=== PATIENT | female | born 1970 | race Caucasian/White ===

== ENCOUNTER 2020-06-28 11:55 | Outpatient (RCR) | payer BC, SELFPAY ==
[2019-05-17 16:54] VITALS: BMI 38.6
== END 2020-07-12 23:59 ==
LOC: EMPH 11:55
PROVIDERS: PCP Family Medicine; Visit Provider Family Medicine Geriatric Medicine
DX: Z11.59 Encounter for screening for other viral diseases (principal)
CPT/HCPCS: 87635; U0003

== ENCOUNTER 2020-08-10 08:48 | Outpatient (RCR) | payer BC, SELFPAY ==
[2019-05-17 16:54] VITALS: BMI 38.6
== END 2020-08-12 23:59 ==
LOC: EMPH 08:48
PROVIDERS: PCP Family Medicine; Visit Provider Family Medicine Geriatric Medicine
DX: Z03.818 Encounter for observation for suspected exposure to other biological agents ruled out (principal)
CPT/HCPCS: 87426

== ENCOUNTER 2020-09-04 09:09 | Outpatient (RCR) | payer BC, SELFPAY ==
[2019-05-17 16:54] VITALS: BMI 38.6
== END 2020-09-11 23:59 ==
LOC: EMPH 09:09
PROVIDERS: PCP Family Medicine; Visit Provider Family Medicine Geriatric Medicine
DX: Z03.818 Encounter for observation for suspected exposure to other biological agents ruled out (principal)
CPT/HCPCS: 87426

== ENCOUNTER 2020-09-28 10:33 | Outpatient (RCR) | payer BC, SELFPAY ==
[2019-05-17 16:54] VITALS: BMI 38.6
[2020-09-28 11:56] LABS: Probe Check PASS; Specimen Processing Control PASS
== END 2020-10-12 23:59 ==
LOC: EMPH 10:33
PROVIDERS: PCP Family Medicine; Referring Provider Family Medicine Geriatric Medicine; Visit Provider Family Medicine Geriatric Medicine
DX: Z03.818 Encounter for observation for suspected exposure to other biological agents ruled out (principal)
CPT/HCPCS: 87426; 87635; U0002

== ENCOUNTER 2021-01-03 09:33 | Outpatient (RCR) | payer BC, SELFPAY ==
[2019-05-17 16:54] VITALS: BMI 38.6
== END 2021-01-10 23:59 ==
LOC: EMPH 09:33
PROVIDERS: PCP Family Medicine; Referring Provider Family Medicine Geriatric Medicine; Visit Provider Family Medicine Geriatric Medicine
DX: Z03.818 Encounter for observation for suspected exposure to other biological agents ruled out (principal)
CPT/HCPCS: 87426

== ENCOUNTER 2021-01-24 11:11 | Outpatient (RCR) | payer BC, SELFPAY ==
[2019-05-17 16:54] VITALS: BMI 38.6
== END 2021-02-09 23:59 ==
LOC: EMPH 11:11
PROVIDERS: PCP Family Medicine; Referring Provider Family Medicine Geriatric Medicine; Visit Provider Family Medicine Geriatric Medicine
DX: Z03.818 Encounter for observation for suspected exposure to other biological agents ruled out (principal)
CPT/HCPCS: 87426

== ENCOUNTER 2021-04-10 11:17 | Outpatient (RCR) | payer BC, SELFPAY ==
[2019-05-17 16:54] VITALS: BMI 38.6
== END 2021-04-11 23:59 ==
LOC: EMPH 11:17
PROVIDERS: PCP Family Medicine; Referring Provider Family Medicine Geriatric Medicine; Visit Provider Family Medicine Geriatric Medicine
DX: Z03.818 Encounter for observation for suspected exposure to other biological agents ruled out (principal)
CPT/HCPCS: 87426

== ENCOUNTER 2021-06-12 12:09 | Outpatient (RCR) | payer BC, SELFPAY ==
[2019-05-17 16:54] VITALS: BMI 38.6
== END 2021-06-12 23:59 ==
LOC: EMPH 12:09
PROVIDERS: PCP Family Medicine; Referring Provider Family Medicine Geriatric Medicine; Visit Provider Family Medicine Geriatric Medicine
DX: Z03.818 Encounter for observation for suspected exposure to other biological agents ruled out (principal)
CPT/HCPCS: 87426

== ENCOUNTER 2021-06-25 09:30 | Outpatient (RCR) | payer BC, SELFPAY ==
[2021-06-13 00:14] VITALS: BMI 38.6
== END 2021-07-12 23:59 ==
LOC: EMPH 09:30
PROVIDERS: PCP Family Medicine; Referring Provider Family Medicine Geriatric Medicine; Visit Provider Family Medicine Geriatric Medicine
DX: Z03.818 Encounter for observation for suspected exposure to other biological agents ruled out (principal)
CPT/HCPCS: 87426

== ENCOUNTER 2021-08-21 08:36 | Outpatient (RCR) | payer BC, SELFPAY ==
[2021-07-13 00:10] VITALS: BMI 38.6
== END 2021-09-11 23:59 ==
LOC: EMPH 08:36
PROVIDERS: PCP Family Medicine; Referring Provider Family Medicine Geriatric Medicine; Visit Provider Family Medicine Geriatric Medicine
DX: Z03.818 Encounter for observation for suspected exposure to other biological agents ruled out (principal)
CPT/HCPCS: 87426

== ENCOUNTER 2021-10-11 10:10 | Outpatient (RCR) | payer BC, SELFPAY ==
[2021-09-12 00:05] VITALS: BMI 38.6
== END 2021-10-12 23:59 ==
LOC: EMPH 10:10
PROVIDERS: PCP Family Medicine; Referring Provider Family Medicine Geriatric Medicine; Visit Provider Family Medicine Geriatric Medicine
DX: Z03.818 Encounter for observation for suspected exposure to other biological agents ruled out (principal)
CPT/HCPCS: 87426; 87635; U0003; U0005

== ENCOUNTER 2021-11-12 09:00 | Outpatient (RCR) | payer BC, SELFPAY ==
[2021-10-13 00:09] VITALS: BMI 38.6
== END 2021-11-12 23:59 ==
LOC: EMPH 09:00
PROVIDERS: PCP Family Medicine; Referring Provider Family Medicine Geriatric Medicine; Visit Provider Family Medicine Geriatric Medicine
DX: Z03.818 Encounter for observation for suspected exposure to other biological agents ruled out (principal)
CPT/HCPCS: 87426

== ENCOUNTER 2021-12-10 09:00 | Outpatient (RCR) | payer BC, SELFPAY ==
[2021-11-13 00:16] VITALS: BMI 38.6
== END 2021-12-10 23:59 ==
LOC: EMPH 09:00
PROVIDERS: PCP Family Medicine; Referring Provider Family Medicine Geriatric Medicine; Visit Provider Family Medicine Geriatric Medicine
DX: Z03.818 Encounter for observation for suspected exposure to other biological agents ruled out (principal)
CPT/HCPCS: 87426

== ENCOUNTER 2024-05-01 17:56 | Emergency (ER) | payer BC, SELFPAY ==
[2024-05-01 17:57] VITALS: BP 181/81; PULSE 106; RESP 18; TEMP 36.6; O2SAT 98; BMI 36.8
--- NOTE | 2024-05-01 18:11 | RAD_ITS ---
INDICATION: pain EXAMINATION/TECHNIQUE: X-RAY - RIGHT XR Knee Complete 4 Views or More 4 VIEWS COMPARISON: No relevant prior comparison study available FINDINGS: SOFT TISSUES: No soft tissue swelling or gas. No radiopaque foreign body. BONES/JOINTS: There is normal alignment, osteophyte formation is present particularly involving the patellofemoral compartment and the medial compartment. There is medial joint space narrowing. No fractures or destructive bony process. There is a trace effusion. RAD/Knee 4 or More Views IMPRESSION: 1. Mild tricompartment degenerative change with osteophyte formation and medial joint space narrowing. 2. No fracture or destructive bony process. 3. Small joint effusion. Electronically Signed: Nima Marie MD at 18:40 EDT ,
--- NOTE | 2024-05-01 18:11 | RAD_ITS ---
INDICATION: pain EXAMINATION/TECHNIQUE: X-RAY - RIGHT XR Ankle Min 3 Views 3 VIEWS COMPARISON: No relevant prior comparison study available FINDINGS: SOFT TISSUES: There is lateral soft tissue swelling. No soft tissue gas. No radiopaque foreign body. BONES/JOINTS: There is a subtle oblique fracture of the distal fibula/lateral malleolus without displacement or angulation. Remaining bony elements and joint spaces have normal appearance of. There is moderate osteophyte formation. Plantar spur is present. RAD/Ankle min 3 Views IMPRESSION: 1. Lateral soft tissue swelling, no soft tissue gas or radiopaque foreign body. 2. Subtle oblique nondisplaced distal fibular/lateral malleolar fracture. 3. No other fractures or acute bony or joint space abnormality. Electronically Signed: Nima Marie MD at 18:42 EDT ,
--- NOTE | 2024-05-01 18:11 | ED.VIS.FALL ---
HPI <ROSCOE Caba - Last Filed: 05/01/24 19:21> HPI - Fall History of Present Illness Chief Complaint: Fall Narrative Narrative: Patient [place] and fell onto her right knee and then twisted her right ankle. No head injury. She was initially able to walk back to her camper but then due to increased pain and swelling was requiring assistance. She cleansed the knee and placed a bandage. She states she is due to have her right knee replaced by Dr. Lay in August due to arthritis. Her tetanus is up-to-date. PFSH <ROSCOE Caba - Last Filed: 05/01/24 19:21> [facility] Medical History (Updated 05/01/24 @ 18:34 by ROSCOE Caba) Knee pain Type 2 diabetes mellitus Home Medications ?Medication ?Instructions ?Recorded ?Last Taken ?Type glucosamine-chondroitin 250 mg-200 2 tab PO QPC 05/17/19 Unknown History mg tablet (Osteo Bi-Flex) hydrocodone-acetaminophen 5-325mg 1 tab PO Q6H PRN pain 3 days #12 05/01/24 Unknown Rx 5mg-325mg tabs Allergy/AdvReac Type Severity Reaction Status Date / Time No Known Allergies Allergy Verified 05/01/24 17:57 Surgical History H/O: hysterectomy Social History (Updated 05/17/19 @ 16:54 by ROSCOE Khoury) Smoking Status: Former smoker ROS <ROSCOE Caba - Last Filed: 05/01/24 19:21> ROS ED ROS Narrative Neuro: Negative for motor/sensory dysfunction. Skin: Positive for abrasions Musc: Positive for right knee and ankle pain, swelling, trauma. EXAM <ROSCOE Caba - Last Filed: 05/01/24 19:21> Physical Exam Narrative Exam Narrative: CONST: Patient sitting in no acute distress. EYES: Normal inspection. HEAD: Normocephalic atraumatic. NECK: Normal inspection. RESP: No respiratory distress, CTAB. CVS: Regular rate and rhythm, no murmur, no gallop. SKIN: 1 cm abrasion left dorsal elbow. 2 cm abrasion right patella. EXTREMITIES: Normal appearance of upper extremities, full ROM, no bony tenderness, 2+ radial pulses. Pelvis stable, lower extremities appear symmetric with no shortening or rotation. Mild tenderness right knee, negative anterior/posterior drawer and varus valgus stress, normal extension. No significant effusion. Right ankle swelling and lateral malleolar tenderness without deformity or crepitus, no tenderness over the foot or base of the fifth metatarsal. 2+ DP pulse. Achilles intact. NEURO: Alert and answering questions appropriately. PSYCH: Normal affect. Const Vital Signs: 05/01/24 17:57 05/01/24 18:28 05/01/24 19:28 Temperature 97.8 F 98.1 F Temperature Source Temporal Pulse Rate 106 H 95 Respiratory Rate 18 16 Respiratory Effort Normal Non-Labored Respiratory Depth Normal Respiratory Pattern Normal Blood Pressure 181/81 H 162/71 H Blood Pressure Mean 114 101 Pulse Ox 98 95 Oxygen Delivery Method Room Air Room Air <Blas Tristan MD - Last Filed: 05/01/24 20:16> Physical Exam Const Vital Signs: 05/01/24 17:57 05/01/24 18:28 05/01/24 19:28 Temperature 97.8 F 98.1 F Temperature Source Temporal Pulse Rate 106 H 95 Respiratory Rate 18 16 Respiratory Effort Normal Non-Labored Respiratory Depth Normal Respiratory Pattern Normal Blood Pressure 181/81 H 162/71 H Blood Pressure Mean 114 101 Pulse Ox 98 95 Oxygen Delivery Method Room Air Room Air [facility] <ROSCOE Caba - Last Filed: 05/01/24 19:21> [facility] Narrative Medical decision making narrative: History gathered from: Patient and spouse Differential: Extremity contusions versus fracture Patient had mechanical fall on gravel injuring her right lower extremity. She has a minor abrasion of the left elbow but no bony tenderness of the arm so I did not feel an x-ray was indicated. She has a right knee abrasion and right lateral ankle swelling and tenderness. Initially she was able to ambulate but is having more pain. Extremities are neurovascular intact. Right knee x-ray is negative; right ankle x-ray shows a nondisplaced distal fibula fracture. She was given crutches, walking boot, and advised to be nonweightbearing and will follow-up with her orthopedist Dr. Lay. I prescribed [place] for pain. She was discharged in stable condition. Radiography Diagnostic Testing: Clinical Impression(s) from Imaging Studies Ankle X-Ray 05/01/24 18:11 IMPRESSION: 1. Lateral soft tissue swelling, no soft tissue gas or radiopaque foreign body. 2. Subtle oblique nondisplaced distal fibular/lateral malleolar fracture. 3. No other fractures or acute bony or joint space abnormality. Electronically Signed: Nima Marie MD at 18:42 EDT , Knee X-Ray 05/01/24 18:11 IMPRESSION: 1. Mild tricompartment degenerative change with osteophyte formation and medial joint space narrowing. 2. No fracture or destructive bony process. 3. Small joint effusion. Electronically Signed: Nima Marie MD at 18:40 EDT , ED attending interpretation of right knee she has no acute fracture or dislocation. ED attending interpretation of right ankle shows nondisplaced distal fibula fracture. <Blas Tristan MD - Last Filed: 05/01/24 20:16> MDM MDM Narrative Medical decision making narrative: History gathered from: Patient and spouse Differential: Extremity contusions versus fracture Patient had mechanical fall on gravel injuring her right lower extremity. She has a minor abrasion of the left elbow but no bony tenderness of the arm so I did not feel an x-ray was indicated. She has a right knee abrasion and right lateral ankle swelling and tenderness. Initially she was able to ambulate but is having more pain. Extremities are neurovascular intact. Right knee x-ray is negative; right ankle x-ray shows a nondisplaced distal fibula fracture. She was given crutches, walking boot, and advised to be nonweightbearing and will follow-up with her orthopedist Dr. Lay. I prescribed [place] for pain. She was discharged in stable condition. Dr. Tristan: I have personally performed a face to face assessment of the patient and have reviewed the NURIA Note. I performed a substantive portion of the visit including all aspects of the following. My tineo findings include: History is mechanical fall on gravel, fell forward onto knee and right ankle twisted. Exam is GCS 15. ABCs intact. Positive abrasion right knee. Flexion extension mechanism intact. Positive swelling with tenderness to palpation right lateral malleolus. Palpable dorsalis pedis pulse. Medical Decision Making: Check x-rays of right knee and right ankle. X-rays of the right knee interpreted by myself independently shows small effusion and arthritic changes. I reviewed the radiology report which confirms my independent interpretation. Additionally, I individually interpreted the right ankle x-rays which shows a nondisplaced Henderson B fracture of the distal fibula. I reviewed the radiology report for this as well which confirms my independent interpretation. Patient is supposed to have right TKA performed by Dr. Lay in August. I feel she can follow-up with orthopedics. She was given crutches and placed in a right boot orthotic and told to be nonweightbearing. She will follow-up with orthopedics within the next week. Disposition is discharged home in stable condition. Other additions or changes: [None] History & Record Review Discussion w/independent historian: Patient Radiography X-Ray: Read by ED Physician and Read by Radiologist Diagnostic Testing: Clinical Impression(s) from Imaging Studies Ankle X-Ray 05/01/24 18:11 IMPRESSION: 1. Lateral soft tissue swelling, no soft tissue gas or radiopaque foreign body. 2. Subtle oblique nondisplaced distal fibular/lateral malleolar fracture. 3. No other fractures or acute bony or joint space abnormality. Electronically Signed: Nima Marie MD at 18:42 EDT , Knee X-Ray 05/01/24 18:11 IMPRESSION: 1. Mild tricompartment degenerative change with osteophyte formation and medial joint space narrowing. 2. No fracture or destructive bony process. 3. Small joint effusion. Electronically Signed: Nima Marie MD at 18:40 EDT , Discharge Plan Triage Chief Complaint: Fall ED Midlevel Provider: Mary Walker ED Provider: Blas Tristan Dx/Rx/DC Orders Clinical Impression: Fall, Abrasion of knee, right, Closed fracture of distal end of right fibula Instructions: ED Ankle Fracture Prescriptions: New hydrocodone-acetaminophen 5-325 mg tablet 1 tab PO Q6H PRN (Reason: pain) 3 Days Qty: 12 0RF No Action glucosamine-chondroitin [Osteo Bi-Flex] 250-200 mg tablet 2 tab PO QPC Primary Care Provider: Escobar Lay Referrals: Escobar Lay MD [Primary Care Provider] - Activity Restrictions/Additional Instructions: Use the crutches and boot and do not put weight on your right leg. Call your orthopedist for a follow-up appointment. Print Language: Swedish Disposition Disposition: Home, Self Care Discharge Date/Time: 05/01/24 19:34
[2024-05-01 19:28] VITALS: BP 162/71; PULSE 95; RESP 16; TEMP 36.7; O2SAT 95
== END 2024-05-01 19:34 | disposition home or self-care (01) ==
LOC: ED 18:43
PROVIDERS: Emergency Provider Emergency Medicine; PCP Family Medicine; Visit Provider Emergency Medicine
DX: S82.831A Other fracture of upper and lower end of right fibula, initial encounter for closed fracture (principal); E11.9 Type 2 diabetes mellitus without complications; Z87.891 Personal history of nicotine dependence; S80.211A Abrasion, right knee, initial encounter; W18.39XA Other fall on same level, initial encounter; Y92.833 Campsite as the place of occurrence of the external cause; Z90.710 Acquired absence of both cervix and uterus
CPT/HCPCS: 73564; 73610; 99284

== ENCOUNTER → 2024-08-16 | Outpatient (CLI) | payer BC, SELFPAY ==
--- NOTE | 2024-08-16 06:51 | CT_ITS ---
STUDY: CT RIGHTLOWER EXTREMITY WITHOUT CONTRAST REASON FOR EXAM: Female, 54 years old. PREOP KAPIL KNEE PAIN IN RIGHT KNEE RADIATION DOSAGE (If Supplied By Facility): CTDIvol = ( 20.06 ) mGy, DLP = ( 1189.97 ) mGycm TECHNIQUE: Thin section transaxial imaging of the ankle was obtained, with sagittal and coronal reconstructed images. Individualized dose optimization techniques were used for this CT. COMPARISON: Right knee x-ray dated May 01, 2024 Hip findings: Normal femoral head, neck, intertrochanteric region and visualized proximal femur. Normal acetabulum. Normal hip joint. Mild right hip joint space narrowing. Normal acetabulum. Normal femoral head. Normal femoral neck and intratrochanteric region. No fracture or avascular necrosis is present. No lytic or blastic lesions are present. Normal superior and inferior pubic rami. Normal pubic symphysis. Normal ischial tuberosity. Normal origin of the hamstring tendons. Normal visualized iliac wing, sacroiliac joint, and sacral ala. Unremarkable soft tissues. Postsurgical scarring and fat-containing hernia with mesh material seen in the lower anterior abdominal wall eccentric to the right. Rectosigmoid diverticulosis is present. No lymphadenopathy is seen in the visualized intrapelvic region. Knee findings: Moderate to severe central and peripheral narrowing of medial compartment with mild subchondral sclerosis and peripheral osteophyte formation. Mild osteophyte formation in the medial aspect of the femoral condyle. Mild joint space narrowing and peripheral cortical osteophyte formation of the lateral compartment. Moderate narrowing of the patellofemoral compartment with secondary osteophyte formation. Small joint effusion is present. Normal proximal tibiofibular articulation. No visualized fracture or osteochondral defect or avascular necrosis. The quadriceps tendon is grossly normal. The patellar tendon is grossly normal. Normal Hoffa''s fat pad. The soft tissues are unremarkable. Ankle findings: * There is a 80% healed oblique fracture deformity of the distal one third fibula terminating at the fibular lateral malleolus junction. * An old corner fracture of the far posterior aspect of the medial malleolus with a small displaced fragment is also present. * The tibiotalar joint space is mildly narrowed * An old avulsive injury is present on the lateral side of the talus with callus formation/enthesopathy * There is mild subcutaneous edema around the ankle and included portions of the foot. * A moderate sized plantar calcaneal spur is present No visualized osteochondral defect or avascular necrosis of the tibiotalar articulation. Normal talus, calcaneal body: navicular and cuboid tarsal bones. Normal subtalar, talonavicular and calcaneocuboid articulations. Cortical spurring is seen over the dorsum of the tarsal bones in the mid foot. Normal tarsometatarsal articulations and visualized metatarsi. The soft tissue structures are grossly normal. CT/Extremity Lower without Contra IMPRESSION: 1. Knee: Moderate to severe central and peripheral narrowing of medial compartment with mild subchondral sclerosis and peripheral osteophyte formation. Mild osteophyte formation in the medial aspect of the femoral condyle. 2. Ankle: There is a 80% healed oblique fracture deformity of the distal one third fibula terminating at the fibular lateral malleolus junction. 3. An old corner fracture of the far posterior aspect of the medial malleolus with a small displaced fragment is also present. Electronically Signed: Sukhdev Escalera MD at 8:56 EST ,
== END | disposition home or self-care (01) ==
PROVIDERS: PCP Nurse Practitioner Family; Referring Provider Specialist; Visit Provider Specialist
DX: M25.561 Pain in right knee (principal); M21.161 Varus deformity, not elsewhere classified, right knee; M17.0 Bilateral primary osteoarthritis of knee
CPT/HCPCS: 73700

== ENCOUNTER 2024-09-06 06:56 | Observation (INO) | payer BC, SELFPAY ==
--- NOTE | 2024-08-16 06:47 | EKG12_ITS ---
Test Reason : PRE OP Blood Pressure : */* mmHG Vent. Rate : 61 BPM Atrial Rate : 61 BPM P-R Int : 176 ms QRS Dur : 90 ms QT Int : 416 ms P-R-T Axes : 1 48 40 degrees QTcB Int : 418 ms Normal sinus rhythm with sinus arrhythmia Normal ECG Confirmed by Jay Jay Carvalho ([id number]), technical writer and editor CONOR CONNER ([id number]) on 08/17/2024 9:23:05 AM Referred By: Jossue Lay Confirmed By: Jay Jay Carvalho
[2024-08-16 07:48] LABS: Absolute Lymphocyte Count 1.83 X10^3/uL (0.83-4.51); Absolute Neutrophil Count 4.2 X10^3/uL (2.0-7.7); Basophil# 0.04 X10^3/uL; Basophil% 0.6 % (0-1); Eosinophil# 0.09 X10^3/uL; Eosinophils% 1.4 % (0-5); Hematocrit 41.6 % (37-47); Hemoglobin 13.6 g/dL (12.0-15.0); Lymphocyte # 1.83 X10^3/ul (0.83-4.51); Lymphocyte % 27.9 % (19-41); Mean Corp Hgb Conc 32.7 g/dL (32-36); Mean Corpuscular Hgb 28.5 pg (27.0-32.0); Mean Corpuscular Volume 87.2 fL (81-99); Mean Platelet Vol. 8.8 fl (6.2-12.0); Monocyte# 0.39 X10^3/uL; Monocyte% 5.9 % (0-10); NRBC Flagged by Analyzer 0 % (0-5); Platelet Count 201 K/mm3 (150-450); RBC Distribution Width CV 12.3 % (11.6-14.6); RBC Distribution Width SD 39.2 fl (35.1-43.9); Red Blood Count 4.77 M/mm3 (4.2-5.4); White Blood Count 6.6 K/mm3 (4.4-11.0)
[2024-08-16 08:23] LABS: Anion Gap 7 (5-15); BUN 20 mg/dL (7-18); BUN/Creat Ratio 40.9 RATIO (10-20); Calcium,Total 9.4 mg/dL (8.5-10.1); Chloride 109 mmol/L (98-107); Creatinine, Serum 0.49 mg/dL (0.55-1.02); EST Glomerular Filtration Rate 139 mL/min (>60); Est Glom Filt Rate - Afr Amer 168 mL/min (>60); Glucose 90 mg/dL (74-106); Potassium 4.5 mmol/L (3.5-5.1); Sodium Level 141 mmol/L (136-145)
[2024-08-16 09:06] LABS: Hemoglobin A1c 5.6 % (3.8-5.6)
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
[2024-09-06] VITALS (12 sets, daily range): BP systolic 98–158; BP diastolic 47–75; PULSE 69–95; RESP 16–18; TEMP 36.5–36.8; O2SAT 92–100; BMI 37.1
[2024-09-06] MEDS: Lactated Ringers 1,000 ML 999 ML IV (06:10)
[2024-09-06] MEDS: Magnesium 1 GM over 15 mins IV (06:15)
[2024-09-06] MEDS: Acetaminophen 500 MG Tablet 1000 MG PO ×3 (06:32→21:23)
[2024-09-06] MEDS: Celecoxib 200 MG Capsule 400 MG PO (06:32)
[2024-09-06] MEDS: Gabapentin 600 MG Tablet PO (06:33)
--- NOTE | 2024-09-06 07:06 | PRE.ANES_ITS ---
ASA Classification* ASA Classification ASA Classification: 2 Assessment & Plan Anesthesia* Anesthesia Assessment Anesthesia Assessment: Discussed sedation and/or anesthesia options, risks, benefits, and alternatives with patient/parents/legal guardian/POA. Questions invited. The patient/parents/legal guardian/POA seems to understand and agrees to proceed with anesthesia plan. Reviewed the physical assessment, medical history, allergy history and patient home medications list prior to surgery/procedure/anesthetic and documented any changes. Performed airway and anesthesia risk assessments. Anesthesia Type Anesthesia Type: Spinal and Block Anesthesia Focused Assessment* Temperature: 97.9 F Pulse Rate: 75 Blood Pressure: 158/75 Respiratory Rate: 18 Pulse Ox: 98 Airway Assessment Mouth opens: >3 cm Mallampati Score: II Focused Labs Anesthesia Preop lab: CBC WBC 6.6 K/mm3 (4.4-11.0) 08/16/24 06:52 RBC 4.77 M/mm3 (4.2-5.4) 08/16/24 06:52 Hgb 13.6 g/dL (12.0-15.0) 08/16/24 06:52 Hct 41.6 % (37-47) 08/16/24 06:52 Plt Count 201 K/mm3 (150-450) 08/16/24 06:52 CHEMISTRY Potassium 4.5 mmol/L (3.5-5.1) 08/16/24 06:52 Sodium 141 mmol/L (136-145) 08/16/24 06:52 Magnesium 2.0 mg/dL (1.6-2.6) 08/16/24 06:52 BUN 20 mg/dL (7-18) H 08/16/24 06:52 Creatinine 0.49 mg/dL (0.55-1.02) L 08/16/24 06:52 Glucose 90 mg/dL (74-106) 08/16/24 06:52 POC Glucose 151 mg/dL (70-110) H 01/19/14 06:39 COAG Urine Test Negative Negative 01/14/14 13:24 Pre-Assessment Diagnosis/Proposed Procedure Planned Operative Procedure(s): (R) ROBOTIC ASSISTED RIGHT TOTAL KNEE ARTHROPLASTY Anesthesia History 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 When Was Last Pacemaker Check QUESTION #4 FULL TEXT: You/Your Family Experience fever (hyperthermia) with Anesthesia Last Oral Intake Last Oral intake: Last Oral Intake NPO since 19:00 09/06/24 06:25 Meds taken in AM with sips of No 09/06/24 06:25 water? Meds patient instructed to take am of surgery PONV PONV - resistor inspector: PONV - resistor inspector Female Yes 08/10/24 10:11 HX of Motion Sickness Yes 08/10/24 10:11 HX of N/V After Surgery No 08/10/24 10:11 Non-Smoker Yes 08/10/24 10:11 Duration of Surgery greater Yes 08/10/24 10:11 than 60 minutes Number of Risk Factors 4 08/10/24 10:11 PONV Score Severe Risk 08/10/24 10:11 Height & Weight Height & Weight: Anesthesia: Height & Weight Height 5 ft 4 in 09/06/24 06:25 Weight: 98.2 kg 09/06/24 06:25 Body Mass Index (BMI) 37.1 09/06/24 06:25 Respiratory Assessment Respiratory Assessment - resistor inspector: Respiratory Tract Infection Hx - resistor inspector Hx Respiratory Tract Infection No 08/10/24 10:11 STOP Sleep Apnea STOP Sleep Apnea - resistor inspector: STOP Sleep Apnea - resistor inspector Hx Hypertension No 08/13/24 00:04 Hx Sleep Apnea Yes 08/13/24 00:04 CPAP No 01/18/14 09:21 BIPAP No 01/14/14 12:55 Do you snore loudly (louder No 08/10/24 10:11 than talking or can be heard Do you often feel tired/ No 08/10/24 10:11 fatigued/ sleepy during daytime? Has anyone observed you stop No 08/10/24 10:11 breathing during sleep? STOP Results Negative 08/10/24 10:11 QUESTION #5 FULL TEXT : Do you snore loudly (louder than talking or can be heard through closed doors)? 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 Specify any problems Hx of Preganancy in last 3 N/A 08/10/24 10:11 Months Nurse Filling Out Transfusion NBUCHER 08/10/24 10:11 & Questions: Date: 08/10/24 08/10/24 10:11 Time: 10:13 08/10/24 10:11 Patient unable to answer at this time (ie. confused, unrespo /Reproduction History /Reproductive History - resistor inspector: /Reproductive Hx- resistor inspector Hx Now No 08/10/24 10:11 Gestational Age (in weeks): EDC: Hx Hx Para Hx Section SAB No 08/10/24 10:11 Active Medications Active Medications: Current Medications Generic Name Dose Route Start Last Admin Trade Name Freq PRN Reason Stop Dose Admin Acetaminophen 1,000 mg 09/06/24 07:30 09/06/24 06:32 Acetaminophen 500 Mg Tablet PO 09/06/24 07:31 1,000 mg X1 ONE Administration Acetaminophen 1,000 mg 09/06/24 14:00 Acetaminophen 500 Mg Tablet PO Q8 VICKI Aspirin 81 mg 09/06/24 10:00 Aspirin 81 Mg Tab.Chew PO BID VICKI Celecoxib 400 mg 09/06/24 07:30 09/06/24 06:32 Celecoxib 200 Mg Capsule PO 09/06/24 07:31 400 mg X1 ONE Administration Sodium Chloride 77.4 ml/ 0 ml 09/06/24 07:30 Ropivacaine 200 mg/ OPERA.SITE 09/06/24 07:31 Epinephrine HCl 0.6 mg/ X1 ONE Ketorolac Tromethamine 30 mg/ Morphine Sulfate 5 mg Dexamethasone Sodium Phosphate 10 mg 09/06/24 07:30 Dexamethasone 10 Mg/Ml Vial IV 09/06/24 07:31 X1 ONE Enteral Nutritional Formula 237 ml 09/06/24 08:00 Ensure Surgery 237 Ml Liquid PO TIDCM VICKI Famotidine 20 mg 09/06/24 10:00 Famotidine 20 Mg Tablet PO DAILY VICKI Gabapentin 600 mg 09/06/24 07:30 09/06/24 06:33 Gabapentin 600 Mg Tablet PO 09/06/24 07:31 600 mg X1 ONE Administration Glimepiride 1 mg 09/06/24 10:00 Glimepiride 1 Mg Tablet PO DAILY VICKI Lactated Ringer's 1,000 mls @ 999 mls/hr 09/06/24 07:30 09/06/24 06:10 IV 09/06/24 08:30 999 mls/hr .Q1H1M VICKI Administration Tranexamic Acid 1,000 mg/ 110 mls @ 660 mls/hr 09/06/24 07:30 Sodium Chloride IV 09/06/24 07:39 X1 ONE Tranexamic Acid 1,000 mg/ 110 mls @ 660 mls/hr 09/06/24 07:30 Sodium Chloride IV 09/06/24 07:39 X1 ONE Lactated Ringer's 1,000 mls @ 999 mls/hr 09/06/24 07:30 IV 09/06/24 08:30 .Q1H1M VICKI Cefazolin Sodium 2 gm/ N/A 20 mls @ 400 mls/hr 09/06/24 07:30 IV 09/06/24 07:32 PREOP ONE Magnesium Sulfate 1 gm/ 102 mls @ 408 mls/hr 09/06/24 07:30 09/06/24 06:15 Dextrose IV 09/06/24 07:44 408 mls/hr X1 ONE Administration Cefazolin Sodium 1 gm in 50 mls @ 150 mls/hr 09/06/24 14:00 IV 09/06/24 22:19 Q8 [facility] Insulin Human Lispro 1 - 6 unit 09/06/24 07:30 Insulin Lispro 100 Unit/Ml Insuln.Pen SC 09/06/24 18:00 Q4H PRN PRN BG>/= 180, SEE PROTOCOL Protocol Ketorolac Tromethamine 15 mg 09/06/24 06:55 Ketorolac 15 Mg/Ml Vial IV 09/08/24 06:57 Q6H PRN PRN Pain Score 1-5 Lisinopril 10 mg 09/06/24 10:00 Lisinopril 10 Mg Tablet PO DAILY [facility] Protocol Meloxicam 7.5 mg 09/08/24 10:00 Meloxicam 7.5 Mg Tablet PO BID [facility] Metformin HCl 1,000 mg 09/06/24 10:00 Metformin (Xr) 500 Mg Tablet PO BID [facility] Morphine Sulfate 2 - 4 mg 09/06/24 06:55 Morphine 2 Mg/Ml Syringe IV Q2H PRN PRN Pain Score 6-10 Non-Formulary Medication 20 mg 09/06/24 22:00 Rosuvastatin PO QHS [facility] Non-Formulary Medication 0.25 mg 09/10/24 06:55 Semaglutide (Weight Loss) SC FR [facility] Ondansetron HCl 4 mg 09/06/24 06:55 Ondansetron 4 Mg/2 Ml Vial IV Q8H PRN PRN NAUSEA Oxycodone HCl 5 - 10 mg 09/06/24 06:55 Oxycodone 5 Mg Tablet PO Q4H PRN PRN Pain Score 4-10 Promethazine HCl 12.5 mg 09/06/24 06:55 Promethazine 25 Mg/Ml Syringe IM Q6H PRN PRN NAUSEA/VOMITING Protocol Senna/Docusate Sodium 2 tablet 09/06/24 10:00 Senna/Docusate Sodium 1 Tablet PO BID [facility] Sodium Chloride 5 - 15 ml 09/06/24 07:30 0.9% Nacl Peripheral Flush Adult/Peds IV UD PRN SALINE FLUSH PFSH Medical History Wears dentures Wears glasses High cholesterol Restless legs Diabetes Former smoker Hypertension History of stress test Knee pain Type 2 diabetes mellitus Home Medications ?Medication ?Instructions ?Recorded ?Last Taken ?Type glimepiride 1 mg tablet 1 mg PO DAILY 08/10/24 09/05/24 13:00 History lisinopril 10 mg tablet 10 mg PO DAILY 08/10/24 09/05/24 13:00 History metformin 500 mg tablet,extended 1,000 mg PO BID 08/10/24 09/04/24 20:00 History release 24 hr rosuvastatin 20 mg tablet 20 mg PO QHS 08/10/24 09/05/24 13:00 History semaglutide (weight loss) 0.5 0.25 mg subcut FR 08/10/24 08/20/24 History mg/0.5 mL subcutaneous pen injector Allergy/AdvReac Type Severity Reaction Status Date / Time No Known Allergies Allergy Verified 09/06/24 06:22 Surgical History History of hernia repair History of carpal tunnel release of both wrists (~1997) H/O: hysterectomy (~2013) Social History Smoking Status: Former smoker Review of Systems (Anesthesia) ROS Narrative System reviewed and no additional complaints, except as documented.
--- NOTE | 2024-09-06 07:30 | KNEE_PTH ---
PATIENT: JOSHUA MAGUIRE LOC: [facility]3 U#:[id number] AGE/SX: 54/F ROOM: MT320 RE09/06/[address]: Dr. Jossue Lay MD : 1970 BED: 1 DIS: 09/07/2024 SPEC #: [id number] RECD: 09/06/24 10:21 STATUS: GENIA GUADALUPE #: [id number] NIDA: 09/06/24 07:[address]: Jossue Lay DEPT: SURGICAL PATHOLOGY RECD BY: Nara Brown ENTERED: 09/06/24 11:24 SP TYPE: TOTAL KNEE OTHR DR: MD Dr. Shane Rogers MD Rebecca Bridenthal, SHARRON-C Tissues: Knee, NOS Procedures: Decalcification bone/plaque Surgery Specimen Level IV HEADER OPERATION: Robotic assisted right total knee arthroplasty PRE-OP DIAGNOSIS: Severe right knee osteoarthritis TISSUE SUBMITTED: Right knee bone and tissue MICROSCOPIC DIAGNOSIS Bone and tissue of right knee, total knee resection: Severe degenerative joint disease. AM: 09/10/2024 MICROSCOPIC DESCRIPTION Slides are reviewed. GROSS DESCRIPTION Received is one container designated bone and soft tissue right knee. The specimen consists of multiple fragments of villaseñor-yellow bone measuring in aggregate 16.0 x 12.0 x 2.0 cm. Also in the specimen container are multiple fragments of yellow-white soft tissue measuring in aggregate 3.0 x 2.0 x 0.5 cm. A number of bony fragments contain articular surfaces consistent with tibial plateau and femoral condyle and displaying prominent osteophyte formation, eburnation and bone erosion. [employer] Maintenance sections are submitted in two cassettes as follows: 1 - soft tissue, 2 - bone after decalcification. / AM.mr 09/06/2024 TC:5 CPT: 41480, 40727
[2024-09-06] MEDS: Cefazolin 2 GM in Syringe IV (07:37)
[2024-09-06] MEDS: Lactated Ringers 1,000 ML 75 ML IV (07:45)
[2024-09-06] MEDS: TXA 1000mg in NS100 100ml (IVPB at Closure) 660 MG IV (07:46)
[2024-09-06] MEDS: dexAMETHasone 10 MG/ML Vial IV (07:50)
[2024-09-06] MEDS: JPS (Morphine 10mg/ml) OPERA.SITE (08:30)
[2024-09-06 08:33] LABS: Bedside Glucose 129 mg/dL (74-106)
[2024-09-06] MEDS: TXA 1000mg in NS100 100ml (IVPB at Incision) 660 MG IV (08:42)
--- NOTE | 2024-09-06 08:45 | PCM.OPRPT ---
Operative Report (Standard) Operative Information Surgery/Procedure Performed: Minimally invasive right robotic assisted total knee replacement Surgeon: Jossue Lay Date of Procedure: 09/06/24 Procedure Start Time: 07:57 Procedure Stop Time: 09:10 Pre-Operative Diagnosis: Right knee primary osteoarthritis Post-Operative Diagnosis: right knee primary osteoarthritis Select all DRAINS/GRAFTS/IMPLANTS that apply: Prosthetic device Prosthetic device details: See body of operative report Type of Anesthesia: Spinal Special Medications: 2 g Ancef, 1 g TXA at incision, 1 g TXA closure, 10 mg Decadron, joint cocktail (5 mg Duramorph, 30 mL of 0.5% Ropivicaine, 1000 units of epinephrine, 30 mg of Toradol) Estimated Blood Loss: 25 Fluids Replaced: 1400 mm crystalloid Specimen collected: Yes Description of specimen(s) removed: Bony cuts Description of surgery: Implants used: 1. Sheridan size 3 triathlon cruciate retaining distal femoral press-fit component 2. Sheridan size 4 press-fit tritanium tibial baseplate 3. Elma X3 9 mm CS polyethylene 4. Elma X3 35 mL asymmetric patella Brief history operative indications: 48-year-old female with history of right knee osteoarthritis with radiographic findings with loss of joint space, osteophyte formation and subchondral sclerosis. Failed conservative measures as mentioned in the H&P. Discussion of total knee arthroplasty as well as risk and benefits were discussed the patient including but not limited to blood loss, DVTs, PEs, neurovascular damage, general risk of anesthesia including loss of life, and stiffness or instability were discussed with patient. Patient demonstrated understanding and was able to sign informed consent. Procedure: On the date of procedure patient's right lower extremity was marked in the preoperative area. The patient was then taken back to the operating room where the patient was placed on the table in the supine position. All bony prominences were identified a well-padded. Anesthesia assumed control of the C-spine and airway and remained controlled throughout the remainder of the procedure. A tourniquet was placed on the right upper thigh and the leg was prepped in a sterile fashion. The surgeon then scrubbed at this time .Upon reentering the room right lower extremity was draped in a standard orthopedic fashion. A timeout was then called and everyone agreed upon the side, the site, the procedure to be performed, patient's identity and antibiotics given. Esmarch bandage was used to exsanguinate the extremity and the tourniquet was placed up to 250 mmHg with the knee in flexion. A midline skin incision was made and sharp dissection was taken down through skin subcutaneous tissue and fat. The standard medial parapatellar incision was made and the patella was subluxed laterally. An Appropriate deep MCL release was done and the fat pad was resected. Our attention was then directed to the patella. The patella was everted and a flat resection was made. The knee was then flexed up in 2 femoral pins were placed inside the incision and 2 tibial pins were placed outside the incision in the medial tibia bicortically. Once this was completed the 2 checkpoints in the femur and tibia were placed. Knee was then flexed up and the bony landmarks were registered. Once this was completed knee was taken through range of motion and manually stressed allowing us to a plan for an appropriate tibial cut. The robotic arm was brought into the field sterilely and checkpoint and saw were registered. Based on the patient's deformity the tibial cut was made in 1 degrees of varus. At this time the tensioner was then placed in the joint and ligament tension was checked at 90 degrees and full extension. Based on the patient's ligamentous tension appropriate adjustments were made to the operative plan and ligament releases were done. Once we were happy with our operative plan with balanced flexion and extension gaps our attention was directed to the femur. The robot was brought into the field sterilely and registered. Posterior condylar cuts, anterior chamfer cuts and anterior cuts were appropriately made for a size 3 femur. When these were completed the saws were switched out in the distal femoral and posterior chamfer cuts were made. Protecting the soft tissue throughout this time. A size 4 tibial base plate was selected. the knee was flexed to 90 degrees and the soft tissues and posterior osteophytes were removed from the joint. 40 cc of the periarticular injection was injected into the posterior medial corner of the joint. The appropriate trials were then placed on the femur and tibia. A trial polyethylene was trialed to ensure proper balancing and stability of the knee. The appropriate tibial internal rotation was then marked with a bovie. Our attention was then directed to the patella. The lug holes were drilled and the patella trial was placed. Patellar tracking was checked and deemed appropriate. Once we were happy lug holes were drilled for the femur and trial components were removed. The tibia was subluxed and pinned into place and the keel was punched and drilled appropriately. Final components were verified and opened. The wound was copiously irrigated with normal saline. When the cement was ready the components were impacted into place starting with the tibia then the femur, finally the patella was compressed into place. The trial poly component was placed and the knee was placed in full extension. Once the the implants were secured, the tracking, alignment and balance were verified and a size 9 mm CS polyethylene component was placed. Once the final components were placed a 3-minute dilute Betadine lavage was performed followed by an Irrisept lavage was performed and the wound was copiously irrigated with normal saline solution and the periarticular injection was given. The wound was closed in a layer elmore fashion using #1 vicryl interrupted sutures for the arthrotomy, 2-0 interrupted Vicryl suture for the subcuticular layer and mary for final skin closure. A sterile compressive dressing was then placed. The patient was then awakened from anesthesia, transferred to the [place] and transferred to the PACU for recovery. Post op plan DVT ppx: ASA 81mg BID, thigh high compression stockings Follow up: in office in 2 weeks for wound check PT: to start POD #0 at hospital, outpatient PT should be arranged. My physician acute care nursing assistant was a vital part of this case, they was important because there was not another skilled set of hands available to their training and aptitude needed for safe and appropriate completion of this case. They were important in appropriate retraction during the case, and protection of soft tissues during bony cuts. In particular the experience and skill of this acute care nursing assistant made for safe retraction and exposure during implantation of medical implants without damage to vital soft tissues or structures. His intimate knowledge of the case and my steps aided in safe and expedient completion of the procedure as well as appropriate position of the leg during the case. He was also vital in assisting with closure under my direct supervision. Due to the complexity of this case robotic arm was used to assist in the surgery to improve accuracy and clinical outcomes. Surgical Findings: Stable knee with good patella tracked Automation Specialist hypercil core transformer assembler: Yes Mortgage Collector: Garrick Arellano Tasks completed by preschool assistant director: Altering tissue and Other (See op report body) Complications Complications: No Admit VTE Documentation VTE Present on Admission: No VTE Mechan Device Prophylaxis: SCD's and Thigh High GROVER Hose VTE Pharm Prophylaxis ordered?: Yes
--- NOTE | 2024-09-06 09:26 | PCM.POST.ANE ---
Anesthesia: Postop Eval I Current Vital Signs Temperature: 98.1 F Pulse Rate: 84 Blood Pressure: 98/47 Respiratory Rate: 18 Pulse Ox: 96 Oxygen Delivery Method: Room Air Assessment Airway patent: Yes Spontaneous unlabored respirations: Yes Mental status: Awake and Calm nausea: No Vomiting: No Anesthesia Complication: No Fluid Hydration Crystalloid volume administer (ml): 1,600 Total IV fluid infused: 1,600 Progress Note Anesthesia document: Postop Eval 1 completed: Yes
--- NOTE | 2024-09-06 09:44 | RAD_ITS ---
HISTORY post op -- AP and Lateral xray of operative knee in PACU. TECHNIQUE: XR Knee 1 or 2 Views. COMPARISON: 05/01/2024. FINDINGS: BONES : No acute fracture identified. No abnormal periprosthetic lucency seen. JOINTS: Right knee arthroplasty in place without dislocation. Joint effusion with air. SOFT TISSUES: Expected postoperative air and edema with overlying skin mary. RAD/Knee 1 or 2 Views IMPRESSION: Satisfactory postoperative alignment of right knee arthroplasty. Electronically Signed: Brenda Sena MD at 9:55 EST ,
--- NOTE | 2024-09-06 10:15 | POSTOPAN2_ITS ---
Anesthesia Postop Eval I Sum Postop Eval Completion status Anesthesia document: Postop Eval 1 completed: Yes Anesthesia Postop Eval I Summary Anesthesia Postop Eval I Summary: Anesthesia Postop Eval I: Assessment Summary Airway patent Yes 09/06/24 09:26 FLIGHT ATTENDANT/INFLIGHT MANAGER.MDOT Spontaneous unlabored Yes 09/06/24 09:26 FLIGHT ATTENDANT/INFLIGHT MANAGER.MDOT respirations Mental status Awake,Calm 09/06/24 09:26 FLIGHT ATTENDANT/INFLIGHT MANAGER.MDOT nausea No 09/06/24 09:26 FLIGHT ATTENDANT/INFLIGHT MANAGER.MDOT Vomiting No 09/06/24 09:26 FLIGHT ATTENDANT/INFLIGHT MANAGER.MDOT Anesthesia Postop Eval I: Fluid Summary Crystalloid volume administer 1,600 09/06/24 09:26 FLIGHT ATTENDANT/INFLIGHT MANAGER.MDOT (ml) Colloids volume administered ( ml) Blood Product volume administered (ml) Total IV fluid infused 1,600 09/06/24 09:26 FLIGHT ATTENDANT/INFLIGHT MANAGER.MDOT Anesthesia Postop Eval I: Summary Notes Anesthesia Complication No 09/06/24 09:26 FLIGHT ATTENDANT/INFLIGHT MANAGER.MDOT Anesthesia Complication Comment: Post-operative progress note Anesthesia: Postop Eval II Evaluation Mental status: Awake Pain Level: 0 nausea: No Vomiting: No
--- NOTE | 2024-09-06 10:15 | PCM.POSTANE2 ---
Anesthesia Postop Eval I Sum Postop Eval Completion status Anesthesia document: Postop Eval 1 completed: Yes Anesthesia Postop Eval I Summary Anesthesia Postop Eval I Summary: Anesthesia Postop Eval I: Assessment Summary Airway patent Yes 09/06/24 09:26 MED DIR.MDOT Spontaneous unlabored Yes 09/06/24 09:26 MED DIR.MDOT respirations Mental status Awake,Calm 09/06/24 09:26 MED DIR.MDOT nausea No 09/06/24 09:26 MED DIR.MDOT Vomiting No 09/06/24 09:26 MED DIR.MDOT Anesthesia Postop Eval I: Fluid Summary Crystalloid volume administer 1,600 09/06/24 09:26 MED DIR.MDOT (ml) Colloids volume administered ( ml) Blood Product volume administered (ml) Total IV fluid infused 1,600 09/06/24 09:26 MED DIR.MDOT Anesthesia Postop Eval I: Summary Notes Anesthesia Complication No 09/06/24 09:26 MED DIR.MDOT Anesthesia Complication Comment: Post-operative progress note Anesthesia: Postop Eval II Evaluation Mental status: Awake Pain Level: 0 nausea: No Vomiting: No
[2024-09-06] MEDS: Lactated Ringers 1,000 ML 125 ML IV (11:40)
[2024-09-06] MEDS: Famotidine 20 MG Tablet PO (11:41)
[2024-09-06] MEDS: Senna/Docusate Sodium 1 Tablet 2 TABLET PO (11:41)
[2024-09-06] MEDS: Aspirin 81 MG TAB.CHEW PO ×2 (11:41→21:23)
--- NOTE | 2024-09-06 15:24 | PCM.PN.HOSP ---
Reason for Visit Reason for Visit: Diagnoses Encounter for other preprocedural examination (09/06/24) Subjective Subjective Patient was seen and examined today at request of orthopedic surgery, she underwent a right knee minimally invasive robotic assisted total knee replacement. Patient's chronic medical problems include type 2 diabetes, hyperlipidemia, hypertension, and osteoarthritis. Patient appears comfortable at this time, she does not complain of any shortness of breath or chest discomfort. Objective Data Objective Data Vital Signs: Vital Signs Temp Pulse Resp BP Pulse Ox O2 Del Method O2 Flow Rate 98 F 77 16 128/67 H 97 Room Air 4 09/06/24 12:34 09/06/24 12:34 09/06/24 12:34 09/06/24 12:34 09/06/24 12:34 09/06/24 12:34 09/06/24 10:11 Oxygen Flow Rate (L/min) 4 Oxygen Delivery Method Room Air Weight: 98.2 kg Body Mass Index (BMI) 37.1 Intake & Output: Intake and Output for Last 24 Hours 09/04/24 09/05/24 09/06/24 23:59 23:59 23:59 Intake Total 1769.5 / 1769.5 Balance 1769.5 / 1769.5 Lab / Micro Data 08/16/24 06:52 08/16/24 06:52 Labs: Laboratory Results - last 24 hr 09/06/24 05:58: POC Glucose 129 H Micro: Microbiology 08/16/24 06:52 Swab (Method) Nasal Screen MRSA/MSSA - Final Radiography Diagnostic Testing: Radiology Impression Knee X-Ray 09/06/24 09:44 IMPRESSION: Satisfactory postoperative alignment of right knee arthroplasty. Electronically Signed: Brenda Sena MD at 9:55 EST , Physical Exam Const alert, oriented x3, no apparent distress and healthy appearing General Appearance: cooperative, well kempt and well developed Orientation / Consciousness: awake, oriented to person, oriented to place and oriented to time HEENT normocephalic, head/scalp atraumatic and moist oral mucous membranes Eyes PERRL, EOMs intact bilaterally and conjunctivae normal Neck supple, no JVD, thyroid normal and no carotid bruits General: trachea midline Resp normal respiratory effort, no retractions, no use of accessory muscles and clear to auscultation bilaterally Auscultation: Negative for rales, rhonchi or wheezes Cardio regular rate, regular rhythm, S1 normal heart sound, S2 normal heart sound, no murmurs, no rub and no gallops GI normal to inspection, nondistended, normoactive bowel sounds, soft to palpation, non-tender and non-distended Extremity no clubbing, cyanosis or edema Neuro oriented x3, CN's II-XII intact bilaterally, moves all extremities, no focal motor deficits and no sensory deficits noted Sensorium / Orientation: awake and alert Speech: speech normal Psych affect normal Assessment & Plan Assessment/Plan (1) Osteoarthritis of right knee: PLAN: Plan 1. Type 2 diabetes-patient's blood sugars will be monitored, sliding scale insulin will be given as needed #2 hypertension-patient will remain on lisinopril #3 hyperlipidemia-patient is on a statin #4 osteoarthritis with minimally invasive right robotic assisted total knee replacement postop day 0-PT and OT will see the patient, orthopedic surgery is participating in her care Total clinical time spent by myself addressing the patient's medical issues, reviewing all of her data, and collaborating with the patient's care team: 25 minutes Charges/Coding Visit Charges Office Visits / Consults: [id number] OV L3 Est 20min
[2024-09-06] MEDS: Cefazolin 1 GM/50 ML BAG IV ×2 (15:45→23:29)
[2024-09-06 17:08] LABS: Bedside Glucose 211 mg/dL (74-106)
[2024-09-06] MEDS: Ketorolac 15 MG/ML Vial IV (17:12)
[2024-09-06 22:04] LABS: Bedside Glucose 151 mg/dL (74-106)
[2024-09-07 01:12] VITALS: BP 110/54; PULSE 62; RESP 18; TEMP 36.6; O2SAT 93
[2024-09-07] MEDS: Ketorolac 15 MG/ML Vial IV (04:02)
[2024-09-07 04:09] VITALS: BP 144/64; PULSE 66; RESP 18; TEMP 36.6; O2SAT 96
[2024-09-07] MEDS: Acetaminophen 500 MG Tablet 1000 MG PO (06:47)
[2024-09-07 07:17] LABS: Hematocrit 36.3 % (37-47); Hemoglobin 11.8 g/dL (12.0-15.0); Mean Corp Hgb Conc 32.5 g/dL (32-36); Mean Corpuscular Hgb 28.6 pg (27.0-32.0); Mean Corpuscular Volume 87.9 fL (81-99); Mean Platelet Vol. 8.8 fl (6.2-12.0); Platelet Count 176 K/mm3 (150-450); RBC Distribution Width CV 12.1 % (11.6-14.6); RBC Distribution Width SD 39.1 fl (35.1-43.9); Red Blood Count 4.13 M/mm3 (4.2-5.4)
[2024-09-07 07:17] LABS: Bedside Glucose 89 mg/dL (74-106)
--- NOTE | 2024-09-07 07:46 | PCM.PN.ORT ---
Subjective Subjective The patient was sitting in bed upon examination. Patient denies any chest pain, shortness of breath, dizziness, lightheadedness, nausea or vomiting, or calf pain. Pain is controlled on medications. No adverse overnight events. Patient overall is doing well this morning. She has been up walking doing well. She has no significant complaints. Plan is to try to go home today as long as she is stable. Objective Data Objective Data Vital Signs: Vital Signs Temp Pulse Resp BP Pulse Ox O2 Del Method O2 Flow Rate 97.9 F 66 18 144/64 H 96 Room Air 4 09/07/24 04:09 09/07/24 04:09 09/07/24 04:09 09/07/24 04:09 09/07/24 04:09 09/07/24 04:09 09/06/24 10:11 Oxygen Flow Rate (L/min) 4 Oxygen Delivery Method Room Air Weight: 98.2 kg Body Mass Index (BMI) 37.1 Intake & Output: Intake and Output for Last 24 Hours 09/05/24 09/06/24 09/07/24 23:59 23:59 23:59 Intake Total 2869.5 / 2869.5 800 / 800 Balance 2869.5 / 2869.5 800 / 800 Lab / Micro Data 09/07/24 06:50 09/07/24 06:50 Labs: Laboratory Results - last 24 hr 09/06/24 05:58: POC Glucose 129 H 09/06/24 16:47: POC Glucose 211 H 09/06/24 21:21: POC Glucose 151 H 09/07/24 06:50: WBC 12.0 H, RBC 4.13 L, Hgb 11.8 L, Hct 36.3 L, MCV 87.9, MCH 28.6, MCHC 32.5, RDW Std Deviation 39.1, RDW Coeff of Pedro 12.1, Plt Count 176, MPV 8.8 09/07/24 06:57: POC Glucose 89 Micro: Microbiology 08/16/24 06:52 Swab (Method) Nasal Screen MRSA/MSSA - Final Radiography Diagnostic Testing: Radiology Impression Knee X-Ray 09/06/24 09:44 IMPRESSION: Satisfactory postoperative alignment of right knee arthroplasty. Electronically Signed: Brenda Sena MD at 9:55 EST , Physical Exam Narrative Vital signs stable and afebrile. SCDs and GROVER hose are in place bilaterally Patient is able to plantarflex and dorsiflex actively. Sensation is intact to light touch to saphenous, sural, superficial and deep peroneal, and tibial distribution. Dressings are clean dry and intact. Negative Homans bilaterally, negative signs and symptoms of DVT. Const alert, oriented x3 and no apparent distress Assessment & Plan Assessment/Plan (1) Status post total right knee replacement: PLAN: 1. S/P robotic assisted right total knee arthroplasty POD #1 2. Continue Pain Medications: Tylenol, meloxicam, oxycodone. Do not take any other nonsteroidal anti-inflammatories while using meloxicam/Mobic. 3. DVT Prophylaxis: Take 81 mg aspirin twice daily for 4 weeks postoperatively for DVT prophylaxis. Patient denies past history of DVT or pulmonary embolism. 4. PT/OT: Weightbearing as tolerated with walker 5. H & H: 11.8/36.3, asymptomatic. Labs have been reviewed and stable 6. Reactive leukocytosis: 12.0, Afebrile. Patient did receive Decadron intraoperatively. No clinical signs of infection. 7. Encouraged Incentive Spirometry 8. Patient is aware of postoperative constipation that can occur from 1-3 days postoperatively. Will continue with senna 2 tablets twice daily until first bowel movement. Patient was advised if not having a bowel movement after day 3 she is to contact orthopedics so appropriate change can be made. Patient voiced understanding. 9. Continue postoperative medical treatment per medicine 10. Disposition: Plan will be for probable discharge home this afternoon as long as patient remains medically stable, pain is adequately controlled, and tolerates physical therapy. She would like her prescriptions E scribed to [facility]. She has outpatient physical therapy established. She will follow-up per postoperative instructions. Upon discharge she will contact our office with any concerns or questions. I did advise her that we are close and Friday due to the holiday. However she will be able to get a hold of our on-call physician if there are any complications. She voiced understanding. [place]AR[place] report was attempted but system is currently down This dictation was created using voice recognition software. Phonetic and/or grammatical errors may exist.
--- NOTE | 2024-09-07 07:49 | PCM.DC ---
Discharge Instructions Diet Discharge Diet: No restrictions DC O2, CPAP, BIPAP needs Additional Home O2 Discharge instructions: No Dressing / Incision Discharge Activity: May Not Drive (No driving for 6 weeks postoperatively. Must also be off all narcotics and able to walk 100 feet without the use of cane or walker.) May shower in (days): 1 (Please turn dressing away from water. Okay to get wet as long as dressing is intact to skin.) Ice area for (Minutes): 20 (Every 1-2 hours while awake[address] Please place barrier between the skin and ice pack.) Weight Bearing Status: Weight bearing as tolerated Keep extremity elevated above heart level: Operative Extremity Dressing / Incision Call your doctor if your incision/area has: Continuous Slow Oozing, Sudden Increased Bleeding, Increased Pain/ Swelling, Increased Redness and Foul Smelling Discharge Call your doctor if you observe: Fever of 101 or Higher, Coldness, Increased Pain, Numbness or Tingling, Change in Color, Shortness of breath, Chest pain, Calf discomfort and Uncontrolled pain Remove Dressing in: 4 days (Okay to remove dressing on September 11, 2024) Additional Dressing/Incision Instructions:: Follow [facility] Post-op Instructions. Once postoperative dressing has been removed only use gentle soap and water over the incision. Do not use any ointments, Neosporin, salves, alcohol pads over the incision for 6 weeks postoperatively. Do not submerge underwater for 6 weeks postoperatively. Continue with GROVER hose/elastic stockings for 2 weeks postoperatively. May remove at nighttime but needs to be placed back on the leg during the day. Do NOT use alcohol with narcotic pain medication. Do NOT make important decisions while taking narcotic medication. If you have problems with taking your medication (rash, itching, nausea, etc.) call the office at once. Follow Up Care Test Results: Test results from this visit will be discussed in further detail at your follow-up appointment, if applicable. Discharge Plan Admission Admit Date/Time: 09/06/24 06:56 Attending Provider: Jossue Lay Primary Care Provider: Carolin Cason Consulting Providers: Adrian Owen; Mansoor Ji Discharge Orders/Prescriptions Prescriptions: New acetaminophen 500 mg Tablet 1,000 mg PO TID 14 Days Qty: 84 0RF Rx Instructions: Do not take more than 3000 mg Tylenol in a 24-hour period. aspirin 81 mg capsule 81 mg PO BID 30 Days Qty: 60 0RF Rx Instructions: Take 81 mg aspirin twice daily for 4 weeks postoperatively for DVT prophylaxis. meloxicam 7.5 mg Tablet 7.5 mg PO BID 30 Days Qty: 60 0RF Rx Instructions: Do not take any other nonsteroidal anti-inflammatories while using meloxicam/Mobic. famotidine 20 mg Tablet 20 mg PO DAILY 30 Days Qty: 30 0RF oxycodone 5 mg Tablet 5 - 10 mg PO Q4H PRN PRN (Reason: as needed for pain) 7 Days Qty: 42 0RF Senna Plus 8.6-50 mg capsule 2 tab-cap PO BID PRN (Reason: constipation) 3 Days Qty: 12 0RF Rx Instructions: Take until first bowel movement, then as needed Continued metformin 500 mg tablet extended release 24 hr 1,000 mg PO BID rosuvastatin 20 mg tablet 20 mg PO QHS glimepiride 1 mg tablet 1 mg PO DAILY lisinopril 10 mg tablet 10 mg PO DAILY semaglutide (weight loss) 0.5 mg/0.5 mL pen injector 0.25 mg subcut FR Other Ambulatory Orders: 12 Lead EKG (Routine) Timeframe: [id number] Location: None Selected Ordered By: Dr. Jossue Lay Referrals / Follow Up: Physical,Therapy [Other] - 09/08/24 10:00 am Escobar Lay MD [Non-Staff] - Linda Longoria PA [Med Staff - [facility] Practice Prof] - 09/20/24 8:30 am Disposition Disposition (needs filled in before D/C Order can be placed): Home, Self Care
[2024-09-07 07:50] LABS: Anion Gap 4 (5-15); BUN 16 mg/dL (7-18); BUN/Creat Ratio 32.1 RATIO (10-20); Calcium,Total 8.8 mg/dL (8.5-10.1); Chloride 111 mmol/L (98-107); EST Glomerular Filtration Rate 136 mL/min (>60); Est Glom Filt Rate - Afr Amer 165 mL/min (>60); Glucose 97 mg/dL (74-106); Potassium 4.1 mmol/L (3.5-5.1); Sodium Level 140 mmol/L (136-145)
[2024-09-07] MEDS: Aspirin 81 MG TAB.CHEW PO (08:20)
[2024-09-07] MEDS: metFORMIN (XR) 500 MG Tablet 1000 MG PO (08:20)
[2024-09-07] MEDS: Glimepiride 1 MG Tablet PO (08:21)
[2024-09-07] MEDS: Senna/Docusate Sodium 1 Tablet 2 TABLET PO (08:21)
[2024-09-07] MEDS: Lisinopril 10 MG Tablet PO (08:21)
[2024-09-07] MEDS: Famotidine 20 MG Tablet PO (08:22)
[2024-09-07 08:33] VITALS: BP 135/56; PULSE 59; RESP 18; TEMP 36.8; O2SAT 98
[2024-09-07 08:36] VITALS: BP 135/56; PULSE 59; RESP 18; TEMP 36.8; O2SAT 98
--- NOTE | 2024-09-07 09:11 | CASEMGMT ---
Addendum entered by Maksim Bolivar 09/07/24 09:39: Pt has 3 biological children. Pt worked w/stairs w/therapy today and feels comfortable doing them @ home. Original Note: RN CM SOCIAL MEDIA COMMUNITY MANAGER CM?to room to meet with patient for initial transition planning/care coordination assessment. RN CM?introduced self and role at [facility]. Pt voices understanding and consents to assessment?at this time. Pt sitting up in chair in room in no distress at this time. Pt is A/O at this time and answers all questions appropriately. Care providers, pharmacy, and demographics verified/updated at this time. Strata:?1 PCP: Carolin Cason Specialists: Jossue Charles Preferred Pharmacy: [facility] Retail Insurance: [place] Prescription Benefit: yes Living Will/HPOA: Pt does not currently have LW/HCPOA and declines info at this time. Pt made aware that she can contact SW as an out-pt and make appt in the future if she decides he would like to talk with someone about this or would like to utilize [facility] social work for advanced directive completion. LNOK: , [place] Living Arrangements: Lives w/ in 4-story home w/7 steps to enter. Bedroom and bathroom are on the 3rd floor. No bathroom on main floor. Has BSC and can do FFSU, if needed. 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 D/T hx ankle fx in April, pt has experience w/doing stairs. Pt independent @ baseline, prior to surgery. Transportation:?Pt and both drive. will take pt to OP therapy/appts in the AM when he gets off of work. DME: States has the following DME: shower chair, grab bars, BSC, functioning glucometer w/supplies. Borrowing FWW from [id number] and can borrow cane and polar care. Pt states no need for further DME at this time. HHC/SNF: No hx of either. Has done OP therapy @ [facility]. Pt plans to do OP therapy again @ dc @ [facility]. 1st therapy appt scheduled for tomorrow 09/08 @ 10 AM. Pt wishes to return home and states has no concerns with going home at time of discharge. CM?to follow for any further discharge planning/needs. Pt voices no further concerns/needs at this time. PLAN: Home w/spousal support, OP therapy @ [facility]. Mack LESLIE RN CM
[2024-09-07 10:55] VITALS: BP 125/58; PULSE 68; RESP 14; TEMP 36.6; O2SAT 97
--- NOTE | 2024-09-07 11:11 | PHA.DC_ITS ---
Pharmacy [facility] Pharmacy Service has performed discharge medication reconciliation and counseling for this patient. 1. ACETAMINOPHEN 1000MG PO Q8 2. ASPIRIN 81MG PO BID X 30 DAYS 3. FAMOTIDINE 20MG PO DAILY 4. MELOXICAM 7.5MG PO BID 5. OXYCODONE 5-10MG PO Q4H PRN PAIN 6. SENNA/DOCUSATE 2T PO BID PRN CONSTIPATION The patient's discharge medication list was reviewed for discrepancies and discrepancies were resolved. The patient was counseled on the following discharge medications and changes in medications for homegoing were reviewed. The Reason for Use, instructions for use, and potential side effects were reviewed for all new medications. The patient's questions regarding all of their medications were answered. The patient was able to verbally demonstrate an understanding of their discharge medications. Patient counseled by manager of pharmacyRaj. Medications at Discharge Home Medications glimepiride 1 mg tablet 1 mg PO DAILY 08/10/24 lisinopril 10 mg tablet 10 mg PO DAILY 08/10/24 metformin 500 mg tablet,extended release 24 hr 1,000 mg PO BID 08/10/24 rosuvastatin 20 mg tablet 20 mg PO QHS 08/10/24 semaglutide (weight loss) 0.5 mg/0.5 mL subcutaneous pen injector 0.25 mg subcut FR 08/10/24 acetaminophen 500 mg tablet 1,000 mg (2 x 500 mg) PO TID 14 days #84 tabs 09/07/24 aspirin 81 mg capsule 81 mg PO BID 30 days #60 caps 09/07/24 famotidine 20 mg tablet 20 mg PO DAILY 30 days #30 tabs 09/07/24 meloxicam 7.5 mg tablet 7.5 mg PO BID 30 days #60 tabs 09/07/24 oxycodone 5 mg tablet 5 - 10 mg (1 - 2 x 5 mg) PO Q4H PRN PRN as needed for pain 7 days #42 tabs 09/07/24 sennosides 8.6 mg-docusate sodium 50 mg capsule (Senna Plus) 2 tab-cap (2 x 8.6- 50 mg) PO BID PRN constipation 3 days #12 caps 09/07/24
== END 2024-09-07 11:39 | disposition home or self-care (01) ==
LOC: SDC 15:35 → MS3 15:35
PROVIDERS: Anesthesiology; Admitting Provider Specialist; PCP Nurse Practitioner Family; Referring Provider Specialist; Visit Provider Specialist
PROC: 0SRC0JZ Replacement of Right Knee Joint with Synthetic Substitute, Open Approach (ICD-10-PCS; CPT 27447; principal; 2024-09-06 07:00)
DX: M17.0 Bilateral primary osteoarthritis of knee (principal); E11.9 Type 2 diabetes mellitus without complications; E78.00 Pure hypercholesterolemia, unspecified; Z87.891 Personal history of nicotine dependence; Z79.84 Long term (current) use of oral hypoglycemic drugs; I10 Essential (primary) hypertension; Z79.899 Other long term (current) drug therapy
CPT/HCPCS: 27447; S2900; 01402; 64447; 36415; 73560; 80048; 82040; 82962; 83036; 83735; 85025; 85027; 87081; 88305; 88311; 93005; 94668; 96361; 96365; 96366; 96375; 96376; 97162; 97166; 97530; 99221; 99252; C1776; J7120; G0378; G0463; J2405; J3475

== ENCOUNTER → 2024-09-08 | Outpatient (CLI) | payer BC, SELFPAY ==
--- NOTE | 2024-09-08 12:37 | VDLE_ITS ---
Reason For Study: RLE Swelling RIGHT GSV is normal. CFV is compressible, spontaneous, phasic, competent and demonstrates normal augmentation. FV is compressible, spontaneous, phasic, competent and demonstrates normal augmentation. POP V is compressible, spontaneous, phasic, competent and demonstrates normal augmentation. T/P Trunk is compressible. PTV is compressible. RT PerV is compressible. Non Vascularized hypoechoic area noted throughout Lt calf muscle fascia. Procedure This is a venous duplex using B-mode, color flow and spectral Doppler. Exam performed in department. The study was technically difficult. A preliminary report was called and/or faxed to [facility]. VL/Venous Duplex US, Unilateral Interpretation Summary Deep veins of the right lower extremity are patent and compressible segmentally . There is no evidence of right lower extremity deep vein thrombosis. Valvular competence reinaldo ears intact within the proximal deep venous system on the right . The right great saphenous vein a ppears patent and compressible segmentally. A non-vascular, hypoechoic area is noted throughout t he right calf muscle- fascia interface. This may represent a hematoma or seroma. Clinical correlation is advised. Ordering Physician: Jossue Lay Referring Physician: Carolin Cason Performed By: Enzo Ariza RVT
== END | disposition home or self-care (01) ==
LOC: CVS 12:35
PROVIDERS: PCP Nurse Practitioner Family; Referring Provider Specialist; Visit Provider Specialist
DX: R22.41 Localized swelling, mass and lump, right lower limb (principal)
CPT/HCPCS: 93971

== ENCOUNTER 2024-11-15 05:56 | Day surgery (SDC) | payer BC, SELFPAY ==
[2024-11-15] VITALS (9 sets, daily range): BP systolic 111–133; BP diastolic 54–66; PULSE 76–88; RESP 16–20; TEMP 36.2–37.2; O2SAT 91–99; BMI 37.8
[2024-11-15] MEDS: 0.9% Normal Saline (1000mL) 1,000 ML 15 ML IV (06:41)
--- NOTE | 2024-11-15 07:08 | PCM.PRE.AN2 ---
ASA Classification* ASA Classification ASA Classification: 2 Assessment & Plan Anesthesia* Anesthesia Assessment Anesthesia Assessment: Discussed sedation and/or anesthesia options, risks, benefits, and alternatives with patient/parents/legal guardian/POA. Questions invited. The patient/parents/legal guardian/POA seems to understand and agrees to proceed with anesthesia plan. Reviewed the physical assessment, medical history, allergy history and patient home medications list prior to surgery/procedure/anesthetic and documented any changes. Performed airway and anesthesia risk assessments. Anesthesia Type Anesthesia Type: General and Block (Adductor canal) Anesthesia Focused Assessment* Temperature: 98.4 F Pulse Rate: 80 Blood Pressure: 133/66 Respiratory Rate: 18 Pulse Ox: 99 Airway Assessment Mouth opens: >3 cm Mallampati Score: II Focused Labs Anesthesia Preop lab: CBC WBC 12.0 K/mm3 (4.4-11.0) H 09/07/24 06:50 09/07/24 RBC 4.13 M/mm3 (4.2-5.4) L 09/07/24 06:50 09/07/24 Hgb 11.8 g/dL (12.0-15.0) L 09/07/24 06:50 09/07/24 Hct 36.3 % (37-47) L 09/07/24 06:50 09/07/24 Plt Count 176 K/mm3 (150-450) 09/07/24 06:50 09/07/24 CHEMISTRY Potassium 4.1 mmol/L (3.5-5.1) 09/07/24 06:50 09/07/24 Sodium 140 mmol/L (136-145) 09/07/24 06:50 09/07/24 Magnesium 2.0 mg/dL (1.6-2.6) 08/16/24 06:52 08/16/24 BUN 16 mg/dL (7-18) 09/07/24 06:50 09/07/24 Creatinine 0.50 mg/dL (0.55-1.02) L 09/07/24 06:50 09/07/24 Glucose 97 mg/dL (74-106) 09/07/24 06:50 09/07/24 POC Glucose 89 mg/dL (74-106) 09/07/24 06:57 09/07/24 COAG Urine Test Negative Negative 01/14/14 13:24 01/14/14 Pre-Assessment Diagnosis/Proposed Procedure Planned Operative Procedure(s): (R) Manipulation Knee,Under Anesthesia Anesthesia History 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 When Was Last Pacemaker Check QUESTION #4 FULL TEXT: You/Your Family Experience fever (hyperthermia) with Anesthesia Last Oral Intake Last Oral intake: Last Oral Intake NPO since 20:00 11/15/24 06:31 Meds taken in AM with sips of No 11/15/24 06:31 water? Meds patient instructed to take am of surgery PONV PONV - programmer developer: PONV - programmer developer Female Yes 11/12/24 14:31 HX of Motion Sickness Yes 11/12/24 14:31 HX of N/V After Surgery No 11/12/24 14:31 Non-Smoker Yes 11/12/24 14:31 Duration of Surgery greater No 11/12/24 14:31 than 60 minutes Number of Risk Factors 3 11/12/24 14:31 PONV Score Moderate Risk 11/12/24 14:31 Height & Weight Height & Weight: Anesthesia: Height & Weight Height 5 ft 4 in 11/15/24 06:31 Weight: 100 kg 11/15/24 06:31 Body Mass Index (BMI) 37.8 11/15/24 06:31 Respiratory Assessment Respiratory Assessment - programmer developer: Respiratory Tract Infection Hx - programmer developer Hx Respiratory Tract Infection No 11/12/24 14:31 STOP Sleep Apnea STOP Sleep Apnea - programmer developer: STOP Sleep Apnea - programmer developer Hx Hypertension Yes: CONTROLLED WITH MED 11/12/24 14:31 Hx Sleep Apnea Yes 11/12/24 14:31 CPAP No 11/12/24 14:31 BIPAP No 11/12/24 14:31 Do you snore loudly (louder than talking or can be heard Do you often feel tired/ fatigued/ sleepy during daytime? Has anyone observed you stop breathing during sleep? STOP Results Positive 11/12/24 14:31 QUESTION #5 FULL TEXT : Do you snore loudly (louder than talking or can be heard through closed doors)? 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 Specify any problems Hx of Preganancy in last 3 No 11/12/24 14:31 Months Nurse Filling Out Transfusion MGRIVANESSA 11/12/24 14:31 & Questions: Date: 11/12/24 11/12/24 14:31 Time: 14:33 11/12/24 14:31 Patient unable to answer at this time (ie. confused, unrespo /Reproduction History /Reproductive History - programmer developer: /Reproductive Hx- programmer developer Hx Now No 11/12/24 14:31 Gestational Age (in weeks): EDC: Hx Hx Para Hx Section SAB No 11/12/24 14:31 Active Medications Active Medications: Current Medications Generic Name Dose Route Start Last Admin Trade Name Freq PRN Reason Stop Dose Admin Sodium Chloride 1,000 mls @ 15 mls/hr 11/15/24 06:15 11/15/24 06:41 IV 11/20/24 19:34 15 mls/hr .Q48H VICKI Administration Protocol PFS Medical History Ambulates with cane Former smoker Wears dentures Wears glasses High cholesterol Restless legs Diabetes Former smoker Hypertension History of stress test Knee pain Type 2 diabetes mellitus Home Medications ?Medication ?Instructions ?Recorded ?Last Taken ?Type glimepiride 1 mg tablet 1 mg PO DAILY 08/10/24 11/14/24 History lisinopril 10 mg tablet 10 mg PO 1300 08/10/24 11/14/24 History metformin 500 mg tablet,extended 2,000 mg PO QHS 08/10/24 11/14/24 History release 24 hr rosuvastatin 20 mg tablet 20 mg PO QHS 08/10/24 11/14/24 History semaglutide (weight loss) 0.5 0.25 mg subcut FR 08/10/24 11/05/24 History mg/0.5 mL subcutaneous pen injector meloxicam 7.5 mg tablet 7.5 mg PO BID 30 days #60 tabs 09/07/24 11/14/24 Rx oxycodone 5 mg tablet 5 - 10 mg (1 - 2 x 5 mg) PO Q4H 09/07/24 Unknown Rx PRN PRN as needed for pain 7 days #42 tabs acetaminophen 500 mg tablet 1,000 mg PO BID 11/12/24 11/14/24 History Allergy/AdvReac Type Severity Reaction Status Date / Time No Known Allergies Allergy Verified 11/15/24 06:30 Surgical History History of right knee joint replacement History of tracheostomy History of hernia repair History of carpal tunnel release of both wrists (~1997) H/O: hysterectomy (~2013) Social History Smoking Status: Former smoker Review of Systems (Anesthesia) ROS Narrative System reviewed and no additional complaints, except as documented.
[2024-11-15] MEDS: Ketorolac 15 MG/ML Vial IV (07:09)
[2024-11-15 07:37] LABS: Bedside Glucose 105 mg/dL (74-106)
--- NOTE | 2024-11-15 07:56 | PCM.POST.ANE ---
Anesthesia: Postop Eval I Current Vital Signs Temperature: 97.1 F Pulse Rate: 88 Blood Pressure: 114/58 Respiratory Rate: 20 Pulse Ox: 95 Assessment Airway patent: Yes Spontaneous unlabored respirations: Yes nausea: No Vomiting: No Anesthesia Complication: No Fluid Hydration Crystalloid volume administer (ml): 200 Total IV fluid infused: 200 Progress Note Anesthesia document: Postop Eval 1 completed: Yes
[2024-11-15] MEDS: HYDROcodone Bitartrate/Apap 5/325 Tablet PO (08:36)
--- NOTE | 2024-11-15 09:19 | POSTOPAN2_ITS ---
Anesthesia Postop Eval I Sum Postop Eval Completion status Anesthesia document: Postop Eval 1 completed: Yes Anesthesia Postop Eval I Summary Anesthesia Postop Eval I Summary: Anesthesia Postop Eval I: Assessment Summary Airway patent Yes 11/15/24 07:56 MANAGEMENT [email or web address] Spontaneous unlabored Yes 11/15/24 07:56 MANAGEMENT [email or web address] respirations Mental status nausea No 11/15/24 07:56 MANAGEMENT [email or web address] Vomiting No 11/15/24 07:56 MANAGEMENT [email or web address] Anesthesia Postop Eval I: Fluid Summary Crystalloid volume administer 200 11/15/24 07:56 MANAGEMENT [email or web address] (ml) Colloids volume administered ( ml) Blood Product volume administered (ml) Total IV fluid infused 200 11/15/24 07:56 MANAGEMENT [email or web address] Anesthesia Postop Eval I: Summary Notes Anesthesia Complication No 11/15/24 07:56 MANAGEMENT [email or web address] Anesthesia Complication Comment: Post-operative progress note Anesthesia: Postop Eval II Evaluation Mental status: Awake Pain Level: 0 nausea: No Vomiting: No
--- NOTE | 2024-11-15 09:19 | PCM.POSTANE2 ---
Anesthesia Postop Eval I Sum Postop Eval Completion status Anesthesia document: Postop Eval 1 completed: Yes Anesthesia Postop Eval I Summary Anesthesia Postop Eval I Summary: Anesthesia Postop Eval I: Assessment Summary Airway patent Yes 11/15/24 07:56 PERSONAL INJURY [email or web address] Spontaneous unlabored Yes 11/15/24 07:56 PERSONAL INJURY [email or web address] respirations Mental status nausea No 11/15/24 07:56 PERSONAL INJURY [email or web address] Vomiting No 11/15/24 07:56 PERSONAL INJURY [email or web address] Anesthesia Postop Eval I: Fluid Summary Crystalloid volume administer 200 11/15/24 07:56 PERSONAL INJURY [email or web address] (ml) Colloids volume administered ( ml) Blood Product volume administered (ml) Total IV fluid infused 200 11/15/24 07:56 PERSONAL INJURY [email or web address] Anesthesia Postop Eval I: Summary Notes Anesthesia Complication No 11/15/24 07:56 PERSONAL INJURY [email or web address] Anesthesia Complication Comment: Post-operative progress note Anesthesia: Postop Eval II Evaluation Mental status: Awake Pain Level: 0 nausea: No Vomiting: No
--- NOTE | 2024-11-15 09:19 | PCM.OPRPT ---
Operative Report (Standard) Operative Information Date of Procedure: 11/15/24 Pre-Operative Diagnosis: Right knee arthrofibrosis Post-Operative Diagnosis: Right knee arthrofibrosis Surgery/Procedure Performed: Manipulation under anesthesia right knee groundman/lineman: No Type of Anesthesia: General RN Documented Start/Stop Times: Operation Date: 11/15/24 07:30 Case Time Into Pre-Op 11/15/24 06:12 Anesthesia Start 11/15/24 07:30 Into Room 11/15/24 07:30 Out of Pre-Op 11/15/24 07:30 Procedure Start 11/15/24 07:31 Procedure End 11/15/24 07:38 Anesthesia End 11/15/24 07:45 Out of Room 11/15/24 07:45 Into Recovery 11/15/24 07:46 Out of Recovery 11/15/24 08:19 Into Phase II Recovery 11/15/24 08:21 Out of Phase II 11/15/24 09:11 Procedure Start Time: 07:31 Procedure Stop Time: 07:38 Select all DRAINS/GRAFTS/IMPLANTS that apply: None Estimated Blood Loss: 0 Fluids Replaced: Crystalloid Specimen collected: No Description of surgery: Procedure: On the date of procedure patient's R lower extremity is marked in the preoperative area. They were brought back to the operating room where they were left on her gurney. Anesthesia was administered and anesthesia assumed control her C-spine airway and remaining control throughout the main procedure. Once patient was comfortably asleep the preoperative range of motion was measured at 105?. Gentle pressure was placed on the knee with the hip in flexion scar tissue was broken up and the knee was flexed 125?. Patient tolerated the procedure well was awakened by anesthesia and transferred back to recovery. Postoperative plan: Patient will proceed with physical therapy this afternoon. They wilL start a prednisone Dosepak tomorrow. They will have physical therapy every day for 2 weeks and follow-up in 2 weeks. Montelukast will be written for 3 months. Surgical Findings: 125 degrees terminal flexion Complications Complications: No Admit VTE Documentation VTE Present on Admission: No VTE Mechan Device Prophylaxis: SCD's VTE Pharm Prophylaxis ordered?: Yes
== END 2024-11-15 09:11 | disposition home or self-care (01) ==
LOC: SDC 05:56 → AC 05:58
PROVIDERS: PCP Nurse Practitioner Family; Referring Provider Specialist; Visit Provider Specialist
PROC: (CPT 27570; principal; 2024-11-15 07:25)
DX: T84.82XA Fibrosis due to internal orthopedic prosthetic devices, implants and grafts, initial encounter (principal); E11.9 Type 2 diabetes mellitus without complications; M24.661 Ankylosis, right knee; I10 Essential (primary) hypertension; M21.161 Varus deformity, not elsewhere classified, right knee; E66.9 Obesity, unspecified; Z79.84 Long term (current) use of oral hypoglycemic drugs; Z86.16 Personal history of COVID-19; Z79.899 Other long term (current) drug therapy; Z87.891 Personal history of nicotine dependence; Z96.651 Presence of right artificial knee joint; X58.XXXA Exposure to other specified factors, initial encounter; Z68.36 Body mass index [BMI] 36.0-36.9, adult
CPT/HCPCS: 27570; 64450; 01380; 82962; J2405

== ENCOUNTER → 2025-01-14 | Outpatient (CLI) | payer BC, SELFPAY ==
[2025-01-14 09:24] LABS: Erythrocyte Sedimentation Rate 9 mm/hr (0-30)
[2025-01-14 09:26] LABS: Absolute Lymphocyte Count 1.48 X10^3/uL (0.83-4.51); Absolute Neutrophil Count 6.4 X10^3/uL (2.0-7.7); Basophil# 0.04 X10^3/uL; Basophil% 0.5 % (0-1); Eosinophil# 0.09 X10^3/uL; Hematocrit 37.8 % (37-47); Hemoglobin 11.9 g/dL (12.0-15.0); Lymphocyte # 1.48 X10^3/ul (0.83-4.51); Lymphocyte % 17.2 % (19-41); Mean Corp Hgb Conc 31.5 g/dL (32-36); Mean Corpuscular Volume 85.9 fL (81-99); Mean Platelet Vol. 8.3 fl (6.2-12.0); Monocyte# 0.57 X10^3/uL; Monocyte% 6.6 % (0-10); NRBC Flagged by Analyzer 0 % (0-5); Neutrophil % 74.4 % (47-70); Platelet Count 235 K/mm3 (150-450); RBC Distribution Width CV 13.5 % (11.6-14.6); RBC Distribution Width SD 42.7 fl (35.1-43.9); White Blood Count 8.6 K/mm3 (4.4-11.0)
== END | disposition home or self-care (01) ==
LOC: LAB 08:34
PROVIDERS: PCP Nurse Practitioner Family; Referring Provider Physician Assistant Surgical; Visit Provider Physician Assistant Surgical
DX: Z96.651 Presence of right artificial knee joint (principal); T84.82XD Fibrosis due to internal orthopedic prosthetic devices, implants and grafts, subsequent encounter; T84.84XD Pain due to internal orthopedic prosthetic devices, implants and grafts, subsequent encounter
CPT/HCPCS: 36415; 85025; 85652; 86140

== ENCOUNTER 2025-03-21 16:10 | Inpatient (IN) | payer BC, SELFPAY ==
--- NOTE | 2025-03-11 08:48 | PAT.ANE_ITS ---
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 When Was Last Pacemaker Check QUESTION #4 FULL TEXT: You/Your Family Experience fever (hyperthermia) with Anesthesia Last Oral Intake Last Oral intake: Last Oral Intake NPO since Meds taken in AM with sips of water? Meds patient instructed to take am of surgery PONV PONV - line service technician: PONV - line service technician Female Yes 03/11/25 08:29 HX of Motion Sickness Yes 03/11/25 08:29 HX of N/V After Surgery No 03/11/25 08:29 Non-Smoker Yes 03/11/25 08:29 Duration of Surgery greater Yes 03/11/25 08:29 than 60 minutes Number of Risk Factors 4 03/11/25 08:29 PONV Score Severe Risk 03/11/25 08:29 Height & Weight Height & Weight: Anesthesia: Height & Weight Height 5 ft 4 in 11/15/24 06:31 Respiratory Assessment Respiratory Assessment - line service technician: Respiratory Tract Infection Hx - line service technician Hx Respiratory Tract Infection No 03/11/25 08:29 STOP Sleep Apnea STOP Sleep Apnea - line service technician: STOP Sleep Apnea - line service technician Hx Hypertension Yes: CONTROLLED WITH MED 03/11/25 08:29 Hx Sleep Apnea Yes 03/11/25 08:29 CPAP No 03/11/25 08:29 BIPAP No 03/11/25 08:29 Do you snore loudly (louder than talking or can be heard Do you often feel tired/ fatigued/ sleepy during daytime? Has anyone observed you stop breathing during sleep? STOP Results Positive 03/11/25 08:29 QUESTION #5 FULL TEXT : Do you snore loudly (louder than talking or can be heard through closed doors)? 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 Specify any problems Hx of Preganancy in last 3 No 03/11/25 08:29 Months Nurse Filling Out Transfusion VCHRISTIN 03/11/25 08:29 & Questions: Date: 03/11/25 03/11/25 08:29 Time: 08:31 03/11/25 08:29 Patient unable to answer at this time (ie. confused, unrespo /Reproduction History /Reproductive History - line service technician: /Reproductive Hx- line service technician Hx Now No 03/11/25 08:29 Gestational Age (in weeks): EDC: Hx Hx Para Hx Section SAB No 03/11/25 08:29 [facility] Medical History Ambulates with cane Former smoker Wears dentures Wears glasses High cholesterol Restless legs Diabetes Former smoker Hypertension History of stress test Knee pain Type 2 diabetes mellitus Home Medications ?Medication ?Instructions ?Recorded ?Last Taken ?Type lisinopril 10 mg tablet 10 mg PO 1300 bp 08/10/24 History metformin 500 mg tablet,extended 2,000 mg PO QHS DIABE YUNIER 08/10/24 11/14/24 History release 24 hr rosuvastatin 20 mg tablet 20 mg PO QHS cholesterol 11/14/24 History meloxicam 7.5 mg tablet 7.5 mg PO BID PAIN 30 days # 60 tabs 09/07/24 11/14/24 Rx acetaminophen 325 mg capsule 650 mg PO Q4H PRN pain Unknown History ferrous sulfate 325 mg (65 mg 325 mg PO DAILY SUPPLEME NT 03/11/25 Unknown Hi story iron) tablet (Feosol) folic acid 1 mg tablet 1 mg PO DAILY SUPPLEMENT Unknown History glimepiride 4 mg tablet 6 mg PO DAILY DIABETES 03/11 Unknown History Allergy/AdvReac Type Severity Reaction Status Date / Time No Known Allergies Allergy Verified 03/11/25 08:21 Surgical History (Updated 03/11/25 @ 08:28 by Briseida Hernández) Hx of surgical procedure History of right knee joint replacement History of tracheostomy History of hernia repair History of carpal tunnel release of both wrists (~1997) H/O: hysterectomy (~2013) Social History Smoking Status: Former smoker Audit: Pertinent Findings Pertinent Findings EKG Perinent findings: 08/16/2024. Normal sinus rhythm with sinus arrhythmia. Recommendation Anesthesia Recommendation Anesthesia recommendation: OPTIMIZED for anesthesia
[2025-03-21] VITALS (13 sets, daily range): BP systolic 114–148; BP diastolic 59–81; PULSE 77–93; RESP 11–18; TEMP 36.3–36.6; O2SAT 87–99; BMI 37.5; BMI 37.4
--- NOTE | 2025-03-21 11:48 | PRE.ANES_ITS ---
ASA Classification* ASA Classification ASA Classification: 2 Assessment & Plan Anesthesia* Anesthesia Assessment Anesthesia Assessment: Discussed sedation and/or anesthesia options, risks, benefits, and alternatives with patient/parents/legal guardian/POA. Questions invited. The patient/parents/legal guardian/POA seems to understand and agrees to proceed with anesthesia plan. Reviewed the physical assessment, medical history, allergy history and patient home medications list prior to surgery/procedure/anesthetic and documented any changes. Performed airway and anesthesia risk assessments. Anesthesia Type Anesthesia Type: Spinal and Block Anesthesia Focused Assessment* Airway Assessment Mouth opens: >3 cm Mallampati Score: II Labs Anesthesia Preop lab: CBC WBC 8.6 K/mm3 (4.4-11.0) 01/14/25 08:46 01/14/25 RBC 4.40 M/mm3 (4.2-5.4) 01/14/25 08:46 01/14/25 Hgb 11.9 g/dL (12.0-15.0) L 01/14/25 08:46 5 Hct 37.8 % (37-47) 01/14/25 08:46 01/14/25 Plt Count 235 K/mm3 (150-450) 01/14/25 08:46 01/14/25 CHEMISTRY Potassium 4.1 mmol/L (3.5-5.1) 09/07/24 06:50 09/07/24 Sodium 140 mmol/L (136-145) 09/07/24 06:50 09/07/24 Magnesium 2.0 mg/dL (1.6-2.6) 08/16/24 06:52 08/16/24 BUN 16 mg/dL (7-18) 09/07/24 06:50 09/07/24 Creatinine 0.50 mg/dL (0.55-1.02) L 09/07/24 06:50 Glucose 97 mg/dL (74-106) 09/07/24 06:50 09/07/24 POC Glucose 105 mg/dL (74-106) 11/15/24 06:39 11/15/24 COAG Urine Test Negative Negative 01/14/14 13:24 04/04/14 Pre-Assessment Diagnosis/Proposed Procedure Planned Operative Procedure(s): (R) REMOVAL RIGHT TOTAL KNEE WITH PLACEMENT OF ANTIBIOTIC SPACER Anesthesia History 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 When Was Last Pacemaker Check QUESTION #4 FULL TEXT: You/Your Family Experience fever (hyperthermia) with Anesthesia Last Oral Intake Last Oral intake: Last Oral Intake NPO since Meds taken in AM with sips of water? Meds patient instructed to take am of surgery PONV PONV - home lending officer: PONV - home lending officer Female Yes 03/11/25 08:29 HX of Motion Sickness Yes 03/11/25 08:29 HX of N/V After Surgery No 03/11/25 08:29 Non-Smoker Yes 03/11/25 08:29 Duration of Surgery greater Yes 03/11/25 08:29 than 60 minutes Number of Risk Factors 4 03/11/25 08:29 PONV Score Severe Risk 03/11/25 08:29 Height & Weight Height & Weight: Anesthesia: Height & Weight Height 5 ft 4 in 11/15/24 06:31 Respiratory Assessment Respiratory Assessment - home lending officer: Respiratory Tract Infection Hx - home lending officer Hx Respiratory Tract Infection No 03/11/25 08:29 STOP Sleep Apnea STOP Sleep Apnea - home lending officer: STOP Sleep Apnea - home lending officer Hx Hypertension Yes: CONTROLLED WITH MED 03/11/25 08:29 Hx Sleep Apnea Yes 03/11/25 08:29 CPAP No 03/11/25 08:29 BIPAP No 03/11/25 08:29 Do you snore loudly (louder than talking or can be heard Do you often feel tired/ fatigued/ sleepy during daytime? Has anyone observed you stop breathing during sleep? STOP Results Positive 03/11/25 08:29 QUESTION #5 FULL TEXT : Do you snore loudly (louder than talking or can be heard through closed doors)? 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 Specify any problems Hx of Preganancy in last 3 No 03/11/25 08:29 Months Nurse Filling Out Transfusion VCHRISTIN 03/11/25 08:29 & Questions: Date: 03/11/25 03/11/25 08:29 Time: 08:03/11/25 08:29 Patient unable to answer at this time (ie. confused, unrespo /Reproduction History /Reproductive History - home lending officer: /Reproductive Hx- home lending officer Hx Now No 03/11/25 08:29 Gestational Age (in weeks): EDC: Hx Hx Para Hx Section SAB No 03/11/25 08:29 Active Medications Active Medications: Current Medications Generic Name Dose Route Start Last Admin Trade Name Helen PRN Reason Stop Dose Admin Acetaminophen 1,000 mg 03/21/25 13:30 Acetaminophen 500 Mg Tablet PO 03/21/25 13:31 PREOP ONE Dexamethasone Sodium Phosphate 10 mg 03/21/25 13:30 Dexamethasone 10 Mg/Ml Vial IV 03/21/25 13:31 INTRAOP ONE Gabapentin 600 mg 03/21/25 13:30 Gabapentin 600 Mg Tablet PO 03/21/25 13:31 PREOP ONE Cefazolin Sodium 2 gm/ Sodium 110 mls @ 150 mls/hr 03/21/25 13:30 Chloride IV 03/21/25 14:13 INTRAOP ONE Tranexamic Acid 1,000 mg/ 110 mls @ 660 mls/hr 03/21/25 13:30 Sodium Chloride IV 03/21/25 13:39 INTRAOP ONE Tranexamic Acid 1,000 mg/ 110 mls @ 660 mls/hr 03/21/25 13:30 Sodium Chloride IV 03/21/25 13:39 INTRAOP ONE Lactated Ringer's 1,000 mls @ 125 mls/hr 03/21/25 13:30 IV 03/21/25 21:29 .Q8H VICKI Vancomycin HCl 1,500 mg/ 530 mls @ 250 mls/hr 03/21/25 13:30 Sodium Chloride IV 03/21/25 15:37 INTRAOP ONE Lactated Ringer's 1,000 mls @ 15 mls/hr 03/21/25 11:45 IV .Q48H VICKI Insulin Human Lispro 1 - 6 unit 03/21/25 13:30 Insulin Lispro 100 Unit/Ml Insuln.Pen SC Q4H PRN PRN BG>/= 180, SEE PROTOCOL Protocol PFSH Medical History Ambulates with cane Former smoker Wears dentures Wears glasses High cholesterol Restless legs Diabetes Former smoker Hypertension History of stress test Knee pain Type 2 diabetes mellitus Home Medications ?Medication ?Instructions ?Recorded ?Last Taken ?Type lisinopril 10 mg tablet 10 mg PO 1300 bp 08/10/24 History metformin 500 mg tablet,extended 2,000 mg PO QHS DIABE YUNIER 08/10/24 11/14/24 History release 24 hr rosuvastatin 20 mg tablet 20 mg PO QHS cholesterol 11/14/24 History meloxicam 7.5 mg tablet 7.5 mg PO BID PAIN 30 days # 60 tabs 09/07/24 11/14/24 Rx acetaminophen 325 mg capsule 650 mg PO Q4H PRN pain Unknown History ferrous sulfate 325 mg (65 mg 325 mg PO DAILY SUPPLEME NT 03/11/25 Unknown History iron) tablet (Feosol) folic acid 1 mg tablet 1 mg PO DAILY SUPPLEMENT Unknown History glimepiride 4 mg tablet 6 mg PO DAILY DIABETES 03/11 Unknown History Allergy/AdvReac Type Severity Reaction Status Date / Time No Known Allergies Allergy Verified 03/11/25 08:21 Surgical History Hx of surgical procedure History of right knee joint replacement History of tracheostomy History of hernia repair History of carpal tunnel release of both wrists (~1997) H/O: hysterectomy (~2013) Social History Smoking Status: Former smoker Review of Systems (Anesthesia) ROS Narrative System reviewed and no additional complaints, except as documented.
[2025-03-21] MEDS: Lactated Ringers 1,000 ML 15 ML IV (12:15)
[2025-03-21] MEDS: Vancomycin HCl 1,500 MG in 0.9% Normal Saline (500mL Bag) 500 ML 250 MG IV ×2 (12:16→20:03)
[2025-03-21] MEDS: Acetaminophen 500 MG Tablet 1000 MG PO ×2 (12:16→20:03)
[2025-03-21] MEDS: Gabapentin 600 MG Tablet PO (12:16)
[2025-03-21 12:45] LABS: Bedside Glucose 125 mg/dL (74-106)
[2025-03-21 13:06] LABS: Magnesium 1.7 mg/dL (1.5-2.2)
[2025-03-21] MEDS: Magnesium 2 GM for ERAS IV (13:22)
[2025-03-21] MEDS: TXA 1000mg in NS100 100ml (IVPB at Closure) 660 MG IV (13:33)
[2025-03-21] MEDS: Cefazolin 2 GM in 0.9% Normal Saline (100mL Bag) 100 ML IV (13:52)
[2025-03-21] MEDS: dexAMETHasone 10 MG/ML Vial IV (14:01)
[2025-03-21] MEDS: TXA 1000mg in NS100 100ml (IVPB at Incision) 660 MG IV (14:11)
[2025-03-21] MEDS: Vancomycin IV 1,000 MG/20 ML Vial 6000 MG OPERA.SITE (14:50)
[2025-03-21] MEDS: Cefazolin 1 GM/5 ML Vial 2 GM OPERA.SITE (14:51)
--- NOTE | 2025-03-21 16:17 | PCM.OPRPT ---
Operative Report (Standard) Operative Information Date of Procedure: 03/21/25 Pre-Operative Diagnosis: Right knee periprosthetic joint infection, bacillus bacteria Post-Operative Diagnosis: Right knee periprosthetic joint infection, bacillus bacteria Surgery/Procedure Performed: Right knee removal of total knee replacement, revision to articulating antibiotic spacer. solar sales representative and assessor: Yes Finance Executive: Zena Holman Tasks completed by behavioral health assistant: Other (See body of operative report) Additional assistant accounting manager?: Yes Additional Automotive Specialty Technician #2: Heidi Hernandez Tasks completed by assistant accounting manager #2: Opening, Retracting and Other (Positioning) Additional assistant accounting manager?: No Type of Anesthesia: Spinal RN Documented Start/Stop Times: Operation Date: 03/21/25 13:30 Case Time Into Pre-Op 03/21/25 11:40 Anesthesia Start 03/21/25 13:52 Into Room 03/21/25 13:52 Out of Pre-Op 03/21/25 13:52 Procedure Start 03/21/25 14:20 Procedure End 03/21/25 16:38 Procedure Start Time: 14:20 Procedure Stop Time: 16:38 Select all DRAINS/GRAFTS/IMPLANTS that apply: Prosthetic device Prosthetic device details: Handley triathlon cruciate retaining cemented right size 3 distal femur, Handley all poly tibia size 3, 11 mm CS Special Medications: Vancomycin, Ancef Estimated Blood Loss: 250 mL Fluids Replaced: 1000 mL crystalloid Specimen collected: Yes Description of specimen(s) removed: 3 separate specimens were sent to microbiology Description of surgery: Brief history operative indications: 54-year-old F with 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 Patient presented to my care with stiff swollen knee. We obtain medical clearance at that point. Based on her history and meeting appropriate cirteria for PJI I did recommend a two-stage revision. After discussion of risks and benefits including reinfection, continued infection, blood loss, DVTs, PEs, nervous damage, fractures with explantion infection, continued and super infection, wound healing complication and the risk of anesthesia including loss of life patient was able to proceed and signed an informed consent. Procedure: On the date of procedure patient's R lower extremity was marked in the preoperative area. The patient was then taken back to the operating room where the patient was placed on the table in the supine position. All bony prominences were identified a well-padded. Anesthesia assumed control of the C-spine and airway and remained controlled throughout the remainder of the procedure. A tourniquet was placed on the R upper thigh and the leg was prepped in a sterile fashion. The surgeon then scrubbed at this time. Upon reentering the room R lower extremity was draped in a standard orthopedic fashion. A timeout was then called and everyone agreed upon the side, the site, the procedure to be performed, patient's identity and antibiotics given. The leg was elevated for period of time and the tourniquet was placed up to 250 mmHg with the knee in flexion. A midline skin incision was made using the previous incision and extending it proximally and distally to identify normal tissue planes. Medial and lateral flaps were developed appropriate releases. The standard medial parapatellar arthrotomy was made and the patella was subluxed laterally. At this time an aggressive synovectomy was performed re-creating the medial gutter first, then the suprapatellar pouch than the lateral gutter. Once this was completed the knee was flexed up an osteotome was used to remove the tibial polyethylene. The remainder of the synovium was debrided. The standard deep MCL release was done and the patella scar pad was resected and lateral releases were performed. Next our attention was directed to the femur. Flexible osteotomes and TPS saw were used to systematically break up the bone cement/implant interface. Once we had adequately disrupted this interface bone tamp was used to remove the implant. This was done with minimal bone loss on the implant however there was significant areas of bone loss especially in the posterior lateral femoral condyle.. At this time attention was now directed towards the proximal tibia. Flexible osteotomes and TPS saw were used to systematically break up the bone cement/implant interface. Once we had adequately disrupted this interface bone tamp was used to remove the implant. This was done with minimal bone loss. Attention was directed then towards the patella where the patella implant was removed using osteotomes and TPS saw. After this was completed we carefully debrided any synovial membrane from the distal femur as well as proximal tibia. Using a bur and curettes to remove any of this. Once we are happy with this we then flexed the knee at 90 degrees and made a cut neutral to the tibial axis on the tibia to clean up the tibia. We then debrided the remainder of the posterior knee. Tourniquet was let down hemostasis was obtained. Tourniquet was placed back up as we then trialed. We trialed a size 3 femur which showed an adequate fit as well as a 11 mm tibia. After we are happy with our trial implants the wound was copiously irrigated out with 6 L of normal saline under low-pressure lavage while two antibiotic cement dowels were created on the back table. Femoral and tibial antibiotic cement dowels were then placed in the canals after irrigating out the knee. At this time the cement was mixed with the tibia and the tibia was connected to the cement dowel for a stem. The knee was flexed exposing the tibia and the tibia was cemented into place with cement mixing in a portion of the antibiotics. Once this was set we then mixed our cement and mixing for the femur to be carefully exposed the femur and try to pack cement into the bone defect. We then placed cement on the end of the femur and cemented the femur into place. Knee was placed in extension. Excess cement was removed from both the femur and the tibia. The cement was allowed to cure with the knee in extension. Once the final components were placed a dilute Betadine solution was used to irrigate out the wound for 3 minutes followed by chlorhexidine solution finally the wound was copiously irrigated with normal saline solution. A Hemovac drain was placed superior laterally. The wound was closed in a layer elmore fashion using #1 vicryl interrupted sutures for the arthrotomy centrally with strata fix running proximally and distally, 2-0 interrupted Vicryl for the subcuticular layer and nylon sutures for final skin closure. A sterile compressive dressing was then placed. The patient was then awakened from anesthesia, transferred to the [facility] and transferred to the PACU for recovery. Post op plan DVT ppx: 81 mg aspirin p.o. twice daily, thigh high compression stockings Follow up: in office in 2 weeks for wound check PT: to start POD #0 at hospital. Patient will be 50% weightbearing for 2 weeks followed by full weightbearing. At 2 weeks she will also start range of motion exercises. Currently she will be in a knee immobilizer with no flexion of the knee as the wound begins to heal. Infection: Infectious diseases consulted for antibiotic management. My physician assistant accounting manager was a vital part of this case. He was important in appropriate retraction during the case, and protection of soft tissues during bony cuts. His intimate knowledge of the case and my steps aided in safe and expedient completion of the procedure as well as appropriate position of the leg during the case. He was also vital in assisting with closure under my direct supervision. Surgical Findings: Areas of purulence behind the femoral and tibial implant were appreciated. Gross synovitis. Complications Complications: No Admit VTE Documentation VTE Present on Admission: No VTE Mechan Device Prophylaxis: SCD's and Thigh High GROVER Hose VTE Pharm Prophylaxis ordered?: Yes
--- NOTE | 2025-03-21 17:00 | RAD_ITS ---
PROCEDURE: KNEE 1 OR 2 VIEWS 03/21/2025 REASON FOR EXAM: TKA TECHNIQUE: 2 view(s) of the right knee COMPARISON: Right knee radiographs 09/06/2024. FINDINGS: Bones: Status post total right knee arthroplasty. No aggressive osseous lesions. Joints: Total knee arthroplasty in satisfactory alignment. Effusion: Moderate-sized effusion, compatible with postoperative status. Soft tissues: Vascular calcifications. RAD/Knee 1 or 2 Views IMPRESSION: Status post total right knee arthroplasty. Reading Location: [id number]
--- NOTE | 2025-03-21 18:07 | PCM.POST.ANE ---
Anesthesia: Postop Eval I Current Vital Signs Temperature: 97.3 F Pulse Rate: 89 Blood Pressure: 141/66 Respiratory Rate: 16 Pulse Ox: 98 Oxygen Delivery Method: Nasal Cannula Oxygen Flow Rate (L/min): 4 Assessment Airway patent: Yes Spontaneous unlabored respirations: Yes Mental status: Awake nausea: No Vomiting: No Anesthesia Complication: No Fluid Hydration Crystalloid volume administer (ml): 500 Total IV fluid infused: 500 Progress Note Anesthesia document: Postop Eval 1 completed: Yes
--- NOTE | 2025-03-21 18:09 | PCM.POSTANE2 ---
Anesthesia Postop Eval I Sum Postop Eval Completion status Anesthesia document: Postop Eval 1 completed: Yes Anesthesia Postop Eval I Summary Anesthesia Postop Eval I Summary: Anesthesia Postop Eval I: Assessment Summary Airway patent Yes 03/21/25 18:07 Spontaneous unlabored Yes 03/21/25 18:07 respirations Mental status Awake 03/21/25 18:07 nausea No 03/21/25 18:07 Vomiting No 03/21/25 18:07 Anesthesia Postop Eval I: Fluid Summary Crystalloid volume administer 500 03/21/25 18:07 (ml) Colloids volume administered ( ml) Blood Product volume administered (ml) Total IV fluid infused 500 03/21/25 18:07 Anesthesia Postop Eval I: Summary Notes Anesthesia Complication No 03/21/25 18:07 Anesthesia Complication Comment: Post-operative progress note Anesthesia: Postop Eval II Evaluation Mental status: Awake Pain Level: 0 nausea: No Vomiting: No
--- NOTE | 2025-03-21 18:11 | PCM.CONS.GEN ---
Assessment & Plan Assessment/Plan (1) Infection of prosthetic right knee joint: PLAN: Plan Patient is a 54-year-old female who presented [facility] on 03/21/2025 for planned revision procedure of right knee periprosthetic joint infection. Medicine consulted postoperatively for medical management. 1. Right knee periprosthetic joint infection ? Orthopedic surgery primary. Infectious disease consulted. S/p right knee removal of total knee replacement and revision to articulating antibiotic spacer with Dr. Lay on 03/21. Tolerated procedure well, no intraoperative complications. Pain control and further management per orthopedics. Given IV vancomycin and tobramycin during procedure, appreciate ID recs for antibiotic management moving forward. 2. Hypertension, hyperlipidemia ? Mildly hypertensive postoperatively. Okay to resume home lisinopril. Continue home statin. 3. Type 2 diabetes mellitus ? Hold home metformin and glimepiride. Will treat with sliding scale insulin with meals while inpatient, adjust as needed. 4. Class II obesity ? BMI 37 on admit. Complicates hospital course, care and prognosis. 5. Mild iron deficiency anemia ? Baseline hemoglobin around 11-12. Follow-up a.m. CBC. Continue home iron supplement. DVT prophylaxis: Baby aspirin twice daily per orthopedics Total clinical time spent by myself addressing the patient's medical issues, reviewing all the data, and collaborating with patient's care team: 35 minutes. HPI Consult Data Date of Consult: 03/21/25 HPI Narrative Reason for Consultation: Postoperative medical management HPI Narrative: JOSHUA MAGUIRE, is a 54 F who presented to [facility] on 03/21/2025 for planned revision procedure of right knee periprosthetic joint infection. Medicine consulted postoperatively for medical management. Patient had right knee removal of total knee replacement and revision to articulating antibiotic spacer done with Dr. Lay this afternoon. Tolerated procedure well, no intraoperative complications noted. I saw the patient at bedside earlier this evening, present. Patient was still mildly sedated from anesthesia but was otherwise sitting back comfortably in bed, answering questions appropriately and in no acute distress. She reported very mild right knee pain currently. She otherwise denied any acute concerns at this time. [facility] Medical History Ambulates with cane Former smoker Wears dentures Wears glasses High cholesterol Restless legs Diabetes Former smoker Hypertension History of stress test Knee pain Type 2 diabetes mellitus Home Medications ?Medication ?Instructions ?Recorded ?Last Taken ?Type lisinopril 10 mg tablet 10 mg PO 1300 bp 08/10/24 03/20/25 History metformin 500 mg tablet,extended 2,000 mg PO QHS DIABETES 08/10/24 03/20/25 History release 24 hr rosuvastatin 20 mg tablet 20 mg PO QHS cholesterol 08/10/24 03/20/25 History meloxicam 7.5 mg tablet 7.5 mg PO BID PAIN 30 days #60 tabs 09/07/24 03/20/25 Rx acetaminophen 325 mg capsule 650 mg PO Q4H PRN pain 03/11/25 03/20/25 History ferrous sulfate 325 mg (65 mg 325 mg PO DAILY SUPPLEMENT 03/11/25 03/20/25 History iron) tablet (Feosol) folic acid 1 mg tablet 1 mg PO DAILY SUPPLEMENT 03/11/25 03/20/25 History glimepiride 4 mg tablet 6 mg PO DAILY DIABETES 03/11/25 03/20/25 History Allergy/AdvReac Type Severity Reaction Status Date / Time No Known Allergies Allergy Verified 03/21/25 12:03 Surgical History Hx of surgical procedure History of right knee joint replacement History of tracheostomy History of hernia repair History of carpal tunnel release of both wrists (~1997) H/O: hysterectomy (~2013) Social History Smoking Status: Former smoker ROS Constitutional Constitutional: Denies chills, fatigue, fever(s) or weakness Eyes Eyes: Denies change in vision Cardiovascular Cardiovascular: Denies chest pain Respiratory/Chest Respiratory/Chest: Denies shortness of breath at rest Gastrointestinal Gastrointestinal: Denies abdominal pain Musculoskeletal Musculoskeletal: Reports joint pain; Denies arthralgias or myalgias Neurologic Neurologic: Denies dizziness, focal weakness or headache(s) Physical Exam Const alert, oriented x3 and no apparent distress Constitutional Narrative: Middle-aged female, class II obesity, mildly sedated from anesthesia but otherwise sitting back comfortably in bed, conversing normally, in no acute distress. General Appearance: cooperative and comfortable HEENT normocephalic, head/scalp atraumatic, hearing grossly normal bilaterally, nasal mucous membranes and turbinates normal and moist oral mucous membranes Eyes PERRL, EOMs intact bilaterally and conjunctivae normal Neck full ROM Chest inspection of chest normal Resp normal respiratory effort, normal air movement, no use of accessory muscles and clear to auscultation bilaterally Cardio regular rate, regular rhythm, no murmurs and peripheral pulses 2+ throughout GI normal to inspection, nondistended, normoactive bowel sounds, soft to palpation, non-tender and non-distended Back/Spine normal ROM Extremity Extremity Narrative: Right knee with bandage and ice pack in place. Skin no rashes or lesions noted Neuro Sensorium / Orientation: awake and alert Speech: speech normal Psych mental status grossly normal Lab / Micro Data Labs: Laboratory Results - last 24 hr 03/21/25 12:22: POC Glucose 125 H 03/21/25 12:35: Magnesium 1.7 Imaging Radiology Impression Knee X-Ray 03/21/25 17:00 IMPRESSION: Status post total right knee arthroplasty. Reading Location: [id number] Charges/Coding Visit Charges Inpatient E&M: 18682 Subs Hosp L2
[2025-03-21] MEDS: Morphine 2 MG/ML Syringe IV (19:42)
[2025-03-21] MEDS: Ondansetron 4 MG/2 ML Vial IV (19:42)
[2025-03-21] MEDS: oxyCODONE 5 MG Tablet PO (23:13)
[2025-03-21] MEDS: Senna/Docusate Sodium 1 Tablet 2 TABLET PO (23:13)
[2025-03-21] MEDS: Aspirin 81 MG TAB.CHEW PO (23:14)
[2025-03-21] MEDS: proMETHazine 25 MG Tablet 12.5 MG PO (23:14)
[2025-03-21] MEDS: Atorvastatin Calcium 40 MG Tablet PO (23:14)
[2025-03-22 00:35] LABS: Bedside Glucose 341 mg/dL (74-106)
[2025-03-22 04:33] VITALS: BP 123/58; PULSE 81; RESP 18; TEMP 36.6; O2SAT 98
[2025-03-22] MEDS: Acetaminophen 500 MG Tablet 1000 MG PO ×3 (04:39→20:46)
[2025-03-22] MEDS: oxyCODONE 5 MG Tablet PO ×4 (06:26→20:46)
[2025-03-22] MEDS: Insulin Lispro 100 UNIT/ML INSULN.PEN SC ×4 (06:26→16:44)
[2025-03-22 07:17] LABS: Hematocrit 30.7 % (37-47); Hemoglobin 9.8 g/dL (12.0-15.0); Mean Corp Hgb Conc 31.9 g/dL (32-36); Mean Corpuscular Hgb 27.1 pg (27.0-32.0); Mean Platelet Vol. 8.5 fl (6.2-12.0); Platelet Count 261 K/mm3 (150-450); Red Blood Count 3.61 M/mm3 (4.2-5.4); White Blood Count 12.4 K/mm3 (4.4-11.0)
[2025-03-22 07:21] VITALS: O2SAT 97
[2025-03-22 07:21] LABS: Bedside Glucose 279 mg/dL (74-106)
[2025-03-22 07:43] LABS: Anion Gap 11 (5-15); BUN 13 mg/dL (4-19); BUN/Creat Ratio 27.2 RATIO (10-20); Calcium,Total 9.1 mg/dL (7.6-11.0); Carbon Dioxide 25.3 mmol/L (21.0-32.0); Chloride 100 mmol/L (98-108); Creatinine, Serum 0.47 mg/dL (0.70-1.20); EST Glomerular Filtration Rate 111 (>60); Estimated Creatinine Clearance 164.19 ml/min (50-250); Glucose 267 mg/dL (70-99); Potassium 5.1 mmol/L (3.3-5.1); Sodium Level 136 mmol/L (133-145)
[2025-03-22 08:30] VITALS: BP 128/64; PULSE 74; RESP 18; TEMP 36.9; O2SAT 97
--- NOTE | 2025-03-22 08:37 | PCM.PN.ORT ---
Subjective Subjective Patient is lying comfortably in bed. Patient states at this point she is doing okay. Patient states that she did have a little bit of nausea yesterday but that has resolved. Patient states that she has not yet worked with physical therapy due to getting up to the floor after 5. Patient states that her pain is controlled at this point. Patient denies any nausea, vomiting, lightheadedness today. Patient denies any fevers, chills, signs of infection. Patient denies any shortness of breath, chest pain, calf pain. Patient denies any adverse events overnight. Objective Data Objective Data Vital Signs: Vital Signs Temp Pulse Resp BP Pulse Ox O2 Del Method O2 Flow Rate 97.9 F 81 18 123/58 H 97 Nasal Cannula 2 03/22/25 04:33 03/22/25 04:33 03/22/25 04:33 03/22/25 04:33 03/22/25 07:21 03/22/25 07:21 03/22/25 07:21 Oxygen Flow Rate (L/min) 2 Oxygen Delivery Method Nasal Cannula Weight: 105.6 kg Body Mass Index (BMI) 37.4 Intake & Output: Intake and Output for Last 24 Hours 03/20/25 03/21/25 03/22/25 23:59 23:59 23:59 Intake Total 2160 / 2760 600 / 600 Output Total 250 / 1250 1450 / 1450 Balance 1910 / 1510 -850 / -850 Lab / Micro Data 03/22/25 06:40 03/22/25 06:40 Labs: Laboratory Results - last 24 hr 03/21/25 12:22: POC Glucose 125 H 03/21/25 12:35: Magnesium 1.7 03/21/25 23:12: POC Glucose 341 H 03/22/25 06:25: POC Glucose 279 H 03/22/25 06:40: WBC 12.4 H, RBC 3.61 L, Hgb 9.8 L, Hct 30.7 L, MCV 85.0, MCH 27.1, MCHC 31.9 L, RDW Std Deviation 40.0, RDW Coeff of Pedro 13.0, Plt Count 261, MPV 8.5, Sodium 136, Potassium 5.1, Chloride 100, Carbon Dioxide 25.3, Anion Gap 11, BUN 13, Creatinine 0.47 L, Estim Creat Clear Calc 164.19, Est GFR (MDRD) Non-Af 111, BUN/Creatinine Ratio 27.2 H, Glucose 267 H, Calcium 9.1 Radiography Diagnostic Testing: Radiology Impression Knee X-Ray 03/21/25 17:00 IMPRESSION: Status post total right knee arthroplasty. Reading Location: [id number] Physical Exam Narrative GROVER hose in place bilaterally SCDs in place bilaterally Dressing is clean dry and intact. Dorsiflexion plantarflexion performed actively without pain or restriction Sensation intact to light touch. Neurovascularly intact overall Negative Homans bilaterally Const alert, oriented x3 and no apparent distress Assessment & Plan Assessment/Plan (1) Infection of prosthetic right knee joint: PLAN: Status post revision right total knee arthroplasty day 1 1. DVT prophylaxis: Patient will be on aspirin 81 mg twice daily for 4 weeks postoperatively. Patient will be wearing GROVER hose for 2 weeks postoperatively. Patient was educated can remove GROVER hose at night for comfort. 2. Pain medications: Patient was instructed to take Tylenol 1000 mg every 8 hours [id number] taking no more than 3000 mg in 24 hours. Patient will be on meloxicam for 30 days postoperatively. Patient will also be taking oxycodone as needed for pain control. OARRS report was reviewed today. Risk of abuse potential was discussed and reviewed. Patient was advised not to drive motor vehicle or operate heavy equipment while taking narcotic pain medication. Patient voiced understanding. 3. Constipation: Patient was instructed to take senna as instructed until first bowel movement to decrease risk of impaction following surgery. Patient was educated if she has not had a bowel movement in 3 days to call our office for reevaluation. 4. Physical therapy: Patient will be working with physical therapy being 50% weightbearing with a walker for the first 2 weeks and then will progress to full weightbearing. Patient is to stay in the knee immobilizer at all times with no flexion of the right knee. Patient will begin range of motion exercises after 2-week follow-up appointment. 5. H&H: 9.8/30.7. Vitals are stable and patient is currently asymptomatic. Patient is already being treated with ferrous sulfate and folic acid. Appreciate recommendations from medicine. 6. Reactive leukocytosis: White blood cell count is currently 12.4. Patient did receive intraoperative Decadron. Vitals are stable and afebrile. 7. Patient's preoperative culture showed bacillus bacteria but do have consult to infectious disease to help manage postoperative medications and antibiotic regimen. 8. Incentive spirometer: Patient was encouraged to use incentive spirometer every hour that she is awake for the first week to exercise lung and decrease risk postoperative lung infection. 9. Patient is to follow-up per postoperative instructions. 10. Appreciate recommendations from medicine for further treatment and management of patient. 11. Appreciate recommendations from case management for safe and proper discharge of patient. 12. Patient will have a follow-up appointment in 2 weeks with our office. 13. Wound nurse has been talked to and at this time there is no current drainage on the dressing so we will hold off on Prevena incisional wound VAC. 14. Microbiology has not yet been resulted and is still pending. Will continue to watch for results. Will keep patient until cultures are resulted. 15. Disposition: Due to pending cultures at this point we will plan to keep patient until cultures are resulted and until infectious disease consult. Patient was educated at this time she will be 50% weightbearing with her walker for 2 weeks and wearing her knee immobilizer at all times with no range of motion until 2 weeks. Patient has not yet worked with physical therapy at this point. Patient is still planning on going home following hospital stay. Patient does have follow-up scheduled at our office in 2 weeks. Patient was encouraged to call with any questions, concerns, new problems.
[2025-03-22] MEDS: 0.9% Saline Lock 10 ML Syringe IV ×2 (08:47→11:15)
[2025-03-22] MEDS: Ketorolac 15 MG/ML Vial IV (08:47)
[2025-03-22] MEDS: Folic Acid 1 MG Tablet PO (08:48)
[2025-03-22] MEDS: Aspirin 81 MG TAB.CHEW PO ×2 (08:49→22:56)
[2025-03-22] MEDS: Senna/Docusate Sodium 1 Tablet 2 TABLET PO ×2 (08:52→22:56)
[2025-03-22] MEDS: Famotidine 20 MG Tablet PO (08:52)
--- NOTE | 2025-03-22 09:44 | PCM.CONS.GEN ---
Assessment & Plan Assessment/Plan (1) Infection of prosthetic right knee joint: PLAN: Taken to OR 03/21/[address] Lay for I&D and spacer placement. Outpt aspiration with Bacillus cereus. Surg cx pending. Will cont iv vanc. Will order picc and plan on 6 weeks iv vanc, stop date 05/02/25 with weekly labs. ID followup in 2 weeks. Will follow, thank you, d/w director case and nursing. HPI Consult Data Date of Consult: 03/22/25 HPI Narrative Reason for Consultation: PJI HPI Narrative: JOSHUA MAGUIRE, is a 54 F who had R knee replacement 08/[address] Lay. Had manipulation done 11/2024. Developed progressive pain, swelling, not feeling well. Aspiration done, showed infection and (+) Bacillus cereus. Abx were held. Taken to OR 03/21/[address] Lay for spacer placement. No fever or chills. Pain controlled. Given vanc/cefazolin charlie-op. Full ROS performed and neg except as noted above. [facility] Medical History Ambulates with cane Former smoker Wears dentures Wears glasses High cholesterol Restless legs Diabetes Former smoker Hypertension History of stress test Knee pain Type 2 diabetes mellitus Home Medications ?Medication ?Instructions ?Recorded ?Last Taken ?Type lisinopril 10 mg tablet 10 mg PO 1300 bp 08/10/24 03/20/25 History metformin 500 mg tablet,extended 2,000 mg PO QHS DIABETES 08/10/24 03/20/25 History release 24 hr rosuvastatin 20 mg tablet 20 mg PO QHS cholesterol 08/10/24 03/20/25 History meloxicam 7.5 mg tablet 7.5 mg PO BID PAIN 30 days #60 tabs 09/07/24 03/20/25 Rx acetaminophen 325 mg capsule 650 mg PO Q4H PRN pain 03/11/25 03/20/25 History ferrous sulfate 325 mg (65 mg 325 mg PO DAILY SUPPLEMENT 03/11/25 03/20/25 History iron) tablet (Feosol) folic acid 1 mg tablet 1 mg PO DAILY SUPPLEMENT 03/11/25 03/20/25 History glimepiride 4 mg tablet 6 mg PO DAILY DIABETES 03/11/25 03/20/25 History Allergy/AdvReac Type Severity Reaction Status Date / Time No Known Allergies Allergy Verified 03/21/25 12:03 Surgical History Hx of surgical procedure History of right knee joint replacement History of tracheostomy History of hernia repair History of carpal tunnel release of both wrists (~1997) H/O: hysterectomy (~2013) Social History Smoking Status: Former smoker Physical Exam Const alert, oriented x3 and no apparent distress General Appearance: cooperative HEENT normocephalic and head/scalp atraumatic Eyes PERRL and EOMs intact bilaterally Neck supple and No nodes Resp normal air movement and clear to auscultation bilaterally Cardio regular rate and regular rhythm GI soft to palpation, non-tender and non-distended Extremity General Extremity: Negative for edema Skin Skin Narrative: RLE wrapped Neuro CN's II-XII intact bilaterally Lab / Micro Data Attestation: I reviewed the patient's lab results. 03/22/25 06:40 03/22/25 06:40 Labs: Laboratory Results - last 24 hr 03/21/25 12:22: POC Glucose 125 H 03/21/25 12:35: Magnesium 1.7 03/21/25 23:12: POC Glucose 341 H 03/22/25 06:25: POC Glucose 279 H 03/22/25 06:40: WBC 12.4 H, RBC 3.61 L, Hgb 9.8 L, Hct 30.7 L, MCV 85.0, MCH 27.1, MCHC 31.9 L, RDW Std Deviation 40.0, RDW Coeff of Pedro 13.0, Plt Count 261, MPV 8.5, Sodium 136, Potassium 5.1, Chloride 100, Carbon Dioxide 25.3, Anion Gap 11, BUN 13, Creatinine 0.47 L, Estim Creat Clear Calc 164.19, Est GFR (MDRD) Non-Af 111, BUN/Creatinine Ratio 27.2 H, Glucose 267 H, Calcium 9.1 Imaging Radiology Impression Knee X-Ray 03/21/25 17:00 IMPRESSION: Status post total right knee arthroplasty. Reading Location: [facility]
--- NOTE | 2025-03-22 09:55 | PCM.RX.CS ---
Consult Antibiotic Management Pharmacy has been consulted to manage selected antibiotic: Vancomycin Type of Intervention Type of Consult: New start Suspected Infection Suspected Infection: Other (Infection of prosthetic knee joint) Labs Labs: Sodium 136 mmol/L (133-145) 03/22/25 06:40 Potassium 5.1 mmol/L (3.3-5.1) 03/22/25 06:40 Chloride 100 mmol/L (98-108) 03/22/25 06:40 Carbon Dioxide 25.3 mmol/L (21.0-32.0) 03/22/25 06:40 Anion Gap 11 (5-15) 03/22/25 06:40 BUN 13 mg/dL (4-19) 03/22/25 06:40 Creatinine 0.47 mg/dL (0.70-1.20) L 03/22/25 06:40 Est GFR (MDRD) Non-Af 111 (>60) 03/22/25 06:40 BUN/Creatinine Ratio 27.2 RATIO (10-20) H 03/22/25 06:40 Glucose 267 mg/dL (70-99) H 03/22/25 06:40 Estimated Creatinine Clearance Estimated Creatinine Clearance: > 100 Goal Trough Goal Trough: 15-20 mcg/mL Pharmacy Plan for Drug Dosing Pharmacy Plan for Drug Dosing: NEW START IV VANCOMYCIN Consulting Physician: Dr. Barrios Indication: Infection of prosthetic knee joint Goal Trough: 15-20 SrCr: 0.47 CrCl: > 100 ml/min Comments: Received 2 x 1500mg doses yesterday (1500 12:16 03/21/25 and 1500mg 20:03 03/21/25) Vancomycin Dose: 1250mg Q8H to start @ 10:30 03/22/25 Pending Level: Vancomycin trough @ 10:00 03/23/25 Pharmacy Service will continue to monitor and adjust dosing as required. Follow-Up Labs Follow-Up Labs: Trough: Vancomycin (03/23/25 @ 10:00)
--- NOTE | 2025-03-22 10:05 | CASEMGMT ---
Discharge Planning A list of?HH providers including quality and resource use data and consistent with the patient's preferred geographic region, medical needs, and insurance network was created in [employer] Guide.? This list was provided to the RN JANETH. Syl Hobson, Discharge Planning Asst.
[2025-03-22] MEDS: Vancomycin HCl 1,250 MG in 0.9% Normal Saline (250mL Bag) 250 ML 167 MG IV ×2 (11:14→18:15)
--- NOTE | 2025-03-22 11:25 | CASEMGMT ---
Addendum entered by Azra Randall 03/22/25 12:54: RA FOWLER into pt room, pt states she has spoken with her and she prefers [facility] Rehab unit for a few weeks. Updated SW. Original Note: RA FOWLER Assessment: Face to Face with pt for initial transition planning/care coordination assessment. RA FOWLER introduced self and role at [facility], pt voices understanding and consents to assessment. Pt is A&O x4 and answers all questions appropriately at this time. Pt sitting up in chair in no distress. Care providers, pharmacy, and demographics verified/updated. Admitting Dx: Removal R total knee with placement of antibiotic Strata Score: 1 PCP:[facility] Specialists:Rosanne, [place] Preferred Pharmacy: [facility] Retail Insurance: [place] Prescription Benefit: yes LNOK: Diego Nicholson, Living Arrangements: Pt lives with in a two story home with 7-8 steps to enter with bilat rails. Pt then has 17 steps to go upstairs. Pt has been sleeping on the main level in recliner but has to go upstairs for the bathroom. Pt reports prior to surgery, she was I in ADL/IADLs. Pt to assist at home. Transportation: Pt drives self and denies concerns with transportation. Pt will transport pt until she can drive again. DME:[employer]SC, cane, walker, [facility] HHC/SNF: Denies hx of Pt states she just had therapy and did well with 50% wt bearing. RA FOWLER received IV atb rx from ID. Discussed with pt options of IV atb at home with HHC and the need for therapy at home if this is the case vs home with teaching by infusion company nurse, outpt therapy and weekly picc dressing change and labs at the hospital. Pt called her and placed on speakerphone and discussed. Pt and to review options. willing to learn IV atb. Pt became tearful during conversation as she states that this is all overwhelming. Pt aware to take her time to discuss with and RA FOWLER will check back. Pt states she was also told that she can go to TCU or Rehab. Pt states no further concerns/needs. CM to follow. Advised pt to ask CM if any further questions/concerns/needs arise, voices understanding. Pt Goal: TBD Plan: TBShanique Torres RN, CM
[2025-03-22] MEDS: 0.9% Normal Saline (250mL Bag) 250 ML 15 ML IV (11:26)
[2025-03-22] MEDS: Ferrous Sulfate 325 MG Tablet PO (11:37)
[2025-03-22 12:00] VITALS: BP 124/74; PULSE 70; RESP 18; TEMP 36.6; O2SAT 98
[2025-03-22 12:06] LABS: Bedside Glucose 312 mg/dL (74-106)
--- NOTE | 2025-03-22 15:22 | CHAPLAIN ---
Type of Pastoral Visit _x__ Initial Visit ___ Follow-up Visit ___ On-call Visit ___ General Patient Visit ___ Spiritual Assessment ___ Family Conference ___ Bereavement ___ Rapid Response ___ Code Blue ___ Other (describe below) Pastoral Care Referral From _x__ Patient ___ Family ___ Nurse ___ Physician ___ Vault Teller ___ Exterior Interior Specialist ___ Other (describe below) Sacrament/Intervention _x__ Active listening ___ Anointing ___ Cheondoism ___ Bereavement ___ Communion ___ Zainab exploration ___ ___ Life review _x__ Prayer ___ Reconciliation ___ Sacrament of Sick _x__ Supportive presence ___ Wedding ___ Other (describe below) Pastoral Comments patient is welcoming and is tearful as she explains her frustration over having to stay in the hospital and having to make the decision of what is best for my recovery and care; pt would much rather return home but understands that is not her best option; talked about acceptance of difficult circumstances; time given to listen to concerns and affirm of best outcomes; prayer and presence was welcomed for support;
[2025-03-22 16:30] VITALS: BP 128/45; PULSE 70; RESP 18; TEMP 37; O2SAT 97
[2025-03-22 17:13] LABS: Bedside Glucose 262 mg/dL (74-106)
--- NOTE | 2025-03-22 18:57 | PCM.PN.HOSP ---
Reason for Visit Reason for Visit: Diagnoses Infection and inflammatory reaction due to internal right knee prosthesis, initial encounter (03/21/25) Encounter for other preprocedural examination (03/21/25) Subjective Subjective Patient was seen and examined today, she has no complaints of shortness of breath or chest discomfort. Patient states she would like to go to the rehab unit at [facility] for rehab services. Patient a PICC line inserted today. Objective Data Objective Data Vital Signs: Vital Signs Temp Pulse Resp BP Pulse Ox O2 Del Method O2 Flow Rate 98.6 F 70 18 128/45 H 97 Room Air 2 03/22/25 16:30 03/22/25 16:30 03/22/25 16:30 03/22/25 16:30 03/22/25 16:30 03/22/25 16:30 03/22/25 07:21 Oxygen Flow Rate (L/min) 2 Oxygen Delivery Method Room Air Weight: 105.6 kg Body Mass Index (BMI) 37.4 Intake & Output: Intake and Output for Last 24 Hours 03/20/25 03/21/25 03/22/25 23:59 23:59 23:59 Intake Total 2160 / 2760 2875 / 2875 Output Total 250 / 1250 1450 / 1450 Balance 1910 / 1510 1425 / 1425 Lab / Micro Data 03/22/25 06:40 03/22/25 06:40 Labs: Laboratory Results - last 24 hr 03/21/25 23:12: POC Glucose 341 H 03/22/25 06:25: POC Glucose 279 H 03/22/25 06:40: WBC 12.4 H, RBC 3.61 L, Hgb 9.8 L, Hct 30.7 L, MCV 85.0, MCH 27.1, MCHC 31.9 L, RDW Std Deviation 40.0, RDW Coeff of Pedro 13.0, Plt Count 261, MPV 8.5, Sodium 136, Potassium 5.1, Chloride 100, Carbon Dioxide 25.3, Anion Gap 11, BUN 13, Creatinine 0.47 L, Estim Creat Clear Calc 164.19, Est GFR (MDRD) Non-Af 111, BUN/Creatinine Ratio 27.2 H, Glucose 267 H, Calcium 9.1 03/22/25 11:35: POC Glucose 312 H 03/22/25 16:38: POC Glucose 262 H Micro: Microbiology 03/21/25 15:47 Wound - Leg, Left Gram Stain - Final 03/21/25 15:47 Tissue - Knee Gram Stain - Final 03/21/25 15:47 Tissue - Knee Gram Stain - Final Physical Exam Const alert, oriented x3, no apparent distress and healthy appearing General Appearance: cooperative, well kempt and well developed Orientation / Consciousness: awake, oriented to person, oriented to place and oriented to time HEENT normocephalic, head/scalp atraumatic and moist oral mucous membranes Eyes PERRL, EOMs intact bilaterally and conjunctivae normal Neck supple, no JVD, thyroid normal and no carotid bruits General: trachea midline Resp normal respiratory effort, no retractions, no use of accessory muscles and clear to auscultation bilaterally Auscultation: Negative for rales, rhonchi or wheezes Cardio regular rate, regular rhythm, S1 normal heart sound, S2 normal heart sound, no murmurs, no rub and no gallops GI normal to inspection, nondistended, normoactive bowel sounds, soft to palpation, non-tender and non-distended Skin no rashes or lesions noted Neuro oriented x3, CN's II-XII intact bilaterally, moves all extremities, no focal motor deficits and no sensory deficits noted Sensorium / Orientation: awake and alert Speech: speech normal Psych affect normal Assessment & Plan Assessment/Plan (1) Diabetes: PLAN: Plan 1. Type 2 diabetes-blood sugars will be monitored, sliding scale insulin will be administered as indicated, blood sugars are running high at this time, I will place the patient on basal insulin #2 essential hypertension-patient is on lisinopril #3 hyperlipidemia-patient is on a statin #4 right knee periprosthetic joint infection-infectious diseases is following, patient is currently on vancomycin Total clinical time spent by myself addressing the patient's medical issues, reviewing all of her data, and collaborating with patient's care team: 35 minutes Charges/Coding Visit Charges Inpatient E&M: 82770 Subs Hosp L2
[2025-03-22 20:50] VITALS: BP 155/51; PULSE 75; RESP 18; TEMP 37.1; O2SAT 94
[2025-03-22] MEDS: Atorvastatin Calcium 40 MG Tablet PO (22:56)
[2025-03-22] MEDS: Insulin Glargine-YFGN 100 UNIT/ML Pen 10 UNIT SC (22:56)
[2025-03-22 23:56] LABS: Glucose 340 mg/dL (70-99)
[2025-03-23] MEDS: Insulin Lispro 100 UNIT/ML INSULN.PEN 20 UNIT SC (00:19)
[2025-03-23 00:22] LABS: Bedside Glucose 465 mg/dL (74-106)
[2025-03-23 02:36] VITALS: BP 125/48; PULSE 77; RESP 18; TEMP 36.8; O2SAT 99
[2025-03-23] MEDS: Vancomycin HCl 1,250 MG in 0.9% Normal Saline (250mL Bag) 250 ML 167 MG IV ×3 (02:41→17:44)
[2025-03-23] MEDS: oxyCODONE 5 MG Tablet PO ×4 (02:41→20:58)
[2025-03-23] MEDS: Acetaminophen 500 MG Tablet 1000 MG PO ×3 (06:56→20:59)
[2025-03-23 07:17] LABS: Bedside Glucose 79 mg/dL (74-106)
[2025-03-23 08:22] VITALS: BP 143/59; PULSE 80; RESP 14; TEMP 36.6; O2SAT 95
[2025-03-23 08:47] LABS: Absolute Lymphocyte Count 1.34 X10^3/uL (0.83-4.51); Basophil# 0.03 X10^3/uL; Basophil% 0.4 % (0-1); Eosinophil# 0.22 X10^3/uL; Eosinophils% 2.7 % (0-5); Hemoglobin 8.8 g/dL (12.0-15.0); Lymphocyte # 1.34 X10^3/ul (0.83-4.51); Lymphocyte % 16.5 % (19-41); Mean Corp Hgb Conc 31.4 g/dL (32-36); Mean Corpuscular Hgb 27.4 pg (27.0-32.0); Mean Corpuscular Volume 87.2 fL (81-99); Mean Platelet Vol. 7.9 fl (6.2-12.0); Monocyte# 0.49 X10^3/uL; NRBC Flagged by Analyzer 0 % (0-5); Neutrophil # 6.01 X10^3/uL (2.7-7.7); Platelet Count 240 K/mm3 (150-450); RBC Distribution Width CV 13.2 % (11.6-14.6); RBC Distribution Width SD 41.6 fl (35.1-43.9); Red Blood Count 3.21 M/mm3 (4.2-5.4); White Blood Count 8.1 K/mm3 (4.4-11.0)
[2025-03-23] MEDS: Ondansetron 4 MG/2 ML Vial IV ×2 (09:06→17:44)
[2025-03-23 09:33] LABS: Anion Gap 11 (5-15); BUN 15 mg/dL (4-19); BUN/Creat Ratio 32.4 RATIO (10-20); Carbon Dioxide 27.9 mmol/L (21.0-32.0); Chloride 101 mmol/L (98-108); Creatinine, Serum 0.46 mg/dL (0.70-1.20); EST Glomerular Filtration Rate 112 (>60); Estimated Creatinine Clearance 167.76 ml/min (50-250); Glucose 100 mg/dL (70-99); Potassium 3.9 mmol/L (3.3-5.1); Sodium Level 140 mmol/L (133-145)
--- NOTE | 2025-03-23 09:45 | CASEMGMT ---
Addendum entered by Safia Hartley 03/25/25 12:04: Social Work Pt had requested to go to Inpatient Rehab at [facility] and declined list of [place] provider options in network with her insurance. SHUN Wasserman Addendum entered by Safia Hartley 03/23/25 10:21: Social Work Pt does state that she does not have a bathroom on the main level, must be able to complete either 17 steps upstairs or 14 steps downstairs to the bathroom. Pt is concerned as her spouse works third shift and sleeps during the day and pt will be alone. This information was passed along to Echo in [place] to give this information to the insurance company. SHUN Connell Original Note: Social Work Per RNCM, pt is requesting to go to Inpatient Rehab. ZULEYMA spoke with Echo in who states precert was started yesterday. Determination of approval has not yet been made. ZULEYMA met with pt and informed of the above. ZULEYMA also explained to pt that there is no guarantee of insurance approval and an alternate discharge plan needs to be considered. ZULEYMA spoke with pt regarding home health for IV ATB and therapy or Outpt therapy and follow up at the infusion center. Pt to consider options. SW to continue to follow. Plan: , pending insurance auth SHUN Connell
--- NOTE | 2025-03-23 10:41 | PCM.PN.ORT ---
Subjective Subjective The patient was sitting in bedside chair upon examination. Patient denies any chest pain, shortness of breath, dizziness, lightheadedness, or vomiting, or calf pain. Pain is controlled on medications. Patient does report 6/10 pain. Medications are helpful. She does continue to have some nausea in which she is getting medications. No adverse overnight events. Patient is concerned of discharge home with regards to management of the antibiotics and appropriate therapy. She has PICC line established. Infectious disease currently on board for managing of antibiotics. Objective Data Objective Data Vital Signs: Vital Signs Temp Pulse Resp BP Pulse Ox O2 Del Method O2 Flow Rate 97.8 F 80 14 143/59 H 95 Room Air 2 03/23/25 08:22 03/23/25 08:22 03/23/25 08:22 03/23/25 08:22 03/23/25 08:22 03/23/25 08:22 03/22/25 07:21 Oxygen Flow Rate (L/min) 2 Oxygen Delivery Method Room Air Weight: 105.6 kg Body Mass Index (BMI) 37.4 Intake & Output: Intake and Output for Last 24 Hours 03/21/25 03/22/25 03/23/25 23:59 23:59 23:59 Intake Total 2160 / 2760 3150 / 3150 525 / 525 Output Total 250 / 1250 1450 / 1450 Balance 1910 / 1510 1700 / 1700 525 / 525 Lab / Micro Data 03/23/25 08:29 03/23/25 08:29 Labs: Laboratory Results - last 24 hr 03/22/25 11:35: POC Glucose 312 H 03/22/25 16:38: POC Glucose 262 H 03/22/25 22:49: POC Glucose 465 H* 03/22/25 23:20: Glucose 340 H 03/23/25 06:54: POC Glucose 79 03/23/25 08:29: WBC 8.1, RBC 3.21 L, Hgb 8.8 L, Hct 28.0 L, MCV 87.2, MCH 27.4, MCHC 31.4 L, RDW Std Deviation 41.6, RDW Coeff of Pedro 13.2, Plt Count 240, MPV 7.9, Immature Gran % (Auto) 0.400, Neut % (Auto) 74.0 H, Lymph % (Auto) 16.5 L, Preble % (Auto) 6.0, Eos % (Auto) 2.7, Baso % (Auto) 0.4, Absolute Neuts (auto) 6.0, Absolute Lymphs (auto) 1.34, Nucleated RBC % 0, Sodium 140, Potassium 3.9, Chloride 101, Carbon Dioxide 27.9, Anion Gap 11, BUN 15, Creatinine 0.46 L, Estim Creat Clear Calc 167.76, Est GFR (MDRD) Non-Af 112, BUN/Creatinine Ratio 32.4 H, Glucose 100 H, Calcium 9.0 Micro: Microbiology 03/21/25 15:47 Wound - Leg, Left Gram Stain - Final 03/21/25 15:47 Wound - Leg, Left Wound Culture - Preliminary No growth-Final to follow 03/21/25 15:47 Tissue - Knee Gram Stain - Final 03/21/25 15:47 Tissue - Knee Wound Culture - Preliminary No growth-Final to follow 03/21/25 15:47 Tissue - Knee Gram Stain - Final Physical Exam Narrative Vital signs stable and afebrile. SCDs and GROVER hose are in place bilaterally Knee immobilizer in place Patient is able to plantarflex and dorsiflex actively. Sensation is intact to light touch to saphenous, sural, superficial and deep peroneal, and tibial distribution. Dressing is clean dry and intact. Negative Homans bilaterally, negative signs and symptoms of DVT. Const alert, oriented x3 and no apparent distress Assessment & Plan Assessment/Plan (1) Infection of prosthetic right knee joint: PLAN: 1. S/P right knee removal total knee arthroplasty with revision to articulating antibiotic spacer POD #1 2. Continue Pain Medications: Tylenol, meloxicam, and oxycodone. Do not take any other nonsteroidal anti-inflammatories while using meloxicam/Mobic. 3. DVT Prophylaxis: Take 81 mg aspirin twice daily for 4 weeks postoperatively for DVT prophylaxis. Patient denies past history of DVT or pulmonary embolism. Patient will continue with GROVER hose for 2 weeks postoperatively. 4. PT/OT: Continue with knee immobilizer and the patient will be 50% weightbearing for 2 weeks postoperatively. No range of motion of the right knee for 2 weeks postoperatively. Anticipate beginning range of motion at the 2-week follow-up visit. 5. H & H: 8.8/28.0, asymptomatic. Monitoring patient's hemoglobin and hematocrit with postoperative anemia without any intra operative complications. Preoperatively patient had hemoglobin of 11.9 in which she was continuing on ferrous sulfate and folic acid. Postoperatively on day 1 dropped to 9.8 and today 8.8. She is asymptomatic. Drop in hemoglobin secondary to acute blood loss from surgery versus dilutional component. Will repeat labs tomorrow for CBC. Upon discharge from the hospital patient will ultimately need to be followed by the primary care provider for continued management. 6. Reactive leukocytosis: Resolved currently 8.1, Afebrile. Patient did receive Decadron intraoperatively. No clinical signs of infection. 7. Infectious disease consultation: Will continue recommendations from infectious disease. Patient has PICC line established. Plan will be for patient to receive 6 weeks IV vancomycin with stop date on May 02, 2025. Patient will require follow-up and monitoring with the infectious disease provider with repeat labs. Outpatient aspiration did reveal bacillus cereus. Currently no growth on microbiology with Gram stain and cultures. Appreciate any further recommendations from infectious disease. 8. Continue knee immobilizer for 2 weeks postoperatively with no range of motion of the right knee 9. Encouraged Incentive Spirometry 10. Patient is aware of postoperative constipation that can occur from 1-3 days postoperatively. Will continue with senna 2 tablets twice daily until first bowel movement. Patient was advised if not having a bowel movement after day 3 she is to contact orthopedics so appropriate change can be made. Patient voiced understanding. 11. Continue postoperative medical treatment per medicine 12. Disposition: We are currently in process getting pre-CERT for patient to go to [facility] rehabilitation unit. Patient is requiring 6 weeks of IV antibiotics. Patient will continue with recommendations from infectious disease with regards to antibiotics. While in the hospital continue with therapy with above restrictions. Patient will continue with current pain regimen plan. She will continue with as needed nausea medication. Once established plan from care management team we will then proceed forward with discharge planning. This dictation was created using voice recognition software. Phonetic and/or grammatical errors may exist.
[2025-03-23] MEDS: Meloxicam 7.5 MG Tablet PO ×2 (10:55→20:59)
[2025-03-23] MEDS: Folic Acid 1 MG Tablet PO (10:55)
[2025-03-23] MEDS: Aspirin 81 MG TAB.CHEW PO ×2 (10:55→20:59)
[2025-03-23] MEDS: Famotidine 20 MG Tablet PO (10:56)
[2025-03-23] MEDS: Senna/Docusate Sodium 1 Tablet 2 TABLET PO ×2 (10:56→20:59)
[2025-03-23 11:12] LABS: Vancomycin, Trough Level 15.9 ug/mL (5.0-15.0)
[2025-03-23 11:42] LABS: Bedside Glucose 166 mg/dL (74-106)
--- NOTE | 2025-03-23 12:28 | PCM.RX.CS ---
Consult Antibiotic Management Pharmacy has been consulted to manage selected antibiotic: Vancomycin Type of Intervention Type of Consult: Follow-up Suspected Infection Suspected Infection: Other (Infection in prosthetic knee joint) Labs Labs: Sodium 140 mmol/L (133-145) 03/23/25 08:29 Potassium 3.9 mmol/L (3.3-5.1) 03/23/25 08:29 Chloride 101 mmol/L (98-108) 03/23/25 08:29 Carbon Dioxide 27.9 mmol/L (21.0-32.0) 03/23/25 08:29 Anion Gap 11 (5-15) 03/23/25 08:29 BUN 15 mg/dL (4-19) 03/23/25 08:29 Creatinine 0.46 mg/dL (0.70-1.20) L 03/23/25 08:29 Est GFR (MDRD) Non-Af 112 (>60) 03/23/25 08:29 BUN/Creatinine Ratio 32.4 RATIO (10-20) H 03/23/25 08:29 Glucose 100 mg/dL (70-99) H 03/23/25 08:29 Vancomycin Trough 15.9 ug/mL (5.0-15.0) H 03/23/25 09:58 Microbiology Microbiology: Microbiology 03/21/25 15:47 Tissue - Knee Gram Stain - Final 03/21/25 15:47 Tissue - Knee Wound Culture - Preliminary Bacillus sp., not anthracis 03/21/25 15:47 Wound - Leg, Left Gram Stain - Final 03/21/25 15:47 Wound - Leg, Left Wound Culture - Preliminary No growth-Final to follow 03/21/25 15:47 Tissue - Knee Gram Stain - Final 03/21/25 15:47 Tissue - Knee Wound Culture - Preliminary No growth-Final to follow Estimated Creatinine Clearance Estimated Creatinine Clearance: > 100 Goal Trough Goal Trough: 15-20 mcg/mL Pharmacy Plan for Drug Dosing Pharmacy Plan for Drug Dosing: VANCOMYCIN LEVEL RECEIVED Current Vancomycin Dose: 1250mg Q8H Number of Doses Received: 1250mg x3, 1500mg x2 Vancomycin Level: 15.9 Hours Since Last Dose: 7 Renal Function: sCr 0.46 Renal Function Trend: stable Lab/Micro: pending Vancomycin Plan/Comments: Continue Vancomycin 1250mg Q8H Pending Level: Vancomycin trough @ 10:00 03/24/25 Pharmacy Service will continue to monitor and adjust dosing as required. Follow-Up Labs Follow-Up Labs: Trough: Vancomycin (03/24/25 @ 10:00)
--- NOTE | 2025-03-23 13:19 | PCM.PN.ID ---
Physical Exam Narrative Mild nausea this AM, no fever, pain controlled Const alert and no apparent distress General Appearance: cooperative Resp normal air movement and clear to auscultation bilaterally Cardio regular rate and regular rhythm GI soft to palpation, non-tender and non-distended Skin no rashes or lesions noted ID ID: Route of nutrition/ use of supplements: [] Nutritional Intake: [] IV Site: [] Cole Catheter: [] Assessment & Plan Assessment/Plan (1) Infection of prosthetic right knee joint: PLAN: Taken to OR 03/21/[address] Lay for I&D and spacer placement. Outpt aspiration with Bacillus cereus. Surg cx pending, one sample now showing Bacillus sp. Will cont iv vanc. Has picc and plan on 6 weeks iv vanc, stop date 05/02/25 with weekly labs. ID followup in 2 weeks. Adjust vanc dose and updated rx. Will follow, d/w medical case manager
[2025-03-23] MEDS: Insulin Glargine-YFGN 100 UNIT/ML Pen 10 UNIT SC ×2 (13:22→21:03)
[2025-03-23] MEDS: Ferrous Sulfate 325 MG Tablet PO (13:24)
[2025-03-23] MEDS: Insulin Lispro 100 UNIT/ML INSULN.PEN SC ×2 (13:26→21:04)
[2025-03-23] MEDS: Lisinopril 10 MG Tablet PO (13:58)
[2025-03-23 14:15] VITALS: BP 138/59; PULSE 83; RESP 16; TEMP 36.6; O2SAT 96
--- NOTE | 2025-03-23 15:00 | CASEMGMT ---
Received tc from Lilibeth at [facility] for pt. She requests and update on pt. Made her aware that precert is pending for the Rehab unit at [facility]. She states she will make note of this. She is aware of therapy need and 6 wks of IV atb. Her phone number is [phone].
[2025-03-23 16:25] LABS: Bedside Glucose 146 mg/dL (74-106)
[2025-03-23] MEDS: 0.9% Saline Lock 10 ML Syringe IV (17:44)
--- NOTE | 2025-03-23 18:53 | PN.HOSP_ITS ---
Reason for Visit Reason for Visit: Diagnoses Type 2 diabetes mellitus without complications (03/21/25) Infection and inflammatory reaction due to internal right knee prosthesis, initial encounter (03/21/25) Encounter for other preprocedural examination (03/21/25) Subjective Subjective Patient was seen and examined today, we are waiting for her insurance to pre- CERT the rehab unit here at [facility]. Objective Data Objective Data Vital Signs: Vital Signs Temp Pulse Resp BP Pulse Ox O2 Del Method O2 Flow Rate 98 F 83 16 138/59 H 96 Room Air 2 03/23/25 14:15 03/23/25 14:15 03/23/25 14:15 03/23/25 14:15 03/23/25 14:15 03/23/25 14:15 03/22/25 07:21 Oxygen Flow Rate (L/min) 2 Oxygen Delivery Method Room Air Weight: 105.6 kg Body Mass Index (BMI) 37.4 Intake & Output: Intake and Output for Last 24 Hours 03/21/25 03/22/25 03/23/25 23:59 23:59 23:59 Intake Total 2160 / 2760 3150 / 3150 1517.75 / 1517.75 Output Total 250 / 1250 1450 / 1450 Balance 1910 / 1510 1700 / 1700 1517.75 / 1517.75 Lab / Micro Data 03/23/25 08:29 03/23/25 08:29 Labs: Laboratory Results - last 24 hr 03/22/25 22:49: POC Glucose 465 H* 03/22/25 23:20: Glucose 340 H 03/23/25 06:54: POC Glucose 79 03/23/25 08:29: WBC 8.1, RBC 3.21 L, Hgb 8.8 L, Hct 28.0 L, MCV 87.2, MCH 27.4, MCHC 31.4 L, RDW Std Deviation 41.6, RDW Coeff of Pedro 13.2, Plt Count 240, MPV 7.9, Immature Gran % (Auto) 0.400, Neut % (Auto) 74.0 H, Lymph % (Auto) 16.5 L, [place] % (Auto) 6.0, Eos % (Auto) 2.7, Baso % (Auto) 0.4, Absolute Neuts (auto) 6.0, Absolute Lymphs (auto) 1.34, Nucleated RBC % 0, Sodium 140, Potassium 3.9, Chloride 101, Carbon Dioxide 27.9, Anion Gap 11, BUN 15, Creatinine 0.46 L, Estim Creat Clear Calc 167.76, Est GFR (MDRD) Non-Af 112, BUN/Creatinine Ratio 32.4 H, Glucose 100 H, Calcium 9.0 03/23/25 09:58: Vancomycin Trough 15.9 H 03/23/25 11:12: POC Glucose 166 H 03/23/25 16:05: POC Glucose 146 H Micro: Microbiology 03/21/25 15:47 Tissue - Knee Gram Stain - Final 03/21/25 15:47 Tissue - Knee Wound Culture - Preliminary Bacillus sp., not anthracis 03/21/25 15:47 Wound - Leg, Left Gram Stain - Final 03/21/25 15:47 Wound - Leg, Left Wound Culture - Preliminary No growth-Final to follow 03/21/25 15:47 Tissue - Knee Gram Stain - Final 03/21/25 15:47 Tissue - Knee Wound Culture - Preliminary No growth-Final to follow Physical Exam Narrative alert, oriented x3, no apparent distress and healthy appearing General Appearance: cooperative, well kempt and well developed Orientation / Consciousness: awake, oriented to person, oriented to place and oriented to time HEENT normocephalic, head/scalp atraumatic and moist oral mucous membranes Eyes PERRL, EOMs intact bilaterally and conjunctivae normal Neck supple, no JVD, thyroid normal and no carotid bruits General: trachea midline Resp normal respiratory effort, no retractions, no use of accessory muscles and clear to auscultation bilaterally Auscultation: Negative for rales, rhonchi or wheezes Cardio regular rate, regular rhythm, S1 normal heart sound, S2 normal heart sound, no murmurs, no rub and no gallops GI normal to inspection, nondistended, normoactive bowel sounds, soft to palpation, non-tender and non-distended Skin no rashes or lesions noted Neuro oriented x3, CN's II-XII intact bilaterally, moves all extremities, no focal motor deficits and no sensory deficits noted Sensorium / Orientation: awake and alert Speech: speech normal Psych affect normal Assessment & Plan Assessment/Plan (1) Infection of prosthetic right knee joint: (2) Diabetes: PLAN: Plan 1. Type 2 diabetes-blood sugars will be monitored, sliding scale insulin will be administered as indicated, blood sugars have improved. 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
[2025-03-23 20:50] VITALS: BP 115/46; PULSE 83; RESP 16; TEMP 36.9; O2SAT 97
[2025-03-23] MEDS: Atorvastatin Calcium 40 MG Tablet PO (20:59)
[2025-03-23 22:03] LABS: Bedside Glucose 196 mg/dL (74-106)
[2025-03-24] VITALS (8 sets, daily range): BP systolic 106–151; BP diastolic 34–57; PULSE 70–85; RESP 12–16; TEMP 36.6–37.1; O2SAT 95–100
[2025-03-24] MEDS: 0.9% Saline Lock 10 ML Syringe IV ×3 (03:21→18:08)
[2025-03-24] MEDS: Vancomycin HCl 1,250 MG in 0.9% Normal Saline (250mL Bag) 250 ML 167 MG IV ×3 (03:21→18:07)
[2025-03-24] MEDS: Acetaminophen 500 MG Tablet 1000 MG PO ×3 (05:20→20:23)
[2025-03-24 06:17] LABS: Hematocrit 27.8 % (37-47); Hemoglobin 8.6 g/dL (12.0-15.0); Mean Corp Hgb Conc 30.9 g/dL (32-36); Mean Corpuscular Hgb 27.2 pg (27.0-32.0); Mean Platelet Vol. 8.2 fl (6.2-12.0); Platelet Count 227 K/mm3 (150-450); RBC Distribution Width CV 13.2 % (11.6-14.6); RBC Distribution Width SD 42.4 fl (35.1-43.9); Red Blood Count 3.16 M/mm3 (4.2-5.4); White Blood Count 6.2 K/mm3 (4.4-11.0)
[2025-03-24 06:26] LABS: Bedside Glucose 117 mg/dL (74-106)
[2025-03-24] MEDS: oxyCODONE 5 MG Tablet PO ×3 (07:29→20:23)
[2025-03-24] MEDS: Folic Acid 1 MG Tablet PO (09:02)
[2025-03-24] MEDS: Aspirin 81 MG TAB.CHEW PO ×2 (09:03→20:24)
[2025-03-24] MEDS: Insulin Glargine-YFGN 100 UNIT/ML Pen 10 UNIT SC ×2 (09:04→20:28)
[2025-03-24] MEDS: Senna/Docusate Sodium 1 Tablet 2 TABLET PO (09:06)
[2025-03-24] MEDS: Famotidine 20 MG Tablet PO (09:06)
[2025-03-24] MEDS: Meloxicam 7.5 MG Tablet PO ×2 (09:06→20:24)
[2025-03-24 11:09] LABS: Vancomycin, Trough Level 15.7 ug/mL (5.0-15.0)
[2025-03-24 11:25] LABS: Bedside Glucose 301 mg/dL (74-106)
--- NOTE | 2025-03-24 11:26 | PCM.RX.CS ---
Consult Antibiotic Management Pharmacy has been consulted to manage selected antibiotic: Vancomycin Type of Intervention Type of Consult: Follow-up Suspected Infection Suspected Infection: Skin/Soft tissue Prior Doses of Antibiotics Prior Doses of Antibiotics Received/Current Regimen: 03/23/25 @ 1159 Vancomycin 1250mg 03/23/25 @ 1744 Vancomycin 1250mg 03/24/25 @ 0321 Vancomycin 1250mg Labs Labs: Sodium 140 mmol/L (133-145) 03/23/25 08:29 Potassium 3.9 mmol/L (3.3-5.1) 03/23/25 08:29 Chloride 101 mmol/L (98-108) 03/23/25 08:29 Carbon Dioxide 27.9 mmol/L (21.0-32.0) 03/23/25 08:29 Anion Gap 11 (5-15) 03/23/25 08:29 BUN 15 mg/dL (4-19) 03/23/25 08:29 Creatinine 0.46 mg/dL (0.70-1.20) L 03/23/25 08:29 Est GFR (MDRD) Non-Af 112 (>60) 03/23/25 08:29 BUN/Creatinine Ratio 32.4 RATIO (10-20) H 03/23/25 08:29 Glucose 100 mg/dL (70-99) H 03/23/25 08:29 Vancomycin Trough 15.7 ug/mL (5.0-15.0) H 03/24/25 10:15 Microbiology Microbiology: Microbiology 03/21/25 15:47 Tissue - Knee Gram Stain - Final 03/21/25 15:47 Tissue - Knee Wound Culture - Final Bacillus sp., not anthracis 03/21/25 15:47 Tissue - Knee Anaerobic Culture - Preliminary 03/21/25 15:47 Wound - Leg, Left Gram Stain - Final 03/21/25 15:47 Wound - Leg, Left Wound Culture - Preliminary No growth-Final to follow 03/21/25 15:47 Wound - Leg, Left Anaerobic Culture - Preliminary No growth in 48 hours. 03/21/25 15:47 Tissue - Knee Gram Stain - Final 03/21/25 15:47 Tissue - Knee Wound Culture - Preliminary No growth-Final to follow 03/21/25 15:47 Tissue - Knee Anaerobic Culture - Preliminary No growth in 48 hours. Dosing Weight Weight used for dosin kg Estimated Creatinine Clearance Estimated Creatinine Clearance: 167 Goal Trough Goal Trough: 15-20 mcg/mL Pharmacy Plan for Drug Dosing Pharmacy Plan for Drug Dosing: Vancomycin 1250mg every 8 hours Pharmacy Service will continue to monitor and adjust dosing as required. Follow-Up Labs Follow-Up Labs: Trough: Vancomycin Date/Time Labs Ordered Labs to be done on [date and time ordered]: 03/25/25 @ 1030
[2025-03-24] MEDS: Insulin Lispro 100 UNIT/ML INSULN.PEN SC ×2 (11:30→20:29)
--- NOTE | 2025-03-24 11:30 | PCM.RX.CS ---
Consult Antibiotic Management Pharmacy has been consulted to manage selected antibiotic: Vancomycin Type of Intervention Type of Consult: Follow-up Suspected Infection Suspected Infection: Skin/Soft tissue Prior Doses of Antibiotics Prior Doses of Antibiotics Received/Current Regimen: 03/23/25 @ 1159 Vancomycin 1250mg 03/23/25 @ 1744 Vancomycin 1250mg 03/23/25 @ 0231 Vancomycin 125mg Labs Labs: Sodium 140 mmol/L (133-145) 03/23/25 08:29 Potassium 3.9 mmol/L (3.3-5.1) 03/23/25 08:29 Chloride 101 mmol/L (98-108) 03/23/25 08:29 Carbon Dioxide 27.9 mmol/L (21.0-32.0) 03/23/25 08:29 Anion Gap 11 (5-15) 03/23/25 08:29 BUN 15 mg/dL (4-19) 03/23/25 08:29 Creatinine 0.46 mg/dL (0.70-1.20) L 03/23/25 08:29 Est GFR (MDRD) Non-Af 112 (>60) 03/23/25 08:29 BUN/Creatinine Ratio 32.4 RATIO (10-20) H 03/23/25 08:29 Glucose 100 mg/dL (70-99) H 03/23/25 08:29 Vancomycin Trough 15.7 ug/mL (5.0-15.0) H 03/24/25 10:15 Microbiology Microbiology: Microbiology 03/21/25 15:47 Tissue - Knee Gram Stain - Final 03/21/25 15:47 Tissue - Knee Wound Culture - Final Bacillus sp., not anthracis 03/21/25 15:47 Tissue - Knee Anaerobic Culture - Preliminary 03/21/25 15:47 Wound - Leg, Left Gram Stain - Final 03/21/25 15:47 Wound - Leg, Left Wound Culture - Preliminary No growth-Final to follow 03/21/25 15:47 Wound - Leg, Left Anaerobic Culture - Preliminary No growth in 48 hours. 03/21/25 15:47 Tissue - Knee Gram Stain - Final 03/21/25 15:47 Tissue - Knee Wound Culture - Preliminary No growth-Final to follow 03/21/25 15:47 Tissue - Knee Anaerobic Culture - Preliminary No growth in 48 hours. Dosing Weight Weight used for dosin kg Estimated Creatinine Clearance Estimated Creatinine Clearance: 167 Goal Trough Goal Trough: 15-20 mcg/mL Pharmacy Plan for Drug Dosing Pharmacy Plan for Drug Dosing: Vancomycin 1250mg every 8 hours Pharmacy Service will continue to monitor and adjust dosing as required. Follow-Up Labs Follow-Up Labs: Trough: Vancomycin Date/Time Labs Ordered Labs to be done on [date and time ordered]: 03/25/25 @ 1030
--- NOTE | 2025-03-24 12:27 | PN.ORTHO_ITS ---
Subjective Subjective Patient is sitting comfortably in bedside chair. Patient does have a PICC line in place. Patient is receiving IV vancomycin currently. Patient states that she is feeling a little bit groggy today but is feeling much better than yesterday. Patient states that she did have some nausea yesterday but does not today. Patient states that physical therapy did not come to work with her yesterday but her and her went on a walk and they felt good. Patient states she has been in her knee immobilizer 05/05 and has only been 50% weightbearing. Patient denies any nausea, vomiting, dizziness today. Patient denies any shortness of breath, chest pain, calf pain. Patient denies any fevers, chills, signs of infection. Patient denies any new numbness or tingling. We are currently waiting on pre-CERT from [facility] rehab unit. Objective Data Objective Data Vital Signs: Vital Signs Temp Pulse Resp BP Pulse Ox O2 Del Method O2 Flow Rate 98.5 F 82 16 118/34 L 96 Room Air 2 03/24/25 11:18 03/24/25 11:18 03/24/25 11:18 03/24/25 11:18 03/24/25 11:18 03/24/25 11:18 03/22/25 07:21 Oxygen Flow Rate (L/min) 2 Oxygen Delivery Method Room Air Weight: 105.6 kg Body Mass Index (BMI) 37.4 Intake & Output: Intake and Output for Last 24 Hours 03/22/25 03/23/25 03/24/25 23:59 23:59 23:59 Intake Total 3150 / 3150 1792.75 / 1792.75 525 / 525 Output Total 1450 / 1450 Balance 1700 / 1700 1792.75 / 1792.75 525 / 525 Lab / Micro Data 03/24/25 05:34 03/23/25 08:29 Labs: Laboratory Results - last 24 hr 03/23/25 16:05: POC Glucose 146 H 03/23/25 21:02: POC Glucose 196 H 03/24/25 05:34: WBC 6.2, RBC 3.16 L, Hgb 8.6 L, Hct 27.8 L, MCV 88.0, MCH 27.2, MCHC 30.9 L, RDW Std Deviation 42.4, RDW Coeff of Pedro 13.2, Plt Count 227, MPV 8.2 03/24/25 06:08: POC Glucose 117 H 03/24/25 10:15: Vancomycin Trough 15.7 H 03/24/25 11:07: POC Glucose 301 H Micro: Microbiology 03/21/25 15:47 Tissue - Knee Gram Stain - Final 03/21/25 15:47 Tissue - Knee Wound Culture - Final Bacillus sp., not anthracis 03/21/25 15:47 Tissue - Knee Anaerobic Culture - Preliminary 03/21/25 15:47 Wound - Leg, Left Gram Stain - Final 03/21/25 15:47 Wound - Leg, Left Wound Culture - Preliminary No growth-Final to follow 03/21/25 15:47 Wound - Leg, Left Anaerobic Culture - Preliminary No growth in 48 hours. 03/21/25 15:47 Tissue - Knee Gram Stain - Final 03/21/25 15:47 Tissue - Knee Wound Culture - Preliminary No growth-Final to follow 03/21/25 15:47 Tissue - Knee Anaerobic Culture - Preliminary No growth in 48 hours. Physical Exam Narrative Vital signs stable and afebrile. SCDs and GROVER hose are in place bilaterally Knee immobilizer in place Patient is able to plantarflex and dorsiflex actively. Sensation intact to light touch. Neurovascular intact overall. Dressing is clean dry and intact. Negative Homans bilaterally, negative signs and symptoms of DVT. Const alert, oriented x3 and no apparent distress Assessment & Plan Assessment/Plan (1) Infection of prosthetic right knee joint: PLAN: 1. S/P right knee removal total knee arthroplasty with revision to articulating antibiotic spacer POD #3 2. Pain Medications: Tylenol, meloxicam, and oxycodone. Patient was educated she would be taking Tylenol 1000 mg every 8 hours taking no more than 3000 mg in 24 hours. Patient was educated not to take any anti-inflammatory medications while taking meloxicam. 3. DVT Prophylaxis: Take 81 mg aspirin twice daily for 4 weeks postoperatively for DVT prophylaxis. Patient denies past history of DVT or pulmonary embolism. Patient will continue with GROVER hose for 2 weeks postoperatively. 4. PT/OT: Continue with knee immobilizer at all times and the patient will be 50% weightbearing with walker for 2 weeks postoperatively. No range of motion of the right knee for 2 weeks postoperatively. May begin range of motion starting at 2-week follow-up appointment. 5. H & H: 8.6/27.8, asymptomatic. Monitoring patient's hemoglobin and hematocrit with postoperative anemia without any intra operative complications. Yesterday patient's hemoglobin was 8.8. Patient is continued on ferrous sulfate and folic acid. Will repeat labs tomorrow for CBC. Following discharge from hospital we will likely have patient follow-up with outpatient labs with her primary care provider for chronic management. 6. Reactive leukocytosis: Resolved currently 6.2, Afebrile. Patient did receive Decadron intraoperatively. 7. Infectious disease consultation: Will continue recommendations from infectious disease. Patient does have PICC line in place. Plan will be for patient to receive 6 weeks IV vancomycin with stop date on May 02, 2025. Patient will require follow-up and monitoring with the infectious disease provider with repeat labs. On microbiology bacillus sp.was noted from 1 sample. According to infectious disease they will continue IV vancomycin. Patient will have a follow-up with infectious disease in 2 weeks. Appreciate any further recommendations from infectious disease. 8. Patient will be a knee immobilizer for 2 weeks with no range of motion of the right knee. 9. Incentive spirometry: Patient was encouraged to use incentive spirometer every hour that they will be awake for the first week to decrease risk of postoperative lung infection. 10. Postoperative constipation: Will continue with senna 2 tablets twice daily until first bowel movement. Patient was advised if not having a bowel movement after day 3 she is to contact orthopedics so appropriate change can be made. Patient voiced understanding. 11. Continue postoperative medical treatment per medicine 12. Disposition: We are currently in process getting precertification for patient to go to [facility] rehabilitation unit. Patient will be requiring 6 weeks of IV vancomycin per infectious disease. Patient will have a follow-up in 2 weeks with infectious disease. Patient will continue with recommendations from infectious disease with regards to antibiotics. Patient will continue to be in the knee immobilizer at all times with no range of motion of the knee. Patient can be 50% weightbearing while using walker. Appreciate recommendations from medicine as well as case management for safe and proper discharge. Once there is a plan established with case management team we will proceed with safe discharge planning. This dictation was created using voice recognition software. Phonetic and/or grammatical errors may exist.
[2025-03-24] MEDS: Ferrous Sulfate 325 MG Tablet PO (12:54)
[2025-03-24] MEDS: Lisinopril 10 MG Tablet PO (12:55)
--- NOTE | 2025-03-24 13:49 | CASEMGMT ---
Social Work- ZULEYMA collaborated with [facility] admissions on pending precert. [facility] admissions followed up with Aleah who continue to review for authorization. ZULEYMA remains available to follow. SHUN Ross
[2025-03-24 16:11] LABS: Bedside Glucose 139 mg/dL (74-106)
--- NOTE | 2025-03-24 19:26 | PCM.PN.HOSP ---
Reason for Visit Reason for Visit: Diagnoses Type 2 diabetes mellitus without complications (03/21/25) Infection and inflammatory reaction due to internal right knee prosthesis, initial encounter (03/21/25) Encounter for other preprocedural examination (03/21/25) Subjective Subjective Patient was seen and examined today, we are currently awaiting pre-CERT for the patient to go to the rehab unit. She remains on IV antibiotics per ID at this time. Objective Data Objective Data Vital Signs: Vital Signs Temp Pulse Resp BP Pulse Ox O2 Del Method O2 Flow Rate 98.3 F 80 16 151/55 H 95 Room Air 2 03/24/25 15:08 03/24/25 15:08 03/24/25 15:08 03/24/25 15:08 03/24/25 15:08 03/24/25 15:08 03/22/25 07:21 Oxygen Flow Rate (L/min) 2 Oxygen Delivery Method Room Air Weight: 105.6 kg Body Mass Index (BMI) 37.4 Intake & Output: Intake and Output for Last 24 Hours 03/22/25 03/23/25 03/24/25 23:59 23:59 23:59 Intake Total 3150 / 3150 1792.75 / 1792.75 1450 / 1450 Output Total 1450 / 1450 Balance 1700 / 1700 1792.75 / 1792.75 1450 / 1450 Lab / Micro Data 03/24/25 05:34 03/23/25 08:29 Labs: Laboratory Results - last 24 hr 03/23/25 21:02: POC Glucose 196 H 03/24/25 05:34: WBC 6.2, RBC 3.16 L, Hgb 8.6 L, Hct 27.8 L, MCV 88.0, MCH 27.2, MCHC 30.9 L, RDW Std Deviation 42.4, RDW Coeff of Pedro 13.2, Plt Count 227, MPV 8.2 03/24/25 06:08: POC Glucose 117 H 03/24/25 10:15: Vancomycin Trough 15.7 H 03/24/25 11:07: POC Glucose 301 H 03/24/25 15:52: POC Glucose 139 H Micro: Microbiology 03/21/25 15:47 Tissue - Knee Gram Stain - Final 03/21/25 15:47 Tissue - Knee Wound Culture - Final Bacillus sp., not anthracis 03/21/25 15:47 Tissue - Knee Anaerobic Culture - Preliminary 03/21/25 15:47 Wound - Leg, Left Gram Stain - Final 03/21/25 15:47 Wound - Leg, Left Wound Culture - Preliminary No growth-Final to follow 03/21/25 15:47 Wound - Leg, Left Anaerobic Culture - Preliminary No growth in 48 hours. 03/21/25 15:47 Tissue - Knee Gram Stain - Final 03/21/25 15:47 Tissue - Knee Wound Culture - Preliminary No growth-Final to follow 03/21/25 15:47 Tissue - Knee Anaerobic Culture - Preliminary No growth in 48 hours. Physical Exam Narrative alert, oriented x3, no apparent distress and healthy appearing General Appearance: cooperative, well kempt and well developed Orientation / Consciousness: awake, oriented to person, oriented to place and oriented to time HEENT normocephalic, head/scalp atraumatic and moist oral mucous membranes Eyes PERRL, EOMs intact bilaterally and conjunctivae normal Neck supple, no JVD, thyroid normal and no carotid bruits General: trachea midline Resp normal respiratory effort, no retractions, no use of accessory muscles and clear to auscultation bilaterally Auscultation: Negative for rales, rhonchi or wheezes Cardio regular rate, regular rhythm, S1 normal heart sound, S2 normal heart sound, no murmurs, no rub and no gallops GI normal to inspection, nondistended, normoactive bowel sounds, soft to palpation, non-tender and non-distended Skin no rashes or lesions noted Neuro oriented x3, CN's II-XII intact bilaterally, moves all extremities, no focal motor deficits and no sensory deficits noted Sensorium / Orientation: awake and alert Speech: speech normal Psych affect normal Const alert, oriented x3, no apparent distress and healthy appearing Constitutional Narrative: Middle-aged female, class II obesity, mildly sedated from anesthesia but otherwise sitting back comfortably in bed, conversing normally, in no acute distress. General Appearance: cooperative, comfortable, well kempt and well developed Orientation / Consciousness: awake, oriented to person, oriented to place and oriented to time HEENT normocephalic, head/scalp atraumatic, hearing grossly normal bilaterally, nasal mucous membranes and turbinates normal and moist oral mucous membranes Eyes PERRL, EOMs intact bilaterally and conjunctivae normal Neck full ROM, supple, no JVD, thyroid normal and no carotid bruits General: trachea midline Chest inspection of chest normal Resp normal respiratory effort, normal air movement, no retractions, no use of accessory muscles and clear to auscultation bilaterally Auscultation: Negative for rales, rhonchi or wheezes Cardio regular rate, regular rhythm, S1 normal heart sound, S2 normal heart sound, no murmurs, no rub, no gallops and peripheral pulses 2+ throughout GI normal to inspection, nondistended, normoactive bowel sounds, soft to palpation, non-tender and non-distended Back/Spine normal ROM Extremity Extremity Narrative: Right knee with bandage and ice pack in place. Skin no rashes or lesions noted Neuro oriented x3, CN's II-XII intact bilaterally, moves all extremities, no focal motor deficits and no sensory deficits noted Sensorium / Orientation: awake and alert Speech: speech normal Psych mental status grossly normal and affect normal Assessment & Plan Assessment/Plan (1) Diabetes: (2) Infection of prosthetic right knee joint: PLAN: Plan 1. Type 2 diabetes-blood sugars will be monitored, sliding scale insulin will be administered as indicated, blood sugars have improved. 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
[2025-03-24] MEDS: Atorvastatin Calcium 40 MG Tablet PO (20:25)
[2025-03-24 21:13] LABS: Bedside Glucose 230 mg/dL (74-106)
[2025-03-25] MEDS: Vancomycin HCl 1,250 MG in 0.9% Normal Saline (250mL Bag) 250 ML 167 MG IV ×2 (02:35→11:28)
[2025-03-25] MEDS: oxyCODONE 5 MG Tablet PO ×2 (02:36→09:39)
[2025-03-25 02:45] VITALS: BP 141/50; PULSE 70; RESP 16; TEMP 36.7; O2SAT 98
[2025-03-25] MEDS: Acetaminophen 500 MG Tablet 1000 MG PO ×2 (04:24→13:07)
[2025-03-25 06:42] LABS: Bedside Glucose 126 mg/dL (74-106)
[2025-03-25 08:00] VITALS: BP 155/53; PULSE 98; RESP 16; TEMP 36.8; O2SAT 98
[2025-03-25 08:45] VITALS: BP 155/53; PULSE 98; RESP 16; TEMP 36.8; O2SAT 98
[2025-03-25] MEDS: Folic Acid 1 MG Tablet PO (09:37)
[2025-03-25] MEDS: Insulin Glargine-YFGN 100 UNIT/ML Pen 10 UNIT SC (09:37)
[2025-03-25] MEDS: Aspirin 81 MG TAB.CHEW PO (09:37)
[2025-03-25] MEDS: Meloxicam 7.5 MG Tablet PO (09:38)
[2025-03-25] MEDS: Famotidine 20 MG Tablet PO (09:38)
[2025-03-25 10:45] LABS: Vancomycin, Trough Level 16.9 ug/mL (5.0-15.0)
--- NOTE | 2025-03-25 10:54 | PCM.RX.CS ---
Consult Antibiotic Management Pharmacy has been consulted to manage selected antibiotic: Vancomycin Type of Intervention Type of Consult: Follow-up Suspected Infection Suspected Infection: Skin/Soft tissue and Other (JOINT INFECTION) Prior Doses of Antibiotics Prior Doses of Antibiotics Received/Current Regimen: Vancomycin 1250 mg Q8H last dose given 03/25/25 @ 0235 Labs Labs: Sodium 140 mmol/L (133-145) 03/23/25 08:29 Potassium 3.9 mmol/L (3.3-5.1) 03/23/25 08:29 Chloride 101 mmol/L (98-108) 03/23/25 08:29 Carbon Dioxide 27.9 mmol/L (21.0-32.0) 03/23/25 08:29 Anion Gap 11 (5-15) 03/23/25 08:29 BUN 15 mg/dL (4-19) 03/23/25 08:29 Creatinine 0.46 mg/dL (0.70-1.20) L 03/23/25 08:29 Est GFR (MDRD) Non-Af 112 (>60) 03/23/25 08:29 BUN/Creatinine Ratio 32.4 RATIO (10-20) H 03/23/25 08:29 Glucose 100 mg/dL (70-99) H 03/23/25 08:29 Vancomycin Trough 16.9 ug/mL (5.0-15.0) H 03/25/25 10:00 Microbiology Microbiology: Microbiology 03/21/25 15:47 Tissue - Knee Gram Stain - Final 03/21/25 15:47 Tissue - Knee Wound Culture - Final No growth aerobically. 03/21/25 15:47 Tissue - Knee Anaerobic Culture - Preliminary No growth in 48 hours. 03/21/25 15:47 Wound - Leg, Left Gram Stain - Final 03/21/25 15:47 Wound - Leg, Left Wound Culture - Final No growth aerobically. 03/21/25 15:47 Wound - Leg, Left Anaerobic Culture - Preliminary No growth in 48 hours. 03/21/25 15:47 Tissue - Knee Gram Stain - Final 03/21/25 15:47 Tissue - Knee Wound Culture - Final Bacillus sp., not anthracis 03/21/25 15:47 Tissue - Knee Anaerobic Culture - Preliminary Dosing Weight Weight used for dosin kg Estimated Creatinine Clearance Estimated Creatinine Clearance: ~ 167 Goal Trough Goal Trough: 15-20 mcg/mL Pharmacy Plan for Drug Dosing Pharmacy Plan for Drug Dosing: Vancomycin trough = 16.9, continue current dosing, trough in 2 days. Pharmacy Service will continue to monitor and adjust dosing as required. Follow-Up Labs Follow-Up Labs: Trough: Vancomycin Date/Time Labs Ordered Labs to be done on [date and time ordered]: 03/27/25 @1000
[2025-03-25] MEDS: 0.9% Saline Lock 10 ML Syringe IV (11:28)
--- NOTE | 2025-03-25 11:28 | CASEMGMT ---
Social Work Pt has been approved by insurance for admission to the inpatient rehab unit. SW met with pt and updated and pt is agreeable to dc plan. Physician notified. Plan: Inpatient Rehab today SHUN Connell
[2025-03-25] MEDS: Insulin Lispro 100 UNIT/ML INSULN.PEN SC (11:59)
[2025-03-25] MEDS: Vancomycin Trough/Random Due 1 LAB MC ×2 (12:19)
--- NOTE | 2025-03-25 12:47 | PCM.TXEXTCAR ---
Diet Diet Order/Speech Therapy: INPATIENT Hospital Diet / Speech Therapy Order(s) 03/21/25 23:03 Diet: Regular - General Routine Orders/Code Status Routine Lab Work: - (Weekly peak and trough vancomycin levels, weekly BMP starting 03/28/2025) Code Status: Full Code DC O2, CPAP, BIPAP needs Home O2 Discharge instructions: No Wound(s) RT KNEE: Wound Type: Surgical Incision Therapies Weight Bearing: Partial weight bearing (50% weightbearing with walker x 2 weeks, continue with knee immobilizer at all times) Physical Therapy: Eval and Treat (No range of motion for the right knee for 2 weeks, may begin range of motion starting at 2 weeks follow-up appointment) Occupational Therapy: Eval and Treat Problem/Diagnosis (1) Infection of prosthetic right knee joint: Status: Acute Code(s): T84.53XA - Infection and inflammatory reaction due to internal right knee prosthesis, initial encounter Plan 1. Type 2 diabetes-blood sugars will be monitored, sliding scale insulin will be administered as indicated, blood sugars have improved. 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-infectious diseases is following, patient is currently on vancomycin Total clinical time spent by myself addressing the patient's medical issues, reviewing all of her data, and collaborating with patient's care team: 35 minutes Allergies/Procedures Done in Hospital Allergies No Known Allergies Allergy (Verified 03/21/25 12:03) Procedures: - (Right knee removal of total knee replacement, revision to articulating antibiotic spacer-03/21/2025) Type of Care/Length of Stay Estimated LOS: Convalescent Care Less Than 30 days Type of Care Needed: Acute Rehab Rehab Potential: Good Prognosis: Good Additional Orders/Day of Discharge H&P will serve as current which was dated: 03/02/25 Day of Discharge: 03/25/25 Discharge Plan Admission Admit Date/Time: 03/21/25 16:10 Primary Reason for Your Visit: Right knee periprosthetic joint infection, right knee removal of total knee Attending Provider: Jossue Lay Primary Care Provider: Carolin Cason Consulting Providers: Jw Dahl; Terry Barrios; Mansoor Ji Discharge Orders/Prescriptions Prescriptions: New vancomycin 1.25 gram recon soln 1.25 g IV Q8H 40 Days Rx Instructions: stop date 05/02/25. Dx: R knee PJI. Weekly bmp, cbc, vanc trough, and esr. Fax to [phone]. Routine picc care per protocol. acetaminophen 500 mg Tablet 1,000 mg PO Q8H Qty: 0 0RF aspirin 81 mg Tablet,Chewable 81 mg PO BID Qty: 0 0RF atorvastatin 40 mg Tablet 40 mg PO QHS Qty: 0 0RF famotidine 20 mg Tablet 20 mg PO DAILY Qty: 0 0RF Glucagon Emergency Kit (human) 1 mg Recon Soln 1 mg IM X1 PRN (Reason: Hypoglycemia) Qty: 0 0RF insulin lispro [Humalog KwikPen Insulin] 100 unit/mL Insulin Pen See Protocol subcut ACHS Qty: 0 0RF Protocol: 5. Sliding Scale Insulin High Dosing Condition: 150-209 mg/dl = 3 units Condition: 210-259 mg/dl = 6 units Condition: 260-324 mg/dl = 9 units Condition: 325-374 mg/dl = 12 units Condition: 375-409 mg/dl = 14 units Condition: 410-449 mg/dl = 16 units Condition: Greater than 449 call physician Protocol Text: Suggested for: - Patients on Total Daily Insulin Dose of 81-120 units - Very insulin resistant patients HIGH DOSING ALGORITHM insulin glargine-yfgn 100 unit/mL (3 mL) Insulin Pen 10 unit subcut BID Qty: 0 0RF sennosides-docusate sodium [Stimulant Laxative Plus] 8.6-50 mg Tablet 2 tab PO BID Qty: 0 0RF promethazine 25 mg Tablet 12.5 mg PO Q6H PRN PRN (Reason: Nausea/Vomiting) Qty: 0 0RF oxycodone 5 mg Tablet 5 - 10 mg PO Q4H PRN PRN (Reason: Pain Score 4-10) Qty: 0 0RF Continued metformin 500 mg tablet extended release 24 hr 2,000 mg PO QHS rosuvastatin 20 mg tablet 20 mg PO QHS lisinopril 10 mg tablet 10 mg PO 1300 ferrous sulfate [Feosol] 325 mg (65 mg iron) tablet 325 mg PO DAILY folic acid 1 mg tablet 1 mg PO DAILY Discontinued meloxicam 7.5 mg Tablet 7.5 mg PO BID 30 Days Qty: 60 0RF Rx Instructions: Do not take any other nonsteroidal anti-inflammatories while using meloxicam/Mobic. glimepiride 4 mg tablet 6 mg PO DAILY acetaminophen 325 mg capsule 650 mg PO Q4H PRN (Reason: pain) Other Ambulatory Orders: Magnesium (Routine) Timeframe: 20250311 Facility: [facility] - Location: Laboratory Ordered By: Dr. Nikhil Person Referrals / Follow Up: Terry Barrios MD [Med Staff - Active Staff] - See Referral Note (In 2 weeks) Jossue Lay MD [Med Staff - Active Staff] - See Referral Note (In 2 weeks) Carolin Cason NP-C [Primary Care Provider] - Disposition Disposition (needs filled in before D/C Order can be placed): Inpatient Rehab Unit/Facility
[2025-03-25] MEDS: Ferrous Sulfate 325 MG Tablet PO (13:08)
[2025-03-25] MEDS: Lisinopril 10 MG Tablet PO (13:08)
--- NOTE | 2025-03-25 13:13 | PCM.PN.HOSP ---
Reason for Visit Reason for Visit: Diagnoses Type 2 diabetes mellitus without complications (03/21/25) Infection and inflammatory reaction due to internal right knee prosthesis, initial encounter (03/21/25) Encounter for other preprocedural examination (03/21/25) Subjective Subjective Patient was seen and examined today, we got approval for the patient to go to the rehab unit for inpatient rehab services. Patient has no complaints today, she has no complaints of fever or chills, there is no complaint of shortness of breath. Objective Data Objective Data Vital Signs: Vital Signs Temp Pulse Resp BP Pulse Ox O2 Del Method O2 Flow Rate 98.2 F 98 16 155/53 H 98 Room Air 2 03/25/25 08:45 03/25/25 08:45 03/25/25 08:45 03/25/25 08:45 03/25/25 08:45 03/25/25 10:00 03/22/25 07:21 Oxygen Flow Rate (L/min) 2 Oxygen Delivery Method Room Air Weight: 105.6 kg Body Mass Index (BMI) 37.4 Intake & Output: Intake and Output for Last 24 Hours 03/23/25 03/24/25 03/25/25 23:59 23:59 23:59 Intake Total 1792.75 / 1792.75 212 / 212 395 / 395 Balance 1792.75 / 1792.75 2124 / 2124 395 / 395 Lab / Micro Data 03/24/25 05:34 03/23/25 08:29 Labs: Laboratory Results - last 24 hr 03/24/25 15:52: POC Glucose 139 H 03/24/25 20:28: POC Glucose 230 H 03/25/25 06:22: POC Glucose 126 H 03/25/25 10:00: Vancomycin Trough 16.9 H Micro: Microbiology 03/21/25 15:47 Tissue - Knee Gram Stain - Final 03/21/25 15:47 Tissue - Knee Wound Culture - Final No growth aerobically. 03/21/25 15:47 Tissue - Knee Anaerobic Culture - Preliminary No growth in 48 hours. 03/21/25 15:47 Wound - Leg, Left Gram Stain - Final 03/21/25 15:47 Wound - Leg, Left Wound Culture - Final No growth aerobically. 03/21/25 15:47 Wound - Leg, Left Anaerobic Culture - Preliminary No growth in 48 hours. 03/21/25 15:47 Tissue - Knee Gram Stain - Final 03/21/25 15:47 Tissue - Knee Wound Culture - Final Bacillus sp., not anthracis 03/21/25 15:47 Tissue - Knee Anaerobic Culture - Preliminary Physical Exam Narrative alert, oriented x3, no apparent distress and healthy appearing General Appearance: cooperative, well kempt and well developed Orientation / Consciousness: awake, oriented to person, oriented to place and oriented to time HEENT normocephalic, head/scalp atraumatic and moist oral mucous membranes Eyes PERRL, EOMs intact bilaterally and conjunctivae normal Neck supple, no JVD, thyroid normal and no carotid bruits General: trachea midline Resp normal respiratory effort, no retractions, no use of accessory muscles and clear to auscultation bilaterally Auscultation: Negative for rales, rhonchi or wheezes Cardio regular rate, regular rhythm, S1 normal heart sound, S2 normal heart sound, no murmurs, no rub and no gallops GI normal to inspection, nondistended, normoactive bowel sounds, soft to palpation, non-tender and non-distended Skin no rashes or lesions noted Neuro oriented x3, CN's II-XII intact bilaterally, moves all extremities, no focal motor deficits and no sensory deficits noted Sensorium / Orientation: awake and alert Speech: speech normal Psych affect normal Assessment & Plan Assessment/Plan (1) Diabetes: (2) Infection of prosthetic right knee joint: PLAN: Plan 1. Type 2 diabetes-blood sugars will be monitored, sliding scale insulin will be administered as indicated, blood sugars have improved. 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 Total clinical time spent by myself addressing the patient's medical issues, reviewing all of her data, and collaborating with patient's care team: 50 minutes Charges/Coding Visit Charges Inpatient E&M: 60989 Subs Hosp L3
--- NOTE | 2025-03-25 13:49 | CASEMGMT ---
Social Work Discharge orders faxed to . Echo in notified that pt has been discharged. RN updated that pt is ready for discharge to at this time. Disposition: Inpatient Rehab [facility]
[2025-03-25 14:05] LABS: Absolute Lymphocyte Count 1.47 X10^3/uL (0.83-4.51); Absolute Neutrophil Count 4.9 X10^3/uL (2.0-7.7); Basophil# 0.02 X10^3/uL; Basophil% 0.3 % (0-1); Eosinophil# 0.23 X10^3/uL; Eosinophils% 3.3 % (0-5); Hematocrit 26.9 % (37-47); Hemoglobin 8.5 g/dL (12.0-15.0); Lymphocyte # 1.47 X10^3/ul (0.83-4.51); Lymphocyte % 20.9 % (19-41); Mean Corp Hgb Conc 31.6 g/dL (32-36); Mean Corpuscular Hgb 27.4 pg (27.0-32.0); Mean Corpuscular Volume 86.8 fL (81-99); Mean Platelet Vol. 8.3 fl (6.2-12.0); Monocyte# 0.32 X10^3/uL; Monocyte% 4.6 % (0-10); NRBC Flagged by Analyzer 0 % (0-5); Neutrophil # 4.92 X10^3/uL (2.7-7.7); POSITIVE MORPHOLOGY YES; Platelet Count 229 K/mm3 (150-450); RBC Distribution Width CV 13.3 % (11.6-14.6); RBC Distribution Width SD 41.6 fl (35.1-43.9)
[2025-03-25 14:11] LABS: Differential Indicated SCAN CRITERIA MET
--- NOTE | 2025-03-25 14:42 | PCM.PN.ORT ---
Subjective Subjective Patient is sitting comfortably in bedside. Upon examination. Patient states that she is feeling even better today. Patient states that she is ready to get up to the rehab unit. Patient states that she has been in her knee immobilizer at all times and has been 50% weightbearing with her walker. Patient is currently receiving IV vancomycin via PICC line. Patient denies any nausea, vomiting, dizziness. Patient denies any lightheadedness. Patient denies any fevers, chills, signs of infection. Patient denies any shortness of breath, chest pain, calf pain. Patient states that she has had a bowel movement at this time. Patient states that she did work with physical therapy today and that went well. Objective Data Objective Data Vital Signs: Vital Signs Temp Pulse Resp BP Pulse Ox O2 Del Method O2 Flow Rate 98.2 F 98 16 155/53 H 98 Room Air 2 03/25/25 08:45 03/25/25 08:45 03/25/25 08:45 03/25/25 08:45 03/25/25 08:45 03/25/25 10:00 03/22/25 07:21 Oxygen Flow Rate (L/min) 2 Oxygen Delivery Method Room Air Weight: 105.6 kg Body Mass Index (BMI) 37.4 Intake & Output: Intake and Output for Last 24 Hours 03/23/25 03/24/25 03/25/25 23:59 23:59 23:59 Intake Total 1792.75 / 1792.75 2124 / 2124 395 / 395 Balance 1792.75 / 1792.75 2124 / 2124 395 / 395 Lab / Micro Data 03/25/25 13:50 03/23/25 08:29 Labs: Laboratory Results - last 24 hr 03/24/25 15:52: POC Glucose 139 H 03/24/25 20:28: POC Glucose 230 H 03/25/25 06:22: POC Glucose 126 H 03/25/25 10:00: Vancomycin Trough 16.9 H 03/25/25 13:50: WBC 7.0, RBC 3.10 L, Hgb 8.5 L, Hct 26.9 L, MCV 86.8, MCH 27.4, MCHC 31.6 L, RDW Std Deviation 41.6, RDW Coeff of Pedro 13.3, Plt Count 229, MPV 8.3, Immature Gran % (Auto) 0.900, Neut % (Auto) 70.0, Lymph % (Auto) 20.9, [place] % (Auto) 4.6, Eos % (Auto) 3.3, Baso % (Auto) 0.3, Absolute Neuts (auto) 4.9, Absolute Lymphs (auto) 1.47, Nucleated RBC % 0 Micro: Microbiology 03/21/25 15:47 Tissue - Knee Gram Stain - Final 03/21/25 15:47 Tissue - Knee Wound Culture - Final No growth aerobically. 03/21/25 15:47 Tissue - Knee Anaerobic Culture - Preliminary No growth in 48 hours. 03/21/25 15:47 Wound - Leg, Left Gram Stain - Final 03/21/25 15:47 Wound - Leg, Left Wound Culture - Final No growth aerobically. 03/21/25 15:47 Wound - Leg, Left Anaerobic Culture - Preliminary No growth in 48 hours. 03/21/25 15:47 Tissue - Knee Gram Stain - Final 03/21/25 15:47 Tissue - Knee Wound Culture - Final Bacillus sp., not anthracis 03/21/25 15:47 Tissue - Knee Anaerobic Culture - Preliminary Physical Exam Narrative Vital signs stable and afebrile. SCDs and GROVER hose are in place bilaterally Knee immobilizer in place Patient is able to plantarflex and dorsiflex actively. Sensation intact to light touch. Neurovascular intact overall. Dressing is clean dry and intact. Negative Homans bilaterally, negative signs and symptoms of DVT. Const alert, oriented x3 and no apparent distress Assessment & Plan Assessment/Plan (1) Infection of prosthetic right knee joint: PLAN: 1. S/P right knee removal total knee arthroplasty with revision to articulating antibiotic spacer POD #4 2. Pain Medications: Tylenol, meloxicam, and oxycodone. Patient was educated she would be taking Tylenol 1000 mg every 8 hours taking no more than 3000 mg in 24 hours. Patient was educated not to take any anti-inflammatory medications while taking meloxicam. 3. DVT Prophylaxis: Take 81 mg aspirin twice daily for 4 weeks postoperatively for DVT prophylaxis. Patient denies past history of DVT or pulmonary embolism. Patient will continue with GROVER hose for 2 weeks postoperatively. 4. PT/OT: Continue with knee immobilizer at all times and the patient will be 50% weightbearing with walker for 2 weeks postoperatively. No range of motion of the right knee for 2 weeks postoperatively. May begin range of motion starting at 2-week follow-up appointment. 5. H & H: 8.5/26.9, asymptomatic. Monitoring patient's hemoglobin and hematocrit with postoperative anemia without any intra operative complications. Yesterday patient's hemoglobin was 8.6. Patient is continued on ferrous sulfate and folic acid. Patient will be going to [facility] rehab unit and we will have patient get outpatient labs in 2 days and have primary care provider follow chronic anemia. 6. Reactive leukocytosis: Resolved currently 7.0, Afebrile. Patient did receive Decadron intraoperatively. 7. Infectious disease consultation: Patient does have PICC line in place. Plan will be for patient to receive 6 weeks IV vancomycin with stop date on May 02, 2025. Patient will require follow-up and monitoring with the infectious disease provider with repeat labs. On microbiology bacillus sp.was noted from 1 sample. According to infectious disease they will continue IV vancomycin. Patient will have a follow-up with infectious disease in 2 weeks. Appreciate any further recommendations from infectious disease. 8. Patient will be a knee immobilizer for 2 weeks with no range of motion of the right knee. 9. Incentive spirometry: Patient was encouraged to use incentive spirometer every hour that they will be awake for the first week to decrease risk of postoperative lung infection. 10. Postoperative constipation: Will continue with senna 2 tablets twice daily until first bowel movement. Patient was advised if not having a bowel movement after day 3 she is to contact orthopedics so appropriate change can be made. Patient states that she has had a bowel movement at this time. 11. Continue postoperative medical treatment per medicine 12. Disposition: Patient did get acceptance and precertification to go to [facility] rehab unit. Patient will be requiring 6 weeks of IV vancomycin per infectious disease. Patient will have a follow-up in 2 weeks with infectious disease. Patient will continue with recommendations from infectious disease with regards to antibiotics. Patient will continue to be in the knee immobilizer at all times with no range of motion of the knee. Patient can be 50% weightbearing while using walker. Appreciate recommendations from medicine as well as case management for safe and proper discharge. Patient will have follow-up with our office in 2 weeks for reevaluation. Patient's medications will be sent to patient's pharmacy of choice. Patient will continue with physical therapy in the rehab unit and then progress outpatient physical therapy. Patient will have outpatient lab work to get CBC to follow hemoglobin. Primary care is to manage chronic anemia. Patient was encouraged to call with any questions, concerns, new problems. This dictation was created using voice recognition software. Phonetic and/or grammatical errors may exist.
--- NOTE | 2025-03-25 14:48 | DS.PCM_ITS ---
Providers Date of Admission: 03/21/25 Primary Care Physician: Carolin Cason, SHARRON-Ra Consultations 03/21/25 16:10 Consult: Infectious Disease Routine Consulting Provider: Terry Barrios Reason for Consult: Right knee periprosthetic joint infection EMERGENT Consult: No Notified: Yes Date Notified: 03/21/25 Time Notified: 18:10 Method of Notification: Text 03/21/25 16:11 Consult: Hospitalist Routine Consulting Provider: Jw Dahl Reason for Consult: post op med management EMERGENT Consult: No Notified: Yes Date Notified: 03/21/25 Time Notified: 18:08 Method of Notification: Text Reason For Visit: REMOVAL RIGHT TOTAL KNEE WITH PLACEMENT OF ANTIBIO Diagnosis Discharge Diagnosis (1) Infection of prosthetic right knee joint: Status: Acute Code(s): T84.53XA - Infection and inflammatory reaction due to internal right knee prosthesis, initial encounter Plan: 1. S/P right knee removal total knee arthroplasty with revision to articulating antibiotic spacer POD #4 2. Pain Medications: Tylenol, meloxicam, and oxycodone. Patient was educated she would be taking Tylenol 1000 mg every 8 hours taking no more than 3000 mg in 24 hours. Patient was educated not to take any anti-inflammatory medications while taking meloxicam. 3. DVT Prophylaxis: Take 81 mg aspirin twice daily for 4 weeks postoperatively for DVT prophylaxis. Patient denies past history of DVT or pulmonary embolism. Patient will continue with GROVER hose for 2 weeks postoperatively. 4. PT/OT: Continue with knee immobilizer at all times and the patient will be 50% weightbearing with walker for 2 weeks postoperatively. No range of motion of the right knee for 2 weeks postoperatively. May begin range of motion starting at 2-week follow-up appointment. 5. H & H: 8.5/26.9, asymptomatic. Monitoring patient's hemoglobin and hematocrit with postoperative anemia without any intra operative complications. Yesterday patient's hemoglobin was 8.6. Patient is continued on ferrous sulfate and folic acid. Patient will be going to [facility] rehab unit and we will have patient get outpatient labs in 2 days and have primary care provider follow chronic anemia. 6. Reactive leukocytosis: Resolved currently 7.0, Afebrile. Patient did receive Decadron intraoperatively. 7. Infectious disease consultation: Patient does have PICC line in place. Plan will be for patient to receive 6 weeks IV vancomycin with stop date on May 02, 2025. Patient will require follow-up and monitoring with the infectious disease provider with repeat labs. On microbiology bacillus sp.was noted from 1 sample. According to infectious disease they will continue IV vancomycin. Patient will have a follow-up with infectious disease in 2 weeks. Appreciate any further recommendations from infectious disease. 8. Patient will be a knee immobilizer for 2 weeks with no range of motion of the right knee. 9. Incentive spirometry: Patient was encouraged to use incentive spirometer every hour that they will be awake for the first week to decrease risk of postoperative lung infection. 10. Postoperative constipation: Will continue with senna 2 tablets twice daily until first bowel movement. Patient was advised if not having a bowel movement after day 3 she is to contact orthopedics so appropriate change can be made. Patient states that she has had a bowel movement at this time. 11. Continue postoperative medical treatment per medicine 12. Disposition: Patient did get acceptance and precertification to go to [facility] rehab unit. Patient will be requiring 6 weeks of IV vancomycin per infectious disease. Patient will have a follow-up in 2 weeks with infectious disease. Patient will continue with recommendations from infectious disease with regards to antibiotics. Patient will continue to be in the knee immobilizer at all times with no range of motion of the knee. Patient can be 50% weightbearing while using walker. Appreciate recommendations from medicine as well as case management for safe and proper discharge. Patient will have follow-up with our office in 2 weeks for reevaluation. Patient's medications will be sent to patient's pharmacy of choice. Patient will continue with physical therapy in the rehab unit and then progress outpatient physical therapy. Patient will have outpatient lab work to get CBC to follow hemoglobin. Primary care is to manage chronic anemia. Patient was encouraged to call with any questions, concerns, new problems. This dictation was created using voice recognition software. Phonetic and/or grammatical errors may exist. Medications at Discharge Home Medications lisinopril 10 mg tablet 10 mg PO 1300 bp 08/10/24 metformin 500 mg tablet,extended release 24 hr 2,000 mg PO QHS DIABETES 08/10/24 rosuvastatin 20 mg tablet 20 mg PO QHS cholesterol 08/10/24 ferrous sulfate 325 mg (65 mg iron) tablet (Feosol) 325 mg PO DAILY SUPPLEMENT 03/11/25 folic acid 1 mg tablet 1 mg PO DAILY SUPPLEMENT 03/11/25 vancomycin 1.25 gram intravenous solution 1.25 g IV Q8H 40 days 03/23/25 acetaminophen 500 mg tablet 1,000 mg (2 x 500 mg) PO Q8H #0 tabs 03/25/25 aspirin 81 mg chewable tablet 81 mg PO BID #0 tabs 03/25/25 atorvastatin 40 mg tablet 40 mg PO QHS #0 tabs 03/25/25 famotidine 20 mg tablet 20 mg PO DAILY #0 tabs 03/25/25 glucagon 1 mg solution for injection (Glucagon Emergency Kit) 1 mg IM X1 PRN Hypoglycemia #0 ea 03/25/25 insulin glargine-yfgn 100 unit/mL (3 mL) subcutaneous pen 10 unit (0.1 mL) subcut BID #0 mL 03/25/25 insulin lispro 100 unit/mL subcutaneous pen (Humalog KwikPen (U-100) Insulin) See Protocol subcut ACHS #0 mL 03/25/25 oxycodone 5 mg tablet 5 - 10 mg (1 - 2 x 5 mg) PO Q4H PRN PRN Pain Score 4-10 #0 tabs 03/25/25 promethazine 25 mg tablet 12.5 mg (1/2 x 25 mg) PO Q6H PRN PRN Nausea/Vomiting #0 tabs 03/25/25 sennosides 8.6 mg-docusate sodium 50 mg tablet (Stimulant Laxative Plus) 2 tab PO BID #0 tabs 03/25/25 Hospital Course Operations total knee replacement (Right knee removal total knee arthroplasty with revision to articulating antibiotic spacer.) Summary of Care Provided Hospital Course: Patient is a 54-year-old female who presented for a right knee removal of total knee arthroplasty with revision to articulating antibiotic spacer due to 2 positive cultures in office for bacillus. Patient tolerated procedure well and worked well with physical therapy on postop day 1. Due to patient having to receive a PICC line due to nature of revision with positive cultures patient did not feel comfortable with going home and handling her PICC line with IV antibiotics for 6 weeks at home. Patient wanted to continue her care at [facility] rehab unit. During patient's hospital course she did have low hemoglobin with today being at 8.5. Patient does have a history of chronic anemia. Patient was previously on ferrous sulfate and folic acid. Patient will continue ferrous sulfate and folic acid and will have outpatient labs in 2 days and have primary care provider follow and treat chronic anemia. Patient did have reactive leukocytosis which is currently resolved with a normal white blood cell count. Patient will be in a knee immobilizer at all times being 50% weightbearing with her walker for 2 weeks. Patient is to have no range of motion of the knee for 2 weeks. Patient will be following with infectious disease. Patient will have a PICC line for 6 weeks with IV vancomycin with a stop date of May 02, 2025. Patient will have a follow-up with infectious disease in 2 weeks. Patient's medications will be pain medications: Tylenol 1000 mg every 8 hours, meloxicam for 30 days postoperatively, oxycodone as needed for pain control. Patient will be on aspirin 81 mg twice daily for 4 weeks postoperatively for blood clot prevention. Patient will be on GROVER hose for 2 weeks postoperatively. Patient will be on senna as needed for bowel movement. Patient will be on famotidine for 30 days postoperatively. Patient does have follow-up appointment scheduled with [facility] in 2 weeks. Patient is to follow-up per postoperative instructions. Patient was encouraged to call with any questions, concerns, new problems. All questions were answered to the best my ability. Weight / BMI Weight Weight: 105.6 kg Body Mass Index (BMI) 37.4 ABG / Lab / Microbiology Data 03/25/25 13:50 03/23/25 08:29 Laboratory: Laboratory Results - last 24 hr 03/24/25 15:52: POC Glucose 139 H 03/24/25 20:28: POC Glucose 230 H 03/25/25 06:22: POC Glucose 126 H 03/25/25 10:00: Vancomycin Trough 16.9 H 03/25/25 13:50: WBC 7.0, RBC 3.10 L, Hgb 8.5 L, Hct 26.9 L, MCV 86.8, MCH 27.4, MCHC 31.6 L, RDW Std Deviation 41.6, RDW Coeff of Pedro 13.3, Plt Count 229, MPV 8.3, Immature Gran % (Auto) 0.900, Neut % (Auto) 70.0, Lymph % (Auto) 20.9, [place] % (Auto) 4.6, Eos % (Auto) 3.3, Baso % (Auto) 0.3, Absolute Neuts (auto) 4.9, Absolute Lymphs (auto) 1.47, Nucleated RBC % 0 Microbiology: Microbiology 03/21/25 15:47 Tissue - Knee Gram Stain - Final 03/21/25 15:47 Tissue - Knee Wound Culture - Final No growth aerobically. 03/21/25 15:47 Tissue - Knee Anaerobic Culture - Preliminary No growth in 48 hours. 03/21/25 15:47 Wound - Leg, Left Gram Stain - Final 03/21/25 15:47 Wound - Leg, Left Wound Culture - Final No growth aerobically. 03/21/25 15:47 Wound - Leg, Left Anaerobic Culture - Preliminary No growth in 48 hours. 03/21/25 15:47 Tissue - Knee Gram Stain - Final 03/21/25 15:47 Tissue - Knee Wound Culture - Final Bacillus sp., not anthracis 03/21/25 15:47 Tissue - Knee Anaerobic Culture - Preliminary D/C Instructions DC O2, CPAP, BIPAP Needs Home O2 Discharge instructions: No Meaningful Use Info Meaningful Use Meaningful Use Diagnoses (Choose all that apply): None applicable Ischemic Stroke Statin Dosing Therapy Reference: STATIN DOSE THERAPY REFERENCE: * Patients > 75 years receive moderate or high dose statin therapy. * Patients 75 years or YOUNGER should receive HIGH intensity statin dose unless contraindicated. You will be required to document reason for non-treatment if statin daily dose does not meet guidelines. HIGH DOSE STATIN THERAPY DAILY Atorvastatin > than or = to 40 mg Rosuvastatin > than or = to 20 mg Amlodipine + Atorvastatin > than or = to 2.5/40 mg Ezetimibe + Simvastatin 10/80 mg Simvastatin 80mg Discharge Plan Admission Admit Date/Time: 03/21/25 16:10 Primary Reason for Your Visit: Right knee periprosthetic joint infection, right knee removal of total knee Attending Provider: Jossue Lay Primary Care Provider: Carolin Cason Consulting Providers: Jw Dahl; Terry Barrios; Mansoor Ji Discharge Orders/Prescriptions Prescriptions: New vancomycin 1.25 gram recon soln 1.25 g IV Q8H 40 Days Rx Instructions: stop date 05/02/25. Dx: R knee PJI. Weekly bmp, cbc, vanc trough, and esr. Fax to [phone]. Routine picc care per protocol. acetaminophen 500 mg Tablet 1,000 mg PO Q8H Qty: 0 0RF aspirin 81 mg Tablet,Chewable 81 mg PO BID Qty: 0 0RF atorvastatin 40 mg Tablet 40 mg PO QHS Qty: 0 0RF famotidine 20 mg Tablet 20 mg PO DAILY Qty: 0 0RF Glucagon Emergency Kit (human) 1 mg Recon Soln 1 mg IM X1 PRN (Reason: Hypoglycemia) Qty: 0 0RF insulin lispro [Humalog KwikPen Insulin] 100 unit/mL Insulin Pen See Protocol subcut ACHS Qty: 0 0RF Protocol: 5. Sliding Scale Insulin High Dosing Condition: 150-209 mg/dl = 3 units Condition: 210-259 mg/dl = 6 units Condition: 260-324 mg/dl = 9 units Condition: 325-374 mg/dl = 12 units Condition: 375-409 mg/dl = 14 units Condition: 410-449 mg/dl = 16 units Condition: Greater than 449 call physician Protocol Text: Suggested for: - Patients on Total Daily Insulin Dose of 81-120 units - Very insulin resistant patients HIGH DOSING ALGORITHM insulin glargine-yfgn 100 unit/mL (3 mL) Insulin Pen 10 unit subcut BID Qty: 0 0RF sennosides-docusate sodium [Stimulant Laxative Plus] 8.6-50 mg Tablet 2 tab PO BID Qty: 0 0RF promethazine 25 mg Tablet 12.5 mg PO Q6H PRN PRN (Reason: Nausea/Vomiting) Qty: 0 0RF oxycodone 5 mg Tablet 5 - 10 mg PO Q4H PRN PRN (Reason: Pain Score 4-10) Qty: 0 0RF Continued metformin 500 mg tablet extended release 24 hr 2,000 mg PO QHS rosuvastatin 20 mg tablet 20 mg PO QHS lisinopril 10 mg tablet 10 mg PO 1300 ferrous sulfate [Feosol] 325 mg (65 mg iron) tablet 325 mg PO DAILY folic acid 1 mg tablet 1 mg PO DAILY Discontinued meloxicam 7.5 mg Tablet 7.5 mg PO BID 30 Days Qty: 60 0RF Rx Instructions: Do not take any other nonsteroidal anti-inflammatories while using meloxicam/Mobic. glimepiride 4 mg tablet 6 mg PO DAILY acetaminophen 325 mg capsule 650 mg PO Q4H PRN (Reason: pain) Other Ambulatory Orders: Magnesium (Routine) Timeframe: [id number] Facility: [facility] - Location: Laboratory Ordered By: Dr. Nikhil Person Referrals / Follow Up: Terry Barrios MD [Med Staff - Active Staff] - See Referral Note (In 2 weeks) Jossue Lay MD [Med Staff - Active Staff] - See Referral Note (In 2 weeks) Carolin Cason NP-C [Primary Care Provider] - Disposition Disposition (needs filled in before D/C Order can be placed): Inpatient Rehab Unit/Facility
[2025-03-25 17:02] LABS: Bedside Glucose 215 mg/dL (74-106)
[2025-03-25 20:57] LABS: Differential Comment SCANNED
== END 2025-03-25 15:00 | DRG 487 ==
LOC: ACINP 17:15 → MS3 03-22 07:17
PROVIDERS: Anesthesiology; Internal Medicine; Internal Medicine Infectious Disease; Physician Assistant Surgical; Admitting Provider Specialist; PCP Nurse Practitioner Family; Referring Provider Specialist; Visit Provider Specialist
PROC: 0SRC0EZ Replacement of Right Knee Joint with Articulating Spacer, Open Approach (ICD-10-PCS; CPT 27488; principal; 2025-03-21 13:05)
DX: T84.53XA Infection and inflammatory reaction due to internal right knee prosthesis, initial encounter (principal); D50.9 Iron deficiency anemia, unspecified; E11.9 Type 2 diabetes mellitus without complications; E66.812 Obesity, class 2; E78.5 Hyperlipidemia, unspecified; I10 Essential (primary) hypertension; K59.00 Constipation, unspecified; Z90.710 Acquired absence of both cervix and uterus; Z68.37 Body mass index [BMI] 37.0-37.9, adult; M65.90 Unspecified synovitis and tenosynovitis, unspecified site; Z87.891 Personal history of nicotine dependence
CPT/HCPCS: 36415; 36569; 73560; 80048; 80202; 82947; 82962; 83735; 85025; 85027; 87015; 87070; 87075; 87102; 87116; 87176; 87205; 87206; 94668; 97110; 97116; 97162; 97166; C1776; A4216; J2405; J3260

== ENCOUNTER 2025-03-25 15:19 | Inpatient (IN) | payer BC, SELFPAY ==
[2025-03-25 15:25] VITALS: BP 155/59; PULSE 87; RESP 17; TEMP 36.8; O2SAT 96; BMI 39.4
--- NOTE | 2025-03-25 16:02 | PCM.RX.CS ---
Consult Antibiotic Management Pharmacy has been consulted to manage selected antibiotic: Vancomycin Type of Intervention Type of Consult: New start Suspected Infection Suspected Infection: Other (PROSTHETIC JOINT INFECTION) Prior Doses of Antibiotics Prior Doses of Antibiotics Received/Current Regimen: Vancomycin 1250 mg Q8H continued from floor Dosing Weight Weight used for dosin kg Estimated Creatinine Clearance Estimated Creatinine Clearance: ~ 167 Goal Trough Goal Trough: 15-20 mcg/mL Pharmacy Plan for Drug Dosing Pharmacy Plan for Drug Dosing: Vancomycin 1250 mg Q8H continue from floor, trough scheduled same as was previous from floor. Pharmacy Service will continue to monitor and adjust dosing as required. Follow-Up Labs Follow-Up Labs: Trough: Vancomycin Date/Time Labs Ordered Labs to be done on [date and time ordered]: 03/27/25 @ 1000
--- NOTE | 2025-03-25 17:38 | ECHOCS_ITS ---
Reason For Study Reason For Study: Murmur Procedure This was a 2D Doppler, Color Flow transthoracic echocardiogram. The study was technically difficult. Patient scanned supine due to recent knee surgery. Exam performed portable in patient room. Left Ventricle Normal left ventricle. Left ventricular systolic function is normal. The left ventricular ejection fraction is 55 %. Right Ventricle Normal systolic function. Atria Normal left atrium. Normal right atrium. Mitral Valve Mild to moderate mitral annular calcification Mitral valve appears thickened. If there is a high suspicion for endocarditis, further imaging with the FANNY or CT recommended to rule out vegetation Poorly visualized mitral valve. There is no stenosis. Trivial mitral valve insufficiency. Tricuspid Valve Normal tricuspid valve. However if there is any concern for endocarditis a better imaging modality such as FANNY or CT is recommended. Trivial tricuspid valve insufficiency. Aortic Valve Aortic valve is mildly calcified No obvious mass seen on the aortic valve. There is no aortic stenosis. No aortic valve insufficiency. Pulmonic Valve No eccentric pulmonic valve insufficiency. Great Vessels Normal sized aortic root. Pericardium/Pleural No pericardial effusion. Medication Diluted definity 1.5ml given slow IV push to enhance endocardial definition. MMode/2D Measurements & Calculations RVDd: 3.3 cm LVOT diam: 2.2 cm Ao root diam: 3.1 cm LVOT area: 3.7 cm2 LAV(MOD-bp): 60.4 ml LVAd ap4: 31.4 cm2 LVAd ap2: 26.6 cm2 LAV(MOD-bp) Indexed: 27.7 ml/m2 LVLd ap4: 7.9 cm LVLd ap2: 7.4 cm LAV(MOD-sp2): 44.2 ml EDV(MOD-sp4): 101.8 ml EDV(MOD-sp2): 78.5 ml LAV(MOD-sp4): 61.4 ml EDV(sp4-el): 105.1 ml EDV(sp2-el): 81.0 ml LVAs ap4: 17.6 cm2 LVAs ap2: 16.4 cm2 LVLs ap4: 7.0 cm LVLs ap2: 6.4 cm ESV(MOD-sp4): 36.3 ml ESV(MOD-sp2): 34.2 ml ESV(sp4-el): 37.3 ml ESV(sp2-el): 35.7 ml EF(MOD-sp4): 64.4 % EF(MOD-sp2): 56.4 % EF(sp4-el): 64.6 % SV(MOD-sp4): 65.5 ml SV(MOD-sp2): 44.3 ml SV(sp4-el): 67.9 ml SI(MOD-sp4): 30.1 ml/m2 SI(MOD-sp2): 20.3 ml/m2 LA dimension(2D): 3.3 cm LA A4 area: 22.8 cm2 RA A4 area: 14.6 cm2 Time Measurements MV dec time: 0.25 sec Doppler Measurements & Calculations MV E max david: 106.0 cm/sec Lat Peak E' David: 10.0 cm/sec Med Peak E' David: 9.8 cm/sec MV A max david: 120.5 cm/sec E/E' lat: 10.6 E/E' med: 10.9 MV E/A: 0.88 MV dec slope: 431.1 cm/sec2 Ao V2 max: 220.9 cm/sec LV V1 max: 119.4 cm/sec Ao max P.5 mmHg LV V1 max P.7 mmHg Ao V2 mean: 148.9 cm/sec LV V1 mean P.4 mmHg Ao mean P.0 mmHg LV V1 mean: 89.4 cm/sec Ao V2 VTI: 46.7 cm LV V1 VTI: 27.1 cm AV (velocity ratio): 0.58 FUNMI(I,D): 2.2 cm2 FUNMI(V,D): 2.0 cm2 SV(LVOT): 101.0 ml PA V2 max: 113.8 cm/sec TR max david: 277.8 cm/sec TR max P.9 mmHg ECHO/Echo Complete W/ Contrast Interpretation Summary The left ventricular ejection fraction is 55 %. Left ventricular systolic function is normal. Normal left ventricle. Trivial mitral valve insufficiency. Trivial tricuspid valve insufficiency. Normal tricuspid valve. However if there is any concern for endocarditis a better imaging modality such as FANNY or CT is recommended. Mild to moderate mitral annular calcification Mitral valve appears thickened. If there is a high suspicion for endocarditis, further imaging with the FANNY or CT recommended to rule out vegetation Poorly visualized mitral valve No aortic valve insufficiency. Ordering Physician: Mariela Rubio Referring Physician: Mariela Rubio Performed By: Ivanna Chapman RDCS
--- NOTE | 2025-03-25 17:41 | PCM.HP.STD ---
HPI - General General Date of Admission: 03/25/25 Date of Service: 03/25/25 Chief Complaint: Debility due to R knee periprosthetic joint infection with recent removal of hardware and placement of an antibiotic spacer. HPI Jem MAGUIRE, is a 54 YO female with a PMH listed below who had a right total knee replacement on 09/06/[address] Lay. In November 2024 she underwent a right knee manipulation under anesthesia for right knee arthrofibrosis. she developed progressive pain and swelling of the R knee and felt ill. Joint aspiration was done and grew Bacillus cereus. She was taken to the OR by Dr. Lay on 03/21/25 to remove hardware and place an antibiotic spacer. Ancef and Vancomycin were ordered. Post-operatively she was seen in consultation by Dr. Barrios from [place] and Vancomycin was continued. PICC was ordered and was placed in the RUE. She will need a total of 6 weeks of IV antibiotics. Intraoperative cultures are still pending. She was transferred to the acute inpt rehab unit at [facility] on 03/25/25 for 3 hours of therapy daily to restore function/independence at or near her level prior to the recent surgery on 03/21/25. All documentation in the EMR from the recent events was personally reviewed. PMH is significant for DM II (not on insulin as OP), HTN, HLD, morbid obesity, MATTHEW (not on treatment) and tobacco dependence in remission (she quit in 2020 and started smoking at 13 YOA). She denies a hx of COPD or asthma but, she tells me that Dr. Lay prescribed Singulair for her? She also denies allergic rhinitis. She would like to lose weight. Her PCP appealed to the insurance to approve Ozempic to assist with weight loss but, this was denied. There is an appeal for Mounjaro currently pending. She has metabolic S and many risk factors for heart disease. She also has been diagnosed with MATTHEW in the past. She would benefit from a GLP1 to assist in weight loss. BS's are elvated but, she tells me that her last HGBA1C was in the 5-6 range. [facility] Medical History (Updated 03/25/25 @ 18:[address] Mariela Rubio DO) Restless leg syndrome Osteoarthritis of right knee MATTHEW (obstructive sleep apnea) Morbid (severe) obesity due to excess calories Ambulates with cane Former smoker Wears dentures Wears glasses High cholesterol Former smoker Hypertension History of stress test Knee pain Type 2 diabetes mellitus Home Medications ?Medication ?Instructions ?Recorded ?Last Taken ?Type lisinopril 10 mg tablet 10 mg PO 1300 bp 08/10/24 03/20/25 History metformin 500 mg tablet,extended 2,000 mg PO QHS DIABETES 08/10/24 03/20/25 History release 24 hr rosuvastatin 20 mg tablet 20 mg PO QHS cholesterol 08/10/24 03/20/25 History ferrous sulfate 325 mg (65 mg 325 mg PO DAILY SUPPLEMENT 03/11/25 03/20/25 History iron) tablet (Feosol) folic acid 1 mg tablet 1 mg PO DAILY SUPPLEMENT 03/11/25 03/20/25 History vancomycin 1.25 gram intravenous 1.25 g IV Q8H rt knee joint 03/23/25 Unknown Rx solution infection 40 days acetaminophen 500 mg tablet 1,000 mg (2 x 500 mg) PO Q8H pain 03/25/25 Unknown Rx #0 tabs aspirin 81 mg chewable tablet 81 mg PO BID heart health #0 tabs 03/25/25 Unknown Rx atorvastatin 40 mg tablet 40 mg PO QHS cholesterol #0 tabs 03/25/25 Unknown Rx famotidine 20 mg tablet 20 mg PO DAILY reflux #0 tabs 03/25/25 Unknown Rx glucagon 1 mg solution for 1 mg IM X1 PRN Hypoglycemia #0 ea 03/25/25 Unknown Rx injection (Glucagon Emergency Kit) insulin glargine-yfgn 100 unit/mL 10 unit (0.1 mL) subcut BID 03/25/25 Unknown Rx (3 mL) subcutaneous pen diabetes #0 mL insulin lispro 100 unit/mL See Protocol subcut ACHS diabetes 03/25/25 Unknown Rx subcutaneous pen (Humalog KwikPen #0 mL (U-100) Insulin) oxycodone 5 mg tablet 5 - 10 mg (1 - 2 x 5 mg) PO Q4H 03/25/25 Unknown Rx PRN PRN Pain Score 4-10 #0 tabs promethazine 25 mg tablet 12.5 mg (1/2 x 25 mg) PO Q6H PRN 03/25/25 Unknown Rx PRN Nausea/Vomiting #0 tabs sennosides 8.6 mg-docusate sodium 2 tab PO BID constipation #0 tabs 03/25/25 Unknown Rx 50 mg tablet (Stimulant Laxative Plus) Allergy/AdvReac Type Severity Reaction Status Date / Time No Known Allergies Allergy Verified 03/21/25 12:03 Family History (Updated 03/25/25 @ 18:[address] Mariela Rubio DO) Grandmother CAD (coronary artery disease) Diabetes Father Dementia Mother Breast cancer Daughter Diabetes Surgical History (Updated 03/25/25 @ 18:[address] Mariela Rubio DO) S/P surgical manipulation of knee joint Acquired absence of knee joint following explantation of joint prosthesis with presence of antibiotic-impregnated cement spacer Hx of surgical procedure History of right knee joint replacement History of tracheostomy History of hernia repair History of carpal tunnel release of both wrists (~1997) H/O: hysterectomy (~2013) Social History (Updated 03/25/25 @ 18:[address] Mariela Rubio DO) household members: significant other housing: house number of children: 3 current occupational status: employed current occupation: NA at [employer] Smoking Status: Former smoker Tobacco: How many years used: 36 how long ago did patient quit smokin substance use type: does not use Homelessness:: Sheltered ROS Review of Systems ROS Unobtainable: Denies due to encephalopathy, due to endotracheal tube, due to mental condition or due to mental status Constitutional Constitutional: Reports change in weight, difficulty sleeping, snoring, weakness and weight gain; Denies anorexia, chills, fatigue, fever(s) or night sweats Eyes Eyes: Denies blurry vision, change in vision, eye pain or loss of vision ENT HEENT: Denies abnormal hearing, dysphagia, headache(s), hearing loss, nasal congestion or sore throat Cardiovascular Cardiovascular: Reports edema; Denies chest pain, dyspnea on exertion, lightheadedness, orthopnea, palpitations, paroxysmal nocturnal dyspnea or syncope Respiratory/Chest Respiratory/Chest: Denies cough, dyspnea, shortness of breath at rest, shortness of breath with exertion or wheezing Gastrointestinal Gastrointestinal: Denies abdominal pain, constipation, diarrhea, dyspepsia, dysphagia, heartburn, hematemesis, hematochezia, nausea, odynophagia or vomiting Genitourinary Genitourinary: Reports other Details: Denies vaginal DC or itching ; Denies dysuria, hematuria, nocturia, urinary frequency, urinary hesitancy, urinary incontinence or urinary urgency Musculoskeletal Musculoskeletal: Reports joint pain, joint swelling, muscle weakness and stiffness; Denies back pain or neck pain Integumentary Integumentary: Reports alopecia; Denies jaundice, pruritus or rash Neurologic Neurologic: Reports focal weakness; Denies confusion, disequilibrium, dizziness, headache(s), paresthesias, seizures or tremor(s) Psychiatric Psychiatric: Denies anxiety, depression, homicidal ideation or suicidal ideation Endocrine Endocrinology: Denies change in body appearance, polydipsia or polyuria Hematologic/Lymphatic Hematologic/Lymphatic: Denies easy bleeding, easy bruising or lymphadenopathy Allergic/Immunologic Allergic/Immunologic: Denies rhinitis, eczemia or asthma Vital Signs Vital Signs Vital Signs: 03/25/25 15:25 Temperature 98.2 F Temperature Source Temporal Pulse Rate 87 Respiratory Rate 17 Blood Pressure 155/59 H Blood Pressure Mean 91 Blood Pressure Source Monitor Blood Pressure Position Sitting Blood Pressure Location Left Arm Pulse Ox 96 Oxygen Delivery Method Room Air Weight Weight: 245 lb 2.464 oz Body Mass Index (BMI) 39.4 Physical Exam Const alert, oriented x3, no apparent distress and well nourished Constitutional Narrative: Making good eye contact, appropriate. Sitting in the recliner at the bedside. General Appearance: cooperative, comfortable and well kempt HEENT normocephalic, head/scalp atraumatic and hearing grossly normal bilaterally HEENT Narrative: Dry mucous membranes. Has dentures. No evidence of thrush. Denies pain in her mouth or tongue. Eyes PERRL, EOMs intact bilaterally, conjunctivae normal and no scleral icterus Eyes Narrative: No discharge from the eyes and no mattering of the eyelashes. No visual field cuts. Neck no lymphadenopathy, supple and no carotid bruits General: trachea midline Chest Chest: symmetrical chest wall rise Resp normal respiratory effort, no use of accessory muscles and clear to auscultation bilaterally Resp Narrative: Not tachypneic and no conversational dyspnea. Mildly diminished, may be secondary to body habitus. Cardio regular rate, regular rhythm, S1 normal heart sound, S2 normal heart sound, no rub and no gallops Cardio Narrative: No ectopy. There is a 2/6 systolic ejection murmur heard best at the second right intercostal space with radiation to the lower left sternal border, left ventricular outflow tract, apex and into the left axilla. No diastolic murmurs. Denies history of rheumatic fever. Murmur was not mentioned in the hospitalist notes. Has never had an echocardiogram at this institution. Admitted with a periprosthetic joint infection.........endocarditis? or flow MM secondary to anemia. GI normal to inspection, nondistended, normoactive bowel sounds and non-tender GI Narrative: No guarding with palpation. Obese no CVA tenderness Narrative: Denies vaginal DC and dysuria. Extremity no calf tenderness Extremity Narrative: She has pitting edema of the thigh and the R knee. Nno edema in the R ankle. Thigh high TEDS are in place. Skin no jaundice Skin Narrative: No rashes, no skin breakdown. Neuro oriented x3, CN's II-XII intact bilaterally, moves all extremities and no focal motor deficits Neuro Narrative: Denies numbness in the feet. Psych affect normal Psych Narrative: Appropriate, making good eye contact. Able to stay on topic and focus. No flight of ideas. Does not appear anxious or depressed. Conversant and relating well to staff. Appearance: grossly normal, appropriate and well kempt Attitude: calm and engaged Activity / Motor Behavior: appropriate eye contact Assessment & Plan Assessment/Plan (1) Debility: (2) Infection of prosthetic right knee joint: QUALIFIERS: Encounter type: subsequent encounter Qualified Code(s): T84.53XD - Infection and inflammatory reaction due to internal right knee prosthesis, subsequent encounter (3) S/P hardware removal: (4) Acquired absence of knee joint following explantation of joint prosthesis with presence of antibiotic-impregnated cement spacer: (5) Status post total right knee replacement: PLAN: 09/06/[address] Lay. (6) S/P surgical manipulation of knee joint: (7) Heart murmur: (8) Normochromic normocytic anemia: (9) Type 2 diabetes mellitus: QUALIFIERS: Diabetes mellitus intermodal dispatcher insulin use: without intermodal dispatcher use Diabetes mellitus complication status: without complication Qualified Code(s): E11.9 - Type 2 diabetes mellitus without complications (10) Hypertension: QUALIFIERS: Hypertension type: primary hypertension Qualified Code(s): I10 - Essential (primary) hypertension (11) High cholesterol: (12) Former smoker: PLAN: Quit in 2020. Prior to that smoked since she was 13 years of age. (13) MATTHEW (obstructive sleep apnea): PLAN: Had an overnight sleep study years ago and is not currently on any treatment. She does have restless legs. BMI is 39.4. Snores. (14) Morbid (severe) obesity due to excess calories: (15) Restless legs: (16) Restless leg syndrome: PLAN: Plan PLAN PT for gait stability OT for ADL's Analgesics as needed Bowel protocol Fall precautions Assess for Anxiety/Depression GI prophylaxis -not necessary at this time. Patient denies nausea/vomiting/epigastric pain/heartburn/history of peptic ulcer disease. DVT prophylaxis with aspirin 81 mg twice daily per orthopedics. She has no history of DVT or PE and there is no family history of hypercoagulable disorders. Follow up with PCP and Dr. Lay following DC from [facility] for Friday to include a CBC with differential, CMP, magnesium, phosphorus, hemoglobin A1c, iron studies, CRP and ESR. Vancomycin trough on Friday Urine microalbumin Change the metformin to 500 mg p.o. twice daily Continue glargine and sliding scale insulin coverage DC iron supplementation-she has a normochromic normocytic anemia with a normal RDW and this is likely secondary to inflammation/infection and not iron deficiency. Transthoracic echocardiogram for murmur in a patient with a joint infection to evaluate for endocarditis Her PCP has completed an precert for Mounjaro........Ozempic was denied by insurance. Hemoccult stool Overnight trending pulse ox-has been diagnosed with obstructive sleep apnea years ago but has lost approximately 50 pounds since then. She does occasionally wake herself up snoring at night. systolic BP is elevated but, diastolic is WNL. She is currently on lisinopril 10 mg daily at 1 PM? Obtain recent PN's from PCP Charges/Coding Visit Charges Inpatient E&M: 85099 Init Hosp L2
--- NOTE | 2025-03-25 18:41 | REHABEVAL_ITS ---
Admission Information Primary Diagnosis:: Debility secondary to right periprosthetic infection of the right knee and recent explant with placement of antibiotic spacer Status Changes from Prescreening?: No changes Identified Actual Problem List:: Infection, Skin Intergrity, Pain, ALteration in Cmfrt, A lteration in Sleep, Mobility Impaired, Self Care Deficit, Diabetes, Hyperglycemia, BP, Hypertension and Alteration-Leisure Activ. Potential Problem List:: DVT, Bleeding, Infection, UTI, Aspiration, Falls, Skin Integrity and Depression Risk of Complications DVT: GROVER Jiménez and - (Aspirin 81 mg p.o. twice daily per orthopedics) Bleeding: Monitor Lab Values, Nursing to Teach Precautions for anti-coagulation therapy., Wound, if applicable, to be assessed every shift. and Stroke patients assessed for lethargy or change in status. Infection: Clinical Staff to Monitor for S/S of infection: and S/S of infection include fever, redness, warmth, etc. Urinary Tract Infection: Monitor for frequency, burning, discomfort, or incontinence. and Nursing will obtain urine sample for urinalysis and C&S when ordered. Aspiration: Clinical staff will monitor for coughing, drooling, congestion., Speech will evaluate swallowing and dsyphasia. and Nursing will monitor patient swallowing during meals. Falls: Patient will be evaluated for Fall Precautions and Patient will be placed on Fall Precautions as indicated per protocol. Skin Breakdown: Nursing will assess skin daily using assessment tool. and Nursing will place on Skin Breakdown Precautions as indicated. Pain: Clinical staff will assess patient's pain level per protocol., Medications will be given, if needed, and the pain level reassessed. and Other methods: Massage, distraction, decrease stimulus, etc. used PRN. Plan of Care Patient requires physician specializing in physical medicine and rehab oversight to provide close medical supervision of rehab issues including: Pain Management, Sleep Problems, Bowel and Bladder, Medical and co-morbidity Management, DVT prophylaxis, Rehabilitation Leadership and Coordination of treatment team Patient needs Physical Therapy: For a minimum of 1 hour and At least 5 out of 7 days Patient needs Physical Therapy to improve:: Mobility, Strengthening, Transfers, Stretching, ROM, Endurance, Stairs, Gait and Balance Patient needs Occupational Therapy: For a minimum of 1 hour and At least 5 out of 7 days Patient needs Occupational Therapy to improve ADL's incl.: Eating, Grooming, Bathing, Dressing, Toileting, Toilet transfers, Community Reintegration, Higher functioning activities, Household tasks, Adaptive Equipment, Splinting and Other activities as determined Patient requires 24/7 Rehabilitation Nursing for: Pain Issues, Identifying and preventing risk factors, Monitoring and reporting current medical conditions, Assisting with ambulation, transfer, and all ADL's, Teaching patients about disease process and medications, Family teaching, Providing safe environment, Bowel and Bladder Issues, Skin integrity and Medication Management Patient needs Contact Lens Flashing Puncher/ Case Management for: Discharge Planning, Arranging Home Equipment or Services and Family Interventions Patient needs Dietary and Nutrition Services for: Adequate Nutrition, Nutritional Supplements and Nutritional Education Goals Goals Patient will remain: free from falls Patient will perform eating at: MOD I level of assist. Patient will perform bed mobility at: MOD I level of assist. Patient will complete transfers from bed to chair at: MOD I level of assist. Patient will ambulate: - (500 feet at mod I on various surfaces with least restrictive device) Patient will complete upper body dressing at: MOD I level of assist. Patient will complete lower body dressing at: MOD I level of assist. Patient will complete toilet transfer at: MOD I level of assist. Patient will complete toileting at: MOD I level of assist. Patient will perform bathing at: MOD I level of assist. Patient will perform Tub/Shower transfer at: - (Supervision) Patient will complete grooming at: MOD I level of assist. Patient will complete home management skills at: MOD I level of assist. Patient will achieve: - (8 steps with 1 handrail and least restrictive device to allow access to her home entrance. Also has stairs up to her bedroom and bathroom) Patient will have pain level of: of 3 or less Patient's skin will: remain intact Patient will receive: adequate nutrition. Discharge Planning Pt Prognosis for Sig. Practical Improv. w/in Reasonable Time: Good Estimated Length of stay (days): 14 Anticipated D/C Destination: Home with Outpt Therapy Was Preadmission Assessment Accurate?: Yes
[2025-03-25] MEDS: Vancomycin HCl 1,250 MG in 0.9% Normal Saline (250mL Bag) 250 ML 167 MG IV (18:47)
[2025-03-25] MEDS: Insulin Glargine-YFGN 100 UNIT/ML Pen 10 UNIT SC (21:08)
[2025-03-25] MEDS: Senna/Docusate Sodium 1 Tablet 2 TABLET PO (21:09)
[2025-03-25] MEDS: metFORMIN (XR) 500 MG Tablet PO (21:09)
[2025-03-25 21:33] VITALS: BP 155/50; PULSE 82; RESP 16; TEMP 37; O2SAT 95
[2025-03-25 21:48] VITALS: O2SAT 95
[2025-03-25 23:39] VITALS: PULSE 76; O2SAT 96
[2025-03-26] MEDS: Vancomycin HCl 1,250 MG in 0.9% Normal Saline (250mL Bag) 250 ML 167 MG IV ×3 (02:22→18:41)
[2025-03-26 06:00] VITALS: BP 153/47; PULSE 72; RESP 16; TEMP 36.9; O2SAT 98
--- NOTE | 2025-03-26 06:00 | NURSING ---
URINE SENT FOR MIRCOALBUMIN AND RANDOM URINE, SAMPLE WAS A CLEAN CATCH
[2025-03-26 07:15] LABS: Microalbumin,Random Urine < 12.0 mg/L (NO RANGE EST.)
[2025-03-26] MEDS: 0.9% Saline Lock 10 ML Syringe IV ×2 (07:22→20:49)
[2025-03-26] MEDS: Insulin Glargine-YFGN 100 UNIT/ML Pen 10 UNIT SC ×2 (07:56→21:56)
[2025-03-26] MEDS: metFORMIN (XR) 500 MG Tablet PO ×2 (07:59→17:21)
[2025-03-26 10:00] VITALS: O2SAT 95
[2025-03-26 18:00] VITALS: BP 143/46; PULSE 72; RESP 16; TEMP 36.9; O2SAT 97
[2025-03-26 22:00] VITALS: O2SAT 95
[2025-03-27] MEDS: 0.9% Saline Lock 10 ML Syringe IV ×4 (02:27→18:15)
[2025-03-27] MEDS: Vancomycin HCl 1,250 MG in 0.9% Normal Saline (250mL Bag) 250 ML 167 MG IV ×3 (02:29→18:14)
[2025-03-27 06:00] VITALS: BP 142/58; PULSE 66; RESP 16; TEMP 36.5; O2SAT 97
[2025-03-27 07:24] LABS: Hematocrit 29.4 % (37-47); Hemoglobin 9.2 g/dL (12.0-15.0); Immature Granulocytes Count 0.070 X10^3/uL (0.0-0.0); Mean Corp Hgb Conc 31.3 g/dL (32-36); Mean Corpuscular Volume 87.0 fL (81-99); Mean Platelet Vol. 8.3 fl (6.2-12.0); NRBC Flagged by Analyzer 0 % (0-5); Platelet Count 262 K/mm3 (150-450); RBC Distribution Width CV 13.9 % (11.6-14.6); RBC Distribution Width SD 42.8 fl (35.1-43.9); Red Blood Count 3.38 M/mm3 (4.2-5.4); White Blood Count 7.4 K/mm3 (4.4-11.0)
[2025-03-27 07:26] LABS: AST(SGOT) 17 U/L (<=31); Alanine Aminotransfer ALT/SGPT 13 U/L (<=34); Albumin, Serum 3.8 g/dL (3.5-5.0); Alkaline Phosphatase 94 U/L (35-104); Anion Gap 12 (5-15); BUN 11 mg/dL (4-19); BUN/Creat Ratio 21.6 RATIO (10-20); CRP 25.70 mg/L (0.0-3.0); Calcium,Total 9.5 mg/dL (7.6-11.0); Carbon Dioxide 27.4 mmol/L (21.0-32.0); Chloride 103 mmol/L (98-108); Estimated Creatinine Clearance 152.68 ml/min (50-250); Globulin 3.1 g/dL (2.2-4.2); Glucose 152 mg/dL (70-99); Magnesium 2.0 mg/dL (1.5-2.2); Potassium 4.0 mmol/L (3.3-5.1)
[2025-03-27 08:52] LABS: Iron 52 ug/dL (50-170); Iron Binding Capacity,Total 306 ug/dL (250-450); Iron Binding Capacity,Unsat 254 ug/dL (228-428)
[2025-03-27 09:08] LABS: Ferritin 96 ng/mL (22-378)
[2025-03-27 10:00] VITALS: O2SAT 95
[2025-03-27] MEDS: metFORMIN (XR) 500 MG Tablet PO ×2 (10:06→18:11)
[2025-03-27] MEDS: Insulin Glargine-YFGN 100 UNIT/ML Pen 10 UNIT SC ×2 (10:07→21:09)
[2025-03-27] MEDS: Vancomycin Trough/Random Due 1 LAB MC ×2 (10:08)
[2025-03-27 11:07] LABS: Vancomycin, Trough Level 16.6 ug/mL (5.0-15.0)
--- NOTE | 2025-03-27 17:00 | PCM.RX.CS ---
Consult Antibiotic Management Pharmacy has been consulted to manage selected antibiotic: Vancomycin Type of Intervention Type of Consult: Follow-up Suspected Infection Suspected Infection: Other Labs Labs: Sodium 142 mmol/L (133-145) 03/27/25 06:28 Potassium 4.0 mmol/L (3.3-5.1) 03/27/25 06:28 Chloride 103 mmol/L (98-108) 03/27/25 06:28 Carbon Dioxide 27.4 mmol/L (21.0-32.0) 03/27/25 06:28 Anion Gap 12 (5-15) 03/27/25 06:28 BUN 11 mg/dL (4-19) 03/27/25 06:28 Creatinine 0.52 mg/dL (0.70-1.20) L 03/27/25 06:28 Est GFR (MDRD) Non-Af 109 (>60) 03/27/25 06:28 BUN/Creatinine Ratio 21.6 RATIO (10-20) H 03/27/25 06:28 Glucose 152 mg/dL (70-99) H 03/27/25 06:28 Vancomycin Trough 16.6 ug/mL (5.0-15.0) H 03/27/25 10:08 Microbiology Microbiology: Microbiology 03/26/25 07:42 Stool Stool Occult Blood (KEILA) - Final Occult Blood Positive Goal Trough Goal Trough: 15-20 mcg/mL Pharmacy Plan for Drug Dosing Pharmacy Plan for Drug Dosing: VANCOMYCIN LEVEL RECEIVED Current Vancomycin Dose: 1250mg q8h (0230, 1030, 1830) Number of Doses Received: Vancomycin Level: 16.6 Hours Since Last Dose: 7.5 hours since last 1250mg dose 03/27/25 at 0229 Renal Function: SrCr 0.52 Renal Function Trend: SrCr stable Lab/Micro: Vancomycin Plan/Comments: resulted trough of 16.6 is within the ordered goal trough of 15-20. recommend continuing current dose of 1250mg q8h and checking another trough 03/28/25 at 1800 Pending Level: 03/28/25 at 1800 Pharmacy Service will continue to monitor and adjust dosing as required. Follow-Up Labs Follow-Up Labs: Trough: Vancomycin (03/28/25 @ 1800)
[2025-03-27 18:00] VITALS: BP 155/65; PULSE 69; RESP 16; TEMP 37.1; O2SAT 98
[2025-03-28] MEDS: Vancomycin HCl 1,250 MG in 0.9% Normal Saline (250mL Bag) 250 ML 167 MG IV ×3 (02:43→21:34)
[2025-03-28 06:00] VITALS: BP 149/54; PULSE 70; RESP 16; TEMP 36.7; O2SAT 100
[2025-03-28] MEDS: Insulin Glargine-YFGN 100 UNIT/ML Pen 10 UNIT SC (08:00)
[2025-03-28] MEDS: metFORMIN (XR) 500 MG Tablet PO ×2 (08:01→17:19)
--- NOTE | 2025-03-28 09:34 | PCM.PROGNOTE ---
Subjective Subjective Afebrile VSS -blood pressure since arrival in rehab has ranged from 142/58 to 155/65. Heart rate is within normal limits. Maintaining appropriate oxygen saturation on RA Oral intake - FOOD good FLUIDS good Blood sugar record was reviewed. Requiring lispro approximately 2 times daily mostly with lunch and bedtime. 1 bowel movement on Friday and 2 bowel movements on Friday. Prescribed senna/docusate 2 tablets twice daily but, has not been taking. Discussed with nursing - no problems that need addressed Reviewed the THERAPY notes Medication list reviewed. Taking oxycodone 5 mg generally 2-3 times a day. Overnight trending pulse ox was reviewed. No desaturation events. All lab drawn yesterday was personally reviewed. White blood cell count is normal at 7.4. Hemoglobin is stable at 9.2. Platelets are within normal limits. ESR was 13. CRP is 25.7, down from 40 on 01/14/2025. Sodium is 142 and the potassium is 4. The BUN is 11 with a creatinine of 0.52 which is within her baseline. Hemoglobin A1c is 6.3%. Calcium is normal. Phosphorus is elevated at 5.0. Magnesium is normal at 2. LFTs are unremarkable. Serum iron is 52. Percent iron saturation is 17% which is within normal limits. Ferritin was 96. Urine microalbumin is less than 12 which is good. Stool is Hemoccult positive. She has a hx of hemorrhoid. Has never had a colonoscopy. She normally does Cologuard once a year and they have always been negative. No FH of colon polyps or colon CA. I reviewed the ECHO.....she has thickening of the MV and trivial insufficiency but, no obvious vegetations. No atrial enlargement. She is AF, normal WBC and the CRP is coming down. Suspect the systolic MM is a flow MM. Tells me she is sleeping well at night and pain is adequately controlled. She denies lightheadedness, chest pain, palpitations, shortness of breath, cough, nausea/vomiting/heartburn/abdominal pain, dysuria and calf pain. Roxie tells me that she got a text from PCP office today and they have put in a pre-cert for Ozempic. Objective Data Objective Data Vital Signs: Vital Signs Temp Pulse Resp BP Pulse Ox O2 Del Method O2 Flow Rate 98.0 F 70 16 149/54 H 100 Room Air 0 03/28/25 06:00 03/28/25 06:00 03/28/25 06:00 03/28/25 06:00 03/28/25 06:00 03/28/25 06:00 03/25/25 23:39 FiO2 21 03/25/25 23:39 Oxygen Flow Rate (L/min) 0 Oxygen Delivery Method Room Air Weight: 245 lb 2.464 oz Body Mass Index (BMI) 39.4 Intake & Output: Intake and Output for Last 24 Hours 03/26/25 03/27/25 03/28/25 23:59 23:59 23:59 Intake Total 2105 / 2105 2905 / 2905 240 / 240 Output Total 2370 / 2370 1500 / 1500 200 / 200 Balance -265 / -265 1405 / 1405 40 / 40 Lab / Micro Data 03/27/25 06:28 03/27/25 06:28 Labs: Laboratory Results - last 24 hr 03/27/25 10:08: Vancomycin Trough 16.6 H 03/27/25 11:20: POC Glucose 226 H 03/27/25 16:01: POC Glucose 132 H 03/27/25 21:09: POC Glucose 190 H 03/28/25 06:49: POC Glucose 124 H Micro: Microbiology 03/26/25 07:42 Stool Stool Occult Blood (KEILA) - Final Occult Blood Positive Social Homelessness:: Sheltered Physical Exam Const alert, oriented x3 and no apparent distress Constitutional Narrative: Pleasant, engaged, good eye contact, sleeping well, good appetite. General Appearance: cooperative HEENT moist oral mucous membranes Resp normal respiratory effort and clear to auscultation bilaterally Cardio regular rate, regular rhythm, no rub and no gallops Cardio Narrative: No change in the systolic murmur heard best at the second right intercostal space with radiation to the lower left sternal border, left ventricular outflow tract, apex and into the axilla........ the left axillary murmur may be secondary to mitral insufficiency. No ectopy. GI normal to inspection, nondistended, normoactive bowel sounds, soft to palpation and non-tender Extremity no calf tenderness Extremity Narrative: The edema in the right thigh and knee is decreasing but she has mild right ankle edema today. GROVER hose are in place. Mepilex dressing is still in place and the dressing is dry and there is no erythema surrounding the dressing. 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 with presence of antibiotic-impregnated cement spacer: (5) Status post total right knee replacement: (6) S/P surgical manipulation of knee joint: (7) Heart murmur: (8) Normochromic normocytic anemia: (9) Type 2 diabetes mellitus: QUALIFIERS: Diabetes mellitus long term acute care registered nurse insulin use: without nursing home use Diabetes mellitus complication status: without complication Qualified Code(s): E11.9 - Type 2 diabetes mellitus without complications (10) Hypertension: QUALIFIERS: Hypertension type: primary hypertension Qualified Code(s): I10 - Essential (primary) hypertension (11) High cholesterol: (12) Former smoker: (13) MATTHEW (obstructive sleep apnea): (14) Morbid (severe) obesity due to excess calories: (15) Restless legs: PLAN: Plan 1. Continue therapy 2. Increase metformin to 750 mg twice daily 3. Change stool softeners to as needed 4. change the glargine to 16 units Q AM at 0700. Continue the SSI 5. If insurance approves Ozempic will start 0.25 mg once a week and will decrease Glargine.....and hopefully be able to DC. Charges/Coding Visit Charges Inpatient E&M: 93368 [facility] Hosp L1
[2025-03-28] MEDS: 0.9% Saline Lock 10 ML Syringe IV ×2 (10:21→21:34)
[2025-03-28 18:00] VITALS: BP 103/61; PULSE 69; RESP 18; TEMP 36.4; O2SAT 99
[2025-03-28 21:10] LABS: Vancomycin, Trough Level 16.9 ug/mL (5.0-15.0)
--- NOTE | 2025-03-28 21:44 | PHA.PHARE_ITS ---
Consult Antibiotic Management Pharmacy has been consulted to manage selected antibiotic: Vancomycin Type of Intervention Type of Consult: Follow-up Labs Labs: Sodium 142 mmol/L (133-145) 03/27/25 06:28 Potassium 4.0 mmol/L (3.3-5.1) 03/27/25 06:28 Chloride 103 mmol/L (98-108) 03/27/25 06:28 Carbon Dioxide 27.4 mmol/L (21.0-32.0) 03/27/25 06:28 Anion Gap 12 (5-15) 03/27/25 06:28 BUN 11 mg/dL (4-19) 03/27/25 06:28 Creatinine 0.52 mg/dL (0.70-1.20) L 03/27/25 06:28 Est GFR (MDRD) Non-Af 109 (>60) 03/27/25 06:28 BUN/Creatinine Ratio 21.6 RATIO (10-20) H 03/27/25 06:28 Glucose 152 mg/dL (70-99) H 03/27/25 06:28 Vancomycin Trough 16.9 ug/mL (5.0-15.0) H 03/28/25 20:15 Microbiology Microbiology: Microbiology 03/26/25 07:42 Stool Stool Occult Blood (KEILA) - Final Occult Blood Positive Goal Trough Goal Trough: 15-20 mcg/mL Pharmacy Plan for Drug Dosing Pharmacy Plan for Drug Dosing: Pharmacy Service will continue to monitor and adjust dosing as required. TROUGH 16.9 @ 10 HOURS. NO CHANGES, FOLLOW UP TROUGH IN 1 DAY PER LATE LAB DRAW , DOSE GIVEN. Follow-Up Labs Follow-Up Labs: Trough: Vancomycin Date/Time Labs Ordered Labs to be done on [date and time ordered]: 03/29 @ 2100
[2025-03-29] MEDS: Vancomycin HCl 1,250 MG in 0.9% Normal Saline (250mL Bag) 250 ML 167 MG IV ×2 (05:49→13:34)
[2025-03-29] MEDS: 0.9% Saline Lock 10 ML Syringe IV ×3 (05:50→22:02)
[2025-03-29] MEDS: Insulin Glargine-YFGN 100 UNIT/ML Pen 16 UNIT SC (08:06)
[2025-03-29] MEDS: metFORMIN (XR) 500 MG Tablet PO ×2 (08:07→17:03)
[2025-03-29 08:15] VITALS: BP 143/54; PULSE 71; RESP 16; TEMP 37.1; O2SAT 98
--- NOTE | 2025-03-29 10:26 | PN_ITS ---
Subjective Subjective Afebrile VSS - Maintaining appropriate oxygen saturation on RA Oral intake - FOOD good FLUIDS good The blood sugar record was reviewed and the blood sugars are under excellent control now with no hypoglycemia. Did not require any additional lispro insulin yesterday per sliding scale. Glargine was changed to 16 units every morning rather than 10 twice daily starting this a.m. Tolerating metformin with no diarrhea. Will continue to monitor blood sugars AC and at bedtime with sliding scale insulin coverage. She is going to let me know if she receives a message from her insurance stating that they will cover Ozempic. Discussed with nursing - no problems that need addressed Reviewed the THERAPY notes Medication list reviewed. Vanco trough last night was 16.9. Tells me that her pain is adequately controlled. Slept well last night. No complaints today. Denies calf pain, sweats, chills, abd pain, diarrhea, vaginal itching and DC, mouth pain and painful swallowing. Objective Data Objective Data Vital Signs: Vital Signs Temp Pulse Resp BP Pulse Ox O2 Del Method O2 Flow Rate 98.7 F 71 16 143/54 H 98 Room Air 0 03/29/25 08:15 03/29/25 08:15 03/29/25 08:15 03/29/25 08:15 03/29/25 08:15 03/29/25 08:15 03/25/25 23:39 FiO2 21 03/25/25 23:39 Oxygen Flow Rate (L/min) 0 Oxygen Delivery Method Room Air Weight: 245 lb 2.464 oz Body Mass Index (BMI) 39.4 Intake & Output: Intake and Output for Last 24 Hours 03/27/25 03/28/25 03/29/25 23:59 23:59 23:59 Intake Total 2905 / 2905 1690 / 1690 790 / 790 Output Total 1500 / 1500 1450 / 1450 Balance 1405 / 1405 240 / 240 790 / 790 Lab / Micro Data 03/27/25 06:28 03/27/25 06:28 Labs: Laboratory Results - last 24 hr 03/28/25 11:38: POC Glucose 142 H 03/28/25 16:40: POC Glucose 138 H 03/28/25 20:15: Vancomycin Trough 16.9 H 03/28/25 21:03: POC Glucose 134 H 03/29/25 05:48: POC Glucose 140 H Micro: Microbiology 03/26/25 07:42 Stool Stool Occult Blood (KEILA) - Final Occult Blood Positive Social Homelessness:: Sheltered Physical Exam Const alert, oriented x3 and no apparent distress HEENT moist oral mucous membranes HEENT Narrative: No thrush. Resp normal respiratory effort and clear to auscultation bilaterally Cardio regular rate, regular rhythm, no rub and no gallops Cardio Narrative: No change in the systolic murmur heard best at the second right intercostal space with radiation to the lower left sternal border, left ventricular outflow tract, apex and into the axilla........ the left axillary murmur may be secondary to mitral insufficiency. No ectopy. 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 with presence of antibiotic-impregnated cement spacer: (5) Status post total right knee replacement: (6) S/P surgical manipulation of knee joint: (7) Heart murmur: (8) Normochromic normocytic anemia: (9) Type 2 diabetes mellitus: QUALIFIERS: Diabetes mellitus [facility] insulin use: without [facility] use Diabetes mellitus complication status: without complication Qualified Code(s): E11.9 - Type 2 diabetes mellitus without complications (10) Hypertension: QUALIFIERS: Hypertension type: primary hypertension Qualified Code(s): I10 - Essential (primary) hypertension (11) High cholesterol: (12) Former smoker: (13) MATTHEW (obstructive sleep apnea): PLAN: Overnight trending pulse ox was unremarkable with no desaturations > 60 sec.......the lowest sat was 88% and it was brief. (14) Morbid (severe) obesity due to excess calories: (15) Restless legs: PLAN: Plan 1. Continue therapy 2. No changes to the drug regimen today 3. Recheck CBC with differential, BMP, ESR and CRP once weekly on Sundays 4. find out from ortho when the Mepilex can be removed. Charges/Coding Visit Charges Inpatient E&M: 08876 Subs Hosp L1
[2025-03-29 18:00] VITALS: BP 123/50; PULSE 69; RESP 15; TEMP 36.5; O2SAT 98
[2025-03-29 22:40] LABS: Vancomycin, Trough Level 20.9 ug/mL (5.0-15.0)
--- NOTE | 2025-03-29 22:50 | PCM.RX.CS ---
Consult Antibiotic Management Pharmacy has been consulted to manage selected antibiotic: Vancomycin Type of Intervention Type of Consult: Follow-up Labs Labs: Sodium 142 mmol/L (133-145) 03/27/25 06:28 Potassium 4.0 mmol/L (3.3-5.1) 03/27/25 06:28 Chloride 103 mmol/L (98-108) 03/27/25 06:28 Carbon Dioxide 27.4 mmol/L (21.0-32.0) 03/27/25 06:28 Anion Gap 12 (5-15) 03/27/25 06:28 BUN 11 mg/dL (4-19) 03/27/25 06:28 Creatinine 0.52 mg/dL (0.70-1.20) L 03/27/25 06:28 Est GFR (MDRD) Non-Af 109 (>60) 03/27/25 06:28 BUN/Creatinine Ratio 21.6 RATIO (10-20) H 03/27/25 06:28 Glucose 152 mg/dL (70-99) H 03/27/25 06:28 Vancomycin Trough 20.9 ug/mL (5.0-15.0) H 03/29/25 22:00 Microbiology Microbiology: Microbiology 03/26/25 07:42 Stool Stool Occult Blood (KEILA) - Final Occult Blood Positive Goal Trough Goal Trough: 15-20 mcg/mL Pharmacy Plan for Drug Dosing Pharmacy Plan for Drug Dosing: Pharmacy Service will continue to monitor and adjust dosing as required. TROUGH 20.9 @ 8.5 HOURS. HOLD DOSE AND DRAW RANDOM LEVEL IN 6 HOURS Follow-Up Labs Follow-Up Labs: Trough: Vancomycin Date/Time Labs Ordered Labs to be done on [date and time ordered]: 03/29 @ 1450
[2025-03-30 05:11] LABS: Vancomycin, Random Level 15.6 ug/mL (0.0-15.0)
--- NOTE | 2025-03-30 05:35 | PCM.RX.CS ---
Consult Antibiotic Management Pharmacy has been consulted to manage selected antibiotic: Vancomycin Type of Intervention Type of Consult: Follow-up Labs Labs: Sodium 142 mmol/L (133-145) 03/27/25 06:28 Potassium 4.0 mmol/L (3.3-5.1) 03/27/25 06:28 Chloride 103 mmol/L (98-108) 03/27/25 06:28 Carbon Dioxide 27.4 mmol/L (21.0-32.0) 03/27/25 06:28 Anion Gap 12 (5-15) 03/27/25 06:28 BUN 11 mg/dL (4-19) 03/27/25 06:28 Creatinine 0.52 mg/dL (0.70-1.20) L 03/27/25 06:28 Est GFR (MDRD) Non-Af 109 (>60) 03/27/25 06:28 BUN/Creatinine Ratio 21.6 RATIO (10-20) H 03/27/25 06:28 Glucose 152 mg/dL (70-99) H 03/27/25 06:28 Vancomycin Trough 20.9 ug/mL (5.0-15.0) H 03/29/25 22:00 Random Vancomycin 15.6 ug/mL (0.0-15.0) H 03/30/25 04:07 Microbiology Microbiology: Microbiology 03/26/25 07:42 Stool Stool Occult Blood (KEILA) - Final Occult Blood Positive Goal Trough Goal Trough: 15-20 mcg/mL Pharmacy Plan for Drug Dosing Pharmacy Plan for Drug Dosing: Pharmacy Service will continue to monitor and adjust dosing as required. RANDOM LEVEL 15.6 @ 14.5 HOURS. START 1GM Q8H AND FOLLOW UP TROUGH PRIOR TO 4TH DOSE Follow-Up Labs Follow-Up Labs: Trough: Vancomycin Date/Time Labs Ordered Labs to be done on [date and time ordered]: 03/31 @ 0500
[2025-03-30] MEDS: 0.9% Saline Lock 10 ML Syringe IV ×5 (05:43→22:03)
[2025-03-30] MEDS: Vancomycin IV 1,000 MG/200 ML BAG 200 MG IV ×3 (05:43→20:32)
[2025-03-30 06:00] VITALS: BP 143/58; PULSE 69; RESP 18; TEMP 36.6; O2SAT 99
[2025-03-30] MEDS: Insulin Glargine-YFGN 100 UNIT/ML Pen 16 UNIT SC (07:58)
[2025-03-30] MEDS: metFORMIN (XR) 500 MG Tablet PO (08:00)
[2025-03-30 09:09] VITALS: BP 133/47
--- NOTE | 2025-03-30 10:58 | PCM.PROGNOTE ---
Subjective Subjective Afebrile Blood pressure is well-controlled and the heart rate is within normal limits. Good appetite, sleeping well at night The blood sugar record was reviewed. Fasting blood sugar was elevated at 164 today. Maintaining appropriate oxygen saturation on room air Denies chest pain, shortness of breath, palpitations, diarrhea, abdominal pain, dysuria, soreness in the mouth, vaginal discharge and vaginal itching. Objective Data Objective Data Vital Signs: Vital Signs Temp Pulse Resp BP Pulse Ox O2 Del Method O2 Flow Rate 97.9 F 69 18 133/47 H 99 Room Air 0 03/30/25 06:00 03/30/25 06:00 03/30/25 06:00 03/30/25 09:09 03/30/25 06:00 03/30/25 06:00 03/25/25 23:39 FiO2 21 03/25/25 23:39 Oxygen Flow Rate (L/min) 0 Oxygen Delivery Method Room Air Weight: 245 lb 2.464 oz Body Mass Index (BMI) 39.4 Intake & Output: Intake and Output for Last 24 Hours 03/28/25 03/29/25 03/30/25 23:59 23:59 23:59 Intake Total 1690 / 1690 2615 / 2615 440 / 440 Output Total 1450 / 1450 800 / 800 Balance 240 / 240 1815 / 1815 440 / 440 Lab / Micro Data 03/27/25 06:28 03/27/25 06:28 Labs: Laboratory Results - last 24 hr 03/29/25 11:09: POC Glucose 146 H 03/29/25 17:06: POC Glucose 95 03/29/25 22:00: Vancomycin Trough 20.9 H 03/29/25 22:05: POC Glucose 154 H 03/30/25 04:07: Random Vancomycin 15.6 H 03/30/25 06:54: POC Glucose 164 H Micro: Microbiology 03/26/25 07:42 Stool Stool Occult Blood (KEILA) - Final Occult Blood Positive Social Homelessness:: Sheltered Physical Exam Const alert, oriented x3 and no apparent distress General Appearance: cooperative Resp clear to auscultation bilaterally Cardio regular rate and regular rhythm GI normal to inspection, nondistended, normoactive bowel sounds and soft to palpation Extremity no calf tenderness Extremity Narrative: Minimal ankle edema on the right. Thigh-high GROVER hose are in place bilaterally. Skin Wound Narrative: Mepilex dressing was removed yesterday. The sutures are intact with no dehiscence. No charlie-incisional erythema. Swelling is decreasing. 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 Continue therapy 2. Discontinue a.m. glargine and start glargine 12 units nightly starting tomorrow night. 3. Increase metformin to 750 mg twice daily 4. Continue sliding scale insulin since the we are still adjusting doses Charges/Coding Visit Charges Inpatient E&M: 62927 Subs Hosp L1
[2025-03-30 16:52] VITALS: BP 132/52; PULSE 64; RESP 16; TEMP 36.3; O2SAT 100
[2025-03-30] MEDS: METFORMIN HCL 750 MG TAB.ER.24H PO (17:17)
[2025-03-30 20:38] VITALS: BP 129/54; PULSE 66; RESP 12; TEMP 37.1; O2SAT 98
[2025-03-31 06:00] VITALS: BP 143/57; PULSE 74; RESP 16; TEMP 37.1; O2SAT 99
[2025-03-31 06:25] LABS: Estimated Creatinine Clearance 141.77 ml/min (50-250)
[2025-03-31 06:27] LABS: Vancomycin, Trough Level 16.6 ug/mL (5.0-15.0)
--- NOTE | 2025-03-31 06:36 | PCM.RX.CS ---
Consult Antibiotic Management Pharmacy has been consulted to manage selected antibiotic: Vancomycin Type of Intervention Type of Consult: Follow-up Labs Labs: Sodium 142 mmol/L (133-145) 03/27/25 06:28 Potassium 4.0 mmol/L (3.3-5.1) 03/27/25 06:28 Chloride 103 mmol/L (98-108) 03/27/25 06:28 Carbon Dioxide 27.4 mmol/L (21.0-32.0) 03/27/25 06:28 Anion Gap 12 (5-15) 03/27/25 06:28 BUN 11 mg/dL (4-19) 03/27/25 06:28 Creatinine 0.56 mg/dL (0.70-1.20) L 03/31/25 05:05 Est GFR (MDRD) Non-Af 107 (>60) 03/31/25 05:05 BUN/Creatinine Ratio 21.6 RATIO (10-20) H 03/27/25 06:28 Glucose 152 mg/dL (70-99) H 03/27/25 06:28 Vancomycin Trough 16.6 ug/mL (5.0-15.0) H 03/31/25 05:05 Random Vancomycin 15.6 ug/mL (0.0-15.0) H 03/30/25 04:07 Microbiology Microbiology: Microbiology 03/26/25 07:42 Stool Stool Occult Blood (KEILA) - Final Occult Blood Positive Dosing Weight Weight used for dosin kg Estimated Creatinine Clearance Estimated Creatinine Clearance: 142 Goal Trough Goal Trough: 15-20 mcg/mL Pharmacy Plan for Drug Dosing Pharmacy Plan for Drug Dosing: Vancomycin trough level of 16.6, drawn 8.5hrs post-dose, was within the target range of 15-20. Will continue dosing at 1000mg q8h, and will draw another trough level in two days. Pharmacy Service will continue to monitor and adjust dosing as required. Follow-Up Labs Follow-Up Labs: Trough: Vancomycin Date/Time Labs Ordered Labs to be done on [date and time ordered]: 04/02/25 @0500
[2025-03-31] MEDS: Vancomycin Trough/Random Due 1 LAB MC (07:11)
[2025-03-31] MEDS: Vancomycin IV 1,000 MG/200 ML BAG 200 MG IV ×3 (07:12→20:08)
[2025-03-31] MEDS: METFORMIN HCL 750 MG TAB.ER.24H PO ×2 (08:15→17:04)
--- NOTE | 2025-03-31 08:46 | PCM.PROGNOTE ---
Subjective Subjective Roxie was seen on team rounds today. No family was available to participate today. Afebrile VSS - Maintaining appropriate oxygen saturation on RA Oral intake - FOOD good FLUIDS good The blood sugar record was reviewed. Fasting today is 156. All blood sugars were under 160 yesterday with no hypoglycemia. She had 1 dose of sliding scale insulin yesterday and that was at breakfast. She also got 3 units with breakfast today. A.m. glargine was discontinued and she will start glargine 12 units at bedtime tonight. Metformin was increased to 750 twice daily yesterday. Last bowel movement was 03/29/2025. Discussed with nursing - no problems that need addressed Reviewed the THERAPY notes Medication list reviewed. Has not had any oxycodone since the night of 03/29/2025. Roxie denies lightheadedness, vertigo, CP, SOB at rest, SOB with exertion, cough, nausea, vomiting, abd pain, diarrhea, constipation, dysuria, calf pain, mouth pain, pain with swallowing, vaginal discharge, vaginal itching and ankle swelling. Objective Data Objective Data Vital Signs: Vital Signs Temp Pulse Resp BP Pulse Ox O2 Del Method O2 Flow Rate 98.7 F 74 16 143/57 H 99 Room Air 0 03/31/25 06:00 03/31/25 06:00 03/31/25 06:00 03/31/25 06:00 03/31/25 06:00 03/31/25 06:00 03/25/25 23:39 FiO2 21 03/25/25 23:39 Oxygen Flow Rate (L/min) 0 Oxygen Delivery Method Room Air Weight: 245 lb 2.464 oz Body Mass Index (BMI) 39.4 Intake & Output: Intake and Output for Last 24 Hours 03/29/25 03/30/25 03/31/25 23:59 23:59 23:59 Intake Total 2615 / 2615 1580 / 1580 750 / 750 Output Total 800 / 800 1700 / 1700 Balance 1815 / 1815 1580 / 1580 -950 / -950 Lab / Micro Data 03/27/25 06:28 03/31/25 05:05 Labs: Laboratory Results - last 24 hr 03/30/25 11:27: POC Glucose 102 03/30/25 16:08: POC Glucose 147 H 03/30/25 22:14: POC Glucose 141 H 03/31/25 05:05: Creatinine 0.56 L, Estim Creat Clear Calc 141.77, Est GFR (MDRD) Non-Af 107, Vancomycin Trough 16.6 H 03/31/25 06:41: POC Glucose 156 H Micro: Microbiology 03/26/25 07:42 Stool Stool Occult Blood (KEILA) - Final Occult Blood Positive Social Homelessness:: Sheltered Physical Exam Const alert, oriented x3 and no apparent distress General Appearance: cooperative Resp clear to auscultation bilaterally Cardio regular rate and regular rhythm GI normal to inspection, nondistended, normoactive bowel sounds and soft to palpation Extremity no calf tenderness Extremity Narrative: Minimal ankle edema on the right. Thigh-high GROVER hose are in place bilaterally. Skin Skin Narrative: The incision is intact with no dehiscence, no charlie-incisional erythema and no discharge. Swelling has been decreasing. There is some increase in swelling towards the evening and it feels tight and sometimes throbs a little bit. Encouraged her to take an oxycodone if she needs it to help her be comfortable. 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 Continue therapy 2. Continue to adjust insulin/metformin to get the blood sugars under good control. She was not on insulin prior to surgery but, the infection/pain/stress of surgery has increased the BS's. Would like to get her off Insulin but, this may not be possible. I have her down to once daily on the Glargine. Nursing will teach her how to administer insulin. She has not heard about the prior auth for Ozempic from her insurance company yet. Will send a RX to the retail pharmacy for Sveta to see if it will be covered and if it is will get it started in the next day or 2. Charges/Coding Visit Charges Inpatient E&M: 25417 Subs Hosp L1
--- NOTE | 2025-03-31 13:11 | CASEMGMT ---
Social Work Team meeting held with pt. PT/OT/SN/Physician provided updates. Pt is progressing well with therapy. IV ATB's will continue through 05/02. SW educated pt that insurance update is due today and continued stay is not guaranteed. Pt will need to discharge on the day insurance stops services. Pt states understanding of this. Pt plans to return home with her spouse and would like home health services to assist with IV ATB. PT has 7 steps to get into her house and has been able to complete this at home. Will continue with treatment plan at this time and Reteam next week. SHUN Wasserman
[2025-03-31] MEDS: 0.9% Saline Lock 10 ML Syringe IV ×2 (13:45→20:07)
[2025-03-31 18:22] VITALS: BP 126/52; PULSE 69; RESP 16; TEMP 36.6; O2SAT 98
[2025-03-31 20:00] VITALS: BP 122/42; PULSE 62; RESP 16; TEMP 36.8; O2SAT 99
[2025-03-31] MEDS: Insulin Glargine-YFGN 100 UNIT/ML Pen 12 UNIT SC (21:58)
[2025-04-01 06:00] VITALS: BP 122/59; PULSE 71; RESP 12; TEMP 36.3; O2SAT 99
[2025-04-01] MEDS: Vancomycin IV 1,000 MG/200 ML BAG 200 MG IV ×3 (06:41→21:43)
[2025-04-01] MEDS: 0.9% Saline Lock 10 ML Syringe IV ×2 (06:41→14:15)
[2025-04-01] MEDS: METFORMIN HCL 750 MG TAB.ER.24H PO ×2 (09:21→16:52)
--- NOTE | 2025-04-01 09:25 | PN_ITS ---
Progress Note Insurance approved Ozempic and the co-pay is $193.00. Roxie would like to proceed with starting this medication. Will start the medication today and hold the Glargine. Continue ACHS SSI and Glucophage 750 mg BID. Denies diarrhea No CP, lightheadedness, SOB, calf pain. She took a dose of Oxy last night and slept better since the pain was controlle d. 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 Continue therapy 2. Start Ozempic 0.25 mg once weekly....fist dose today 3. Hold Glargine tonight and continue Glucophage and SSI AC and HS 4. Weekly lab ordered for Friday. 5. Excellent BS control is critical at this time in light of the infected join t. 6. suspect she will be ready for DC early next week. 7. Will follow up with Dr. Lay. Visit Charges Inpatient E&M: 64114 Subs Hosp L1
--- NOTE | 2025-04-01 14:09 | CASEMGMT ---
Social Work Update submitted to insurance on 03/31, awaiting determination of continued stay. Pt is understanding that once insurance denies continued stay, pt will discharge home. SW presented options of home with home health nurse or outpatient IV ATB. Pt opting for home with home health services. A list of home health providers including quality and resource use data and consistent with the patient?s preferred geographic region, medical needs, and insurance network were provided from the [employer] Guide. Pt preferred provider is [facility]. Pt would like to use [facility] for IV ATB supplies. Referral made to [facility] and pricing obtained. Pt was notified and is agreeable to use [facility]. Referral sent to [facility] for SN/PT. [facility] can accept pt, however they cannot do a start of care until Friday. Discharge date is pending insurance review. SW to continue to follow for dc planning. SHUN Connell
--- NOTE | 2025-04-01 14:23 | CASEMGMT ---
Social Work SW met with pt and assisted with completing Health Care POA and Living Will. Original given to to pt and copy placed on pt chart. SHUN Connell
[2025-04-01 18:00] VITALS: BP 118/49; PULSE 76; RESP 18; TEMP 36.7; O2SAT 99
[2025-04-01 20:45] VITALS: PULSE 68; O2SAT 96
[2025-04-02 05:28] LABS: Vancomycin, Trough Level 19.2 ug/mL (5.0-15.0)
[2025-04-02] MEDS: Vancomycin Trough/Random Due 1 LAB MC (05:29)
--- NOTE | 2025-04-02 05:35 | PCM.RX.CS ---
Consult Antibiotic Management Pharmacy has been consulted to manage selected antibiotic: Vancomycin Type of Intervention Type of Consult: Follow-up Labs Labs: Sodium 142 mmol/L (133-145) 03/27/25 06:28 Potassium 4.0 mmol/L (3.3-5.1) 03/27/25 06:28 Chloride 103 mmol/L (98-108) 03/27/25 06:28 Carbon Dioxide 27.4 mmol/L (21.0-32.0) 03/27/25 06:28 Anion Gap 12 (5-15) 03/27/25 06:28 BUN 11 mg/dL (4-19) 03/27/25 06:28 Creatinine 0.56 mg/dL (0.70-1.20) L 03/31/25 05:05 Est GFR (MDRD) Non-Af 107 (>60) 03/31/25 05:05 BUN/Creatinine Ratio 21.6 RATIO (10-20) H 03/27/25 06:28 Glucose 152 mg/dL (70-99) H 03/27/25 06:28 Random Vancomycin 15.6 ug/mL (0.0-15.0) H 03/30/25 04:07 Vancomycin Trough 19.2 ug/mL (5.0-15.0) H 04/02/25 04:48 Microbiology Microbiology: Microbiology 03/26/25 07:42 Stool Stool Occult Blood (KEILA) - Final Occult Blood Positive Dosing Weight Weight used for dosin kg Estimated Creatinine Clearance Estimated Creatinine Clearance: 142 Goal Trough Goal Trough: 15-20 mcg/mL Pharmacy Plan for Drug Dosing Pharmacy Plan for Drug Dosing: Vancomycin trough level of 19.2, drawn 7 hours post-dose, was within the target range of 15-20. Will continue dosing at 1000mg q8h, and will draw another trough level in four days. Pharmacy Service will continue to monitor and adjust dosing as required. Follow-Up Labs Follow-Up Labs: Trough: Vancomycin Date/Time Labs Ordered Labs to be done on [date and time ordered]: 04/06/25 @0500
[2025-04-02] MEDS: Vancomycin IV 1,000 MG/200 ML BAG 200 MG IV ×3 (05:37→21:29)
[2025-04-02 06:00] VITALS: BP 141/56; PULSE 68; RESP 18; TEMP 36.7; O2SAT 97
[2025-04-02] MEDS: METFORMIN HCL 750 MG TAB.ER.24H PO ×2 (08:25→16:52)
[2025-04-02] MEDS: SEMAGLUTIDE 0.25 MG/0.368 ML PEN.INJCTR SQ (08:30)
[2025-04-02] MEDS: 0.9% Saline Lock 10 ML Syringe IV ×2 (13:22→22:55)
[2025-04-02 17:47] VITALS: BP 125/56; PULSE 66; RESP 16; TEMP 36.6; O2SAT 99
[2025-04-03] MEDS: Vancomycin IV 1,000 MG/200 ML BAG 200 MG IV ×3 (05:35→21:37)
[2025-04-03] MEDS: 0.9% Saline Lock 10 ML Syringe IV ×4 (05:35→23:00)
[2025-04-03 05:49] VITALS: BP 128/42; PULSE 70; RESP 16; TEMP 36.6; O2SAT 98
[2025-04-03 06:26] LABS: Hematocrit 31.9 % (37-47); Hemoglobin 9.8 g/dL (12.0-15.0); Immature Granulocytes Count 0.050 X10^3/uL (0.0-0.0); Mean Corp Hgb Conc 30.7 g/dL (32-36); Mean Corpuscular Volume 88.1 fL (81-99); Mean Platelet Vol. 8.4 fl (6.2-12.0); NRBC Flagged by Analyzer 0 % (0-5); Platelet Count 179 K/mm3 (150-450); RBC Distribution Width CV 14.4 % (11.6-14.6); RBC Distribution Width SD 45.1 fl (35.1-43.9); Red Blood Count 3.62 M/mm3 (4.2-5.4); White Blood Count 5.6 K/mm3 (4.4-11.0)
[2025-04-03 08:31] LABS: Anion Gap 10 (5-15); BUN 11 mg/dL (4-19); BUN/Creat Ratio 17.7 RATIO (10-20); CRP 3.36 mg/L (0.0-3.0); Calcium,Total 9.3 mg/dL (7.6-11.0); Carbon Dioxide 26.8 mmol/L (21.0-32.0); Chloride 103 mmol/L (98-108); Estimated Creatinine Clearance 130.15 ml/min (50-250); Glucose 163 mg/dL (70-99); Potassium 4.4 mmol/L (3.3-5.1)
[2025-04-03] MEDS: METFORMIN HCL 750 MG TAB.ER.24H PO ×2 (08:35→16:25)
[2025-04-03 18:00] VITALS: BP 108/50; PULSE 68; RESP 17; TEMP 36.6; O2SAT 98
[2025-04-04 05:44] VITALS: BP 121/49; PULSE 65; RESP 16; TEMP 36.7; O2SAT 98
[2025-04-04] MEDS: Vancomycin IV 1,000 MG/200 ML BAG 200 MG IV ×3 (05:49→20:45)
[2025-04-04 05:54] LABS: Hematocrit 32.5 % (37-47); Hemoglobin 10.2 g/dL (12.0-15.0); Immature Granulocytes Count 0.030 X10^3/uL (0.0-0.0); Mean Corp Hgb Conc 31.4 g/dL (32-36); Mean Corpuscular Volume 88.1 fL (81-99); Mean Platelet Vol. 8.4 fl (6.2-12.0); NRBC Flagged by Analyzer 0 % (0-5); Platelet Count 193 K/mm3 (150-450); RBC Distribution Width CV 14.2 % (11.6-14.6); RBC Distribution Width SD 44.4 fl (35.1-43.9); Red Blood Count 3.69 M/mm3 (4.2-5.4); White Blood Count 6.0 K/mm3 (4.4-11.0)
--- NOTE | 2025-04-04 06:04 | RAD_ITS ---
PROCEDURE: KNEE 3 VIEWS 04/04/2025 REASON FOR EXAM: F/U SURGERY TECHNIQUE: KNEE 3 VIEWS COMPARISON: March 21, 2025 FINDINGS: There is a femoral component of the total knee prosthesis in position with a pin in the proximal tibia and radiopaque bone limited graft material in the distal femoral diaphysis and proximal tibial diaphysis, unchanged from the prior. There is a joint effusion visible. Vascular calcifications are noted. There is no acute fracture or dislocation. RAD/Knee 3 Views IMPRESSION: Hardware in position. There is a visible joint effusion. Reading Location: [facility]
[2025-04-04 06:25] LABS: Anion Gap 11 (5-15); BUN 13 mg/dL (4-19); BUN/Creat Ratio 22.2 RATIO (10-20); CRP < 3.00 mg/L (0.0-3.0); Calcium,Total 9.5 mg/dL (7.6-11.0); Carbon Dioxide 26.3 mmol/L (21.0-32.0); Chloride 104 mmol/L (98-108); Estimated Creatinine Clearance 132.32 ml/min (50-250); Glucose 129 mg/dL (70-99); Potassium 4.6 mmol/L (3.3-5.1)
[2025-04-04] MEDS: 0.9% Saline Lock 10 ML Syringe IV ×3 (06:54→20:45)
[2025-04-04] MEDS: METFORMIN HCL 750 MG TAB.ER.24H PO ×2 (09:06→16:36)
--- NOTE | 2025-04-04 09:14 | PN_ITS ---
Subjective Subjective Afebrile VSS -blood pressure is well-controlled. Maintaining appropriate oxygen saturation on RA Oral intake - FOOD good FLUIDS good The blood sugar record was reviewed. At bedtime sugar close 154 last night and the fasting this morning is 176. Fastings are higher than I want. Would like fastings to be less than 130 consistently Discussed with nursing - no problems that need addressed Reviewed the THERAPY notes Medication list reviewed. Has not had any Oxycodone since the and she denies pain. All lab drawn yesterday a.m. was personally reviewed. The white blood cell count is 658% neutrophils. Eosinophils are mildly increased at 7.7....she is asymptomatic. Platelet count is within normal limits. The ESR is 7. CRP is less than 3. Creatinine is stable at 0.6. Denies lightheadedness, pain, chest pain, shortness of breath, cough, sore mouth, painful swallowing, epigastric pain, diarrhea, vaginal discharge or itching, calf pain. Objective Data Objective Data Vital Signs: Vital Signs Temp Pulse Resp BP Pulse Ox O2 Del Method O2 Flow Rate 98.0 F 65 16 121/49 H 98 Room Air 0 04/04/25 05:44 04/04/25 05:44 04/04/25 05:44 04/04/25 05:44 04/04/25 05:44 04/04/25 05:44 03/25/25 23:39 FiO2 21 03/25/25 23:39 Oxygen Flow Rate (L/min) 0 Oxygen Delivery Method Room Air Weight: 245 lb 2.464 oz Body Mass Index (BMI) 39.4 Intake & Output: Intake and Output for Last 24 Hours 04/02/25 04/03/25 04/04/25 23:59 23:59 23:59 Intake Total 2500 / 2500 1920 / 1920 1050 / 1050 Output Total 2350 / 2350 3425 / 3425 1300 / 1300 Balance 150 / 150 -1505 / -1505 -250 / -250 Lab / Micro Data 04/04/25 05:23 04/04/25 05:23 Labs: Laboratory Results - last 24 hr 04/03/25 11:30: POC Glucose 167 H 04/03/25 16:25: POC Glucose 120 H 04/03/25 22:11: POC Glucose 154 H 04/04/25 05:23: WBC 6.0, RBC 3.69 L, Hgb 10.2 L, Hct 32.5 L, MCV 88.1, MCH 27.6, MCHC 31.4 L, RDW Std Deviation 44.4 H, RDW Coeff of Pedro 14.2, Plt Count 193, MPV 8.4, Immature Gran % (Auto) 0.500, Neut % (Auto) 57.8, Lymph % (Auto) 26.7, [place] % (Auto) 6.5, Eos % (Auto) 7.7 H, Baso % (Auto) 0.8, Absolute Neuts (auto) 3.5, Absolute Lymphs (auto) 1.60, Nucleated RBC % 0, ESR 7, Sodium 141, Potassium 4.6, Chloride 104, Carbon Dioxide 26.3, Anion Gap 11, BUN 13, Creatinine 0.60 L, Estim Creat Clear Calc 132.32, Est GFR (MDRD) Non-Af 105, BUN/Creatinine Ratio 22.2 H, Glucose 129 H, Calcium 9.5, C-React Prot Ext Range < 3.00 04/04/25 06:34: POC Glucose 176 H Micro: Microbiology 03/26/25 07:42 Stool Stool Occult Blood (KEILA) - Final Occult Blood Positive Radiography Diagnostic Testing: Radiology Impression Knee X-Ray 04/04/25 06:04 IMPRESSION: Hardware in position. There is a visible joint effusion. 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 Continue therapy 2. Increase the glargine at at bedtime to 16 units 3. No diarrhea with increase in the Metformin to 750 mg BID. Will continue. 4. Continue Ozempic. Charges/Coding Visit Charges Inpatient E&M: 49226 Subs Hosp L1
[2025-04-04 18:00] VITALS: BP 130/37; PULSE 63; RESP 18; TEMP 36.3; O2SAT 99
--- NOTE | 2025-04-05 02:28 | NURSING ---
04/04/2025 @ 20:00. Sutures removed from rt knee surgical incision. Pt tolerated well. ABD applied for comfort.
[2025-04-05] MEDS: Vancomycin IV 1,000 MG/200 ML BAG 200 MG IV ×3 (05:52→21:37)
[2025-04-05 06:00] VITALS: BP 113/83; PULSE 71; RESP 15; TEMP 36.7; O2SAT 98
[2025-04-05 06:03] LABS: Hematocrit 31.5 % (37-47); Hemoglobin 10.0 g/dL (12.0-15.0); Immature Granulocytes Count 0.030 X10^3/uL (0.0-0.0); Mean Corp Hgb Conc 31.7 g/dL (32-36); Mean Corpuscular Volume 86.8 fL (81-99); Mean Platelet Vol. 8.7 fl (6.2-12.0); NRBC Flagged by Analyzer 0 % (0-5); Platelet Count 182 K/mm3 (150-450); RBC Distribution Width CV 14.1 % (11.6-14.6); RBC Distribution Width SD 43.7 fl (35.1-43.9); Red Blood Count 3.63 M/mm3 (4.2-5.4); White Blood Count 5.4 K/mm3 (4.4-11.0)
[2025-04-05 06:33] LABS: Anion Gap 11 (5-15); BUN 13 mg/dL (4-19); BUN/Creat Ratio 21.2 RATIO (10-20); Calcium,Total 9.5 mg/dL (7.6-11.0); Carbon Dioxide 26.7 mmol/L (21.0-32.0); Chloride 104 mmol/L (98-108); Estimated Creatinine Clearance 128.05 ml/min (50-250); Glucose 134 mg/dL (70-99); Potassium 4.8 mmol/L (3.3-5.1)
[2025-04-05 06:36] LABS: CRP < 3.00 mg/L (0.0-3.0)
[2025-04-05] MEDS: METFORMIN HCL 750 MG TAB.ER.24H PO ×2 (08:58→16:42)
--- NOTE | 2025-04-05 12:38 | PCM.PROGNOTE ---
Subjective Subjective Afebrile Vital signs stable Maintaining appropriate oxygen saturation on room air Good fluid intake Blood sugar record was reviewed. The at bedtime blood sugar was 178 and the fasting this morning was 183? Apparently the Glargine was held last night? She got 3 units of Lispro. Objective Data Objective Data Vital Signs: Vital Signs Temp Pulse Resp BP Pulse Ox O2 Del Method O2 Flow Rate 98.1 F 71 15 113/83 H 98 Room Air 0 04/05/25 06:00 04/05/25 06:00 04/05/25 06:00 04/05/25 06:00 04/05/25 06:00 04/05/25 06:00 03/25/25 23:39 FiO2 21 03/25/25 23:39 Oxygen Flow Rate (L/min) 0 Oxygen Delivery Method Room Air Weight: 245 lb 2.464 oz Body Mass Index (BMI) 39.4 Intake & Output: Intake and Output for Last 24 Hours 04/03/25 04/04/25 04/05/25 23:59 23:59 23:59 Intake Total 1920 / 1920 2990 / 2990 1180 / 1180 Output Total 3425 / 3425 3600 / 3600 800 / 800 Balance -1505 / -1505 -610 / -610 380 / 380 Lab / Micro Data 04/05/25 05:34 04/05/25 05:34 Labs: Laboratory Results - last 24 hr 04/04/25 16:36: POC Glucose 124 H 04/04/25 21:44: POC Glucose 178 H 04/05/25 05:34: WBC 5.4, RBC 3.63 L, Hgb 10.0 L, Hct 31.5 L, MCV 86.8, MCH 27.5, MCHC 31.7 L, RDW Std Deviation 43.7, RDW Coeff of Pedro 14.1, Plt Count 182, MPV 8.7, Immature Gran % (Auto) 0.600, Neut % (Auto) 59.9, Lymph % (Auto) 25.1, [place] % (Auto) 7.0, Eos % (Auto) 6.3 H, Baso % (Auto) 1.1 H, Absolute Neuts (auto) 3.3, Absolute Lymphs (auto) 1.36, Nucleated RBC % 0, ESR 6, Sodium 141, Potassium 4.8, Chloride 104, Carbon Dioxide 26.7, Anion Gap 11, BUN 13, Creatinine 0.62 L, Estim Creat Clear Calc 128.05, Est GFR (MDRD) Non-Af 105, BUN/Creatinine Ratio 21.2 H, Glucose 134 H, Calcium 9.5, C-React Prot Ext Range < 3.00 04/05/25 07:09: POC Glucose 183 H 04/05/25 11:18: POC Glucose 132 H Micro: Microbiology 03/26/25 07:42 Stool Stool Occult Blood (KEILA) - Final Occult Blood Positive Social Homelessness:: Sheltered Physical Exam Const alert, oriented x3 and no apparent distress General Appearance: cooperative HEENT head/scalp atraumatic Resp normal respiratory effort and clear to auscultation bilaterally Effort and Inspection: Negative for tachypneic GI normal to inspection, nondistended, normoactive bowel sounds and soft to palpation GI Narrative: No diarrhea Extremity no calf tenderness Skin Skin Narrative: sutures were removed yesterday. The incision is intact with no dehiscence. There is no DC and there is no charlie-incisional erythema. 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 Continue therapy 2. Give Glargine 12 units tonight. Discontinue sliding scale insulin. Continue Glucophage 750 mg twice daily....... denies diarrhea. 3. Lab once weekly on Sundays. 4. Follow up with ortho and with ID post DC from rehab. Charges/Coding Visit Charges Inpatient E&M: 64292 [facility] Hosp L1
[2025-04-05] MEDS: 0.9% Saline Lock 10 ML Syringe IV (13:39)
[2025-04-05 17:40] VITALS: BP 121/46; PULSE 72; RESP 16; TEMP 36.6; O2SAT 99
[2025-04-05] MEDS: Insulin Glargine-YFGN 100 UNIT/ML Pen 12 UNIT SC (21:49)
[2025-04-06 06:00] VITALS: BMI 36.9
[2025-04-06 06:12] LABS: Vancomycin, Trough Level 19.1 ug/mL (5.0-15.0)
--- NOTE | 2025-04-06 06:16 | PCM.RX.CS ---
Consult Antibiotic Management Pharmacy has been consulted to manage selected antibiotic: Vancomycin Type of Intervention Type of Consult: Follow-up Labs Labs: Sodium 141 mmol/L (133-145) 04/05/25 05:34 Potassium 4.8 mmol/L (3.3-5.1) 04/05/25 05:34 Chloride 104 mmol/L (98-108) 04/05/25 05:34 Carbon Dioxide 26.7 mmol/L (21.0-32.0) 04/05/25 05:34 Anion Gap 11 (5-15) 04/05/25 05:34 BUN 13 mg/dL (4-19) 04/05/25 05:34 Creatinine 0.62 mg/dL (0.70-1.20) L 04/05/25 05:34 Est GFR (MDRD) Non-Af 105 (>60) 04/05/25 05:34 BUN/Creatinine Ratio 21.2 RATIO (10-20) H 04/05/25 05:34 Glucose 134 mg/dL (70-99) H 04/05/25 05:34 Random Vancomycin 15.6 ug/mL (0.0-15.0) H 03/30/25 04:07 Vancomycin Trough 19.1 ug/mL (5.0-15.0) H 04/06/25 05:07 Microbiology Microbiology: Microbiology 03/26/25 07:42 Stool Stool Occult Blood (KEILA) - Final Occult Blood Positive Dosing Weight Weight used for dosin kg Estimated Creatinine Clearance Estimated Creatinine Clearance: 128 Goal Trough Goal Trough: 15-20 mcg/mL Pharmacy Plan for Drug Dosing Pharmacy Plan for Drug Dosing: Vancomycin trough level of 19.1, drawn 7.5hrs post-dose, was within the target range of 15-20. Will continue dosing at 1000mg q8h, and will draw another trough level in four days. Pharmacy Service will continue to monitor and adjust dosing as required. Follow-Up Labs Follow-Up Labs: Trough: Vancomycin Date/Time Labs Ordered Labs to be done on [date and time ordered]: 04/10/25 @0500
[2025-04-06 06:37] VITALS: BP 118/43; PULSE 65; RESP 16; TEMP 36.1; O2SAT 99
[2025-04-06] MEDS: Vancomycin IV 1,000 MG/200 ML BAG 200 MG IV ×3 (06:39→21:45)
[2025-04-06] MEDS: METFORMIN HCL 750 MG TAB.ER.24H PO ×2 (09:21→17:01)
[2025-04-06] MEDS: 0.9% Saline Lock 10 ML Syringe IV (13:59)
[2025-04-06 17:22] VITALS: BP 124/43; PULSE 72; RESP 16; TEMP 36.4; O2SAT 99
[2025-04-06] MEDS: Insulin Glargine-YFGN 100 UNIT/ML Pen 14 UNIT SC (21:56)
[2025-04-07] MEDS: Vancomycin IV 1,000 MG/200 ML BAG 200 MG IV ×3 (04:30→20:45)
[2025-04-07 06:00] VITALS: BP 131/58; PULSE 70; RESP 16; TEMP 36.3; O2SAT 98
[2025-04-07] MEDS: METFORMIN HCL 750 MG TAB.ER.24H PO ×2 (08:48→18:15)
--- NOTE | 2025-04-07 09:41 | PCM.PROGNOTE ---
Subjective Subjective Afebrile Blood pressure is well-controlled and the heart rate is within normal limits Maintaining appropriate oxygen saturation on room air Weight is down 3-1/2 pounds since 03/21/2025. The blood sugar record was reviewed and the blood sugars are under excellent control with no hypoglycemia Roxie denies mouth pain, painful swallowing, vaginal discharge, vaginal itching, diarrhea and abdominal pain. She is doing very well in therapy. Objective Data Objective Data Vital Signs: Vital Signs Temp Pulse Resp BP Pulse Ox O2 Del Method O2 Flow Rate 97.3 F L 70 16 131/58 H 98 Room Air 0 04/07/25 06:00 04/07/25 06:00 04/07/25 06:00 04/07/25 06:00 04/07/25 06:00 04/07/25 06:00 03/25/25 23:39 FiO2 21 03/25/25 23:39 Oxygen Flow Rate (L/min) 0 Oxygen Delivery Method Room Air Weight: 229 lb 2 oz Body Mass Index (BMI) 36.9 Intake & Output: Intake and Output for Last 24 Hours 04/05/25 04/06/25 04/07/25 23:59 23:59 23:59 Intake Total 2710 / 2710 1820 / 1820 560 / 560 Output Total 2350 / 2350 1850 / 2350 1950 / 1950 Balance 360 / 360 -30 / -530 -1390 / -1390 Lab / Micro Data 04/05/25 05:34 04/05/25 05:34 Labs: Laboratory Results - last 24 hr 04/06/25 11:10: POC Glucose 137 H 04/06/25 16:11: POC Glucose 122 H 04/06/25 21:54: POC Glucose 127 H 04/07/25 06:32: POC Glucose 122 H Micro: Microbiology 03/26/25 07:42 Stool Stool Occult Blood (KEILA) - Final Occult Blood Positive Social Homelessness:: Sheltered Physical Exam Const alert, oriented x3 and no apparent distress General Appearance: cooperative HEENT moist oral mucous membranes HEENT Narrative: No evidence of thrush Resp normal respiratory effort and clear to auscultation bilaterally Effort and Inspection: Negative for tachypneic Cardio regular rate, regular rhythm and no gallops GI normal to inspection, nondistended, normoactive bowel sounds, soft to palpation and non-tender Skin Rashes: no rashes Wound Narrative: The incision is intact following removal of sutures. There is no charlie-incisional erythema, purulent discharge or dehiscence. No significant ankle edema on the right. 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 Continue therapy 2. Continue vancomycin 3. Tolerating Ozempic well without nausea/vomiting/abdominal pain/GERD. Will continue. 4. Change the Accu-Cheks to twice daily 5. Will follow up with Dr. Barrios post [place] from rehab. Charges/Coding Visit Charges Inpatient E&M: 25697 [facility] Hosp L1
--- NOTE | 2025-04-07 13:09 | CASEMGMT ---
Social Work IDT met with patient for Team meeting. Discussed patient's progress in PT/OT/SN/MD. Educated to [place] CM insurance with NRD 04/08 and continued stay is not guaranteed with each review. Once insurance issues DC date, [facility] will provide IV ATB and supplies and [facility] for PT/OT/SN. Pt requested to set DC date for 04/13. IDT agreeable. Pt wants to allow enough time for planning and ATB are covered at 100%. SW confirmed. - SW notified [facility] and [facility] of DC date. ID notified and will sent IV ATB script to this worker for [facility]. Plan: DC home with 04/13, [facility], IV ATB. Melba Mena ADHESIVE BANDAGE MACHINE OPERATOR BIOINFORMATICS PROGRAMMER
[2025-04-07] MEDS: 0.9% Saline Lock 10 ML Syringe IV ×2 (13:26→20:45)
[2025-04-07 18:00] VITALS: BP 121/44; PULSE 70; RESP 18; TEMP 36.8; O2SAT 100
[2025-04-07] MEDS: Insulin Glargine-YFGN 100 UNIT/ML Pen 14 UNIT SC (20:44)
[2025-04-08 06:00] VITALS: BP 108/66; PULSE 79; RESP 16; TEMP 36.6; O2SAT 97
[2025-04-08] MEDS: 0.9% Saline Lock 10 ML Syringe IV ×3 (06:00→23:31)
[2025-04-08] MEDS: Vancomycin IV 1,000 MG/200 ML BAG 200 MG IV ×3 (06:00→22:08)
[2025-04-08] MEDS: METFORMIN HCL 750 MG TAB.ER.24H PO ×2 (09:09→16:28)
[2025-04-08 18:00] VITALS: BP 144/51; PULSE 71; RESP 16; TEMP 36.4; O2SAT 99
[2025-04-08] MEDS: Insulin Glargine-YFGN 100 UNIT/ML Pen 14 UNIT SC (22:15)
[2025-04-09] MEDS: 0.9% Saline Lock 10 ML Syringe IV ×3 (05:37→21:54)
[2025-04-09] MEDS: Vancomycin IV 1,000 MG/200 ML BAG 200 MG IV ×3 (05:37→21:54)
[2025-04-09] MEDS: 0.9% Normal Saline 250 ML IV.SOLN. IV (05:46)
[2025-04-09 06:00] VITALS: BP 123/54; PULSE 66; RESP 17; TEMP 36.6; O2SAT 99
[2025-04-09 07:01] VITALS: BMI 36.2
[2025-04-09] MEDS: SEMAGLUTIDE 0.25 MG/0.368 ML PEN.INJCTR SQ (08:48)
[2025-04-09] MEDS: METFORMIN HCL 750 MG TAB.ER.24H PO ×2 (08:48→17:12)
[2025-04-09 17:43] VITALS: BP 117/43; PULSE 78; RESP 16; TEMP 36.8; O2SAT 95
[2025-04-09] MEDS: Insulin Glargine-YFGN 100 UNIT/ML Pen 14 UNIT SC (21:56)
[2025-04-10 04:54] LABS: Hematocrit 33.8 % (37-47); Hemoglobin 10.7 g/dL (12.0-15.0); Immature Granulocytes Count 0.020 X10^3/uL (0.0-0.0); Mean Corp Hgb Conc 31.7 g/dL (32-36); Mean Corpuscular Volume 86.9 fL (81-99); Mean Platelet Vol. 8.7 fl (6.2-12.0); NRBC Flagged by Analyzer 0 % (0-5); Platelet Count 210 K/mm3 (150-450); RBC Distribution Width CV 14.2 % (11.6-14.6); RBC Distribution Width SD 44.3 fl (35.1-43.9); Red Blood Count 3.89 M/mm3 (4.2-5.4); White Blood Count 4.9 K/mm3 (4.4-11.0)
[2025-04-10 05:36] LABS: Vancomycin, Trough Level 18.9 ug/mL (5.0-15.0)
[2025-04-10 05:37] LABS: Anion Gap 12 (5-15); BUN 17 mg/dL (4-19); BUN/Creat Ratio 26.2 RATIO (10-20); Calcium,Total 9.5 mg/dL (7.6-11.0); Carbon Dioxide 26.2 mmol/L (21.0-32.0); Chloride 103 mmol/L (98-108); Estimated Creatinine Clearance 118.50 ml/min (50-250); Glucose 155 mg/dL (70-99); Potassium 4.3 mmol/L (3.3-5.1)
[2025-04-10 05:59] LABS: CRP < 3.00 mg/L (0.0-3.0)
[2025-04-10 06:00] VITALS: BP 119/61; PULSE 65; RESP 16; TEMP 36.8; O2SAT 98
--- NOTE | 2025-04-10 06:00 | PCM.RX.CS ---
Consult Antibiotic Management Pharmacy has been consulted to manage selected antibiotic: Vancomycin Type of Intervention Type of Consult: Follow-up Labs Labs: Sodium 140 mmol/L (133-145) 04/10/25 04:41 Potassium 4.3 mmol/L (3.3-5.1) 04/10/25 04:41 Chloride 103 mmol/L (98-108) 04/10/25 04:41 Carbon Dioxide 26.2 mmol/L (21.0-32.0) 04/10/25 04:41 Anion Gap 12 (5-15) 04/10/25 04:41 BUN 17 mg/dL (4-19) 04/10/25 04:41 Creatinine 0.64 mg/dL (0.70-1.20) L 04/10/25 04:41 Est GFR (MDRD) Non-Af 104 (>60) 04/10/25 04:41 BUN/Creatinine Ratio 26.2 RATIO (10-20) H 04/10/25 04:41 Glucose 155 mg/dL (70-99) H 04/10/25 04:41 Random Vancomycin 15.6 ug/mL (0.0-15.0) H 03/30/25 04:07 Vancomycin Trough 18.9 ug/mL (5.0-15.0) H 04/10/25 04:41 Microbiology Microbiology: Microbiology 03/26/25 07:42 Stool Stool Occult Blood (KEILA) - Final Occult Blood Positive Goal Trough Goal Trough: 15-20 mcg/mL Pharmacy Plan for Drug Dosing Pharmacy Plan for Drug Dosing: Pharmacy Service will continue to monitor and adjust dosing as required. TROUGH 18.9 @ 6.75 HOURS. NO CHANGES, FOLLOW UP TROUGH IN 4 DAYS Follow-Up Labs Follow-Up Labs: Trough: Vancomycin Date/Time Labs Ordered Labs to be done on [date and time ordered]: 04/15 @ 0500
[2025-04-10] MEDS: Vancomycin Trough/Random Due 1 LAB MC (06:41)
[2025-04-10] MEDS: Vancomycin IV 1,000 MG/200 ML BAG 200 MG IV ×3 (06:46→21:31)
[2025-04-10] MEDS: 0.9% Normal Saline 250 ML IV.SOLN. IV (06:46)
[2025-04-10] MEDS: 0.9% Saline Lock 10 ML Syringe IV ×2 (06:58→23:31)
[2025-04-10] MEDS: METFORMIN HCL 750 MG TAB.ER.24H PO ×2 (07:55→17:08)
[2025-04-10 17:09] VITALS: BP 121/49; PULSE 66; RESP 16; TEMP 36.8; O2SAT 99
--- NOTE | 2025-04-10 19:57 | NURSING ---
Per patient does not want blood glucose check prior to insulin administration. Patient is alert and oriented x4, states able to voice if notices a change in blood glucose levels
[2025-04-10 19:58] VITALS: O2SAT 97
[2025-04-10] MEDS: Insulin Glargine-YFGN 100 UNIT/ML Pen 14 UNIT SC (21:31)
[2025-04-11] MEDS: Vancomycin IV 1,000 MG/200 ML BAG 200 MG IV ×3 (05:45→21:51)
[2025-04-11] MEDS: 0.9% Normal Saline 250 ML IV.SOLN. IV (05:45)
[2025-04-11 05:59] VITALS: BP 129/43; PULSE 75; RESP 16; TEMP 36.8; O2SAT 99
[2025-04-11] MEDS: METFORMIN HCL 750 MG TAB.ER.24H PO ×2 (07:49→16:30)
--- NOTE | 2025-04-11 08:33 | PCM.PROGNOTE ---
Subjective Subjective Afebrile VSS - Maintaining appropriate oxygen saturation on RA Oral intake - FOOD good FLUIDS good but, less than it was earlier in the admission. Discussed with nursing - no problems that need addressed Reviewed the THERAPY notes Medication list reviewed. All lab drawn yesterday was personally reviewed. The white blood cell count is 4.9 with an unremarkable differential. The percentage eosinophils is increased but the absolute eosinophil count is unremarkable and she is denying rash and pruritus. Hemoglobin is 10.7, up from 10 on 04/05/2025. Platelets are within normal limits. ESR is 5 and his CRP is less than 3. The BUN is 17 today with a creatinine of 0.64 which is up from 0.47 on 03/22/25. Vanco trough on 04/10/2025 was 18.9. Denies sore mouth, painful swallowing, vaginal discharge, vaginal itching, diarrhea, abdominal pain, night sweats, shaking chills. Objective Data Objective Data Vital Signs: Vital Signs Temp Pulse Resp BP Pulse Ox O2 Del Method O2 Flow Rate 98.3 F 75 16 129/43 H 99 Room Air 0 04/11/25 05:59 04/11/25 05:59 04/11/25 05:59 04/11/25 05:59 04/11/25 05:59 04/11/25 05:59 03/25/25 23:39 FiO2 21 03/25/25 23:39 Oxygen Flow Rate (L/min) 0 Oxygen Delivery Method Room Air Weight: 225 lb 6.4 oz Body Mass Index (BMI) 36.2 Intake & Output: Intake and Output for Last 24 Hours 04/09/25 04/10/25 04/11/25 23:59 23:59 23:59 Intake Total 1750 / 1750 1610 / 1610 200 / 200 Output Total 3725 / 3725 1999 / 1999 1300 / 1300 Balance -1975 / -1975 -390 / -390 -1100 / -1100 Lab / Micro Data 04/10/25 04:41 04/10/25 04:41 Micro: Microbiology 03/26/25 07:42 Stool Stool Occult Blood (KEILA) - Final Occult Blood Positive Social Homelessness:: Sheltered Physical Exam Const alert, oriented x3 and no apparent distress General Appearance: cooperative HEENT moist oral mucous membranes HEENT Narrative: No evidence of thrush Resp normal respiratory effort and clear to auscultation bilaterally Effort and Inspection: Negative for tachypneic Cardio regular rate, regular rhythm and no gallops GI normal to inspection, nondistended, normoactive bowel sounds, soft to palpation and non-tender Extremity Extremity Narrative: Incision is intact with no dehiscence, no charlie-incisional erythema and no discharge. Skin Rashes: no rashes Wound Narrative: There is no charlie-incisional erythema, purulent discharge or dehiscence. No significant ankle edema on the right. 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 Continue therapy 2. Planning discharge for Friday. Will follow-up with Dr. Barrios postdischarge from acute rehab to manage the antibiotic. 3. Wants to use the [facility] retail pharmacy for any RX's she will need at OR. 4. Continue Ozempic, glargine and Glucophage. Blood sugars are under excellent control. Tolerating Glucophage with no diarrhea. Would recommend using glargine until she is off antibiotics. 5. Blood pressure is well-controlled. 6. Creat bumped a little.......advised her to increase fluid intake. COntinue to monitor weekly labd and vanco trough. Charges/Coding Visit Charges Inpatient E&M: 88977 [facility] Hosp L1
[2025-04-11] MEDS: 0.9% Saline Lock 10 ML Syringe IV ×2 (14:03→21:52)
[2025-04-11 17:50] VITALS: BP 128/50; PULSE 76; RESP 16; TEMP 36.6; O2SAT 100
[2025-04-11 21:42] VITALS: BP 130/51; PULSE 67; RESP 18; TEMP 36.6; O2SAT 100
[2025-04-11] MEDS: Insulin Glargine-YFGN 100 UNIT/ML Pen 14 UNIT SC (21:50)
[2025-04-12] MEDS: Vancomycin IV 1,000 MG/200 ML BAG 200 MG IV ×3 (05:15→22:02)
[2025-04-12] MEDS: 0.9% Saline Lock 10 ML Syringe IV ×3 (05:15→21:42)
[2025-04-12 05:32] VITALS: BP 146/46; PULSE 71; RESP 14; TEMP 36.1; O2SAT 98
[2025-04-12] MEDS: METFORMIN HCL 750 MG TAB.ER.24H PO ×2 (08:06→16:40)
--- NOTE | 2025-04-12 10:32 | CASEMGMT ---
Social Work SW followed up with pt, [facility] and [facility] to ensure all parties have confirmed DC plans. Melba Mena BULL GANG WORKER RESIDENCY DIRECTOR
[2025-04-12 12:22] VITALS: BMI 36.0
[2025-04-12] MEDS: 0.9% Normal Saline 250 ML IV.SOLN. IV (14:07)
--- NOTE | 2025-04-12 15:16 | PCM.DC ---
Discharge Instructions Diet Discharge Diet: Carb Control Diet DC O2, CPAP, BIPAP needs Home O2 Discharge instructions: No Dressing / Incision Discharge Activity: May Not Drive, May Shower and Use Walker Keep extremity elevated above heart level: Legs Dressing / Incision Call your doctor if your incision/area has: Continuous Slow Oozing, Sudden Increased Bleeding, Increased Pain/ Swelling, Increased Redness, Foul Smelling Discharge and Swelling at the incision site Call your doctor if you observe: Fever of 101 or Higher, Inability to urinate, Inability to have a bowel movement, Shortness of breath, Dizziness, Fainting spells, Swelling in the ankles, Chest pain, Increased palpitations (irregular heartbeat), Calf discomfort, Uncontrolled pain and - (Sores in your mouth, painful swallowing, vaginal discharge, vaginal itching and diarrhea are things that can happen with detention antibiotics......IF you have any of these call your PCP for advice. ) Suture Line Care: Avoid Pulling/Pushing and Avoid Pinching/Bending Cleanse incision/area with: Soap & Water Follow Up Care Please Follow Up With: Garrick MALHOTRA Test Results: Test results from this visit will be discussed in further detail at your follow-up appointment, if applicable. Pending Tests Upon Discharge: none Discharge Plan Admission Admit Date/Time: 03/25/25 15:19 Primary Reason for Your Visit: Debility due to prosthetic joint infection with explant and antibiotic spac Attending Provider: Mariela Rubio Primary Care Provider: Carolin Cason Instructions Patient Instructions: Caring for Your Incision Additional Instructions / Restrictions: 1. You are amazing! Your blood sugars and BP are very well controlled. You are tolerating Ozempic with no adverse side effects. You PCP will likely want to go up on the Ozempic dose after 1 month on the current dose to help with BS control (hopefully to get you off insulin) and promote weight loss. 2. You will need weekly labs while you are on Vancomycin. [facility] will draw the labs and send them to Dr. Barrios. You can make an appt with Dr. Barrios for the week after DC. 3. Goals for diabetics to prevent complications from diabetes mellitus such as heart disease, strokes, kidney failure, blindness and peripheral vascular disease include blood pressure less than 130/80, hemoglobin A1c 7 or less and LDL (bad cholesterol) 70 or less. 4. Please do not hesitate to call me if you have any questions following discharge from rehab. [facility] will draw blood for CBC with diff, BMP, ESR and CRP every Friday that she is still taking Vancomycin. Results should be sent to Dr. Barrios. OFFICE: [phone] CELL: [phone] NURSES STATION ON REHAB: [phone] Discharge Orders/Prescriptions Prescriptions: New oxycodone 5 mg Tablet 5 - 10 mg PO Q4H PRN PRN (Reason: Pain Score 4-10) 7 Days Qty: 20 0RF metformin 750 mg Tablet Extended Release 24 Hr 750 mg PO BIDCM Qty: 60 0RF insulin glargine-yfgn 100 unit/mL (3 mL) Insulin Pen 14 unit subcut QHS Qty: 2 0RF Ozempic 0.25 mg or 0.5 mg (2 mg/3 mL) pen injector 0.5 mg subcut QWEEK Qty: 3 0RF Rx Instructions: for 4 weeks Continued rosuvastatin 20 mg tablet 20 mg PO QHS ferrous sulfate [Feosol] 325 mg (65 mg iron) tablet 325 mg PO DAILY folic acid 1 mg tablet 1 mg PO DAILY aspirin 81 mg Tablet,Chewable 81 mg PO BID Qty: 0 0RF atorvastatin 40 mg Tablet 40 mg PO QHS Qty: 0 0RF Glucagon Emergency Kit (human) 1 mg Recon Soln 1 mg IM X1 PRN (Reason: Hypoglycemia) Qty: 0 0RF Changed acetaminophen 500 mg Tablet 1,000 mg PO Q8H PRN (Reason: pain or fever) Qty: 1 0RF lisinopril 10 mg tablet 10 mg PO DAILY Qty: 1 0RF Discontinued metformin 500 mg tablet extended release 24 hr 2,000 mg PO QHS vancomycin 1.25 gram recon soln 1.25 g IV Q8H 40 Days Rx Instructions: stop date 05/02/25. Dx: R knee PJI. Weekly bmp, cbc, vanc trough, and esr. Fax to [phone]. Routine picc care per protocol. famotidine 20 mg Tablet 20 mg PO DAILY Qty: 0 0RF insulin lispro [Humalog KwikPen Insulin] 100 unit/mL Insulin Pen See Protocol subcut ACHS Qty: 0 0RF Protocol: 5. Sliding Scale Insulin High Dosing Condition: 150-209 mg/dl = 3 units Condition: 210-259 mg/dl = 6 units Condition: 260-324 mg/dl = 9 units Condition: 325-374 mg/dl = 12 units Condition: 375-409 mg/dl = 14 units Condition: 410-449 mg/dl = 16 units Condition: Greater than 449 call physician Protocol Text: Suggested for: - Patients on Total Daily Insulin Dose of 81-120 units - Very insulin resistant patients HIGH DOSING ALGORITHM insulin glargine-yfgn 100 unit/mL (3 mL) Insulin Pen 10 unit subcut BID Qty: 0 0RF promethazine 25 mg Tablet 12.5 mg PO Q6H PRN PRN (Reason: Nausea/Vomiting) Qty: 0 0RF oxycodone 5 mg Tablet 5 - 10 mg PO Q4H PRN PRN (Reason: Pain Score 4-10) Qty: 0 0RF No Action sennosides-docusate sodium [Stimulant Laxative Plus] 8.6-50 mg Tablet 2 tab PO BID Qty: 0 0RF Referrals / Follow Up: Terry Barrios [Other] (call wound center, make appointment with in 1 week of d/c ) Jossue Lay MD [Med Staff - Active Staff] - 04/27/25 3:45 pm Carolin Cason NP-C [Primary Care Provider] - 04/28/25 10:00 am Disposition Disposition (needs filled in before D/C Order can be placed): Home Health Service
[2025-04-12 17:08] VITALS: BP 125/41; PULSE 69; RESP 16; TEMP 36.6; O2SAT 100
[2025-04-12] MEDS: Insulin Glargine-YFGN 100 UNIT/ML Pen 14 UNIT SC (21:39)
[2025-04-13 06:00] VITALS: BP 113/46; PULSE 69; RESP 16; TEMP 36.7; O2SAT 98
[2025-04-13] MEDS: 0.9% Saline Lock 10 ML Syringe IV ×2 (06:21→12:46)
[2025-04-13] MEDS: Vancomycin IV 1,000 MG/200 ML BAG 200 MG IV ×2 (06:21→12:46)
[2025-04-13] MEDS: METFORMIN HCL 750 MG TAB.ER.24H PO (08:11)
--- NOTE | 2025-04-13 08:19 | PCM.DC.SUM ---
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 Lay. 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 Ozempic will be increased to 0.5 mg weekly at CO. (4) Normochromic normocytic anemia: Status: Chronic Code(s): D64.9 - Anemia, unspecified Plan: HGB at DC is 10.7 which is up from 8.5 at admission to rehab. 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 Will continue Vancomycin at CO from rehab with a stop date of 05/02/25. Dr. Barrios will follow as OP. NO thrush, odynophagia, vaginal discharge/itching or diarrhea while on acute rehab. At discharge from rehab is 0.64 which is up from 0.46 at admission to rehab. Vancomycin trough at admission to rehab was 16.9 and on 04/10/2025 it was 18.9. (6) Heme positive stool: Status: Acute Code(s): R19.5 - Other fecal abnormalities Plan: She was constipated at admission to rehab and I think the heme + stool is due to hemorrhoids. She has no hx of PUD and she has had no N/V/epigastric pain or heartburn. She was not started on a PPI and the HGB is better at CO than it was at admission to rehab. (7) Hypertension: Status: Chronic Code(s): I10 - Essential (primary) hypertension Qualifiers: Hypertension type: primary hypertension Qualified Code(s): I10 - Essential (primary) hypertension Plan: Well controlled with Lisinopril 10 mg daily. Plan 1. DC home with [facility] for continued IV Vancomycin with stop date of 05/02/25. 2. Vanco trough on 04/15/25 3. Continue CBC with diff, BMP, ESR and CRP on Friday or Friday until the Vancomycin has been discontinued. 4. Follow up with PCP, Dr. Lay and Dr. Barrios 5. Ozempic increased to 0.5mg weekly.......has had no adverse side effects with the 0.25 mg dose. 6. Encouraged to maintain excellent fluid intake in light of mild incrase in CREAT. Medications at Discharge Home Medications rosuvastatin 20 mg tablet 20 mg PO QHS cholesterol 08/10/24 ferrous sulfate 325 mg (65 mg iron) tablet (Feosol) 325 mg PO DAILY SUPPLEMENT 03/11/25 folic acid 1 mg tablet 1 mg PO DAILY SUPPLEMENT 03/11/25 aspirin 81 mg chewable tablet 81 mg PO BID heart health #0 tabs 03/25/25 atorvastatin 40 mg tablet 40 mg PO QHS cholesterol #0 tabs 03/25/25 glucagon 1 mg solution for injection (Glucagon Emergency Kit) 1 mg IM X1 PRN Hypoglycemia #0 ea 03/25/25 sennosides 8.6 mg-docusate sodium 50 mg tablet (Stimulant Laxative Plus) 2 tab PO BID constipation #0 tabs 03/25/25 acetaminophen 500 mg tablet 1,000 mg (2 x 500 mg) PO Q8H PRN pain or fever #1 TAB 04/12/25 insulin glargine-yfgn 100 unit/mL (3 mL) subcutaneous pen 14 unit (0.14 mL) subcut QHS #2 pens 04/12/25 lisinopril 10 mg tablet 10 mg PO DAILY bp #1 TAB 04/12/25 metformin 750 mg tablet,extended release 24 hr 750 mg PO BIDCM #60 tabs 04/12/25 oxycodone 5 mg tablet 5 - 10 mg (1 - 2 x 5 mg) PO Q4H PRN PRN Pain Score 4-10 1 week #20 tabs 04/12/25 semaglutide 0.25 mg or 0.5 mg (2 mg/3 mL) subcutaneous pen injector (Ozempic) 0.5 mg (0.736 mL) subcut QWEEK #3 mL 04/12/25 Hospital Course Operations - (Surgery 03/21/[address] Jossue Lay to remove hardware from the right knee and place an antibiotic spacer for treatment of prosthetic joint infection due to Bacillus cereus.) Procedures PICC line placement Summary of Care Provided Minutes Spent on Discharge: 30 Hospital Course: JOSHUA MAGUIRE, is a 54 YO female with a PMH listed below who had a right total knee replacement on 09/06/[address] Lay. In November 2024 she underwent a right knee manipulation under anesthesia for right knee arthrofibrosis. she developed progressive pain and swelling of the R knee and felt ill. Joint aspiration was done and grew Bacillus cereus. She was taken to the OR by Dr. Lay on 03/21/25 to remove hardware and place an antibiotic spacer. Ancef and Vancomycin were ordered. Post-operatively she was seen in consultation by Dr. Barrios from [place] and Vancomycin was continued. PICC was ordered and was placed in the RUE. She will need a total of 6 weeks of IV antibiotics. Intraoperative cultures are still pending. She was transferred to the acute inpt rehab unit at [facility] on 03/25/25 for 3 hours of therapy daily to restore function/independence at or near her level prior to the recent surgery on 03/21/25. Joshua's stay on rehab was unremarkable. HGB was 8.5 at admission to rehab and at CO it is up to 10.7. Hemoccult stool was positive at admission to rehab however she had no epigastric pain, nausea, vomiting or heartburn. She was constipated and having hard stool and I suspect the Hemoccult positive stool was due to hemorrhoidal disease. She still has no GI complaints and the hemoglobin is now up to 10.7 so I do not see a need for a PPI or an H2 annmarie. Creat was 0.46 at admission and at CO it is 0.64. Pharmacy has been following Vanco troughs and adjusting dose as needed. At CO she is taking 1 GM Q8H. She will have a trough drawn April 15. WBC is normal at CO. The last ESR was 5 on 04/10 and the CRP is less than 3. She has had no sores in the mouth, thrush, odynophagia, diarrhea, vaginal discharge or vaginal itching. BS's are under excellent control with Glucophage 750 mg twice daily, glargine 14 units at bedtime and Ozempic 0.25 mg weekly. Ozempic is going to be increased to 0.5 mg weekly at discharge from rehab. She has had no abdominal pain, nausea, vomiting, heartburn since being started on Ozempic. She was not on insulin at admission to the hospital and would like to get off insulin. We elected to keep the Glargine until she is off antibiotics and the infection has resolved. Hopefully with increasing Ozempic and losing weight she will be able to get off Glargine. At the time of DC Joshua is independent with ADL's and she is able to ambulate 1000 feet with a front wheel walker at [facility] outside the building on various surfaces. She is able to ascend/descend 80 steps with upper extremity support and partial weightbearing on the right lower extremity. The incision is intact with no dehiscence, no charlie-incisional erythema and no DC from the incision. She has apopts scheduled with PCP and Dr. Lay and she is going to call the wound care center to schedule and appt with Dr. Barrios. [facility] has been arranged for her. [facility] can draw a Vancomycin trough on 04/15/25 and she will need weekly CBC with diff, BMP, ESR and CRP while she is taking Vancomycin. I talked with [facility]. The vanco trough will be drawn tomorrow rather than on Friday. Will draw CBC with differential, BMP, ESR and CRP on Friday. Physical Exam Const alert, oriented x3, no apparent distress and well nourished Constitutional Narrative: Making good eye contact, appropriate. Sitting in the recliner at the bedside. General Appearance: cooperative, comfortable and well kempt HEENT normocephalic, head/scalp atraumatic and hearing grossly normal bilaterally HEENT Narrative: Dry mucous membranes. Has dentures. No evidence of thrush. Denies pain in her mouth or tongue. Denies painful swallowing. Eyes PERRL, EOMs intact bilaterally, conjunctivae normal and no scleral icterus Eyes Narrative: No discharge from the eyes and no mattering of the eyelashes. No visual field cuts. Neck no lymphadenopathy, supple and no carotid bruits General: trachea midline Chest Chest: symmetrical chest wall rise Resp normal respiratory effort, no use of accessory muscles and clear to auscultation bilaterally Resp Narrative: Not tachypneic and no conversational dyspnea. Mildly diminished, may be secondary to body habitus. Cardio regular rate, regular rhythm, S1 normal heart sound, S2 normal heart sound, no rub and no gallops Cardio Narrative: No ectopy. There is a soft systolic ejection murmur heard best at the second right intercostal space with radiation to the lower left sternal border, left ventricular outflow tract, apex and into the left axilla. No diastolic murmurs. Denies history of rheumatic fever. The echocardiogram showed normal left ventricular ejection fraction of 55%. Wall thickness was normal and there was no wall motion abnormality. She had trivial MR and trivial TR. There is mild to moderate mitral annular calcification in the mitral valve appeared thickened. The aortic valve had mild calcification. No aortic stenosis or insufficiency. the MM has gotten softer while on rehab.......it may have been a flow MM related to anemia. GI normal to inspection, nondistended, normoactive bowel sounds and non-tender GI Narrative: No guarding with palpation. Having regular BM's and no diarrhea. no CVA tenderness Narrative: Denies vaginal DC and dysuria. Extremity no calf tenderness Extremity Narrative: She has pitting edema of the thigh and the R knee. Nno edema in the R ankle. Thigh high TEDS are in place. Skin no jaundice Skin Narrative: No rashes, no skin breakdown. Wound Narrative: The right knee incision is intact and healing well. There is no dehiscence, no charlie-incisional erythema and no discharge. Swelling has diminished a great deal since admission to rehab. No rashes. Neuro oriented x3, CN's II-XII intact bilaterally, moves all extremities and no focal motor deficits Neuro Narrative: Denies numbness in the feet. Psych affect normal Psych Narrative: Appropriate, making good eye contact. Able to stay on topic and focus. No flight of ideas. Does not appear anxious or depressed. Conversant and relating well to staff. Appearance: grossly normal, appropriate and well kempt Attitude: calm and engaged Activity / Motor Behavior: appropriate eye contact Medical Records Data Homelessness:: Sheltered Weight / BMI Weight Weight: 224 lb 4 oz Body Mass Index (BMI) 36.0 ABG / Lab / Microbiology Data 04/10/25 04:41 04/10/25 04:41 Microbiology: Microbiology 03/26/25 07:42 Stool Stool Occult Blood (KEILA) - Final Occult Blood Positive D/C Instructions Discharge Diet: Carb Control Diet Keep extremity elevated above heart level: Legs Call your doctor if your incision/area has: Continuous Slow Oozing, Sudden Increased Bleeding, Increased Pain/ Swelling, Increased Redness, Foul Smelling Discharge and Swelling at the incision site Call your doctor if you observe: Fever of 101 or Higher, Inability to urinate, Inability to have a bowel movement, Shortness of breath, Dizziness, Fainting spells, Swelling in the ankles, Chest pain, Increased palpitations (irregular heartbeat), Calf discomfort, Uncontrolled pain and - (Sores in your mouth, painful swallowing, vaginal discharge, vaginal itching and diarrhea are things that can happen with intermediate antibiotics......IF you have any of these call your PCP for advice. ) Suture Line Care: Avoid Pulling/Pushing and Avoid Pinching/Bending Cleanse incision/area with: Soap & Water DC O2, CPAP, BIPAP Needs Home O2 Discharge instructions: No Pending Tests Upon Discharge: none Please Follow Up With: Garrick MALHOTRA Meaningful Use Info Meaningful Use Meaningful Use Diagnoses (Choose all that apply): None applicable Ischemic Stroke Statin Dosing Therapy Reference: STATIN DOSE THERAPY REFERENCE: * Patients > 75 years receive moderate or high dose statin therapy. * Patients 75 years or YOUNGER should receive HIGH intensity statin dose unless contraindicated. You will be required to document reason for non-treatment if statin daily dose does not meet guidelines. HIGH DOSE STATIN THERAPY DAILY Atorvastatin > than or = to 40 mg Rosuvastatin > than or = to 20 mg Amlodipine + Atorvastatin > than or = to 2.5/40 mg Ezetimibe + Simvastatin 10/80 mg Simvastatin 80mg Discharge Plan Admission Admit Date/Time: 03/25/25 15:19 Primary Reason for Your Visit: Debility due to prosthetic joint infection with explant and antibiotic spac Attending Provider: Mariela Rubio Primary Care Provider: Carolin Cason Instructions Patient Instructions: Caring for Your Incision Additional Instructions / Restrictions: 1. You are amazing! Your blood sugars and BP are very well controlled. You are tolerating Ozempic with no adverse side effects. You PCP will likely want to go up on the Ozempic dose after 1 month on the current dose to help with BS control (hopefully to get you off insulin) and promote weight loss. 2. You will need weekly labs while you are on Vancomycin. [facility] will draw the labs and send them to Dr. Barrios. You can make an appt with Dr. Barrios for the week after DC. 3. Goals for diabetics to prevent complications from diabetes mellitus such as heart disease, strokes, kidney failure, blindness and peripheral vascular disease include blood pressure less than 130/80, hemoglobin A1c 7 or less and LDL (bad cholesterol) 70 or less. 4. Please do not hesitate to call me if you have any questions following discharge from rehab. [facility] will draw blood for CBC with diff, BMP, ESR and CRP every Friday that she is still taking Vancomycin. Results should be sent to Dr. Barrios. OFFICE: [phone] CELL: [phone] NURSES STATION ON REHAB: [phone] Discharge Orders/Prescriptions Prescriptions: New oxycodone 5 mg Tablet 5 - 10 mg PO Q4H PRN PRN (Reason: Pain Score 4-10) 7 Days Qty: 20 0RF metformin 750 mg Tablet Extended Release 24 Hr 750 mg PO BIDCM Qty: 60 0RF insulin glargine-yfgn 100 unit/mL (3 mL) Insulin Pen 14 unit subcut QHS Qty: 2 0RF Ozempic 0.25 mg or 0.5 mg (2 mg/3 mL) pen injector 0.5 mg subcut QWEEK Qty: 3 0RF Rx Instructions: for 4 weeks Continued rosuvastatin 20 mg tablet 20 mg PO QHS ferrous sulfate [Feosol] 325 mg (65 mg iron) tablet 325 mg PO DAILY folic acid 1 mg tablet 1 mg PO DAILY aspirin 81 mg Tablet,Chewable 81 mg PO BID Qty: 0 0RF atorvastatin 40 mg Tablet 40 mg PO QHS Qty: 0 0RF Glucagon Emergency Kit (human) 1 mg Recon Soln 1 mg IM X1 PRN (Reason: Hypoglycemia) Qty: 0 0RF Changed acetaminophen 500 mg Tablet 1,000 mg PO Q8H PRN (Reason: pain or fever) Qty: 1 0RF lisinopril 10 mg tablet 10 mg PO DAILY Qty: 1 0RF Discontinued metformin 500 mg tablet extended release 24 hr 2,000 mg PO QHS vancomycin 1.25 gram recon soln 1.25 g IV Q8H 40 Days Rx Instructions: stop date 05/02/25. Dx: R knee PJI. Weekly bmp, cbc, vanc trough, and esr. Fax to [phone]. Routine picc care per protocol. famotidine 20 mg Tablet 20 mg PO DAILY Qty: 0 0RF insulin lispro [Humalog KwikPen Insulin] 100 unit/mL Insulin Pen See Protocol subcut ACHS Qty: 0 0RF Protocol: 5. Sliding Scale Insulin High Dosing Condition: 150-209 mg/dl = 3 units Condition: 210-259 mg/dl = 6 units Condition: 260-324 mg/dl = 9 units Condition: 325-374 mg/dl = 12 units Condition: 375-409 mg/dl = 14 units Condition: 410-449 mg/dl = 16 units Condition: Greater than 449 call physician Protocol Text: Suggested for: - Patients on Total Daily Insulin Dose of 81-120 units - Very insulin resistant patients HIGH DOSING ALGORITHM insulin glargine-yfgn 100 unit/mL (3 mL) Insulin Pen 10 unit subcut BID Qty: 0 0RF promethazine 25 mg Tablet 12.5 mg PO Q6H PRN PRN (Reason: Nausea/Vomiting) Qty: 0 0RF oxycodone 5 mg Tablet 5 - 10 mg PO Q4H PRN PRN (Reason: Pain Score 4-10) Qty: 0 0RF No Action sennosides-docusate sodium [Stimulant Laxative Plus] 8.6-50 mg Tablet 2 tab PO BID Qty: 0 0RF Referrals / Follow Up: Terry Barrios [Other] (call wound center, make appointment with in 1 week of d/c ) Jossue Lay MD [Med Staff - Active Staff] - 04/27/25 3:45 pm Carolin Cason NP-Ra [Primary Care Provider] - 04/28/25 10:00 am Disposition Disposition (needs filled in before D/C Order can be placed): Home Health Service Charges/Coding Visit Charges Inpatient E&M: 72889 Disch Hosp
== END 2025-04-13 14:52 | disposition home health service (06) | DRG 950 ==
PROVIDERS: Admitting Provider Internal Medicine; PCP Nurse Practitioner Family; Referring Provider Internal Medicine; Visit Provider Internal Medicine
DX: T84.53XD Infection and inflammatory reaction due to internal right knee prosthesis, subsequent encounter (principal); D64.9 Anemia, unspecified; E11.9 Type 2 diabetes mellitus without complications; E66.01 Morbid (severe) obesity due to excess calories; E78.00 Pure hypercholesterolemia, unspecified; G25.81 Restless legs syndrome; I10 Essential (primary) hypertension; G47.33 Obstructive sleep apnea (adult) (pediatric); Z79.4 Long term (current) use of insulin; Z79.84 Long term (current) use of oral hypoglycemic drugs; R01.1 Cardiac murmur, unspecified; Z68.39 Body mass index [BMI] 39.0-39.9, adult; Z87.891 Personal history of nicotine dependence; Z79.85 Long-term (current) use of injectable non-insulin antidiabetic drugs; Y79.2 Prosthetic and other implants, materials and accessory orthopedic devices associated with adverse incidents; Z79.899 Other long term (current) drug therapy; Z79.82 Long term (current) use of aspirin
CPT/HCPCS: 36415; 73562; 80048; 80053; 80202; 82043; 82274; 82565; 82728; 82962; 83036; 83540; 83550; 83735; 84100; 85025; 85652; 86140; 93306; 94762; 97110; 97112; 97116; 97129; 97162; 97166; 97530; 97535; 97802; Q9957; A4216; C8929

== ENCOUNTER → 2025-04-14 | Outpatient (CLI) | payer BC, SELFPAY ==
[2025-04-14 18:25] LABS: Vancomycin, Trough Level 16.3 ug/mL (5.0-15.0)
== END | disposition home or self-care (01) ==
LOC: LABSPEC 17:55
PROVIDERS: PCP Nurse Practitioner Family; Visit Provider Internal Medicine Infectious Disease
DX: T84.59XA Infection and inflammatory reaction due to other internal joint prosthesis, initial encounter (principal)
CPT/HCPCS: 80202

== ENCOUNTER → 2025-04-19 | Outpatient (CLI) | payer BC, SELFPAY ==
[2025-04-19 12:48] LABS: Hematocrit 35.5 % (37-47); Hemoglobin 11.0 g/dL (12.0-15.0); Mean Corp Hgb Conc 31.0 g/dL (32-36); Mean Corpuscular Volume 88.1 fL (81-99); Mean Platelet Vol. 8.9 fl (6.2-12.0); Platelet Count 227 K/mm3 (150-450); RBC Distribution Width CV 13.7 % (11.6-14.6); RBC Distribution Width SD 44.4 fl (35.1-43.9); Red Blood Count 4.03 M/mm3 (4.2-5.4); White Blood Count 5.2 K/mm3 (4.4-11.0)
[2025-04-19 13:05] LABS: Anion Gap 12 (5-15); BUN 18 mg/dL (4-19); BUN/Creat Ratio 31.3 RATIO (10-20); Calcium,Total 9.6 mg/dL (7.6-11.0); Carbon Dioxide 24.2 mmol/L (21.0-32.0); Chloride 102 mmol/L (98-108); Glucose 198 mg/dL (70-99); Potassium 4.2 mmol/L (3.3-5.1)
[2025-04-19 13:09] LABS: Vancomycin, Trough Level 15.7 ug/mL (5.0-15.0)
== END | disposition home or self-care (01) ==
LOC: LABSPEC 11:30
PROVIDERS: PCP Nurse Practitioner Family; Visit Provider Internal Medicine Infectious Disease
DX: T84.50XA Infection and inflammatory reaction due to unspecified internal joint prosthesis, initial encounter (principal)
CPT/HCPCS: 80048; 80202; 85027; 85652

== ENCOUNTER 2025-04-26 09:49 | Outpatient (RCR) | payer BC, SELFPAY ==
[2025-04-26 12:08] LABS: Hematocrit 35.1 % (37-47); Hemoglobin 11.0 g/dL (12.0-15.0); Mean Corp Hgb Conc 31.3 g/dL (32-36); Mean Corpuscular Volume 86.5 fL (81-99); Mean Platelet Vol. 8.9 fl (6.2-12.0); Platelet Count 213 K/mm3 (150-450); RBC Distribution Width CV 13.6 % (11.6-14.6); RBC Distribution Width SD 42.5 fl (35.1-43.9); Red Blood Count 4.06 M/mm3 (4.2-5.4); White Blood Count 5.6 K/mm3 (4.4-11.0)
[2025-04-26 12:13] LABS: Anion Gap 14 (5-15); BUN 14 mg/dL (4-19); BUN/Creat Ratio 22.2 RATIO (10-20); Calcium,Total 9.5 mg/dL (7.6-11.0); Carbon Dioxide 23.2 mmol/L (21.0-32.0); Chloride 103 mmol/L (98-108); Glucose 137 mg/dL (70-99); Potassium 4.0 mmol/L (3.3-5.1); Vancomycin, Trough Level 13.7 ug/mL (5.0-15.0)
== END 2025-05-12 23:59 ==
LOC: LABSPEC 09:49
PROVIDERS: PCP Nurse Practitioner Family; Referring Provider Internal Medicine Infectious Disease; Visit Provider Internal Medicine Infectious Disease
DX: T84.50XA Infection and inflammatory reaction due to unspecified internal joint prosthesis, initial encounter (principal)
CPT/HCPCS: 80048; 80202; 85027; 85652

== ENCOUNTER 2025-04-26 13:05 | Outpatient (CLI) | payer BC, SELFPAY | END 2025-04-26 23:59 | disposition home or self-care (01) | LOC: MEDOUTP 13:05 | PROVIDERS: PCP Nurse Practitioner Family; Referring Provider Internal Medicine Infectious Disease; Visit Provider Internal Medicine Infectious Disease | DX: T84.50XD Infection and inflammatory reaction due to unspecified internal joint prosthesis, subsequent encounter (principal) | CPT/HCPCS: 96374; 36593; J2997; A4216 ==

== ENCOUNTER → 2025-05-03 | Outpatient (CLI) | payer BC, SELFPAY ==
[2025-05-03 18:17] LABS: Hematocrit 36.9 % (37-47); Hemoglobin 11.7 g/dL (12.0-15.0); Immature Granulocytes Count 0.030 X10^3/uL (0.0-0.0); Mean Corp Hgb Conc 31.7 g/dL (32-36); Mean Corpuscular Volume 85.6 fL (81-99); Mean Platelet Vol. 9.3 fl (6.2-12.0); NRBC Flagged by Analyzer 0 % (0-5); Platelet Count 232 K/mm3 (150-450); RBC Distribution Width CV 13.4 % (11.6-14.6); RBC Distribution Width SD 42.2 fl (35.1-43.9); Red Blood Count 4.31 M/mm3 (4.2-5.4); White Blood Count 7.2 K/mm3 (4.4-11.0)
[2025-05-03 18:42] LABS: Vancomycin, Trough Level 12.3 ug/mL (5.0-15.0)
[2025-05-03 18:49] LABS: Anion Gap 15 (5-15); BUN 20 mg/dL (4-19); BUN/Creat Ratio 26.4 RATIO (10-20); CRP 8.40 mg/L (0.0-3.0); Calcium,Total 9.9 mg/dL (7.6-11.0); Carbon Dioxide 21.9 mmol/L (21.0-32.0); Chloride 102 mmol/L (98-108); Glucose 106 mg/dL (70-99); Potassium 4.5 mmol/L (3.3-5.1)
== END | disposition home or self-care (01) ==
PROVIDERS: PCP Nurse Practitioner Family; Referring Provider Specialist; Visit Provider Specialist
DX: Z47.1 Aftercare following joint replacement surgery (principal); Z96.651 Presence of right artificial knee joint; T84.53XD Infection and inflammatory reaction due to internal right knee prosthesis, subsequent encounter
CPT/HCPCS: 80048; 80202; 85025; 85652; 86140

== ENCOUNTER → 2025-05-17 | Outpatient (CLI) | payer BC, SELFPAY ==
[2025-05-17 11:43] LABS: CRP 11.30 mg/L (0.0-3.0)
== END | disposition home or self-care (01) ==
LOC: LAB 08:09
PROVIDERS: PCP Nurse Practitioner Family; Referring Provider Specialist; Visit Provider Specialist
DX: Z96.651 Presence of right artificial knee joint (principal); T84.53XD Infection and inflammatory reaction due to internal right knee prosthesis, subsequent encounter
CPT/HCPCS: 36415; 85652; 86140

== ENCOUNTER → 2025-05-27 | Outpatient (CLI) | payer BC, SELFPAY ==
[2025-05-27 18:32] LABS: RBC /Synovial Fluid 0.033 10^6/uL (0); Synovial Fld Mononuclear WBC # 0.113 10^3/ul; Synovial Fld Mononuclear WBC % 76.3 %; Synovial Fld Polynuclear WBC # 0.035 10^3/uL; Synovial Fld Polynuclear WBC % 23.7 %; Total Cell Count Synovial Fld 0.1660 10^3/uL (0.000-0.000); WBC / Synovial Fluid 0.1480 10^3/uL (0.000-0.002)
[2025-05-27 18:45] LABS: AUTO B FLUID DILUENT BKGD CT WBC <0.1 RBC <0.01 (W<.1,R<.01); Color / Synovial Fluid RED (Pale Yellow); Source / Synovial Fluid RIGHT KNEE; Source- Body Fluid SYNOVIAL
[2025-05-27 18:47] LABS: Appearance /Synovial Fluid Turbid (CLEAR)
[2025-05-28 00:07] LABS: Body Fluid QC Type(s) BF1Q,BF2Q
[2025-05-28 00:23] LABS: CRYSTALS, BODY FLUID NO CRYSTALS SEEN
[2025-05-31 15:10] LABS: Monocyte /Synovial Fluid 10 %
[2025-05-31 15:11] LABS: Other Cell /Synovial Fluid 2 %
== END | disposition home or self-care (01) ==
LOC: LABSPEC 14:08
PROVIDERS: PCP Nurse Practitioner Family; Referring Provider Specialist; Visit Provider Specialist
DX: T84.53XD Infection and inflammatory reaction due to internal right knee prosthesis, subsequent encounter (principal)
CPT/HCPCS: 87015; 87070; 87075; 87101; 87116; 87205; 87206; 89050; 89051; 89060

== ENCOUNTER 2025-06-27 15:27 | Inpatient (IN) | payer BC, SELFPAY ==
[2025-06-04 12:02] LABS: Albumin, Serum 4.5 g/dL (3.5-5.0); Anion Gap 14 (5-15); BUN 15 mg/dL (4-19); BUN/Creat Ratio 24.1 RATIO (10-20); Calcium,Total 9.7 mg/dL (7.6-11.0); Carbon Dioxide 23.9 mmol/L (21.0-32.0); Chloride 103 mmol/L (98-108); Glucose 81 mg/dL (70-99); Magnesium 2.0 mg/dL (1.5-2.2); Potassium 4.6 mmol/L (3.3-5.1)
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
--- NOTE | 2025-06-09 19:48 | PAT.ANESEVAL ---
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 When Was Last Pacemaker Check QUESTION #4 FULL TEXT: You/Your Family Experience fever (hyperthermia) with Anesthesia Last Oral Intake Last Oral intake: Last Oral Intake NPO since Meds taken in AM with sips of water? 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 shoe inspector Female Yes 06/09/25 08:25 HX of Motion Sickness Yes 06/09/25 08:25 HX of N/V After Surgery No 06/09/25 08:25 Non-Smoker Yes 06/09/25 08:25 Duration of Surgery greater Yes 06/09/25 08:25 than 60 minutes Number of Risk Factors 4 06/09/25 08:25 PONV Score Severe Risk 06/09/25 08:25 Height & Weight Height & Weight: Anesthesia: Height & Weight Height 5 ft 6 in 04/07/25 11:13 Respiratory Assessment Respiratory Assessment - hoof and shoe inspector: Respiratory Tract Infection Hx - hoof and shoe inspector Hx Respiratory Tract Infection No 06/09/25 08:25 STOP Sleep Apnea STOP Sleep Apnea - hoof and shoe inspector: STOP Sleep Apnea - hoof and shoe inspector Hx Hypertension Yes: controlled with med 06/09/25 08:25 Hx Sleep Apnea Yes 06/09/25 08:25 CPAP No 06/09/25 08:25 BIPAP No 06/09/25 08:25 Do you snore loudly (louder than talking or can be heard Do you often feel tired/ fatigued/ sleepy during daytime? Has anyone observed you stop breathing during sleep? STOP Results Positive 06/09/25 08:25 QUESTION #5 FULL TEXT : Do you snore loudly (louder than talking or can be heard through closed doors)? 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 Specify any problems Hx of Preganancy in last 3 N/A 06/09/25 08:25 Months Nurse Filling Out Transfusion NBUCHER 06/09/25 08:25 & Questions: Date: 06/09/25 06/09/25 08:25 Time: 08:31 06/09/25 08:25 Patient unable to answer at this time (ie. confused, unrespo /Reproduction History /Reproductive History - hoof and shoe inspector: /Reproductive Hx- hoof and shoe inspector Hx Now No 06/09/25 08:25 Gestational Age (in weeks): EDC: Hx Hx Para Hx Section SAB No 06/09/25 08:25 PFS Medical History Restless leg syndrome MATTHEW (obstructive sleep apnea) Morbid (severe) obesity due to excess calories Infection of prosthetic right knee joint Ambulates with cane Former smoker Osteoarthritis of right knee Wears dentures Wears glasses High cholesterol Former smoker Hypertension History of stress test Knee pain Type 2 diabetes mellitus Home Medications ?Medication ?Instructions ?Recorded ?Last Taken ?Type rosuvastatin 20 mg tablet 20 mg PO QHS cholesterol 08/10/24 03/20/25 History ferrous sulfate 325 mg (65 mg 325 mg PO DAILY SUPPLEMENT 03/11/25 03/20/25 History iron) tablet (Feosol) folic acid 1 mg tablet 1 mg PO DAILY SUPPLEMENT 03/11/25 03/20/25 History acetaminophen 500 mg tablet 1,000 mg (2 x 500 mg) PO Q8H PRN 04/12/25 Unknown Rx pain or fever #1 TAB lisinopril 10 mg tablet 10 mg PO DAILY bp #1 TAB 04/12/25 03/20/25 Rx glimepiride 4 mg tablet 6 mg PO DAILY diabetes 06/09/25 Unknown History metformin 750 mg tablet,extended 750 mg PO BID diabetes 06/09/25 Unknown History release 24 hr tirzepatide 2.5 mg/0.5 mL 2.5 mg subcut ROLON diabetes 06/09/25 Unknown History subcutaneous pen injector (Mounjaro) Allergy/AdvReac Type Severity Reaction Status Date / Time No Known Allergies Allergy Verified 06/09/25 08:19 Family History (Updated 03/25/25 @ 18:[address] Mariela Rubio DO) Grandmother CAD (coronary artery disease) Diabetes Father Dementia Mother Breast cancer Daughter Diabetes Surgical History (Updated 06/09/25 @ 08:33 by Yasmin Wade) S/P surgical manipulation of knee joint Acquired absence of knee joint following explantation of joint prosthesis with presence of antibiotic-impregnated cement spacer S/P hardware removal Hx of surgical procedure History of right knee joint replacement History of tracheostomy Status post total right knee replacement History of hernia repair History of carpal tunnel release of both wrists (~1997) H/O: hysterectomy (~2013) Social History (Updated 03/25/25 @ 18:[address] Mariela Rubio DO) household members: significant other housing: house number of children: 3 current occupational status: employed current occupation: NA at [employer] Smoking Status: Former smoker Tobacco: How many years used: 36 how long ago did patient quit smokin substance use type: does not use Audit: Pertinent Findings Pertinent Findings EKG Perinent findings: 08/16/2024. Normal sinus rhythm with sinus arrhythmia. Echo (EF%) pertinent findings: 03/26/2025. EF of 55%. No aortic stenosis. Recommendation Anesthesia Recommendation Anesthesia recommendation: OPTIMIZED for anesthesia
[2025-06-27] VITALS (11 sets, daily range): BP systolic 98–141; BP diastolic 52–66; PULSE 73–87; RESP 12–18; TEMP 36–36.6; O2SAT 92–100; BMI 38.9
--- NOTE | 2025-06-27 10:23 | PCM.PRE.AN2 ---
ASA Classification* ASA Classification ASA Classification: 3 Assessment & Plan Anesthesia* Anesthesia Assessment Anesthesia Assessment: Discussed sedation and/or anesthesia options, risks, benefits, and alternatives with patient/parents/legal guardian/POA. Questions invited. The patient/parents/legal guardian/POA seems to understand and agrees to proceed with anesthesia plan. Reviewed the physical assessment, medical history, allergy history and patient home medications list prior to surgery/procedure/anesthetic and documented any changes. Performed airway and anesthesia risk assessments. Anesthesia Type Anesthesia Type: Spinal and Block Anesthesia Focused Assessment* Airway Assessment Mouth opens: >3 cm Mallampati Score: II Labs Anesthesia Preop lab: CBC WBC 6.7 K/mm3 (4.4-11.0) 05/17/25 08:05/17/25 RBC 4.18 M/mm3 (4.2-5.4) L 05/17/25 08:05/17/25 Hgb 11.6 g/dL (12.0-15.0) L 05/17/25 08:05/17/25 Hct 35.5 % (37-47) L 05/17/25 08:30 05/17/25 Plt Count 208 K/mm3 (150-450) 05/17/25 08:30 05/17/25 CHEMISTRY Potassium 4.6 mmol/L (3.3-5.1) 06/04/25 11:01 06/04/25 Sodium 141 mmol/L (133-145) 06/04/25 11:01 06/04/25 Magnesium 2.0 mg/dL (1.5-2.2) 06/04/25 11:01 06/04/25 Phosphorus 4.1 mg/dL (2.7-4.5) 05/17/25 08:30 05/17/25 BUN 15 mg/dL (4-19) 06/04/25 11:01 06/04/25 Creatinine 0.61 mg/dL (0.70-1.20) L 06/04/25 11:01 06/04/25 Glucose 81 mg/dL (70-99) 06/04/25 11:01 06/04/25 POC Glucose 135 mg/dL (74-106) H 04/08/25 22:18 04/08/25 COAG Urine Test Negative Negative 01/14/14 13:24 01/14/14 Pre-Assessment Diagnosis/Proposed Procedure Planned Operative Procedure(s): (R) REMOVAL ANTIBIOTIC SPACER, REVISION RIGHT TOTAL KNEE ARTHROPLASTY, ERAS Anesthesia History 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 When Was Last Pacemaker Check QUESTION #4 FULL TEXT: You/Your Family Experience fever (hyperthermia) with Anesthesia Last Oral Intake Last Oral intake: Last Oral Intake NPO since Meds taken in AM with sips of water? 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 Female Yes 06/09/25 08:25 HX of Motion Sickness Yes 06/09/25 08:25 HX of N/V After Surgery No 06/09/25 08:25 Non-Smoker Yes 06/09/25 08:25 Duration of Surgery greater Yes 06/09/25 08:25 than 60 minutes Number of Risk Factors 4 06/09/25 08:25 PONV Score Severe Risk 06/09/25 08:25 Height & Weight Height & Weight: Anesthesia: Height & Weight Height 5 ft 6 in 04/07/25 11:13 Respiratory Assessment Respiratory Assessment - volcanology teacher: Respiratory Tract Infection Hx - volcanology teacher Hx Respiratory Tract Infection No 06/09/25 08:25 STOP Sleep Apnea STOP Sleep Apnea - volcanology teacher: STOP Sleep Apnea - volcanology teacher Hx Hypertension Yes: controlled with med 06/09/25 08:25 Hx Sleep Apnea Yes 06/09/25 08:25 CPAP No 06/09/25 08:25 BIPAP No 06/09/25 08:25 Do you snore loudly (louder than talking or can be heard Do you often feel tired/ fatigued/ sleepy during daytime? Has anyone observed you stop breathing during sleep? STOP Results Positive 06/09/25 08:25 QUESTION #5 FULL TEXT : Do you snore loudly (louder than talking or can be heard through closed doors)? Tobacco Use History Tobacco Use History - volcanology teacher: Tobacco Use History - volcanology teacher Tobacco Use Smoking Status Former smoker 06/09/25 08:25 Hx Tobacco Use No 06/09/25 08:25 Years Smoking Packs Smoked per Day Smoking Cessation Date was Yes - quit smoking within 15 06/09/25 08:25 within the last 15 years years Hx Smoking Cessation Date 07/28/21 06/09/25 08:25 Hx Smoking Cessation No 06/09/25 08:25 Counseling Hematologic Medial History Hematologic Hx - volcanology teacher: Hematologic Medical Hx - documentation nurse Hx of Blood Transfusion No 06/09/25 08:25 Hx of Transfusion in last 3 No 06/09/25 08:25 Months Date of Last Transfusion (if within last 3 months) Ever experience any problems No 06/09/25 08:25 with transfusion(s)? Specify any problems Hx of Preganancy in last 3 N/A 06/09/25 08:25 Months Nurse Filling Out Transfusion NBUCHER 06/09/25 08:25 & Questions: Date: 06/09/25 06/09/25 08:25 Time: 08:31 06/09/25 08:25 Patient unable to answer at this time (ie. confused, unrespo /Reproduction History /Reproductive History - volcanology teacher: /Reproductive Hx- volcanology teacher Hx Now No 06/09/25 08:25 Gestational Age (in weeks): EDC: Hx Hx Para Hx Section SAB No 06/09/25 08:25 Active Medications Active Medications: Current Medications Generic Name Dose Route Start Last Admin Trade Name Freq PRN Reason Stop Dose Admin Acetaminophen 1,000 mg 06/27/25 12:00 Acetaminophen 500 Mg Tablet PO 06/27/25 12:01 PREOP ONE Celecoxib 400 mg 06/27/25 12:00 Celecoxib 200 Mg Capsule PO 06/27/25 12:01 PREOP ONE Sodium Chloride 77.9 ml/ 0 ml 06/27/25 12:00 Ropivacaine 200 mg/ OPERA.SITE 06/27/25 12:01 Epinephrine HCl 0.6 mg/ INTRAOP ONE Ketorolac Tromethamine 30 mg/ Morphine Sulfate 5 mg Dexamethasone Sodium Phosphate 10 mg 06/27/25 12:00 Dexamethasone 10 Mg/Ml Vial IV 06/27/25 12:01 INTRAOP ONE Gabapentin 600 mg 06/27/25 12:00 Gabapentin 600 Mg Tablet PO 06/27/25 12:01 PREOP ONE Lactated Ringer's 1,000 mls @ 999 mls/hr 06/27/25 12:00 IV 06/27/25 13:00 .Q1H1M VICKI Cefazolin Sodium 2 gm/ Sodium 110 mls @ 150 mls/hr 06/27/25 12:00 Chloride IV 06/27/25 12:43 INTRAOP ONE Tranexamic Acid 1,000 mg/ 110 mls @ 660 mls/hr 06/27/25 12:00 Sodium Chloride IV 06/27/25 12:09 INTRAOP ONE Tranexamic Acid 1,000 mg/ 110 mls @ 660 mls/hr 06/27/25 12:00 Sodium Chloride IV 06/27/25 12:09 INTRAOP ONE Lactated Ringer's 1,000 mls @ 999 mls/hr 06/27/25 12:00 IV 06/27/25 13:00 .Q1H1M VICKI Lactated Ringer's 1,000 mls @ 125 mls/hr 06/27/25 12:00 IV 06/27/25 19:59 .Q8H VICKI Vancomycin HCl 1,500 mg/ 530 mls @ 250 mls/hr 06/27/25 12:00 Sodium Chloride IV 06/27/25 14:07 INTRAOP ONE Magnesium Sulfate 1 gm/ 102 mls @ 408 mls/hr 06/27/25 12:00 Dextrose IV 06/27/25 12:14 PREOP ONE Lactated Ringer's 1,000 mls @ 15 mls/hr 06/27/25 10:15 IV .Q48H VICKI Insulin Human Lispro 1 - 6 unit 06/27/25 12:00 Insulin Lispro 100 Unit/Ml Insuln.Pen SC Q4H PRN PRN BG>/= 180, SEE PROTOCOL Protocol PFSH Medical History Restless leg syndrome MATTHEW (obstructive sleep apnea) Morbid (severe) obesity due to excess calories Infection of prosthetic right knee joint Ambulates with cane Former smoker Osteoarthritis of right knee Wears dentures Wears glasses High cholesterol Former smoker Hypertension History of stress test Knee pain Type 2 diabetes mellitus Home Medications ?Medication ?Instructions ?Recorded ?Last Taken ?Type rosuvastatin 20 mg tablet 20 mg PO QHS cholesterol 08/10/24 03/20/25 History ferrous sulfate 325 mg (65 mg 325 mg PO DAILY SUPPLEMENT 03/11/25 03/20/25 History iron) tablet (Feosol) folic acid 1 mg tablet 1 mg PO DAILY SUPPLEMENT 03/11/25 03/20/25 History acetaminophen 500 mg tablet 1,000 mg (2 x 500 mg) PO Q8H PRN 04/12/25 Unknown Rx pain or fever #1 TAB lisinopril 10 mg tablet 10 mg PO DAILY bp #1 TAB 04/12/25 03/20/25 Rx glimepiride 4 mg tablet 6 mg PO DAILY diabetes 06/09/25 Unknown History metformin 750 mg tablet,extended 750 mg PO BID diabetes 06/09/25 Unknown History release 24 hr tirzepatide 2.5 mg/0.5 mL 2.5 mg subcut ROLON diabetes 06/09/25 Unknown History subcutaneous pen injector (Mounjaro) Allergy/AdvReac Type Severity Reaction Status Date / Time No Known Allergies Allergy Verified 06/09/25 08:19 Family History Grandmother CAD (coronary artery disease) Diabetes Father Dementia Mother Breast cancer Daughter Diabetes Surgical History S/P surgical manipulation of knee joint Acquired absence of knee joint following explantation of joint prosthesis with presence of antibiotic-impregnated cement spacer S/P hardware removal Hx of surgical procedure History of right knee joint replacement History of tracheostomy Status post total right knee replacement History of hernia repair History of carpal tunnel release of both wrists (~1997) H/O: hysterectomy (~2013) Social History household members: significant other housing: house number of children: 3 current occupational status: employed current occupation: NA at [employer] Smoking Status: Former smoker Tobacco: How many years used: 36 how long ago did patient quit smokin substance use type: does not use Review of Systems (Anesthesia) ROS Narrative System reviewed and no additional complaints, except as documented.
[2025-06-27] MEDS: Magnesium 1 GM over 15 mins IV (10:52)
[2025-06-27] MEDS: LR 1,000 ML - BOLUS PREOP 999 ML IV (10:52)
[2025-06-27] MEDS: Midazolam 2 MG/2 ML Syringe IV (11:40)
[2025-06-27] MEDS: Cefazolin 1 GM/5 ML Vial 2 GM IV (11:59)
[2025-06-27] MEDS: Lidocaine 1% (5 ml sdv) 5 ML Vial 6 ML IV (12:02)
[2025-06-27] MEDS: Vancomycin IV 1,000 MG/20 ML Vial 1500 MG IV (12:34)
[2025-06-27] MEDS: JPS (Morphine 10mg/ml) OPERA.SITE (14:27)
[2025-06-27] MEDS: TRANEXAMIC ACID 1,000 MG/10 ML ML 2000 MG IV (14:38)
[2025-06-27] MEDS: fentaNYL 100 MCG/2 ML Ampul IV (14:50)
--- NOTE | 2025-06-27 15:42 | PCM.OPRPT ---
Operative Report (Standard) Operative Information Date of Procedure: 06/27/25 Pre-Operative Diagnosis: Right knee periprosthetic joint infection Post-Operative Diagnosis: Right knee periprosthetic joint infection Surgery/Procedure Performed: Revision right total knee replacement removal articulating antibiotic spacer real estate broker associate: Yes Mail Processing Equipment Mechanic: Zena Holman Tasks completed by first coat sander: Other (My physician university administrative assistant was a vital part of this case, they was important because there was not another skilled set of hands available to their training and aptitude needed for safe and appropriate completion of this case. They were important in appropriate retraction during the case, and protectio) Additional university administrative assistant?: Yes Additional Vp Purchasing #2: Stair,He Tasks completed by university administrative assistant #2: Opening and Retracting Additional university administrative assistant?: No Type of Anesthesia: Spinal RN Documented Start/Stop Times: Operation Date: 06/27/25 12:00 Case Time Into Pre-Op 06/27/25 10:02 Anesthesia Start 06/27/25 11:56 Into Room 06/27/25 11:56 Out of Pre-Op 06/27/25 11:56 Procedure Start 06/27/25 12:19 Procedure End 06/27/25 16:06 Anesthesia End 06/27/25 16:13 Out of Room 06/27/25 16:13 Into Recovery 06/27/25 16:15 Out of Recovery 06/27/25 17:24 Procedure Start Time: 12:19 Procedure Stop Time: 16:06 Select all DRAINS/GRAFTS/IMPLANTS that apply: Drains Drain details: Lateral Hemovac drain and Prosthetic device Prosthetic device details: See body of operative report Special Medications: Joint cocktail (5 mg Duramorph, 30 mL of 0.5% Ropivicaine, 1000 units of epinephrine, 30 mg of Toradol) Estimated Blood Loss: 400 mL Fluids Replaced: 2000 mL crystalloid Specimen collected: Yes Description of specimen(s) removed: 3 separate specimens were sent to microbiology Description of surgery: Implants used: Femur: Sheridan triathlon total stabilized size 3 cemented femur with 15 mm x 50 mm cemented stem and 5 mm augments medially and laterally distally. Tibia: Sheridan size 3 universal tibial baseplate with 12 x 50 mm cemented stem. Size D symmetric: Poly: [place] X3 triathlon 13 mm PS polyethylene Patella: [place] X3 press-fit 35 mm patella Brief history operative indications: 54-year-old f with periprosthetic joint infection with articulating antibiotic spacer placed in March 2025. Patient demonstrated adequate clearance of the infection plan at this time is to go and revise the articulating spacer to a total knee replacement. After ruling out infection we agreed to proceed with revision total knee replacement which had risks which include but not limited to blood loss, DVTs, PEs, nervous damage, infection, the risk of anesthesia. Patient demonstrate understanding was able to sign informed consent. Medical clearance was obtained. Procedure: On the date of procedure patient's R lower extremity was marked in the preoperative area. The patient was then taken back to the operating room where the patient was placed on the table in the supine position. All bony prominences were identified a well-padded. Anesthesia assumed control of the C-spine and airway and remained controlled throughout the remainder of the procedure. A tourniquet was placed on the R upper thigh and the leg was prepped in a sterile fashion. The surgeon then scrubbed at this time. Upon reentering the room R lower extremity was draped in a standard orthopedic fashion. A timeout was then called and everyone agreed upon the side, the site, the procedure to be performed, patient's identity and antibiotics given. An Esmarch bandage was used to exsanguinate the extremity and the tourniquet was placed up to 250 mmHg with the knee in flexion. A midline skin incision was made using the previous incision and extending it proximally and distally to identify normal tissue planes. Medial and lateral flaps were developed appropriate releases. The standard medial parapatellar arthrotomy was made and the patella was subluxed laterally. At this time an aggressive synovectomy was performed re-creating the medial gutter first, then the suprapatellar pouch than the lateral gutter. The remainder of the synovium was debrided. The standard deep MCL release was done and the patella scar pad was resected and lateral releases were performed. Next our attention was directed to the femur. Where flexible osteotomes and TPS saw were used to break up the implant cement interface. This was done both medially and laterally. After this a bone tamp was used to remove the femur component from the end of the bone. This was done with minimal bone loss. At this time attention was now directed towards the proximal tibia. Possible osteotome and TPS saw were then used to break up the proximal tibia implant interface and stacked osteotomes were used to remove the tibial implant. This was done with minimal bone loss. All residual cement was then removed. Both canals were curetted out. Our attention was then turned to the tibia where the intramedullary canal was reamed to 15 mm and a size D tibial cone was reamed. We then made a cleanup cut on the tibia, A drop farideh was then used to verify the cut. A size 3 tibial base plate was selected. the knee was flexed and the tibial component was pinned into place and the boss reamer was used to ream the proximal medullary canal. The trial implant was impacted in its prepared position. Our attention was then turned back to the femur or the femur intramedullary canal was reamed to 19 mm using the previous implants a size 3 TCG cutting guide with a 100 mm stem was put into place. The medial epicondyle was used to set the joint line. With this TCG cutting guide we used a 13 mm polyethylene trial in order to help balance the gaps. Once the gaps were appropriately balanced the guide was firmly pinned into place. Distal cuts were made with 5 mm augments medially and 5 mm augment laterally. Posterior cuts were made with 0 mm augments medially and 0 mm augment laterally. Using the guide the box cut was made using a reciprocating saw. The appropriate trials were then placed on the femur and tibia. A trial polyethylene was trialed to ensure proper balancing and stability of the knee. Patella tracking, was then verified and corrected appropriately as needed. Our attention was then directed to the patella. Lug holes were drilled for a 35 mm press-fit patella. Patellar tracking was again checked and deemed appropriate. However the patella had significant quadriceps tension. Based on this we did attempt to raise the joint line removing the 5 mm distal augments. We did this he did not allow any more significant flexion and also cause patella impingement confirming that we had the appropriate joint line initially. We placed the 5 mm distal augments and trialed again the patella did not significantly impinge the tibia. This was felt to be the appropriate joint line based on available anatomy. Final components were verified and opened, 6 liters of normal saline were irrigated throughout the joint under low-pressure lavage. Then the cement was mixed in a vacuum. Sheridan Simplex cement with tobramycin was used. The wound was copiously irrigated with normal saline. When the cement was ready cement plugs were placed in the tibial cone was placed the components were cemented into place starting with the tibia, femur. The trial poly component was placed and the knee was placed in full extension. All excess cement was removed in the process. Once the cement had cured the tracking, alignment and balance were verified and a size 13 mm PS polyethylene component was placed. Once the final components were placed dilute Betadine lavage followed by a chlorhexidine lavage was used and the wound was copiously irrigated with normal saline solution and the remainder of the periarticular injection was given. The wound was closed in a layer elmore fashion using #1 vicryl interrupted sutures for the arthrotomy, 2-0 interrupted Vicryl for the subcuticular layer and mary for final skin closure. A sterile compressive dressing was then placed. The patient was then awakened from anesthesia, transferred to the [facility] and transferred to the PACU for recovery. Post op plan DVT ppx: ASA 81mg BID, thigh high compression stockings Follow up: in office in 2 weeks for wound check PT: to start POD #0 at hospital, outpatient PT should be arranged. Arthrofibrosis: Ongoing to have X10 in-home CPM program reach out to the patient. Additionally, we will have the patient placed on montelukast 9 days postoperatively to try and reduce postoperative scar tissue formation. My physician university administrative assistant was a vital part of this case. He was important in appropriate retraction during the case, and protection of soft tissues during bony cuts. His intimate knowledge of the case and my steps aided in safe and expedient completion of the procedure as well as appropriate position of the leg during the case. He was also vital in assisting with closure under my direct supervision. Surgical Findings: No gross purulence. Patient had significant stiffness and quadriceps tension. Lateral release was performed. Quadricep snip was performed for approach. Patient had 95 degrees flexion with flexible endpoint and quadriceps tension after significant quadricepsplasty. Based on patella positioning joint had been adequately restored. Complications Complications: No Admit VTE Documentation VTE Present on Admission: No VTE Mechan Device Prophylaxis: SCD's and Thigh High GROVER Hose
--- NOTE | 2025-06-27 16:31 | PCM.POST.ANE ---
Anesthesia: Postop Eval I Current Vital Signs Temperature: 97.6 F Pulse Rate: 74 Blood Pressure: 98/55 Respiratory Rate: 18 Pulse Ox: 98 Assessment Airway patent: Yes Spontaneous unlabored respirations: Yes nausea: No Vomiting: No Anesthesia Complication: No Fluid Hydration Crystalloid volume administer (ml): 2,100 Total IV fluid infused: 2,100 Progress Note Anesthesia document: Postop Eval 1 completed: Yes
--- NOTE | 2025-06-27 16:35 | RAD_ITS ---
PROCEDURE: RIGHT KNEE 1 OR 2 VIEWS 06/27/2025 REASON FOR EXAM: TKA TECHNIQUE: Procedure Code: RADK Modality: DX Procedure: KNEE 1 OR 2 VIEWS Laterality: Right COMPARISON: 04/04/2025 FINDINGS: Postoperative changes of total cemented right knee arthroplasty. No evidence of hardware loosening or failure. Alignment is anatomic, no acute fracture. Moderate generalized presumed postoperative soft tissue swelling and scattered soft tissue gas about the knee. Suprapatellar drainage catheter in place. Moderate knee joint effusion. RAD/Knee 1 or 2 Views IMPRESSION: Status post total right knee arthroplasty. Expected postoperative findings. Reading Location: [facility]
[2025-06-27] MEDS: LR 1,000 ML - BOLUS POSTOP 999 ML IV (16:45)
--- NOTE | 2025-06-27 17:14 | POSTOPAN2_ITS ---
Anesthesia Postop Eval I Sum Postop Eval Completion status Anesthesia document: Postop Eval 1 completed: Yes Anesthesia Postop Eval I Summary Anesthesia Postop Eval I Summary: Anesthesia Postop Eval I: Assessment Summary Airway patent Yes 06/27/25 16:31 [email or web address] Spontaneous unlabored Yes 06/27/25 16:31 AMUSEMENT [email or web address] respirations Mental status nausea No 06/27/25 16:31 AMUSEMENT [email or web address] Vomiting No 06/27/25 16:31 AMUSEMENT [email or web address] Anesthesia Postop Eval I: Fluid Summary Crystalloid volume administer 2,100 06/27/25 16:31 AMUSEMENT [email or web address] (ml) Colloids volume administered ( ml) Blood Product volume administered (ml) Total IV fluid infused 2,100 06/27/25 16:31 AMUSEMENT [email or web address] Anesthesia Postop Eval I: Summary Notes Anesthesia Complication No 06/27/25 16:31 [email or web address] Anesthesia Complication Comment: Post-operative progress note Anesthesia: Postop Eval II Evaluation Mental status: Awake Pain Level: 2 nausea: No Vomiting: No
--- NOTE | 2025-06-27 17:14 | PCM.POSTANE2 ---
Anesthesia Postop Eval I Sum Postop Eval Completion status Anesthesia document: Postop Eval 1 completed: Yes Anesthesia Postop Eval I Summary Anesthesia Postop Eval I Summary: Anesthesia Postop Eval I: Assessment Summary Airway patent Yes 06/27/25 16:31 [email or web address] [email or web address] Spontaneous unlabored Yes 06/27/25 16:31 BREWERY [email or web address] respirations Mental status nausea No 06/27/25 16:31 BREWERY [email or web address] Vomiting No 06/27/25 16:31 BREWERY [email or web address] Anesthesia Postop Eval I: Fluid Summary Crystalloid volume administer 2,100 06/27/25 16:31 BREWERY [email or web address] (ml) Colloids volume administered ( ml) Blood Product volume administered (ml) Total IV fluid infused 2,100 06/27/25 16:31 BREWERY [email or web address] Anesthesia Postop Eval I: Summary Notes Anesthesia Complication No 06/27/25 16:31 [email or web address] [email or web address] Anesthesia Complication Comment: Post-operative progress note Anesthesia: Postop Eval II Evaluation Mental status: Awake Pain Level: 2 nausea: No Vomiting: No
--- NOTE | 2025-06-27 20:59 | PCM.CONS.GEN ---
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 with presence of antibiotic-impregnated cement spacer: (2) Type 2 diabetes mellitus: QUALIFIERS: Diabetes mellitus intermodal truck driver insulin use: without intermodal truck driver use Diabetes mellitus complication status: without complication Qualified Code(s): E11.9 - Type 2 diabetes mellitus without complications PLAN: Plan #Type 2 diabetes mellitus -Glucose checks and sliding scale insulin - Hold home oral hypoglycemics in the acute perioperative period, can likely resume at discharge #Hypertension - Patient's blood pressure presently 124/66 - Will continue patient's lisinopril with holding parameters # Hyperlipidemia - Continue rosuvastatin # Right knee periprosthetic infection - Status post revision right total knee replacement removal articulating antibiotic spacer - Patient on vancomycin and doxycycline per Ortho - Postoperative management/pain management per primary - PT/OT #DVT ppx: Timing and agent at discretion of primary team Aniya Yen MD Time spent in the patient's overall evaluation, decision-making process, review of diagnostic data, adjustment of management, discussion with other providers, nursing and ancillary staff involved in patient's care documentation, 16 Minutes HPI Consult Data Date of Consult: 06/27/25 HPI Narrative Reason for Consultation: Postoperative medical management HPI Narrative: JOSHUA MAGUIRE, is a 54 F with a history of hypertension, hyperlipidemia, diabetes, right total knee replacement who presented [facility] 06/27/[facility]25 for revision of right total knee replacement removal articulating antibiotic spacer due to right knee periprosthetic joint infection. Hospitalist consulted for postoperative medical management. Patient evaluated bedside, reports having pain but has not yet taken pain medication. Denies any nausea, has been able to urinate, no chest pain or shortness of breath. [facility] Medical History (Updated 06/27/25 @ 21:[address] Aniya Yen MD) Ambulates with cane Former smoker Former smoker High cholesterol History of stress test Hypertension Infection of prosthetic right knee joint Knee pain Morbid (severe) obesity due to excess calories MATTHEW (obstructive sleep apnea) Osteoarthritis of right knee Restless leg syndrome Type 2 diabetes mellitus Wears dentures Wears glasses Home Medications ?Medication ?Instructions ?Recorded ?Last Taken ?Type rosuvastatin 20 mg tablet 20 mg PO QHS cholesterol 08/10/24 06/26/25 History ferrous sulfate 325 mg (65 mg 325 mg PO DAILY SUPPLEMENT 03/11/25 06/26/25 History iron) tablet (Feosol) folic acid 1 mg tablet 1 mg PO DAILY SUPPLEMENT 03/11/25 06/26/25 History acetaminophen 500 mg tablet 1,000 mg (2 x 500 mg) PO Q8H PRN 04/12/25 06/26/25 Rx pain or fever #1 TAB lisinopril 10 mg tablet 10 mg PO DAILY bp #1 TAB 04/12/25 06/26/25 Rx glimepiride 4 mg tablet 6 mg PO DAILY diabetes 06/09/25 06/26/25 History metformin 750 mg tablet,extended 750 mg PO BID diabetes 06/09/25 06/26/25 History release 24 hr tirzepatide 2.5 mg/0.5 mL 2.5 mg subcut ROLON diabetes 06/09/25 06/19/25 History subcutaneous pen injector (Mounjaro) Allergy/AdvReac Type Severity Reaction Status Date / Time No Known Allergies Allergy Verified 06/27/25 10:42 Family History Grandmother CAD (coronary artery disease) Diabetes Father Dementia Mother Breast cancer Daughter Diabetes Surgical History Acquired absence of knee joint following explantation of joint prosthesis with presence of antibiotic-impregnated cement spacer H/O: hysterectomy (~2013) History of carpal tunnel release of both wrists (~1997) History of hernia repair History of right knee joint replacement History of tracheostomy Hx of surgical procedure S/P hardware removal S/P surgical manipulation of knee joint Status post total right knee replacement Social History household members: significant other housing: house number of children: 3 current occupational status: employed current occupation: NA at [employer] Smoking Status: Former smoker Tobacco: How many years used: 36 how long ago did patient quit smokin substance use type: does not use ROS ROS Narrative Patient reports pain in the knee, any other pertinent positives or negatives listed in HPI Physical Exam Narrative General: Alert, oriented, no apparent distress HEENT: Atraumatic, normocephalic Eyes: Anicteric, normal conjunctiva, extraocular movements grossly intact Neck: Supple Respiratory: Clear to auscultation bilaterally, normal respiratory effort Cardiovascular: Regular rate and rhythm GI: Soft, nontender, nondistended Extremities: No edema Musculoskeletal: Right knee postop, wrapped Neuro: No overt focal neurological deficits Skin: No rashes appreciated Psych: Cooperative Lab / Micro Data 06/04/25 11:01 Labs: Laboratory Results - last 24 hr 06/27/25 10:48: POC Glucose 87 Imaging Radiology Impression Knee X-Ray 06/27/25 16:35 IMPRESSION: Status post total right knee arthroplasty. Expected postoperative findings. Reading Location: [facility] Charges/Coding Visit Charges Office Visits / Consults: 31174 OV L2 Est 10min
[2025-06-27] MEDS: Cefazolin 1 GM/50 ML BAG IV (21:21)
[2025-06-27] MEDS: 0.9% Normal Saline (250mL Bag) 250 ML 15 ML IV (21:22)
[2025-06-28 02:15] VITALS: BP 106/49; PULSE 85; RESP 18; TEMP 36.3; O2SAT 93
[2025-06-28] MEDS: Cefazolin 1 GM/50 ML BAG IV (03:20)
[2025-06-28 05:03] LABS: Hematocrit 28.1 % (37-47); Hemoglobin 9.3 g/dL (12.0-15.0); Mean Corp Hgb Conc 33.1 g/dL (32-36); Mean Corpuscular Volume 84.6 fL (81-99); Mean Platelet Vol. 8.7 fl (6.2-12.0); Platelet Count 174 K/mm3 (150-450); RBC Distribution Width CV 13.5 % (11.6-14.6); RBC Distribution Width SD 41.8 fl (35.1-43.9); Red Blood Count 3.32 M/mm3 (4.2-5.4); White Blood Count 9.5 K/mm3 (4.4-11.0)
[2025-06-28 05:30] LABS: Anion Gap 12 (5-15); BUN 16 mg/dL (4-19); BUN/Creat Ratio 23.2 RATIO (10-20); Calcium,Total 8.4 mg/dL (7.6-11.0); Carbon Dioxide 21.6 mmol/L (21.0-32.0); Chloride 105 mmol/L (98-108); Estimated Creatinine Clearance 112.34 ml/min (50-250); Glucose 206 mg/dL (70-99); Potassium 4.8 mmol/L (3.3-5.1)
[2025-06-28 05:40] VITALS: BP 102/56; PULSE 91; RESP 16; TEMP 36.3; O2SAT 93
--- NOTE | 2025-06-28 07:30 | PN.HOSP_ITS ---
Objective Data Objective Data Vital Signs: Vital Signs Temp Pulse Resp BP Pulse Ox O2 Del Method O2 Flow Rate 97.4 F L 91 16 102/56 L 93 Room Air 4 06/28/25 05:40 06/28/25 05:40 06/28/25 05:40 06/28/25 05:40 06/28/25 05:40 06/28/25 05:40 06/27/25 17:29 Oxygen Flow Rate (L/min) 4 Oxygen Delivery Method Room Air Weight: 240 lb 15.444 oz Body Mass Index (BMI) 38.9 Intake & Output: Intake and Output for Last 24 Hours 06/26/25 06/27/25 06/28/25 23:59 23:59 23:59 Intake Total 2152 / 2432 330 / 330 Output Total 865 / 865 Balance 1287 / 1567 330 / 330 Lab / Micro Data 06/28/25 04:10 06/28/25 04:10 Labs: Laboratory Results - last 24 hr 06/27/25 10:48: POC Glucose 87 06/28/25 04:10: WBC 9.5, RBC 3.32 L, Hgb 9.3 L, Hct 28.1 L, MCV 84.6, MCH 28.0, MCHC 33.1, RDW Std Deviation 41.8, RDW Coeff of Pedro 13.5, Plt Count 174, MPV 8.7, Sodium 139, Potassium 4.8, Chloride 105, Carbon Dioxide 21.6, Anion Gap 12, BUN 16, Creatinine 0.70, Estim Creat Clear Calc 112.34, Est GFR (MDRD) Non-Af 102, BUN/Creatinine Ratio 23.2 H, Glucose 206 H, Calcium 8.4 06/28/25 06:47: POC Glucose 172 H Micro: Microbiology 06/04/25 11:01 Swab (Method) Nasal Screen MRSA/MSSA - Final Radiography Diagnostic Testing: Radiology Impression Knee X-Ray 06/27/25 16:35 IMPRESSION: Status post total right knee arthroplasty. Expected postoperative findings. Reading Location: [facility] Physical Exam Narrative Seen and examined. No acute issues. Pain is well-controlled Physical exam General: Alert, Oriented x3, Cooperative HEENT: Atraumatic, PERRLA, EOMI, Normocephalic. Oral: No Gingival or Mucosal Lesions/ Ulcerations Neck: Supple, No JVD, Negative Carotid Bruits Chest wall/Lungs: Air entry diminished in bilateral lung bases. No crepitation/rhonchi Cardiovascular: Regular rate and rhythm, Normal S1,S2, No M/G/R Abdomen: Bowel Sounds Present, Soft, Non Tender, Non-Distended : No dysuria. No renal angle tenderness. No suprapubic tenderness. Extremities: No edema, Capillary Refill Less than 3 Seconds Skin: Right knee surgical dressing is dry. Musculoskeletal: ROM limited over right knee. No acute tenderness to Palpation of Joints or Extremities Neurological: Cranial nerves II-XII grossly intact, DTR 2+/4. No acute focal neurological deficit. Psych/Mental Status: Normal Affect, Appropriate. 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 Started on the Lantus 10 units subcutaneous at dinnertime. Accu-Chek before meals and at bedtime with Humalog sliding scale coverage and hypoglycemia protocol. Microbiology Past 72 Hours 06/27/25 12:54 Tissue - Knee Wound Culture - Preliminary No growth-Final to follow 06/27/25 12:53 Tissue - Knee Wound Culture - Preliminary No growth-Final to follow 06/27/25 12:50 Tissue - Knee Wound Culture - Preliminary No growth-Final to follow Laboratory Results 06/28/25 04:10: WBC 9.5, RBC 3.32 L, Hgb 9.3 L, Hct 28.1 L, MCV 84.6, MCH 28.0, MCHC 33.1, RDW Std Deviation 41.8, RDW Coeff of Pedro 13.5, Plt Count 174, MPV 8.7, Sodium 139, Potassium 4.8, Chloride 105, Carbon Dioxide 21.6, Anion Gap 12, BUN 16, Creatinine 0.70, Estim Creat Clear Calc 112.34, Est GFR (MDRD) Non-Af 102, BUN/Creatinine Ratio 23.2 H, Glucose 206 H, Calcium 8.4 06/28/25 06:47: POC Glucose 172 H 06/28/25 11:01: POC Glucose 211 H #Hypertension - Patient's blood pressure presently 124/66 - 06/28: BP is controlled. Continue patient's lisinopril with holding parameters # Hyperlipidemia - Continue rosuvastatin # Right knee periprosthetic infection - Status post revision right total knee replacement removal articulating antibiotic spacer on 06/28/2025 - Patient on vancomycin and doxycycline per Ortho - Postoperative management/pain management per primary -Patient voiding urine. Last BM yesterday morning before surgery. PT/OT #DVT ppx: Timing and agent at discretion of primary team Charges/Coding Visit Charges Inpatient E&M: 05663 Subs Hosp L2
--- NOTE | 2025-06-28 08:05 | NURSING ---
Charting from 06/27/25 1900-06/28/25 0700, including shift assessment,post op checks, nursing notes, Joaquim, fall risk assessment, rounds, and vitals charted via paper charting on pt chart due to lack of [employer] access-IS aware.
--- NOTE | 2025-06-28 08:22 | PN.ORTHO_ITS ---
Subjective Subjective Patient is sitting comfortably in bedside chair upon examination. Patient states her pain is adequately controlled. Patient denies any nausea or vomiting at this point. Patient denies any new numbness or tingling. Patient denies any shortness of breath, chest pain, calf pain. Patient denies any fevers, chills, signs of infection. Patient has been up and to the bathroom. When patient got up to go to the bathroom this morning her wound VAC did get stuck on something and she accidentally ripped it out. Casimiro wrap was placed with high compression on dressing per Dr. Lay. Objective Data Objective Data Vital Signs: Vital Signs Temp Pulse Resp BP Pulse Ox O2 Del Method O2 Flow Rate 97.4 F L 91 16 102/56 L 93 Room Air 4 06/28/25 05:40 06/28/25 05:40 06/28/25 05:40 06/28/25 05:40 06/28/25 05:40 06/28/25 05:40 06/27/25 17:29 Oxygen Flow Rate (L/min) 4 Oxygen Delivery Method Room Air Weight: 109.3 kg Body Mass Index (BMI) 38.9 Intake & Output: Intake and Output for Last 24 Hours 06/26/25 06/27/25 06/28/25 23:59 23:59 23:59 Intake Total 2152 / 2432 330 / 330 Output Total 865 / 865 Balance 1287 / 1567 330 / 330 Lab / Micro Data 06/28/25 04:10 06/28/25 04:10 Labs: Laboratory Results - last 24 hr 06/27/25 10:48: POC Glucose 87 06/28/25 04:10: WBC 9.5, RBC 3.32 L, Hgb 9.3 L, Hct 28.1 L, MCV 84.6, MCH 28.0, MCHC 33.1, RDW Std Deviation 41.8, RDW Coeff of Pedro 13.5, Plt Count 174, MPV 8.7, Sodium 139, Potassium 4.8, Chloride 105, Carbon Dioxide 21.6, Anion Gap 12, BUN 16, Creatinine 0.70, Estim Creat Clear Calc 112.34, Est GFR (MDRD) Non-Af 102, BUN/Creatinine Ratio 23.2 H, Glucose 206 H, Calcium 8.4 06/28/25 06:47: POC Glucose 172 H Micro: Microbiology 06/04/25 11:01 Swab (Method) Nasal Screen MRSA/MSSA - Final Radiography Diagnostic Testing: Radiology Impression Knee X-Ray 06/27/25 16:35 IMPRESSION: Status post total right knee arthroplasty. Expected postoperative findings. Reading Location: [facility] Physical Exam Narrative Vitals stable and afebrile. GROVER hose in place on the left. SCDs in place bilaterally Prevena wound VAC in place. Without drainage in canister noted. Sensation intact to light touch. Neurovascularly intact overall. Dorsiflexion and plantarflexion are performed not pain or restriction Negative Homans bilaterally. 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 1. DVT prophylaxis: Patient will be on aspirin 81 mg twice daily for 4 weeks postoperatively. Patient was educated to wear GROVER hose for 2 weeks postoperatively removing for showers and removing at bedtime. 2. Pain medications: Patient will be on Tylenol 1000 mg every 8 hours, meloxicam for 30 days postoperatively, oxycodone as needed for postoperative pain control. OARRS report was checked and reviewed in office today. 3. Constipation: Patient was instructed to take senna as an instructed until her first bowel movement to decrease risk of impaction following surgery. Patient was educated they do not have a bowel movement within 3 days to call our office for reevaluation. 4. Physical therapy: Patient will be weightbearing as tolerated with physical therapy and range of motion as tolerated. At this time we are trying to get an X10 and home CPM program to reach out to the patient. Outpatient physical therapy will need established. 5. H&H: 9.3/28.1. Patient is currently on ferrous sulfate we will add folic acid daily following surgery. Will likely have patient follow-up in 1 week with primary care provider to make sure hemoglobin is trending upward. 6. Incentive spirometry: Patient was encouraged to use incentive spirometer every hour they are awake for the first week to exercise along decrease risk of postoperative lung infection. 7. Microbiology: Gram stain's and cultures are still pending at this time. 8. Doxycycline: Patient will be on doxycycline for 2 weeks due to nature of revision surgery. Patient was educated on increased risk of sunburn with doxycycline and was educated to take an probiotic while on doxycycline. 9. 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 10. Prevena wound VAC: Patient was educated that Prevena wound VAC would be on for 1 week. Patient was educated to keep wound VAC clean and dry. Patient was educated she will have to sponge bathe for the first week while wound VAC is on. 11. Patient will follow-up per postoperative instructions. 12. Medicine is involved in this case and will see patient today. 13. Patient will need a follow-up appointment with our office in 2 weeks for wound check. 14. Disposition: We will plan to keep patient for at least 48 hours at this time due to not having microbiology resulted at this time. We will need to continue following patient's cultures and Gram stains to ensure there is no infection at this time. Patient will continue to be weightbearing as tolerated with physical therapy. Patient states that her pain is adequately controlled at this time. Patient will need to keep Prevena wound VAC clean and dry while wearing. Patient will need a 2-week follow-up appointment with our office. Patient will need outpatient physical therapy established. Patient was encouraged to call with any questions, concerns, new problems.
[2025-06-28] MEDS: 0.9% Saline Lock 10 ML Syringe IV ×2 (08:24→15:03)
[2025-06-28 08:58] VITALS: BP 118/55; PULSE 80; RESP 16; TEMP 36.6; O2SAT 98
--- NOTE | 2025-06-28 10:35 | CASEMGMT ---
RA FOWLER Assessment: Face to Face with pt for initial transition planning/care coordination assessment. RA FOWLER introduced self and role at [facility], pt voices understanding and consents to assessment. Pt is A&O x4 and answers all questions appropriately at this time. Pt sitting up in chair in no distress with at bedside. Pt agreeable with assessment with present. Care providers, pharmacy, and demographics verified/updated. Admitting Dx: removal antibiotic spacer, revision Right Total Knee Strata Score: 1 PCP:[facility] Specialists:merle Lay Preferred Pharmacy: [facility] Retail Insurance: [employer] Prescription Benefit: yes LNOK: Diego Nicholson, Living Arrangements: Pt lives with in a two story home with 7 steps to enter with a rail. Pt reports at home she was I in ADLs except would assist in and out of of the shower on bench. Pt was doing own meals, laundry and getting groceries. Pt denies concerns at home. Transportation: Pt was driving self limited for the past two weeks. Pt and mother in law can transport pt until she can resume driving. DME:[employer], [employer], tub bench, FWW, cane HHC/SNF: Pt has had [facility] HHC in the past and been to [facility] Rehab unit. Pt states no concerns with going home at time of dc. Pt has OP therapy set up tomorrow but states she can reschedule if needed. Her next appt is set for Friday. Spoke with PA, plan for pt to stay as cx are pending. Pt states no further concerns/needs. CM to follow. Advised pt to ask CM if any further questions/concerns/needs arise, voices understanding. Pt Goal: Home with OP therapy Plan: Home with OP therapy Brian KNAPP CM
[2025-06-28 15:20] VITALS: BP 110/50; PULSE 80; RESP 16; TEMP 37.1; O2SAT 99
[2025-06-28] MEDS: Insulin Glargine-YFGN 100 UNIT/ML Pen 10 UNIT SC (17:43)
[2025-06-28 20:00] VITALS: PULSE 84
[2025-06-28 21:00] VITALS: BP 107/45; PULSE 84; RESP 16; TEMP 36.7; O2SAT 99
[2025-06-29 03:00] VITALS: BP 124/46; PULSE 89; RESP 16; TEMP 36.6; O2SAT 97
[2025-06-29 08:22] VITALS: BP 105/54; PULSE 89; RESP 18; TEMP 37; O2SAT 99
--- NOTE | 2025-06-29 10:07 | PCM.PN.ORT ---
Subjective Subjective The patient was sitting in bedside chair upon examination. Patient denies any chest pain, shortness of breath, dizziness, lightheadedness, nausea or vomiting, or calf pain. Pain is controlled on medications. No adverse overnight events. Patient is having some more pain in the knee and thigh today. Medications are helpful. She has done well with therapy. Patient did have a drop in her hemoglobin and is currently on ferrous sulfate and folic acid. No lab order was obtained today and I will place for lab prior to discharge. She is able to get up on her own and denies any dizziness or lightheadedness. Patient does report that the [employer] will provide her with a CPM machine this Friday. Objective Data Objective Data Vital Signs: Vital Signs Temp Pulse Resp BP Pulse Ox O2 Del Method O2 Flow Rate 98.6 F 89 18 105/54 L 99 Room Air 4 06/29/25 08:22 06/29/25 08:22 06/29/25 08:22 06/29/25 08:22 06/29/25 08:22 06/29/25 08:22 06/27/25 17:29 Oxygen Flow Rate (L/min) 4 Oxygen Delivery Method Room Air Weight: 109.3 kg Body Mass Index (BMI) 38.9 Intake & Output: Intake and Output for Last 24 Hours 06/27/25 06/28/25 06/29/25 23:59 23:59 23:59 Intake Total 2152 / 2432 503.75 / 503.75 0 / 0 Output Total 865 / 865 Balance 1287 / 1567 503.75 / 503.75 0 / 0 Lab / Micro Data 06/28/25 04:10 06/28/25 04:10 Labs: Laboratory Results - last 24 hr 06/28/25 11:01: POC Glucose 211 H 06/28/25 16:14: POC Glucose 183 H 06/29/25 06:20: POC Glucose 86 Micro: Microbiology 06/27/25 12:54 Tissue - Knee Gram Stain - Final 06/27/25 12:54 Tissue - Knee Wound Culture - Preliminary No growth-Final to follow 06/27/25 12:53 Tissue - Knee Gram Stain - Final 06/27/25 12:53 Tissue - Knee Wound Culture - Preliminary No growth-Final to follow 06/27/25 12:50 Tissue - Knee Gram Stain - Final 06/27/25 12:50 Tissue - Knee Wound Culture - Preliminary No growth-Final to follow 06/04/25 11:01 Swab (Method) Nasal Screen MRSA/MSSA - Final Physical Exam Narrative Vital signs stable and afebrile. SCDs and GROVER hose are in place bilaterally Patient is able to plantarflex and dorsiflex actively. Sensation is intact to light touch to saphenous, sural, superficial and deep peroneal, and tibial distribution. Prevena incisional wound VAC in place. There is no output or drainage in canister/tubing Negative Homans bilaterally, negative signs and symptoms of DVT. 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 1. DVT prophylaxis: Patient will be on aspirin 81 mg twice daily for 4 weeks postoperatively. Patient was educated to wear GROVER hose for 2 weeks postoperatively removing for showers and removing at bedtime. Patient denies past history of DVT or pulmonary embolism 2. Pain medications: Patient will be on Tylenol 1000 mg every 8 hours, meloxicam for 30 days postoperatively, oxycodone as needed for postoperative pain control. Do not take any other nonsteroidal anti-inflammatories while using meloxicam/Mobic. 3. Constipation: Patient did have a bowel movement today. She will use the stool softener as needed at this time. We discussed narcotics and the ferrous sulfate can cause some constipation. 4. Physical therapy: Patient will be weightbearing as tolerated with physical therapy and range of motion as tolerated. Patient does report they are coming out to her house on Friday to set her up on the CPM machine. She has outpatient physical therapy established for today at 4 PM and Friday. We will cancel the appointment for today and she will continue exercises daily until the Friday appointment. 5. H&H: Yesterday 9.3.1. Patient is currently on ferrous sulfate we will add folic acid daily following surgery. Patient is asymptomatic today. She denies any dizziness or lightheadedness. I will place lab order on her chart and we will have her follow-up with her primary care provider in 7-10 days for continued monitoring and management. We discussed the possibility of constipation on the ferrous sulfate. She will use stool softener as needed. If she is having significant constipation she will move from twice daily down to once daily with the ferrous sulfate. 6. Incentive spirometry: Patient was encouraged to use incentive spirometer every hour they are awake for the first week to exercise along decrease risk of postoperative lung infection. 7. Currently on doxycycline for 2 weeks postoperatively. Microbiology wound and tissue specimens were reviewed in chart and there is currently no growth or organisms seen today. I discussed with the patient potential side effects of doxycycline including sensitivity to the sunlight and increased risk of skin burn. Recommend patient take appropriate precautions. Also recommend patient to take probiotic while on the antibiotic. I did discuss with the patient that if there are any changes in her cultures we will contact her for any medication change. Patient voiced understanding agreement. 8. 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 Discussed with the patient that this is used off label for scar tissue prevention. We will continue treatment established per Dr. Jossue Lay. 10. Prevena wound VAC: Patient was educated that Prevena wound VAC would be on for 1 week. Patient was educated to keep wound VAC clean and dry. Patient can remove this on Friday, July 04, 2025. She cannot get this wet and will need to sponge bathe. Once the dressing has been removed on Friday she can shower and get the incision wet. Instructed patient that she should only use soap and water over the incision for 6 weeks postoperatively. She is not to place any ointments, salves or topicals on the incision for 6 weeks. Do not submerge underwater for 6 weeks. 11. Continue postoperative medical management per medicine: I discussed with the patient her blood pressure and she will hold any blood pressure at home if her systolic pressure is below 105. She takes lisinopril. She does have the ability to monitor her blood pressure at home. I would have her take the blood pressure prior to taking medication. If she has problems with the blood pressure she has to reach out to her primary care provider for further management. She voiced understanding. 12. Disposition: Plan will be for discharge home today as patient is medically stable, tolerating therapy, and pain is controlled. Patient will continue above pain medications, DVT prophylaxis, antibiotics and other medications per above documentation. I did discuss case with the care management team and we will have them schedule a follow-up with the primary care provider in 7-10 days with repeat labs. Lab order will be placed on chart. Patient will follow-up per our postoperative instructions. She has physical therapy established for Friday. We will cancel her therapy session for today. As long as patient's repeat labs are stable today we will plan on discharge. Upon discharge she will contact our office with any concerns or questions. She would like her prescriptions E scribed to [facility] pharmacy. I have reviewed the [place] Automated Rx Reporting System (OARRS) report for this patient for refill pattern and other prescriber involvement as part of the appropriate surveillance for the provision of acute and chronic controlled medications. The report was requested and reviewed on the date of this entry and was considered in the prescribing process. This dictation was created using voice recognition software. Phonetic and/or grammatical errors may exist.
--- NOTE | 2025-06-29 10:18 | DCINST_ITS ---
Discharge Instructions DC O2, CPAP, BIPAP needs Home O2 Discharge instructions: No Dressing / Incision Discharge Activity: May Not Drive (No driving for 6 weeks postoperatively. Must also be off all narcotics and able to walk 100 feet without the use of cane or walker.) and May Not Shower (Okay to shower on July 04, 2025 upon removal of the dressing.) May shower in (days): 5 Ice area for (Minutes): 20 (Every 1-2 hours while awake[address] place barrier between the skin and ice pack.) Weight Bearing Status: Weight bearing as tolerated (With walker) Keep extremity elevated above heart level: Operative Extremity Dressing / Incision Call your doctor if your incision/area has: Continuous Slow Oozing, Sudden Increased Bleeding, Increased Pain/ Swelling, Increased Redness and Foul Smelling Discharge Call your doctor if you observe: Fever of 101 or Higher, Coldness, Increased Pain, Numbness or Tingling, Change in Color, Shortness of breath, Chest pain, Calf discomfort and Uncontrolled pain Remove Dressing in: 5 days (Okay to remove Prevena incisional wound VAC on July 04, 2025.) Additional Dressing/Incision Instructions:: Follow [facility] Post-op Instructions. Once postoperative dressing has been removed only use gentle soap and water over the incision. Do not use any ointments, Neosporin, salves, alcohol pads over the incision for 6 weeks postoperatively. Do not submerge underwater for 6 weeks postoperatively. Continue with GROVER hose/elastic stockings for 2 weeks postoperatively. May remove at nighttime but needs to be placed back on the leg during the day. Do NOT use alcohol with narcotic pain medication. Do NOT make important decisions while taking narcotic medication. If you have problems with taking your medication (rash, itching, nausea, etc.) call the office at once. Follow Up Care Test Results: Test results from this visit will be discussed in further detail at your follow- up appointment, if applicable. Discharge Plan Admission Admit Date/Time: 06/27/25 15:27 Attending Provider: Jossue Lay Primary Care Provider: Carolin Cason Consulting Providers: Jw Dahl; Shane Mitchell; Aniya Yen; Medhat Rodriguez Discharge Orders/Prescriptions Prescriptions: New acetaminophen 500 mg Tablet 1,000 mg PO TID 14 Days Qty: 84 0RF Rx Instructions: Do not take more than 3000 mg Tylenol in a 24-hour period. aspirin 81 mg Tablet,Chewable 81 mg PO BIDCM 30 Days Qty: 60 0RF Rx Instructions: Take 81 mg aspirin twice daily for 4 weeks postoperatively for DVT prophylaxis. doxycycline monohydrate 100 mg Capsule 100 mg PO BID 12 Days Qty: 24 0RF Rx Instructions: Take for 2 weeks postoperatively while following cultures meloxicam 7.5 mg Tablet 7.5 mg PO BID 30 Days Qty: 60 0RF Rx Instructions: Do not take any other nonsteroidal anti-inflammatories while using meloxicam/Mobic. famotidine 20 mg Tablet 20 mg PO DAILY 30 Days Qty: 30 0RF montelukast 10 mg Tablet 10 mg PO DAILY@1700 30 Days Qty: 30 2RF Rx Instructions: Take for 3 months postoperatively oxycodone 5 mg Tablet 5 - 10 mg PO Q4H PRN PRN (Reason: as needed for pain) 7 Days Qty: 42 0RF sennosides-docusate sodium [Stimulant Laxative Plus] 8.6-50 mg Tablet 2 tab PO BID Qty: 0 0RF Rx Instructions: Take as needed for constipation Continued rosuvastatin 20 mg tablet 20 mg PO QHS ferrous sulfate [Feosol] 325 mg (65 mg iron) tablet 325 mg PO DAILY folic acid 1 mg tablet 1 mg PO DAILY glimepiride 4 mg tablet 6 mg PO DAILY Mounjaro 2.5 mg/0.5 mL pen injector 2.5 mg subcut ROLON Rx Instructions: for 4 weeks metformin 750 mg Tablet Extended Release 24 Hr 750 mg PO BID lisinopril 10 mg tablet 10 mg PO DAILY Qty: 1 0RF Rx Instructions: Do not take if your systolic blood pressure is lower than 105. Monitor blood pressure prior to taking medication. Discontinued acetaminophen 500 mg Tablet 1,000 mg PO Q8H PRN (Reason: pain or fever) Qty: 1 0RF Other Ambulatory Orders: CBC-Complete Blood Cnt No Diff (Routine) Timeframe: 1 Week Facility: [facility] - Location: Laboratory Ordered By: Garrick MALHOTRA Referrals / Follow Up: Carolin Cason, F[employer]DING INSPECTOR-C [Primary Care Provider, Family Practice] Referral Note: f/u in 7-10 days for continue management of post-operative anemia Garrick Arellano PA-C [Med Staff - [facility] Practice Prof, Orthopedics] - 07/11/25 3:00 am Disposition Disposition (needs filled in before D/C Order can be placed): Home, Self Care
[2025-06-29 11:05] LABS: Hematocrit 23.0 % (37-47); Hemoglobin 7.6 g/dL (12.0-15.0); Mean Corp Hgb Conc 33.0 g/dL (32-36); Mean Corpuscular Volume 85.8 fL (81-99); Mean Platelet Vol. 8.7 fl (6.2-12.0); Platelet Count 147 K/mm3 (150-450); RBC Distribution Width CV 14.2 % (11.6-14.6); RBC Distribution Width SD 43.9 fl (35.1-43.9); Red Blood Count 2.68 M/mm3 (4.2-5.4); White Blood Count 7.5 K/mm3 (4.4-11.0)
[2025-06-29] MEDS: 0.9% Saline Lock 10 ML Syringe IV (11:48)
[2025-06-29] MEDS: 0.9% Normal Saline (250mL Bag) 250 ML 15 ML IV (11:48)
[2025-06-29] MEDS: Sodium Ferric Gluconat/Sucrose 250 MG in 0.9% Normal Saline (250mL Bag) 250 ML 135 MG IV (11:48)
--- NOTE | 2025-06-29 12:06 | CASEMGMT ---
RA FOWLER NOTE: Pt being discharged home today. RA FOWLER placed call to [facility]. OP PT eval appt for today cancelled/rescheduled for Friday @ 0800 w/PTAlisha. This was added to pt's dc plan and pt updated. Pt to f/u with PCP in 7-10 days. Call placed to PCP's office. The earliest appt available is Jul 13 w/[employer]ATOR ASSEMBLER Claudine Heredia. ROSCOE Tariq, made aware. He states he is okay with f/u being in 14 days. Appt scheduled for Jul 13 @ [address] pt on the wait/cancellation list and call her if an earlier appt becomes available. Pt made aware and appt added to pt's dc plan. Pt also aware she is to have f/u lab/CBC drawn in [address] [facility] retail pharmacy. Total cost of pt's medications is $42.09. Pt made aware. She would like meds delivered to her room. Pharmacy notified. Pt denies having further discharge needs or concerns. Mack DAWKINSN RA FOWLER
[2025-06-29 14:09] VITALS: BP 125/53; PULSE 81; RESP 18; TEMP 36.9; O2SAT 100
--- NOTE | 2025-06-29 14:19 | PCM.PN.HOSP ---
Objective Data Objective Data Vital Signs: Vital Signs Temp Pulse Resp BP Pulse Ox O2 Del Method O2 Flow Rate 98.5 F 81 18 125/53 H 100 Room Air 4 06/29/25 14:06/29/25 14:06/29/25 14:06/29/25 14:06/29/25 14:06/29/25 14:06/27/25 17:29 Oxygen Flow Rate (L/min) 4 Oxygen Delivery Method Room Air Weight: 240 lb 15.444 oz Body Mass Index (BMI) 38.9 Intake & Output: Intake and Output for Last 24 Hours 06/27/25 06/28/25 06/29/25 23:59 23:59 23:59 Intake Total 2152 / 2432 503.75 / 503.75 270 / 270 Output Total 865 / 865 Balance 1287 / 1567 503.75 / 503.75 270 / 270 Lab / Micro Data 06/29/25 10:15 06/28/25 04:10 Labs: Laboratory Results - last 24 hr 06/28/25 16:14: POC Glucose 183 H 06/29/25 06:20: POC Glucose 86 06/29/25 10:15: WBC 7.5, RBC 2.68 L, Hgb 7.6 L, Hct 23.0 L, MCV 85.8, MCH 28.4, MCHC 33.0, RDW Std Deviation 43.9, RDW Coeff of Pedro 14.2, Plt Count 147 L, MPV 8.7 06/29/25 12:30: POC Glucose 149 H Micro: Microbiology 06/27/25 12:54 Tissue - Knee Gram Stain - Final 06/27/25 12:54 Tissue - Knee Wound Culture - Preliminary No growth-Final to follow 06/27/25 12:53 Tissue - Knee Gram Stain - Final 06/27/25 12:53 Tissue - Knee Wound Culture - Preliminary No growth-Final to follow 06/27/25 12:50 Tissue - Knee Gram Stain - Final 06/27/25 12:50 Tissue - Knee Wound Culture - Preliminary No growth-Final to follow 06/04/25 11:01 Swab (Method) Nasal Screen MRSA/MSSA - Final Physical Exam Narrative Seen and examined. Patient complaining of swelling and pain above right knee, thigh. Mild to moderate right thigh pain. Hemoglobin dropped to 7.6 g%. Physical exam General: Alert, Oriented x3, Cooperative HEENT: Atraumatic, PERRLA, EOMI, Normocephalic. Oral: No Gingival or Mucosal Lesions/ Ulcerations Neck: Supple, No JVD, Negative Carotid Bruits Chest wall/Lungs: Air entry diminished in bilateral lung bases. No crepitation/rhonchi Cardiovascular: Regular rate and rhythm, Normal S1,S2, No M/G/R Abdomen: Bowel Sounds Present, Soft, Non Tender, Non-Distended : No dysuria. No renal angle tenderness. No suprapubic tenderness. Extremities: No edema, Capillary Refill Less than 3 Seconds Skin: Right knee surgical dressing is dry. Musculoskeletal: ROM limited over right knee. Mild swelling induration and tenderness of the right thigh Neurological: Cranial nerves II-XII grossly intact, DTR 2+/4. No acute focal neurological deficit. Psych/Mental Status: Normal Affect, Appropriate. 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 Started on the Lantus 10 units subcutaneous at dinnertime. Accu-Chek before meals and at bedtime with Humalog sliding scale coverage and hypoglycemia protocol. 06/29 glucose 149. A1c 6.2%. Follow with PCP. Glucose is reasonably well-controlled Acute postoperative blood loss anemia: Hemoglobin dropped from 9.3-7.6. IV iron infusion ordered. No indication for PRBC transfusion. Patient on ferrous sulfate and vitamin C. Discussed with orthopedics Garrick MALHOTRA and advised ferrous sulfate 325 mg, 1 tablet p.o. every other day. Follow-up with PCP for repeat CBC in 1 week #Hypertension - Patient's blood pressure presently 124/66 - 06/28: BP is controlled. Continue patient's lisinopril with holding parameters # Hyperlipidemia - Continue rosuvastatin # Right knee periprosthetic infection - Status post revision right total knee replacement removal articulating antibiotic spacer on 06/28/2025 - Patient on vancomycin and doxycycline per Ortho - Postoperative management/pain management per primary -Patient voiding urine. Last BM yesterday morning before surgery. PT/OT 06/29: Patient had postoperative right thigh swelling/edema and pain. Continue PT and OT and pain control. Follow with orthopedic surgeon as an outpatient. Patient is being discharged today by orthopedic service. #DVT ppx: Timing and agent at discretion of primary team Charges/Coding Visit Charges Inpatient E&M: 34948 Subs Hosp L2
--- NOTE | 2025-06-29 14:41 | PHA.DC.MC.R ---
Pharmacy [facility] Counseling Pharmacy Service has performed discharge medication reconciliation and counseling for this patient. 1. ACETAMINOPHEN 1000MG PO Q8 2. ASPIRIN 81MG PO BIDCM 3. DOXYCYCLINE 100MG PO BID X 12 DAYS 4. FAMOTIDINE 20MG PO DAILY 5. MONTELUKAST 10MG PO DINNER X 3 MONTHS 6. OXYCODONE 5-10MG PO Q4H PRN PAIN 7. SENNA/DOCUSATE 2T PO BID PRN CONSTIPATION The patient's discharge medication list was reviewed for discrepancies and discrepancies were resolved. The patient was counseled on the following discharge medications and changes in medications for homegoing were reviewed. The Reason for Use, instructions for use, and potential side effects were reviewed for all new medications. The patient's questions regarding all of their medications were answered. The patient was able to verbally demonstrate an understanding of their discharge medications. Medications at Discharge Home Medications rosuvastatin 20 mg tablet 20 mg PO QHS cholesterol 08/10/24 ferrous sulfate 325 mg (65 mg iron) tablet (Feosol) 325 mg PO DAILY SUPPLEMENT 03/11/25 folic acid 1 mg tablet 1 mg PO DAILY SUPPLEMENT 03/11/25 glimepiride 4 mg tablet 6 mg PO DAILY diabetes 06/09/25 metformin 750 mg tablet,extended release 24 hr 750 mg PO BID diabetes 06/09/25 tirzepatide 2.5 mg/0.5 mL subcutaneous pen injector (Mounjaro) 2.5 mg subcut ROLON diabetes 06/09/25 acetaminophen 500 mg tablet 1,000 mg (2 x 500 mg) PO TID 14 days #84 tabs 06/29/25 aspirin 81 mg chewable tablet 81 mg PO BIDCM 30 days #60 tabs 06/29/25 doxycycline monohydrate 100 mg capsule 100 mg PO BID 12 days #24 caps 06/29/25 famotidine 20 mg tablet 20 mg PO DAILY 30 days #30 tabs 06/29/25 lisinopril 10 mg tablet 10 mg PO DAILY bp #1 TAB 06/29/25 meloxicam 7.5 mg tablet 7.5 mg PO BID 30 days #60 tabs 06/29/25 montelukast 10 mg tablet 10 mg PO DAILY@1700 30 days #30 tabs 06/29/25 oxycodone 5 mg tablet 5 - 10 mg (1 - 2 x 5 mg) PO Q4H PRN PRN as needed for pain 7 days #42 tabs 06/29/25 sennosides 8.6 mg-docusate sodium 50 mg tablet (Stimulant Laxative Plus) 2 tab PO BID #0 tabs 06/29/25
== END 2025-06-29 14:50 | disposition home or self-care (01) | DRG 467 ==
LOC: ACINP 16:50 → MS3 17:17
PROVIDERS: Anesthesiology; Physician Assistant Surgical; Admitting Provider Specialist; PCP Nurse Practitioner Family; Referring Provider Specialist; Visit Provider Specialist
PROC: 0SRC0J9 Replacement of Right Knee Joint with Synthetic Substitute, Cemented, Open Approach (ICD-10-PCS; principal; 2025-06-27 11:35)
DX: T84.53XA Infection and inflammatory reaction due to internal right knee prosthesis, initial encounter (principal); D62 Acute posthemorrhagic anemia; Z68.41 Body mass index [BMI] 40.0-44.9, adult; E11.9 Type 2 diabetes mellitus without complications; I10 Essential (primary) hypertension; E66.01 Morbid (severe) obesity due to excess calories; E78.00 Pure hypercholesterolemia, unspecified; G47.30 Sleep apnea, unspecified; M19.90 Unspecified osteoarthritis, unspecified site; Z79.82 Long term (current) use of aspirin; Z79.84 Long term (current) use of oral hypoglycemic drugs; Z79.85 Long-term (current) use of injectable non-insulin antidiabetic drugs; Z79.899 Other long term (current) drug therapy; Z87.891 Personal history of nicotine dependence; Z96.651 Presence of right artificial knee joint; Y79.2 Prosthetic and other implants, materials and accessory orthopedic devices associated with adverse incidents
CPT/HCPCS: 36415; 73560; 80048; 82040; 82962; 83036; 83735; 85027; 87015; 87070; 87075; 87081; 87102; 87116; 87176; 87205; 87206; 94668; 97162; 97165; 97802; C1776; A4216; J2405; J2916; J3475

== ENCOUNTER → 2025-07-11 | Outpatient (CLI) | payer BC, SELFPAY ==
[2025-07-11 14:34] LABS: Hematocrit 31.6 % (37-47); Hemoglobin 9.9 g/dL (12.0-15.0); Mean Corp Hgb Conc 31.3 g/dL (32-36); Mean Corpuscular Volume 90.0 fL (81-99); Mean Platelet Vol. 9.5 fl (6.2-12.0); Platelet Count 288 K/mm3 (150-450); RBC Distribution Width CV 15.9 % (11.6-14.6); RBC Distribution Width SD 50.4 fl (35.1-43.9); Red Blood Count 3.51 M/mm3 (4.2-5.4); White Blood Count 8.6 K/mm3 (4.4-11.0)
== END | disposition home or self-care (01) ==
LOC: LAB 13:28
PROVIDERS: PCP Nurse Practitioner Family; Referring Provider Physician Assistant Surgical; Visit Provider Physician Assistant Surgical
DX: Z96.651 Presence of right artificial knee joint (principal)
CPT/HCPCS: 36415; 85027